=== PATIENT | female | born 1960 | race Caucasian/White ===

== ENCOUNTER 2018-11-08 16:55 | Inpatient (IN) | payer OTHER ==
[2018-11-08] MEDS ORDERED: NA CHLORIDE 0.9% 1,000 ML ONE (17:43)
[2018-11-08] MEDS ORDERED: THIAMINE 200 MG/2 ML INJ ONE (17:43)
--- NOTE | 2018-11-08 17:44 | RAD REPORT ---
EXAM DESCRIPTION: CT - Head Brain Wo Cont - 11/08/2018 5:36 pm CLINICAL HISTORY: Dizziness;Seizure COMPARISON: HEAD BRAIN W O CONTRAST dated 08/04/2012; HEAD BRAIN W O CONTRAST dated 12/28/2009 TECHNIQUE: All CT scans are performed using dose optimization technique as appropriate and may inclu de automated exposure control or mA/KV adjustment according to patient size. FINDINGS: No intracranial hemorrhage, hydrocephalus or extra-axial fluid collection.No areas of brai n edema or evidence of midline shift. The paranasal sinuses and mastoids are clear. The calvarium is intact. IMPRESSION: No acute intracranial abnormality.
--- NOTE | 2018-11-08 17:52 | RAD REPORT ---
EXAM DESCRIPTION: RAD - Chest Single View - 11/08/2018 5:43 pm CLINICAL HISTORY: COUGH Chest pain. COMPARISON: CHEST SINGLE VIEW dated 08/26/2012; CHEST SINGLE VIEW dated 12/28/2009; CHEST SINGLE VIEW dated 09/04/2009; CHEST SINGLE VIEW dated 06/07/2009 FINDINGS: Portable technique limits examination quality. The lungs are grossly clear. The heart is normal in size. No displaced fractures.Cervical hardware pl ate is noted. IMPRESSION: No acute intrathoracic process suspected.
[2018-11-08] MEDS ORDERED: FOLIC ACID 5 MG/ML VIAL ONE (18:14)
[2018-11-08] MEDS ORDERED: MULTIVITAMINS 10 ML VIAL (INJ) IV ONE (18:14)
[2018-11-08 18:23] LABS: Absolute Lymphocytes (CBC) 1.5 K/uL (0.7-4.9); Hematocrit 38.1 % (36.0-45.0); Lymphocytes % 21.3 % (15.3-44.8); MPV 7.4 fL (7.6-11.3)
[2018-11-08 18:26] LABS: Protime INR 0.9
[2018-11-08 18:34] LABS: Barbiturates NEGATIVE (NEGATIVE); Benzodiazepines NEGATIVE (NEGATIVE); Cocaine NEGATIVE (NEGATIVE); METHAMPHETAM NEGATIVE (NEGATIVE); Methadone NEGATIVE (NEGATIVE); Opiates NEGATIVE (NEGATIVE); Phencyclidine NEGATIVE (NEGATIVE); THC Cannibis NEGATIVE (NEGATIVE)
[2018-11-08 18:50] LABS: ALT/SGPT 29 U/L (12-78); AST/SGOT 32 U/L (15-37); Albumin 3.3 g/dL (3.4-5.0); Alkaline Phosphatase 129 U/L (45-117); BUN Blood Urea Nitrogen 12 mg/dL (7-18); Bicarbonate 20 mmol/L (21-32); Bilirubin Direct < 0.1 mg/dL (0-0.2); Bilirubin Total 0.2 mg/dL (0.2-1.0); Glucose Level 112 mg/dL (74-106); Magnesium 1.9 mg/dL (1.8-2.4); NT PRO-BNP 115 pg/mL (<125); Protein, Total 6.9 g/dL (6.4-8.2); Sodium Level 139 mmol/L (136-145)
[2018-11-08 18:56] LABS: Troponin (Emerg Dept Use Only) < 0.02 ng/mL (0.0-0.045)
--- NOTE | 2018-11-08 19:18 | ER ---
Nurse's Notes [facility] Name: Isabelle Lowery Age: 58 yrs Sex: Female : 1960 Arrival Date: 11/08/2018 Time: 16:59 Bed 13 Private MD: Diagnosis: Weakness;Ataxic gait;Bipolar disorder;Repeated falls;Alcohol abuse Presentation: 11/08 17:11 Presenting complaint: states: "she has been doing these jerky movements, almost sv like Parkinson's for about a week now. She told me on Wednesday that she took too much of her Seroquel and then I locked up all of her medications." Pt states that she took too much Seroquel Wednesday because "I wanted to ." Pt denies SI at this time. Pt reports having 3 shots of tequila today. Pt was found today laying in her driveway passed out. Transition of care: patient was not received from another setting of care. Onset of symptoms was November 08, 2018. Risk Assessment: Do you want to hurt yourself or someone else? Patient reports no desire to harm self or others. Initial Sepsis Screen: Does the patient meet any 2 criteria? Yes Does the patient have a suspected source of infection? No. Patient's initial sepsis screen is negative. Care prior to arrival: None. 17:11 Method Of Arrival: Ambulatory sv 17:11 Acuity: [place]UG[place] 3 sv Historical: - Allergies: 17:16 No Known Allergies; sv - Home Meds: 17:16 Seroquel 300 mg Oral tab [Active]; fluoxetine 20 mg Oral tab [Active]; lithium sv carbonate 300 mg Oral tab [Active]; levothyroxine 50 mcg tab [Active]; Prozac 20 mg Oral cap [Active]; Vistaril 25 mg Oral cap [Active]; Minipress 1 mg Oral cap [Active]; trazodone 100 mg Oral tab [Active]; Risperdal 1 mg Oral tab [Active]; bupropion HCl 150 mg Oral TbER [Active]; - PMHx: 17:16 Hypotension; Bipolar disorder; Schizophrenia; sv - PSHx: 17:16 Cholecystectomy; ; sv - Immunization history:: Adult Immunizations unknown. - Social history:: Smoking status: Patient uses tobacco products, smokes one pack cigarettes per day. - Ebola Screening: : No symptoms or risks identified at this time. Screenin:26 Abuse screen: Denies threats or abuse. Denies injuries from another. Nutritional rv screening: No deficits noted. Tuberculosis screening: No symptoms or risk factors identified. Fall Risk None identified. Assessment: 18:25 General: Appears in no apparent distress. comfortable, Behavior is calm, cooperative. rv Pain: Complains of pain in left foot. Neuro: Level of Consciousness is awake, alert, obeys commands, Oriented to person, place, time, situation. Cardiovascular: Patient's skin is warm and dry. Respiratory: Airway is patent. GI: No signs and/or symptoms were reported involving the gastrointestinal system. : No signs and/or symptoms were reported regarding the genitourinary system. EENT: No signs and/or symptoms were reported regarding the EENT system. Derm: Skin is intact. Musculoskeletal: No signs and/or symptoms reported regarding the musculoskeletal system. 18:32 Reassessment: called [facility], suggested blood works. most likely rv the Seroquel will not show effects by now because it has been a week ago. suggesting to check on other possible medicine overdose and check for [place] level. . 19:00 General: Appears in no apparent distress. comfortable, Behavior is calm, cooperative, rr5 appropriate for age, mild tremors noted.. 19:00 Pain: Denies pain. Neuro: Level of Consciousness is awake, alert, obeys commands, rr5 Oriented to person, place, time, situation, Appropriate for age. Cardiovascular: Capillary refill < 3 seconds Patient's skin is warm and dry. Respiratory: Airway is patent Respiratory effort is even, unlabored, Respiratory pattern is regular, symmetrical. GI: No signs and/or symptoms were reported involving the gastrointestinal system. : No signs and/or symptoms were reported regarding the genitourinary system. EENT: No signs and/or symptoms were reported regarding the EENT system. Derm: Skin is intact, Skin temperature is warm. Musculoskeletal: Circulation, motion, and sensation intact. Capillary refill < 3 seconds, tremors noted. 19:00 Reassessment: Patient appears in no apparent distress at this time. Patient and/or rr5 family updated on plan of care and expected duration. Pain level reassessed. Patient is alert, oriented x 3, equal unlabored respirations, skin warm/dry/pink. updated the patient for admission , she agreed for the plan of care. 19:10 Reassessment: lithium 2.3 laboratory staff IVO. ED provider informed. rr5 20:05 Reassessment: Patient appears in no apparent distress at this time. Patient is alert, rr5 oriented x 3, equal unlabored respirations, skin warm/dry/pink. awaiting for room assignment. no complaints made. Patient states symptoms have improved. 20:21 Reassessment: poison control staff saida called and get an update. case number [id number]. she said if the lithium level is still on the higher level please call them back to refer her to toxicology for consideration of dialysis. 21:30 Reassessment: Patient appears in no apparent distress at this time. Patient and/or rr5 family updated on plan of care and expected duration. Pain level reassessed. Patient is alert, oriented x 3, equal unlabored respirations, skin warm/dry/pink. resting eyes closed breathing spontaneously at room air. vitally stable. Vital Signs: 17:16 BP 115 / 88; Pulse 86; Resp 16; Temp 97.6; Pulse Ox 96% ; Weight 72.57 kg; Height 5 ft. sv 4 in. (162.56 cm); 17:30 BP 115 / 86; Pulse 84; Resp 14; Pulse Ox 94% on R/A; rv 18:04 BP 117 / 84; Pulse 78; Resp 15; Pulse Ox 95% on R/A; rv 18:15 BP 113 / 85; Pulse 78; Resp 16; Pulse Ox 95% on R/A; rv 18:31 BP 128 / 72; Pulse 78; Resp 17; Pulse Ox 95% on R/A; rv 19:15 BP 118 / 78; Pulse 74; Resp 19; Temp 99.5; Pulse Ox 99% ; rr5 21:31 BP 116 / 86; Pulse 80; Resp 17; Temp 99.2; Pulse Ox 96% ; rr5 17:16 Body Mass Index 27.46 (72.57 kg, 162.56 cm) sv [place] Coma Score: 18:26 Eye Response: spontaneous(4). Verbal Response: oriented(5). Motor Response: obeys rv commands(6). Total: 15. ED Course: 16:59 Patient arrived in ED. mr 17:14 Triage completed. sv 17:16 Ney Meier MD is Attending Physician. charu 17:17 Arm band placed on. sv 17:25 Arun Paredes, RN is Primary Nurse. rv 17:30 EKG done, by emergency room technician. reviewed by Ney Meier MD. sm3 17:41 CT Head Brain wo Cont In Process Unspecified. EDMS 17:46 XRAY Chest (1 view) In Process Unspecified. EDMS 18:05 Inserted saline lock: 20 gauge in left antecubital area, using aseptic technique. Blood rv collected. 18:26 Patient has correct armband on for positive identification. Placed in gown. Bed in low rv position. Call light in reach. Side rails up X2. Adult w/ patient. Fall risk band placed. Seizure precautions initiated. patient monitor on. Pulse ox on. NIBP on. 19:13 Janey Larios MD is Hospitalizing Provider. charu 21:31 No provider procedures requiring assistance completed. Patient admitted, IV remains in rr5 place. intact, No redness/swelling at site. Administered Medications: 18:14 Drug: Banana Bag - (NS 0.9% 1000 ml, foLIC Acid 1 mg, Thiamine 100 mg, Multivitamin 1 rv amp) Route: IV; Rate: 125 ml/hr; Site: left antecubital; 22:53 Follow up: IV Status: Completed infusion rv 19:34 Not Given (Duplicate Order): NS 0.9% 1000 ml IV at 1 bolus Per protocol; 1000 mL bolus rr5 19:34 Not Given (Duplicate Order): Thiamine 100 mg IV at bolus once rr5 Outcome: 19:16 Decision to Hospitalize by Provider. charu 21:31 Admitted to Tele accompanied by tech, via stretcher, room 402, with chart, Report rr5 called to sondra 21:31 Condition: stable 21:31 Instructed on the need for admit. rr5 22:06 Patient left the ED. rr5 Signatures: Dispatcher [employer] Sandra Talley, RN Ney Kulkarni MD MD cha Rivera, Colleen Bello, Dalila 3 Arun Paredes, RN RN rv Naren Kee, RN RN rr5
--- NOTE | 2018-11-08 19:19 | EDPHYS ---
Physician Documentation [facility] Name: Isabelle Lowery Age: 58 yrs Sex: Female : 1960 Arrival Date: 11/08/2018 Time: 16:59 Bed 13 Private MD: Ney Tam HPI: 11/08 18:00 This 58 yrs old Female presents to ER via Ambulatory with complaints of charu Probable Seizure. 18:00 The patient presents after having a possible seizure episode, no tonic-clonic activity charu was appreciated, no post-ictal period is described. Character of seizure(s): Loss of consciousness: the patient did not lose consciousness, Motor activity: the motor activity is unknown, Incontinence: none, Apnea: the patient did not experience apnea. Seizure onset: just prior to arrival, this morning, today. Context: occurred at home. Seizure Hx: the patient has no previous seizure history. Historical: - Allergies: 17:16 No Known Allergies; sv - Home Meds: 17:16 Seroquel 300 mg Oral tab [Active]; fluoxetine 20 mg Oral tab [Active]; lithium sv carbonate 300 mg Oral tab [Active]; levothyroxine 50 mcg tab [Active]; Prozac 20 mg Oral cap [Active]; Vistaril 25 mg Oral cap [Active]; Minipress 1 mg Oral cap [Active]; trazodone 100 mg Oral tab [Active]; Risperdal 1 mg Oral tab [Active]; bupropion HCl 150 mg Oral TbER [Active]; - PMHx: 17:16 Hypotension; Bipolar disorder; Schizophrenia; sv - PSHx: 17:16 Cholecystectomy; ; sv - Immunization history:: Adult Immunizations unknown. - Social history:: Smoking status: Patient uses tobacco products, smokes one pack cigarettes per day. - Ebola Screening: : No symptoms or risks identified at this time. ROS: 18:02 Constitutional: Negative for fever, chills, and weight loss, Eyes: Negative for injury, charu pain, redness, and discharge, ENT: Negative for injury, pain, and discharge, Neck: Negative for injury, pain, and swelling, Cardiovascular: Negative for chest pain, palpitations, and edema, Respiratory: Negative for shortness of breath, cough, wheezing, and pleuritic chest pain, Abdomen/GI: Negative for abdominal pain, nausea, vomiting, diarrhea, and constipation, Back: Negative for injury and pain, : Negative for injury, bleeding, discharge, and swelling, MS/Extremity: Negative for injury and deformity, Skin: Negative for injury, rash, and discoloration, Psych: Negative for depression, anxiety, suicide ideation, homicidal ideation, and hallucinations, Allergy/Immunology: Negative for hives, rash, and allergies, Endocrine: Negative for neck swelling, polydipsia, polyuria, polyphagia, and marked weight changes, Hematologic/Lymphatic: Negative for swollen nodes, abnormal bleeding, and unusual bruising. 18:02 Neuro: Positive for dizziness, gait disturbance, seizure activity, weakness. Exam: 18:02 Constitutional: This is a well developed, well nourished patient who is awake, alert, charu and in no acute distress. Head/Face: Normocephalic, atraumatic. Eyes: Pupils equal round and reactive to light, extra-ocular motions intact. Lids and lashes normal. Conjunctiva and sclera are non-icteric and not injected. Cornea within normal limits. Periorbital areas with no swelling, redness, or edema. ENT: Nares patent. No nasal discharge, no septal abnormalities noted. Tympanic membranes are normal and external auditory canals are clear. Oropharynx with no redness, swelling, or masses, exudates, or evidence of obstruction, uvula midline. Mucous membranes moist. Neck: Trachea midline, no thyromegaly or masses palpated, and no cervical lymphadenopathy. Supple, full range of motion without nuchal rigidity, or vertebral point tenderness. No Meningismus. Chest/axilla: Normal chest wall appearance and motion. Nontender with no deformity. No lesions are appreciated. Cardiovascular: Regular rate and rhythm with a normal S1 and S2. No gallops, murmurs, or rubs. Normal PMI, no JVD. No pulse deficits. Respiratory: Lungs have equal breath sounds bilaterally, clear to auscultation and percussion. No rales, rhonchi or wheezes noted. No increased work of breathing, no retractions or nasal flaring. Abdomen/GI: Soft, non-tender, with normal bowel sounds. No distension or tympany. No guarding or rebound. No evidence of tenderness throughout. Female : Normal external genitalia. Skin: Warm, dry with normal turgor. Normal color with no rashes, no lesions, and no evidence of cellulitis. Psych: Awake, alert, with orientation to person, place and time. Behavior, mood, and affect are within normal limits. 18:02 Back: Exam negative for Vital Signs: 17:16 BP 115 / 88; Pulse 86; Resp 16; Temp 97.6; Pulse Ox 96% ; Weight 72.57 kg; Height 5 ft. sv 4 in. (162.56 cm); 17:30 BP 115 / 86; Pulse 84; Resp 14; Pulse Ox 94% on R/A; rv 18:04 BP 117 / 84; Pulse 78; Resp 15; Pulse Ox 95% on R/A; rv 18:15 BP 113 / 85; Pulse 78; Resp 16; Pulse Ox 95% on R/A; rv 18:31 BP 128 / 72; Pulse 78; Resp 17; Pulse Ox 95% on R/A; rv 19:15 BP 118 / 78; Pulse 74; Resp 19; Temp 99.5; Pulse Ox 99% ; rr5 21:31 BP 116 / 86; Pulse 80; Resp 17; Temp 99.2; Pulse Ox 96% ; rr5 17:16 Body Mass Index 27.46 (72.57 kg, 162.56 cm) sv [place] Coma Score: 18:26 Eye Response: spontaneous(4). Verbal Response: oriented(5). Motor Response: obeys rv commands(6). Total: 15. MDM: 17:16 Patient medically screened. [facility] 18:04 Data reviewed: vital signs, nurses notes, lab test result(s), EKG, radiologic studies, [facility] CT scan, plain films. 11/08 17:18 Order name: Basic Metabolic Panel; Complete Time: 19:06 [facility] 11/08 17:18 Order name: CBC with Diff; Complete Time: : [facility] 11/08 17:18 Order name: LFT's; Complete Time: : [facility] 11/08 17:18 Order name: Magnesium; Complete Time: 19: [facility] 11/08 17:18 Order name: NT PRO-BNP; Complete Time: 19:06 [facility] 11/08 17:18 Order name: PT-INR; Complete Time: 19:06 [facility] 11/08 17:18 Order name: Troponin (emerg Dept Use Only); Complete Time: 19:42 [facility] 11/08 17:18 Order name: Acetaminophen; Complete Time: 19:42 [facility] 11/08 17:18 Order name: ETOH Level; Complete Time: 19:06 [facility] 11/08 17:18 Order name: Ptt, Activated; Complete Time: 19:06 [facility] 11/08 17:18 Order name: Salicylate; Complete Time: 19:06 [facility] 11/08 17:18 Order name: Urine Drug Screen; Complete Time: 19:06 [facility] 11/08 18:02 Order name: [place] [facility] 11/08 18:11 Order name: Urine Dipstick--Ancillary (enter results) 11/08 17:18 Order name: XRAY Chest (1 view); Complete Time: 18:00 [facility] 11/08 17:18 Order name: EKG; Complete Time: 17:20 [facility] 11/08 17:18 Order name: CT Head Brain wo Cont; Complete Time: 18:00 [facility] 11/08 19:11 Order name: [place]; Complete Time: 20:02 [facility] 11/08 20:16 Order name: CONS Pharmacy Consult [facility] 11/08 20:16 Order name: CONS Physician Consult [facility] 11/08 20:16 Order name: Comprehensive Metabolic Panel [facility] 11/08 20:16 Order name: Comprehensive Metabolic Panel [facility] 11/08 20:16 Order name: Protime (+INR) [facility] 11/08 20:16 Order name: Protime (+INR) [facility] 11/08 20:16 Order name: PTT, Activated Partial Thromb [facility] 11/08 20:16 Order name: PTT, Activated Partial Thromb [facility] 11/08 20:17 Order name: NPO [facility] 11/08 17:18 Order name: Cardiac monitoring; Complete Time: 19:03 [facility] 11/08 17:18 Order name: EKG - Nurse/Tech; Complete Time: 19:03 [facility] 11/08 17:18 Order name: IV Saline Lock; Complete Time: 19:03 [facility] 11/08 17:18 Order name: Labs collected and sent; Complete Time: 19:03 [facility] 11/08 17:18 Order name: O2 Per Protocol; Complete Time: 19:03 [facility] 11/08 17:18 Order name: O2 Sat Monitoring; Complete Time: 19:03 [facility] 11/08 17:18 Order name: Urine Dipstick-Ancillary (obtain specimen); Complete Time: 18:58 [facility] 11/08 17:18 Order name: Misc. Order: CALL Poison control; Complete Time: 18:17 charu 11/08 17:19 Order name: Seizure Precautions; Complete Time: 17:42 [facility] Administered Medications: 18:14 Drug: Banana Bag - (NS 0.9% 1000 ml, foLIC Acid 1 mg, Thiamine 100 mg, Multivitamin 1 rv amp) Route: IV; Rate: 125 ml/hr; Site: left antecubital; 22:53 Follow up: IV Status: Completed infusion rv 19:34 Not Given (Duplicate Order): NS 0.9% 1000 ml IV at 1 bolus Per protocol; 1000 mL bolus rr5 19:34 Not Given (Duplicate Order): Thiamine 100 mg IV at bolus once rr5 Disposition: 11/08/18 19:16 Hospitalization ordered by Janey Larios for Inpatient Admission. Preliminary diagnosis are Weakness, Ataxic gait, Bipolar disorder, Repeated falls, Alcohol abuse. - Bed requested for Telemetry/MedSurg (Inpatient). - Status is Inpatient Admission. rr5 - Condition is Fair. - Problem is new. - Symptoms have improved. UTI on Admission? No Signatures: Dispatcher [employer] EDMS Sandra Minor RN Ney Kulkarni MD MD cha Therrien, Shelly, INSURANCE RISK SURVEYOR-C INSURANCE RISK SURVEYOR-Csnw Jocelyn Fernando, KELTON RN Arun Paredes RN RN Naren Kee RN RN rr5 Corrections: (The following items were deleted from the chart) 20:38 19:16 Hospitalization Ordered by Janey Larios MD for Inpatient Admission. Preliminary cg diagnosis is Weakness; Ataxic gait; Bipolar disorder; Repeated falls; Alcohol abuse. Bed requested for Telemetry/MedSurg (Inpatient). Status is Inpatient Admission. Condition is Fair. Problem is new. Symptoms have improved. UTI on Admission? No. charu 20:42 20:38 11/08/2018 19:16 Hospitalization Ordered by Janey Larios MD for Inpatient cg Admission. Preliminary diagnosis is Weakness; Ataxic gait; Bipolar disorder; Repeated falls; Alcohol abuse. Bed requested for Telemetry/MedSurg (Inpatient). Status is Inpatient Admission. Condition is Fair. Problem is new. Symptoms have improved. UTI on Admission? No. cg 22:06 20:42 11/08/2018 19:16 Hospitalization Ordered by Janey Larios MD for Inpatient rr5 Admission. Preliminary diagnosis is Weakness; Ataxic gait; Bipolar disorder; Repeated falls; Alcohol abuse. Bed requested for Telemetry/MedSurg (Inpatient). Status is Inpatient Admission. Condition is Fair. Problem is new. Symptoms have improved. UTI on Admission? No. cg
[2018-11-08] MEDS ORDERED: MORPHINE 2 MG/ML SYR IV PRN (19:50)
[2018-11-08] MEDS ORDERED: ONDANSETRON 4 MG/2 ML VIAL IV PRN (19:50)
[2018-11-08] MEDS ORDERED: ACETAMINOPHEN 500 MG TAB PO PRN (19:50)
[2018-11-08 21:51] LABS: Urine Blood NEGATIVE (NEG); Urine Glucose NEGATIVE (NEG); Urine Protein NEGATIVE (NEG)
[2018-11-08 22:38] VITALS: BMI 26.2
[2018-11-08] MEDS: NA CHLORIDE 0.9% 1,000 ML IV SCH (22:57)
[2018-11-09 04:44] LABS: Absolute Lymphocytes (CBC) 2.4 K/uL (0.7-4.9); Basophils % 1.1 % (0-1.3); Hematocrit 35.6 % (36.0-45.0); MPV 7.3 fL (7.6-11.3); RBC Red Blood Cell Count 3.81 M/uL (3.86-4.86)
[2018-11-09 05:02] LABS: Albumin 2.8 g/dL (3.4-5.0); Bilirubin Total 0.4 mg/dL (0.2-1.0); Potassium 4.2 mmol/L (3.5-5.1); Protein, Total 5.7 g/dL (6.4-8.2)
[2018-11-09 05:08] LABS: Protime INR 0.95
[2018-11-09] MEDS ORDERED: PNEUMOCOCCAL VACCINE 0.5 ML IMVAC ONE (09:00)
[2018-11-09] MEDS: NA CHLORIDE 0.9% 1,000 ML IV SCH (09:20)
--- NOTE | 2018-11-09 09:24 | EKG ---
Test Date: 2018-11-08 Test Time: 17:28:29 Retouching Operator: ZEE MEASUREMENT RESULTS: Intervals: Rate: 80 DC: 134 QRSD: 86 QT: 390 QTc: 449 [place]: P: 8 DC: 134 QRS: 20 T: 29 INTERPRETIVE STATEMENTS: Normal sinus rhythm Nonspecific T wave abnormality Abnormal ECG Compared to ECG 08/26/2012 19:45:26 T-wave abnormality now present Sinus bradycardia no longer present Electronically Signed On 11-09-18 09:23:13 CDT by Saúl Logan
--- NOTE | 2018-11-09 10:00 | RAD REPORT ---
EXAM DESCRIPTION: MRI - Brain Wo Cont - 11/09/2018 8:50 am CLINICAL HISTORY: weakness/ataxia/AMS COMPARISON: Head Brain Wo Cont dated 11/08/2018 TECHNIQUE: Multi-sequence, multiplanar MR imaging of the brain was performed without contrast. FINDINGS: No intracranial hemorrhage, hydrocephalus or extra-axial fluid collections. No edema or sh ift of midline structures. No findings to suspect brain mass. DWI is negative for acute CVA. Midline structures are normally formed. Mastoid air cells and paranasal sinuses are clear. IMPRESSION: No acute or concerning intracranial abnormalities.
[2018-11-09] MEDS: ASPIRIN EC 81 MG TAB PO SCH (10:30)
[2018-11-09] MEDS ORDERED: FOLIC ACID 1 MG, MULTIVITAMINS INJ 10 ML, THIAMINE HCL 100 MG in NA CHLORIDE 0.9% 1,000 ML IV ONE (12:00)
--- NOTE | 2018-11-09 12:25 | P.PN ---
Subjective Date of Service: 11/09/18 Subjective: No C/O voiced, Ambulating, Improving, Working w/ PT, Doing well Review of Systems 10-point ROS is otherwise unremarkable Physical Examination - Vital Signs Temperature: 97.9 F Blood Pressure: 133/85 Pulse: 72 Respirations: 17 Pulse Ox (%): 97 - Physical Exam General: Alert, In no apparent distress, Oriented x2 HEENT: Atraumatic, PERRLA, EOMI Neck: Supple, JVD not distended Respiratory: Clear to auscultation bilaterally, Normal air movement Cardiovascular: Regular rate/rhythm, Normal S1 S2 Gastrointestinal: Normal bowel sounds, No tenderness Musculoskeletal: No tenderness Integumentary: No rashes Neurological: Normal speech, Normal tone, Normal affect Lymphatics: No axilla or inguinal lymphadenopathy - Studies Laboratory Data (last 24 hrs) 11/08/18 17:50: PT 10.7, INR 0.90, APTT 30.0 11/08/18 17:50: WBC 7.0, Hgb 13.4, Hct 38.1, Plt Count 415 H 11/08/18 17:50: Sodium 139, Potassium 4.0, BUN 12, Creatinine 0.84, Glucose 112 H, Magnesium 1.9, Total Bilirubin 0.2, AST 32, ALT 29, Alkaline Phosphatase 129 H Medications List Reviewed: Yes Assessment And Plan - Current Problems (Diagnosis) (1) Altered mental status Current Visit: Yes Status: Acute Plan: Altered mental status most likely secondary to alcohol intoxication -alert and oriented x2 -head CTs negative and brain MRI is negative for any acute abnormality -continue with IV fluids here in the hospital and re-examine about next 24 hr -PTOT consulted as well -neurology is consulted as well -pending ESR, rpr, EEG at this time Qualifiers: Altered mental status type: disorientation Qualified Code(s): R41.0 - Disorientation, unspecified (2) Alcohol intoxication Current Visit: Yes Status: Acute Qualifiers: Complication of substance-induced condition: uncomplicated Qualified Code(s ): F10.920 - Alcohol use, unspecified with intoxication, uncomplicated - Plan Pending clinical improvement at this time Discharge Plan: Home Plan to discharge in: 48 Hours - Code Status/Comfort Care Code Status Assessed: Yes Critical Care: No
--- NOTE | 2018-11-09 13:09 | P.HP ---
Certification for Inpatient Patient admitted to: Inpatient With expected LOS: >2 Midnights Patient will require the following post-hospital care: None Practitioner: I am a practitioner with admitting privileges, knowledge of patient current condition, hospital course, and medical plan of care. Services: Services provided to patient in accordance with Admission requirements found in Title 42 Section 412.3 of the Code of Federal Regulations Patient History Date of Service: 11/08/18 Reason for admission: AMS/possible seizure/ataxia/tremors History of Present Illness: Patient is a 58-year-old female who presents to the hospital with altered mentation. According to her, she has been not feeling like herself. She has had weakness, as well as ataxia. She has also had tremors. She has been feeling depressed, and she took a few extra doses of her seroquel. Her took them away from her because she had been feeling suicidal. This resolved, but her tremors and her weakness have not. She also has an ataxic gait as well. Decision was made to admit the patient to the hospital for further evaluation. She had a CT of the head which is negative; electrolytes were negative as well. Allergies No Known Allergies Allergy (Verified 11/09/18 01:26) Home Medications: Bupropion HCl [Bupropion HCl Sr] 1 tab PO DAILY 11/09/18 Fluoxetine HCl [Prozac*] 4 tab PO DAILY 11/09/18 Levothyroxine [Synthroid*] 1 tab PO DAILY 11/09/18 [place] Carbonate [Lithotabs *] 4 tab PO DAILY 11/09/18 Prazosin HCl 1 tab PO DAILY 11/09/18 Quetiapine Fumarate [Seroquel] 4 tab PO DAILY 11/09/18 Trazodone [Desyrel*] 200 mg PO BEDTIME 11/09/18 risperiDONE [Risperidone] 1 tab PO SEECOM 11/09/18 traMADol HCL [Ultram*] 1 tab PO Q6H PRN 11/09/18 - Past Medical/Surgical History Has patient received pneumonia vaccine in the past: No Diabetic: Yes -: Bipolar -: anemia -: Schizoprenia -: hypotension -: cholecystectomy -: -: breast enlargements - Family History Mother Medical History: Cancer Notes: throat Father Notes: alcoholic - Social History Smoking Status: Current every day smoker Alcohol use: Yes CD- Drugs: No Caffeine use: Yes Place of Residence: Home Review of Systems 10-point ROS is otherwise unremarkable Physical Examination - Vital Signs Temperature: 97.9 F Blood Pressure: 133/85 Pulse: 72 Respirations: 17 Pulse Ox (%): 97 - Physical Exam General: Alert, In no apparent distress, Oriented x2 HEENT: Atraumatic, PERRLA, Mucous membr. moist/pink, EOMI, Sclerae nonicteric Neck: Supple, 2+ carotid pulse no bruit, No LAD, Without JVD or thyroid abnormality Respiratory: Clear to auscultation bilaterally, Normal air movement Cardiovascular: Regular rate/rhythm, Normal S1 S2, No murmurs Gastrointestinal: Normal bowel sounds, Soft and benign, Non-distended, No tenderness Musculoskeletal: No clubbing, No swelling, No tenderness Integumentary: No rashes Neurological: Normal speech, Normal tone, Sensation intact, Cranial nerves 3-12 intact, Normal affect, Abnormal gait, Abnormal strength Lymphatics: No axilla or inguinal lymphadenopathy - Studies Laboratory Data (last 24 hrs) 11/08/18 17:50: PT 10.7, INR 0.90, APTT 30.0 11/08/18 17:50: WBC 7.0, Hgb 13.4, Hct 38.1, Plt Count 415 H 11/08/18 17:50: Sodium 139, Potassium 4.0, BUN 12, Creatinine 0.84, Glucose 112 H, Magnesium 1.9, Total Bilirubin 0.2, AST 32, ALT 29, Alkaline Phosphatase 129 H Assessment & Plan - Problems (Diagnosis) (1) Altered mental status Current Visit: Yes Status: Acute Qualifiers: Altered mental status type: disorientation Qualified Code(s): R41.0 - Disorientation, unspecified - Plan -IV hydration -check renal function and electrolytes -MRI of the brain -check thyroid studies and cortisol studies -bed check in place -physical therapy evaluation once mentation is improved -may need [facility] eval -b12, folate -thiamine - Advance Directives Does patient have a Living Will: No Does patient have a Durable POA for Healthcare: No
[2018-11-09 13:19] VITALS: O2SAT 94
[2018-11-09 15:49] LABS: Barbiturates NEGATIVE (NEGATIVE); Benzodiazepines NEGATIVE (NEGATIVE); Cocaine NEGATIVE (NEGATIVE); METHAMPHETAM NEGATIVE (NEGATIVE); Methadone NEGATIVE (NEGATIVE); Opiates NEGATIVE (NEGATIVE); Phencyclidine NEGATIVE (NEGATIVE); THC Cannibis NEGATIVE (NEGATIVE)
[2018-11-09] MEDS ORDERED: ENOXAPARIN 40 MG/0.4 ML SQ SCH (17:00)
[2018-11-09] MEDS ORDERED: ATORVASTATIN 20 MG TAB PO SCH (21:00)
[2018-11-10 01:17] LABS: RPR (Rapid Plasma Reagin) NON-REACT (NON-REACT)
[2018-11-10] MEDS ORDERED: LEVOTHYROXINE SOD 0.05 MG TABLET PO SCH (06:30)
[2018-11-10] MEDS ORDERED: FOLIC ACID 1 MG, MULTIVITAMINS INJ 10 ML, THIAMINE HCL 100 MG in NA CHLORIDE 0.9% 1,000 ML IV SCH ×2 (09:00→11:30)
[2018-11-10] MEDS ORDERED: QUETIAPINE FUMARATE PO SCH (09:00)
[2018-11-10] MEDS: ASPIRIN EC 81 MG TAB PO SCH (09:21)
[2018-11-10 12:27] VITALS: BP 128/90; TEMP 97.4
--- NOTE | 2018-11-10 14:20 | P.SSS ---
Patient History Date of Service: 11/10/18 Reason for admission: AMS/possible seizure/ataxia/tremors History of Present Illness: Patient is a 58-year-old female who presents to the hospital with altered mentation. According to her, she has been not feeling like herself. She has had weakness, as well as ataxia. She has also had tremors. She has been feeling depressed, and she took a few extra doses of her seroquel. Her took them away from her because she had been feeling suicidal. This resolved, but her tremors and her weakness have not. She also has an ataxic gait as well. Decision was made to admit the patient to the hospital for further evaluation. She had a CT of the head which is negative; electrolytes were negative as well. Allergies No Known Allergies Allergy (Verified 11/09/18 01:26) Home Medications: Bupropion HCl [Bupropion HCl Sr] 1 tab PO DAILY 11/09/18 Fluoxetine HCl [Prozac*] 4 tab PO DAILY 11/09/18 Levothyroxine [Synthroid*] 1 tab PO DAILY 11/09/18 [place] Carbonate [Lithotabs *] 4 tab PO DAILY 11/09/18 Prazosin HCl 1 tab PO DAILY 11/09/18 Quetiapine Fumarate [Seroquel] 4 tab PO DAILY 11/09/18 Trazodone [Desyrel*] 200 mg PO BEDTIME 11/09/18 risperiDONE [Risperidone] 1 tab PO SEECOM 11/09/18 traMADol HCL [Ultram*] 1 tab PO Q6H PRN 11/09/18 - Past Medical/Surgical History Has patient received pneumonia vaccine in the past: No Diabetic: Yes -: Bipolar -: anemia -: Schizoprenia -: hypotension -: cholecystectomy -: -: breast enlargements - Family History Mother -: Cancer Notes: throat Father Notes: alcoholic - Social History Smoking Status: Current every day smoker Alcohol use: Yes CD- Drugs: No Caffeine use: Yes Place of Residence: Home Review of Systems 10-point ROS is otherwise unremarkable Physical Examination - Vital Signs Temperature: 97.4 F Blood Pressure: 128/90 Pulse: 5 Respirations: 18 Pulse Ox (%): 96 - Physical Exam General: Alert, In no apparent distress HEENT: Atraumatic, PERRLA, Mucous membr. moist/pink, EOMI, Sclerae nonicteric Neck: Supple, 2+ carotid pulse no bruit, No LAD, Without JVD or thyroid abnormality Respiratory: Clear to auscultation bilaterally, Normal air movement Cardiovascular: Regular rate/rhythm, Normal S1 S2 Gastrointestinal: Normal bowel sounds, No tenderness Musculoskeletal: No tenderness Integumentary: No rashes Neurological: Normal gait, Normal speech, Normal strength at 5/5 x4 extr, Normal tone, Normal affect Lymphatics: No axilla or inguinal lymphadenopathy - Diagnosis (Problem(s)) (1) Altered mental status Current Visit: Yes Status: Acute Plan: Altered mental status most likely secondary to alcohol intoxication. Resolved -alert and oriented x3 -head CTs negative and brain MRI is negative for any acute abnormality -neurology is consulted. [facility] home -EEG and lab work WNL Qualifiers: Altered mental status type: disorientation Qualified Code(s): R41.0 - Disorientation, unspecified (2) Alcohol intoxication Current Visit: Yes Status: Acute Qualifiers: Complication of substance-induced condition: uncomplicated Qualified Code(s ): F10.920 - Alcohol use, unspecified with intoxication, uncomplicated - Disposition Disposition: ROUTINE DISCHARGE Condition: GOOD Diet: Regular Activity: Ad madyson
--- NOTE | 2018-11-16 14:07 | EEG ---
CHART: [id number] TEST ID#: [id number] DATE OF STUDY: 11/09/2018 THE EEG WAS RECORDED PORTABLE IN THE PATIENTS ROOM ON A 17 CHANNEL MACHINE. ELECTRODES WERE APPLIED IN THE USUAL MANNER USING THE INTERNATIONAL 10-20 SYSTEM. THE WAKING BACKGROUND RHYTHM IN THIS RECORD CONSISTS OF FAIRLY WELL DEVELOPED AND FAIRLY WELL ORGANIZED WAVES OF 8.5 HZ., MAXIMAL IN THE POSTERIOR HEAD REGIONS WHICH ATTENUATE NORMALLY WITH EYE OPENING. MODERATE VOLTAGE 1.5-3 HZ ACTIVITY IS EXPRESSED IN THE FRONTAL AND CENTRAL REGIONS. LOW-VOLTAGE 15-18 HZ ACTIVITY IS DIFFUSELY EXPRESSED. THERE ARE NO FOCAL OR LATERALIZING FEATURES. NO EPILEPTIFORM ACTIVITY APPEARS. SLEEP DID NOT OCCUR. HYPERVENTILATION WAS NOT PERFORMED. PHOTIC STIMULATION PRODUCED NO DRIVING BILATERALLY. IMPRESSION: THIS IS A MILDLY ABNORMAL ROUTINE EEG DUE TO A MILDLY SLOW BACKGROUND. THIS IS A NON-SPECIFIC FINDING INDICATING THE PRESENCE OF A MILD DIFFUSE DITURBANCE IN CEREBRAL ACTIVITY.
== END 2018-11-10 13:15 | disposition home or self-care (01) | DRG 897 ==
LOC: ER 16:55 → ERHOLD 20:18 → 4TH 21:43
PROVIDERS: ADMIT Family Medicine; ATTEND Hospitalist
DX: F10.129 Alcohol abuse with intoxication, unspecified (principal); F31.9 Bipolar disorder, unspecified; F17.210 Nicotine dependence, cigarettes, uncomplicated; Z23 Encounter for immunization
CPT/HCPCS: 36415; 70450; 70551; 71045; 80048; 80053; 80076; 80178; 80307; 80320; 80329; 81003; 82607; 82962; 83735; 83880; 84484; 85025; 85610; 85652; 85730; 86592; 90471; 90670; 93005; 95819; 96365; 96366; 97116; 97161; 97530; 99285; J1650; J3411; J7030

== ENCOUNTER 2019-12-24 08:43 | Inpatient (IN) | payer OTHER ==
--- OUTSIDE RECORDS SUMMARY | 2019-12-24 08:45 | XMS REPORT | Continuity of Care Document ---
:1960 Author Organization [facility] t Address [address] [place] [address] Care Team Providers Name Role Phone Sha Brennan DPM Attending Clinician Doctor Unassigned, Name Attending Clinician Unavailable Problems This patient has no known problems. Allergies, Adverse Reactions, Alerts This patient has no known allergies or adverse reactions. Medications This patient has no known medications. Procedures This patient has no known procedures. Encounters Start End Encounter Admission Attending Care Care Encounter Source Date/Time Date/Time Type Type Clinicians Facility Department ID 2018-10-13 2018-10-13 [facility] [id number] 11:00:00 23:59:00 Encounter José Luis Galan [id number] [place] [id number] [place] [id number] 2018-10-13 2018-10-13 Orders Doctor MICHAEL [id number] 00:00:00 00:00:00 Only UnassignedSOCO [id number] [place] [facility] [id number] Results This patient has no known results.
[2019-12-24] MEDS ORDERED: THIAMINE 200 MG/2 ML INJ ONE (09:16)
[2019-12-24] MEDS ORDERED: FENTANYL CITR 100 MCG/2 ML ONE ×2 (09:17→14:03)
[2019-12-24] MEDS ORDERED: FAMOTIDINE 20 MG/2 ML VIAL IV ONE (09:17)
[2019-12-24] MEDS ORDERED: ONDANSETRON 4 MG/2 ML VIAL ONE (09:17)
[2019-12-24] MEDS ORDERED: NA CHLORIDE 0.9% 1,000 ML ONE (09:17)
--- NOTE | 2019-12-24 09:23 | EDPHYS ---
Physician Documentation [facility] Name: Isabelle Lowery Age: 59 yrs Sex: Female : 1960 Arrival Date: 12/24/2019 Time: 08:49 Bed 7 Private MD: ED Physician Ney Meier HPI: 12/23 08:57 This 59 yrs old Female presents to ER via EMS with complaints of Hip Injury. charu 08:57 The patient or guardian reports decreased range of motion, deformity, an injury, pain. charu that occurred at home, sustained from a fall, the right lower extremity is shortened, right leg is externally rotated. The complaints affect the right femoral area and right hip. Onset: The symptoms/episode began/occurred just prior to arrival, this morning. Modifying factors: The symptoms are alleviated by remaining still, the symptoms are aggravated by any movement. Associated signs and symptoms: Loss of consciousness: the patient experienced no loss of consciousness. Severity of symptoms: At their worst the symptoms were moderate, in the emergency department the symptoms are unchanged. The patient has not experienced similar symptoms in the past. 09:01 heavy etoh, possible liver and Pancrease issues. charu Historical: - Allergies: 08:51 No Known Allergies; em - Home Meds: 08:51 Seroquel 300 mg Oral tab [Active]; lithium carbonate 300 mg Oral tab [Active]; Prozac em 20 mg Oral cap [Active]; - PMHx: 08:51 Bipolar disorder; hypotension; Schizophrenia; Depression; em - PSHx: 08:51 Cholecystectomy; ; em - Immunization history: Last tetanus immunization: - up to date. - Social history:: Smoking status: Patient reports the use of cigarette tobacco products, smokes one pack cigarettes per day. - Family history:: not pertinent. ROS: 08:57 Constitutional: Negative for fever, chills, and weight loss. charu 09:00 Eyes: Negative for injury, pain, redness, and discharge, ENT: Negative for injury, charu pain, and discharge, Neck: Negative for injury, pain, and swelling, Cardiovascular: Negative for chest pain, palpitations, and edema, Respiratory: Negative for shortness of breath, cough, wheezing, and pleuritic chest pain, Abdomen/GI: Negative for abdominal pain, nausea, vomiting, diarrhea, and constipation, Back: Negative for injury and pain, : Negative for injury, bleeding, discharge, and swelling, Skin: Negative for injury, rash, and discoloration, Neuro: Negative for headache, weakness, numbness, tingling, and seizure, Psych: Negative for depression, anxiety, suicide ideation, homicidal ideation, and hallucinations, Allergy/Immunology: Negative for hives, rash, and allergies, Endocrine: Negative for neck swelling, polydipsia, polyuria, polyphagia, and marked weight changes, Hematologic/Lymphatic: Negative for swollen nodes, abnormal bleeding, and unusual bruising. 09:00 MS/extremity: Positive for decreased range of motion, pain, swelling, tenderness, of the right hip, right gluteal fold, right inner thigh and right upper thigh. Exam: 08:57 Constitutional: This is a well developed, well nourished patient who is awake, alert, charu and in no acute distress. Eyes: Pupils equal round and reactive to light, extra-ocular motions intact. Lids and lashes normal. Conjunctiva and sclera are non-icteric and not injected. Cornea within normal limits. Periorbital areas with no swelling, redness, or edema. ENT: Nares patent. No nasal discharge, no septal abnormalities noted. Tympanic membranes are normal and external auditory canals are clear. Oropharynx with no redness, swelling, or masses, exudates, or evidence of obstruction, uvula midline. Mucous membranes moist. Neck: Trachea midline, no thyromegaly or masses palpated, and no cervical lymphadenopathy. Supple, full range of motion without nuchal rigidity, or vertebral point tenderness. No Meningismus. Chest/axilla: Normal chest wall appearance and motion. Nontender with no deformity. No lesions are appreciated. Cardiovascular: Regular rate and rhythm with a normal S1 and S2. No gallops, murmurs, or rubs. Normal PMI, no JVD. No pulse deficits. Respiratory: Lungs have equal breath sounds bilaterally, clear to auscultation and percussion. No rales, rhonchi or wheezes noted. No increased work of breathing, no retractions or nasal flaring. Abdomen/GI: Soft, non-tender, with normal bowel sounds. No distension or tympany. No guarding or rebound. No evidence of tenderness throughout. Back: No spinal tenderness. No costovertebral tenderness. Full range of motion. Female : Normal external genitalia. Skin: Warm, dry with normal turgor. Normal color with no rashes, no lesions, and no evidence of cellulitis. Neuro: Awake and alert, GCS 15, oriented to person, place, time, and situation. Cranial nerves II-XII grossly intact. Motor strength 5/5 in all extremities. Sensory grossly intact. Cerebellar exam normal. Normal gait. Psych: Awake, alert, with orientation to person, place and time. Behavior, mood, and affect are within normal limits. 08:57 Head/face: Noted is contusion, that is superficial, of the top of head and right cheek. 08:57 Musculoskeletal/extremity: ROM: limited active range of motion due to pain, limited passive range of motion due to pain, in the right hip, right gluteal fold, right inner thigh and right upper thigh. 09:18 ECG was reviewed by the Attending Physician. charu Vital Signs: 08:51 BP 133 / 80; Pulse 68; Resp 18; Temp 97.8; Pulse Ox 98% on R/A; Weight 54.43 kg; Height em 5 ft. 4 in. (162.56 cm); Pain 10/10; 11:00 BP 128 / 78; Pulse 76; Resp 18; Temp 98.2; Pulse Ox 97% on R/A; em 12:00 BP 126 / 79; Pulse 77; Resp 18; Pulse Ox 97% on R/A; Pain 10/10; em 08:51 Body Mass Index 20.60 (54.43 kg, 162.56 cm) em Anne-Marie Coma Score: 08:51 Eye Response: spontaneous(4). Verbal Response: oriented(5). Motor Response: obeys em commands(6). Total: 15. 11:00 Eye Response: spontaneous(4). Verbal Response: oriented(5). Motor Response: obeys em commands(6). Total: 15. 12:00 Eye Response: spontaneous(4). Verbal Response: oriented(5). Motor Response: obeys em commands(6). Total: 15. Trauma Score (Adult): 08:51 Eye Response: spontaneous(1); Verbal Response: oriented(1); Motor Response: obeys em commands(2); Systolic BP: > 89 mm Hg(4); Respiratory Rate: 10 to 29 per min(4); [place] Score: 15; Trauma Score: 12 11:00 Eye Response: spontaneous(1); Verbal Response: oriented(1); Motor Response: obeys em commands(2); Systolic BP: > 89 mm Hg(4); Respiratory Rate: 10 to 29 per min(4); [place] Score: 15; Trauma Score: 12 12:00 Eye Response: spontaneous(1); Verbal Response: oriented(1); Motor Response: obeys em commands(2); Systolic BP: > 89 mm Hg(4); Respiratory Rate: 10 to 29 per min(4); [place] Score: 15; Trauma Score: 12 MDM: 08:51 Patient medically screened. [facility] 08:57 Differential diagnosis: hip fracture, intertrochanteric fracture, femoral neck charu fracture, femoral shaft fracture. Data reviewed: vital signs, nurses notes, lab test result(s), EKG, radiologic studies, CT scan, plain films. Data interpreted: hand laster: rate is 68 beats/min, rhythm is regular, Pulse oximetry: on room air is 98 %. Test interpretation: by ED physician or midlevel provider: ECG, plain radiologic studies. Counseling: I had a detailed discussion with the patient and/or guardian regarding: the historical points, exam findings, and any diagnostic results supporting the discharge/admit diagnosis, the presence of at least one elevated blood pressure reading (>120/80) during this emergency department visit, lab results, radiology results, the need for further work-up and treatment in the hospital. 12/23 08:56 Order name: Basic Metabolic Panel; Complete Time: 10:09 [facility] 12/23 08:56 Order name: CBC with Diff; Complete Time: 10:37 [facility] 12/23 08:56 Order name: LFT's; Complete Time: 10: charu 12/23 08:56 Order name: Magnesium; Complete Time: 10: charu 12/23 08:56 Order name: NT PRO-BNP; Complete Time: 10: [facility] 12/23 08:56 Order name: PT-INR; Complete Time: 09:57 charu 12/23 08:56 Order name: Troponin (emerg Dept Use Only); Complete Time: 10:09 [facility] 12/23 08:57 Order name: Lipase; Complete Time: 10:09 12/23 09:09 Order name: T\T\S; Complete Time: 10:37 eb 12/23 09:09 Order name: COVID-19 eb 12/23 09:26 Order name: [place] [facility] 12/23 10:11 Order name: CBC with Automated Diff EDMS 12/23 10:11 Order name: CBC with Automated Diff EDMS 12/23 10:11 Order name: Comprehensive Metabolic Panel EDMS 12/23 08:56 Order name: XRAY Chest (1 view) charu 12/23 08:56 Order name: Pelvis XRAY charu 12/23 08:56 Order name: Hip Right 2 View XRAY charu 12/23 08:56 Order name: Femur Right XRAY [facility] 12/23 09:57 Order name: CT Traumagram (Head C Spine CAP W Con) [facility] 12/23 10:11 Order name: Comprehensive Metabolic Panel EDMS 12/23 10:11 Order name: Magnesium EDMS 12/23 10:11 Order name: Magnesium EDMS 12/23 10:11 Order name: Phosphorus EDMS 12/23 10:11 Order name: Phosphorus EDMS 12/23 10:11 Order name: Protime (+INR) EDMS 12/23 10:11 Order name: Protime (+INR) EDMS 12/23 10:11 Order name: PTT, Activated Partial Thromb EDMS 12/23 10:11 Order name: PTT, Activated Partial Thromb EDMS 12/23 10:25 Order name: Manual Differential; Complete Time: 10:37 EDMS 12/23 12:25 Order name: SARS-COV-2 RT PCR EDMS 12/23 08:56 Order name: EKG; Complete Time: 08:57 [facility] 12/23 08:56 Order name: Cardiac monitoring; Complete Time: 09:37 [facility] 12/23 08:56 Order name: EKG - Nurse/Tech; Complete Time: 09:05 [facility] 12/23 08:56 Order name: IV Saline Lock; Complete Time: 09:37 [facility] 12/23 08:56 Order name: Labs collected and sent; Complete Time: 09:37 [facility] 12/23 08:56 Order name: O2 Per Protocol; Complete Time: 09:37 [facility] 12/23 08:56 Order name: O2 Sat Monitoring; Complete Time: 08:58 [facility] 12/23 08:57 Order name: Lujan; Complete Time: 09:37 [facility] 12/23 10:11 Order name: CONS Physician Consult EDMS 12/23 10:11 Order name: NPO EDMS 12/23 10:36 Order name: NPO; Complete Time: 10:47 charu 12/23 10:52 Order name: CT EDMS 12/23 12:11 Order name: RAD EDMS 12/23 12:19 Order name: RAD EDMS EC:18 Rate is 81 beats/min. Rhythm is regular. QRS [place] is Normal. OR interval is normal. QRS charu interval is normal. QT interval is normal. No Q waves. T waves are Normal. No ST changes noted. Clinical impression: NSR w/ Non-specific ST/T Changes and No evidence of ischemia. Interpreted by me. Reviewed by me. Administered Medications: 09:15 Drug: NS 0.9% 500 ml Route: IV; Rate: bolus; Site: right antecubital; em 11:00 Follow up: IV Status: Completed infusion; IV Intake: 500ml em 09:17 Drug: Zofran (Ondansetron) 4 mg Route: IVP; Site: right antecubital; em 09:45 Follow up: Response: No adverse reaction em 09:19 Drug: Pepcid 20 mg Route: IVP; Site: right antecubital; em 09:45 Follow up: Response: No adverse reaction em 09:21 Drug: Thiamine 100 mg Route: IV; Rate: bolus; Site: right antecubital; em 09:45 Follow up: Response: No adverse reaction; IV Status: Completed infusion em 09:23 Drug: fentaNYL (PF) 50 mcg Route: IVP; Site: right antecubital; em 09:45 Follow up: Response: No adverse reaction; Marked relief of symptoms; Pain is decreased; em RASS: Drowsy (-1) 10:09 Not Given (Duplicate Order): NS 0.9% 1000 ml IV at 125 ml/hr continuous charu 10:59 Drug: NS 0.9% with KCl 20 mEq/L 1000 ml Route: IV; Rate: 125 ml/hr; Site: right em antecubital; 12:15 Follow up: IV Status: Infusion continued upon admission em Disposition: 12/24/19 09:22 Hospitalization ordered by Janey Larios for Inpatient Admission. Preliminary diagnosis are Fall due to bumping against object, Displaced fracture of base of neck of right femur, Hypokalemia. - Bed requested for Telemetry/MedSurg (Inpatient). - Status is Inpatient Admission. em - Condition is Fair. - Problem is new. - Symptoms have improved. Signatures: Dispatcher [employer] Ney Vega MD MD cha Munoz, Edgar, RN RN Jena Faye Corrections: (The following items were deleted from the chart) 10:07 09:22 Hospitalization Ordered by Janey Larios MD for Inpatient Admission. Preliminary charu diagnosis is Intertrochanteric fracture of femur - right; Fall due to bumping against object. Bed requested for Telemetry/MedSurg (Inpatient). Status is Inpatient Admission. Condition is Fair. Problem is new. Symptoms have improved. charu 10:10 10:07 12/24/2019 09:22 Hospitalization Ordered by Janey Larios MD for Inpatient charu Admission. Preliminary diagnosis is Fall due to bumping against object; Displaced fracture of base of neck of right femur. Bed requested for Telemetry/MedSurg (Inpatient). Status is Inpatient Admission. Condition is Fair. Problem is new. Symptoms have improved. [facility] 11:38 10:10 12/24/2019 09:22 Hospitalization Ordered by Janey Larios MD for Inpatient eb Admission. Preliminary diagnosis is Fall due to bumping against object; Displaced fracture of base of neck of right femur; Hypokalemia. Bed requested for Telemetry/MedSurg (Inpatient). Status is Inpatient Admission. Condition is Fair. Problem is new. Symptoms have improved. [facility] 12:45 11:38 12/24/2019 09:22 Hospitalization Ordered by Janey Larios MD for Inpatient em Admission. Preliminary diagnosis is Fall due to bumping against object; Displaced fracture of base of neck of right femur; Hypokalemia. Bed requested for Telemetry/MedSurg (Inpatient). Status is Inpatient Admission. Condition is Fair. Problem is new. Symptoms have improved. eb
--- NOTE | 2019-12-24 09:23 | ER ---
Nurse's Notes [facility] Name: Isabelle Lowery Age: 59 yrs Sex: Female : 1960 Arrival Date: 12/24/2019 Time: 08:49 Bed 7 Private MD: Diagnosis: Fall due to bumping against object;Displaced fracture of base of neck of right femur;Hypokalemia Presentation: 12/23 08:51 Chief complaint: EMS states: called out for a fall last night around 7 after bumping on em bar counter while being intoxicated, pt reports hitting head on right side, also reports right sided hip pain 10/10, obvious shortening on right leg noted, pt still appears intoxicated. Care prior to arrival: Cervical collar in place. Placed on backboard. Mechanism of Injury: Fall from standing position. Trauma event details: Injury occurred in the [facility], Injury occurred: at home. Injury occurred: December 23, 2019 Injury occurred at: 19:00. 08:51 Acuity: AUGUSTIN 3 em 08:51 Method Of Arrival: EMS: [facility] em 08:51 Coronavirus screen: Client denies travel out of the [place] in the last 14 days. Ebola em Screen: Patient negative for fever greater than or equal to 101.5 degrees Fahrenheit, and additional compatible Ebola Virus Disease symptoms Patient denies exposure to infectious person. Patient denies travel to an Ebola-affected area in the 21 days before illness onset. No symptoms or risks identified at this time. Initial Sepsis Screen: Does the patient meet any 2 criteria? No. Patient's initial sepsis screen is negative. Does the patient have a suspected source of infection? No. Patient's initial sepsis screen is negative. Risk Assessment: Do you want to hurt yourself or someone else? Patient reports no desire to harm self or others. Onset of symptoms was December 23, 2019. Trauma Activation: Alert Physician: ED Physician; Name: Hardeep; Notified At: 08:51; Arrived At: Physician: General Surgeon; Name: ; Notified At: 08:51; Arrived At: Physician: Radiology; Name: ; Notified At: 08:51; Arrived At: Physician: Respiratory; Name: ; Notified At: 08:51; Arrived At: Physician: Lab; Name: ; Notified At: 08:51; Arrived At: Historical: - Allergies: 08:51 No Known Allergies; em - Home Meds: 08:51 Seroquel 300 mg Oral tab [Active]; lithium carbonate 300 mg Oral tab [Active]; Prozac em 20 mg Oral cap [Active]; - PMHx: 08:51 Bipolar disorder; hypotension; Schizophrenia; Depression; em - PSHx: 08:51 Cholecystectomy; ; em - Immunization history: Last tetanus immunization: - up to date. - Social history:: Smoking status: Patient reports the use of cigarette tobacco products, smokes one pack cigarettes per day. - Family history:: not pertinent. Screenin:51 Abuse screen: Denies threats or abuse. Nutritional screening: No deficits noted. em Tuberculosis screening: No symptoms or risk factors identified. 08:51 Fall Risk Fall in past 12 months (25 points). Mental Status- Overestimates/Forgets em Limitations (15 pts.). Total Delgado Fall Scale indicates Low Risk Score (25-44 pts). Side Rails Up X 2 Placed close to Nursing Station Frequent Obs/Assesments occuring. Primary Survey: 08:51 NO uncontrolled hemorrhage observed. A: The patient is alert. Airway: patent, Oral em cavity: clear, Trachea midline. Breathing/Chest: Respiratory pattern: regular, Respiratory effort: spontaneous, Chest inspection: symmetrical rise and fall of the chest. Circulation: Pulses: palpable right dorsalis pedis artery and left dorsalis pedis artery. Disability Alert. Exposure/Environment: All clothing and personal items were removed. Forensic evidence collection is not deemed to be indicated at this time. Items placed in patient belonging bag. 09:35 Reassessment Airway Airway Patent Breathing/Chest Respiratory pattern Regular em Respiratory effort Spontaneous Circulation Heart tones Present Disability Alert. 10:30 Reassessment Airway Airway Patent Breathing/Chest Respiratory pattern Regular em Respiratory effort Spontaneous Circulation Heart tones Present Disability Alert. 11:30 Reassessment Airway Airway Patent Breathing/Chest Respiratory pattern Regular em Respiratory effort Spontaneous Circulation Heart tones Present Disability Alert. 12:30 Reassessment Airway Airway Patent Breathing/Chest Respiratory pattern Regular em Respiratory effort Spontaneous Circulation Heart tones Present Disability Alert. Assessment: 08:51 General: Appears in no apparent distress. uncomfortable, Behavior is calm, cooperative. em Pain: Complains of pain in top of head and right hip Pain currently is 10 out of 10 on a pain scale. Pain began 1 day ago. Neuro: Level of Consciousness is awake, alert, obeys commands, Oriented to person, place, time, situation, Appropriate for age. Cardiovascular: Capillary refill < 3 seconds Patient's skin is warm and dry. Pulses are absent in right dorsalis pedis artery and left dorsalis pedis artery. Respiratory: Airway is patent Respiratory effort is even, unlabored, Respiratory pattern is regular, symmetrical. Derm: Skin is intact, is fragile, is thin, Skin is pink, warm \T\ dry. Musculoskeletal: Circulation, motion, and sensation intact. Range of motion: limited in right hip. 09:45 Reassessment: wheeled to radiology dept. via stretcher at this time. em 10:39 Reassessment: returned from radiology, pt will be having surgery today, pt is currently em NPO. 10:45 Reassessment: Patient appears in no apparent distress at this time. Patient and/or em family updated on plan of care and expected duration. Pain level reassessed. Patient is alert, oriented x 3, equal unlabored respirations, skin warm/dry/pink. 10:50 Reassessment: called Clayton () to give update on his , left message on phone. em 11:20 Reassessment: Dr. Leal at bedside. em 11:31 Reassessment: called Clayton () and left voicemail that Dr. Leal would like em to get verbal consent over the phone due to pt not remembering what happened last night, pt was reoriented and informed that she broke her right hip. 11:36 Reassessment: Dr. Leal spoke Clayton () at 1136 and gave verbal consent over em the phone. 11:50 Reassessment: unable to get a hold of Clayton () to get verbal consent for the use em of blood products consent to photographs, left voicemail to return my phone call. 12:32 Reassessment: pt alert, oriented to person, location and situation, recalls that she is em having surgery or right hip. Vital Signs: 08:51 BP 133 / 80; Pulse 68; Resp 18; Temp 97.8; Pulse Ox 98% on R/A; Weight 54.43 kg; Height em 5 ft. 4 in. (162.56 cm); Pain 10/10; 11:00 BP 128 / 78; Pulse 76; Resp 18; Temp 98.2; Pulse Ox 97% on R/A; em 12:00 BP 126 / 79; Pulse 77; Resp 18; Pulse Ox 97% on R/A; Pain 10/10; em 08:51 Body Mass Index 20.60 (54.43 kg, 162.56 cm) em [place] Coma Score: 08:51 Eye Response: spontaneous(4). Verbal Response: oriented(5). Motor Response: obeys em commands(6). Total: 15. 11:00 Eye Response: spontaneous(4). Verbal Response: oriented(5). Motor Response: obeys em commands(6). Total: 15. 12:00 Eye Response: spontaneous(4). Verbal Response: oriented(5). Motor Response: obeys em commands(6). Total: 15. Trauma Score (Adult): 08:51 Eye Response: spontaneous(1); Verbal Response: oriented(1); Motor Response: obeys em commands(2); Systolic BP: > 89 mm Hg(4); Respiratory Rate: 10 to 29 per min(4); [place] Score: 15; Trauma Score: 12 11:00 Eye Response: spontaneous(1); Verbal Response: oriented(1); Motor Response: obeys em commands(2); Systolic BP: > 89 mm Hg(4); Respiratory Rate: 10 to 29 per min(4); [place] Score: 15; Trauma Score: 12 12:00 Eye Response: spontaneous(1); Verbal Response: oriented(1); Motor Response: obeys em commands(2); Systolic BP: > 89 mm Hg(4); Respiratory Rate: 10 to 29 per min(4); [place] Score: 15; Trauma Score: 12 ED Course: 08:49 Patient arrived in ED. iw 08:50 Ney Meier MD is Attending Physician. charu 08:51 Sarkis Colon, KELTON is Primary Nurse. em 08:51 Patient has correct armband on for positive identification. Bed in low position. Call em light in reach. Side rails up X2. 08:51 Arm band placed on. em 08:51 Patient maintains SpO2 saturation greater than 95% on room air. em 08:54 Triage completed. em 09:00 Thermoregulation: warm blanket given to patient. em 09:01 EKG done, by ED staff, reviewed by Ney Meier MD. 3 09:15 No provider procedures requiring assistance completed. Initial lab(s) drawn, by me, em sent to lab. T\T\S collected, blood band applied to patient. Inserted saline lock: 22 gauge in right antecubital area, using aseptic technique. Blood collected. 09:19 Janey Larios MD is Hospitalizing Provider. charu 09:34 Lujan cath inserted, using sterile technique, 16 Fr., by vt, balloon inflated, to 3 gravity drainage, returned clear yellow urine. Patient tolerated well. 11:09 Inserted saline lock: 22 gauge in right forearm, using aseptic technique. 3 12:42 Patient admitted, IV remains in place. em Administered Medications: 09:15 Drug: NS 0.9% 500 ml Route: IV; Rate: bolus; Site: right antecubital; em 11:00 Follow up: IV Status: Completed infusion; IV Intake: 500ml em 09:17 Drug: Zofran (Ondansetron) 4 mg Route: IVP; Site: right antecubital; em 09:45 Follow up: Response: No adverse reaction em 09:19 Drug: Pepcid 20 mg Route: IVP; Site: right antecubital; em 09:45 Follow up: Response: No adverse reaction em 09:21 Drug: Thiamine 100 mg Route: IV; Rate: bolus; Site: right antecubital; em 09:45 Follow up: Response: No adverse reaction; IV Status: Completed infusion em 09:23 Drug: fentaNYL (PF) 50 mcg Route: IVP; Site: right antecubital; em 09:45 Follow up: Response: No adverse reaction; Marked relief of symptoms; Pain is decreased; em RASS: Drowsy (-1) 10:09 Not Given (Duplicate Order): NS 0.9% 1000 ml IV at 125 ml/hr continuous charu 10:59 Drug: NS 0.9% with KCl 20 mEq/L 1000 ml Route: IV; Rate: 125 ml/hr; Site: right em antecubital; 12:15 Follow up: IV Status: Infusion continued upon admission em Intake: 11:00 IV: 500ml; Total: 500ml. em Output: 12:40 Urine: 800ml (Lujan); Total: 800ml. em Outcome: :22 Decision to Hospitalize by Provider. [facility] 12:39 Admitted to OR accompanied by tech, via stretcher, Report called to KELTON Pollard em 12:39 Condition: stable 12:39 Patient's length of stay in the Emergency Department was greater than [address] current surgery taking place Patient's length of stay extended due to 12:45 Patient left the ED. em Signatures: Ney Meier MD MD cha Munoz, Edgar, RN RN Fabiola Gorman, KELTON MELARA [facility]
[2019-12-24 09:33] LABS: Absolute Lymphocytes (CBC) 0.8 K/uL (0.7-4.9); Basophils % 0.2 % (0-1.3); Hematocrit 37.9 % (36.0-45.0); MPV 7.5 fL (7.6-11.3); RBC Red Blood Cell Count 3.99 M/uL (3.86-4.86)
[2019-12-24 10:03] LABS: ALT/SGPT 46 U/L (12-78); AST/SGOT 70 U/L (15-37); Albumin 2.1 g/dL (3.4-5.0); Alkaline Phosphatase 206 U/L (45-117); BUN Blood Urea Nitrogen 4 mg/dL (7-18); Bicarbonate 23 mmol/L (21-32); Bilirubin Direct 0.6 mg/dL (0-0.2); Bilirubin Total 1.1 mg/dL (0.2-1.0); Glucose Level 112 mg/dL (74-106); Lipase 21 U/L (73-393); Magnesium 1.9 mg/dL (1.8-2.4); NT PRO-BNP 237 pg/mL (<125); Potassium 3.4 mmol/L (3.5-5.1); Protein, Total 5.3 g/dL (6.4-8.2); Sodium Level 139 mmol/L (136-145); Troponin (Emerg Dept Use Only) < 0.02 ng/mL (0.0-0.045)
[2019-12-24] MEDS ORDERED: ONDANSETRON 4 MG/2 ML VIAL IV PRN (10:06)
[2019-12-24] MEDS ORDERED: HYDROMORPHONE HCL 0.5 MG/0.5 ML INJ IV PRN (10:06)
[2019-12-24 10:25] LABS: Blood Morphology Comment NOT SEEN (NOT SEEN); Platelet Estimate ADEQ
[2019-12-24] MEDS ORDERED: NS KCL 20MEQ 1,000 ML IV ONE (10:44)
--- NOTE | 2019-12-24 10:52 | RAD REPORT ---
EXAM DESCRIPTION: CT - Head C Spine Cap Chris Con - 12/24/2019 10:30 am CLINICAL HISTORY: Trauma, head and neck injury. Chest, abdomen and pelvis pain. PAIN COMPARISON: No comparisons TECHNIQUE: CT head without contrast. CT cervical spine without contrast with coronal and sagittal reformatted images. CT chest, abdomen and pelvis with IV contrast (approximately 100 mL nonionic IV contrast) with escalera l and sagittal reformatted images of the spine. All CT scans are performed using dose optimization technique as appropriate and may include automated exposure control or mA/KV adjustment according to patient size. FINDINGS: CT HEAD WITHOUT CONTRAST: No intracranial hemorrhage, hydrocephalus or extra-axial fluid collection. No areas of brain edema o r midline shift. The paranasal sinuses and mastoids are clear. The calvarium is intact. CT CERVICAL SPINE WITHOUT CONTRAST: No fracture or subluxation. ACDF spans C5-6. The prevertebral soft tissues are normal in thickness. CT CHEST, ABDOMEN, PELVIS WITH CONTRAST: Opacities are present in both lung bases likely representing atelectasis. Mild COPD is present.No pne umothorax or pericardial/pleural fluid. No evidence of intra-abdominal visceral injury, free fluid or free air. Fatty liver. No concerning pelvic findings. Subcapital fracture of the proximal right femur is seen with varus angulation. IMPRESSION: Subcapital fracture proximal right femur with varus angulation. Atelectasis in both posterior lung bases.
--- NOTE | 2019-12-24 12:11 | CON ---
Date of Consultation: 12/24/2019 History Of Present Illness: This is my first time seeing this patient to my knowledge. She is a 59- year-old female, who according to her history hit a cabinet last night and does not really remember a nything else other than she is unable to ambulate this morning. She says that she has pain in her hi p and this makes it impossible for her a while. Physical Examination: All of her long bones and joints are palpated without pain or crepitation with the exception of her r ight hip, which is painful in movement or manipulation. Laboratory Data: X-rays were reviewed, which revealed a displaced right femoral neck fracture in a y oung person without significant underlying arthritic changes. Assessment: The patient is a 59-year-old female with a displaced right femoral neck fracture. We wi ll move forward as quickly as possible for closed reduction and pin fixation, although open reduction will probably be needed. This has been explained to the patient; however, we will attempt to speak with her family as well and this is a very serious problem and could lead to reoperation, nonunion, m alunion, avascular necrosis, or continued and persistent problem with the hip. /PRISCILA Voice ID: [id number] Report ID: [id number]
--- NOTE | 2019-12-24 12:11 | RAD REPORT ---
EXAM DESCRIPTION: RAD - Chest Single View - 12/24/2019 10:37 am CLINICAL HISTORY: COUGH Chest pain. COMPARISON: Chest Single View dated 11/08/2018; CHEST SINGLE VIEW dated 08/26/2012; CHEST SINGLE VIEW dated 12/28/2009; CHEST SINGLE VIEW dated 09/04/2009; Head C Spine Cap W Con dated 12/24/2019 FINDINGS: Portable technique limits examination quality. The lungs are grossly clear. The heart is normal in size. No displaced fractures.Hardware is present cervical spine. IMPRESSION: No acute intrathoracic process suspected.
--- NOTE | 2019-12-24 12:18 | RAD REPORT ---
EXAM DESCRIPTION: RAD - Pelvis - 12/24/2019 10:37 am CLINICAL HISTORY: BLUNT TRAUMA Fall, pain COMPARISON: Hip Right 2 View dated 12/24/2019; Femur Right dated 12/24/2019 FINDINGS: AP pelvis, right hip and right femur- multiple projections are submitted Subcapital fracture the proximal right femur is seen with varus angulation. No additional fracture or dislocation seen
[2019-12-24] MEDS ORDERED: Ringers Lactate 1,000 ML IV ONE (13:00)
[2019-12-24] MEDS ORDERED: CEFAZOLIN/SWI 1gm 1 GM/10 ML SYR ONE ×2 (13:38→22:17)
[2019-12-24] MEDS ORDERED: TRANEXAMIC ACID 1,000 MG in NA CHLORIDE 0.9% 50 ML IV ONE (14:00)
[2019-12-24] MEDS ORDERED: propofoL 200 MG/20 ML VIAL IV ONE (14:03)
[2019-12-24] MEDS ORDERED: ROCURONIUM 50 MG/5 ML VIAL IV ONE (14:03)
[2019-12-24] MEDS ORDERED: LIDOCAINE 2% MPF 5 ML VIAL ONE (14:03)
[2019-12-24] MEDS ORDERED: KETAMINE HCL 500 MG/5 ML VIAL ONE (14:04)
[2019-12-24] MEDS ORDERED: KETOROLAC 30 MG/ML INJ ONE (15:12)
[2019-12-24] MEDS ORDERED: NEOSTIGMINE 1 MG/ML -5 ML ONE (15:22)
[2019-12-24] MEDS ORDERED: GLYCOPYRROLATE 0.2 MG/ML SYR ONE (15:22)
--- NOTE | 2019-12-24 15:33 | P.BOP ---
Preoperative diagnosis: right fdemoral neck fracture Postoperative diagnosis: same Primary procedure: right hip CR screw fixation Estimated blood loss: 10 ccs Anesthesia: General Transferred to: Recovery Room Condition: Good
--- NOTE | 2019-12-24 16:13 | RAD REPORT ---
EXAM DESCRIPTION: RAD - Hip In Or - 12/24/2019 3:48 pm CLINICAL HISTORY: RT HIP WITH SCREW FIXATION COMPARISON: Pelvis dated 12/24/2019 FINDINGS: Fluoroscopy time 2 minutes.
[2019-12-24 16:40] VITALS: BMI 20.5
[2019-12-24] MEDS ORDERED: WATER FOR INJ,STERILE 10 ML IV ONE (17:00)
[2019-12-24] MEDS ORDERED: CEFAZOLIN/SWI 1gm 1 GM/10 ML SYR IVP SCH (17:00)
[2019-12-24] MEDS: ENOXAPARIN 40 MG/0.4 ML SQ SCH (17:00)
[2019-12-24] MEDS ORDERED: CEFAZOLIN SODIUM 1 GM/VIAL IVP ONE (17:00)
[2019-12-24] MEDS: NA CHLORIDE 0.9% 1,000 ML IV SCH (17:12)
--- NOTE | 2019-12-24 18:12 | OP ---
Date of Procedure: 12/24/2019 Surgeon: Antony Leal MD Preoperative Diagnosis: Right hip femoral neck fracture. Postoperative Diagnosis: Right hip femoral neck fracture. Procedure: Right hip closed reduction with percutaneous screw fixation. Estimated Blood Loss: Less than 10 cc. Complications: There were no complications. Specimens: No pathology specimen sent. Indication For Operation: Ms. Lowery is a 59-year-old female, who unfortunately fell by her history yesterday. She knows that she was not able to walk after awakening. Most likely, this was a syncop al episode, however, this is unclear. The patient does have a history of some mental difficulties an d her history is not actually that good. She is able to understand her situation with a broken hip, but when I asked again while she was in the hospital, she really cannot give an answer, but when redi rected, she voices that she understands things as previously presented. Because of this, her was brought into the conversation and I had a long conversation with him regarding risks, benefits, and alternatives as well as operative plan. Also discussed that femoral neck fractures treated with reduction and pinning in the young age group, however, these are fairly apt to have further difficult ies in some cases up to in the region of 40%. Also, she has had a femoral neck fracture perhaps for 12 hours or so and although the new study show that the chance for avascular necrosis is not necessar antonio associated with timing, this is a concern as well. He says he understands everything as presente d and agrees to proceed. Description Of Procedure: The patient was taken to the operating room and placed in the supine posit ion. General anesthesia was obtained by staff. Following this, she was then placed on the fracture table. All bony prominences being checked. C-arm was brought in and it appears once some slight int ernal rotation was applied, that appears to reduce quite well. Now that we can see better views, mor e of a valgus impacted type fracture, decision was made to not go forward with a formal open reductio n as did not have much posterior translation and felt that further traumatizing the blood supply coul d be difficult and do not really know if we could achieve a better reduction than what we have based on the fact that it is impacted the way that it is. Therefore, decision was made to proceed with per cutaneous screw fixation. This was accomplished using C-arm using standard technique, being careful to stay above the lesser trochanter with 1 inferior screw placed in the center and 2 superior screws now placed in to establish the inverted triangle. These were placed to appropriate depth and measure d. Care was taken not to leave these 2 too short. Also care was taken to not allow the guide pins t o pass out of the femoral head into the joint. These appeared to have good bony purchase and biplana r C-arm radiography reveals that the screws appear to be as well placed as possible. The skin was th en closed using naveen. The patient was then awakened and taken to recovery room in good condition. No complications. /PRISCILA Voice ID: [id number] Report ID: [id number]
[2019-12-24] MEDS ORDERED: POTASSIUM CL SA 10 MEQ TAB PO ONE (20:00)
[2019-12-24] MEDS: TRAZODONE 50 MG TABLET PO SCH (21:00)
[2019-12-24] MEDS ORDERED: CEFAZOLIN/NS 1gm 1 GM/50 ML BAG IVPB SCH (22:00)
[2019-12-24] MEDS: QUETIAPINE 100MG TAB PO SCH (22:10)
[2019-12-24] MEDS: LITHIUM CARBONATE 300 MG TAB PO SCH (22:10)
[2019-12-24] MEDS: CEFAZOLIN/SWI 1gm 1 GM/10 ML SYR IVP SCH (22:11)
[2019-12-24] MEDS ORDERED: LITHIUM CARBONATE 300 MG TAB ONE (22:16)
[2019-12-24] MEDS ORDERED: CEFAZOLIN SODIUM 1 GM/VIAL ONE (22:17)
[2019-12-25] MEDS ORDERED: CEFOXITIN/SWI 1gm 1 GM/10 ML SYR IVP SCH
[2019-12-25] MEDS ORDERED: CEFOXITIN SODIUM 1 GM/VIAL IVPB SCH
[2019-12-25] MEDS: NA CHLORIDE 0.9% 1,000 ML IV SCH ×2 (00:20→06:54)
[2019-12-25] MEDS ORDERED: CEFAZOLIN/SWI 1gm 1 GM/10 ML SYR IVP SCH (01:00)
[2019-12-25] MEDS ORDERED: WATER FOR INJ,STERILE 10 ML IV ONE (01:00)
[2019-12-25] MEDS ORDERED: CEFAZOLIN SODIUM 1 GM/VIAL IVP ONE (01:00)
[2019-12-25] MEDS: CEFAZOLIN/SWI 1gm 1 GM/10 ML SYR IVP SCH (05:02)
[2019-12-25] MEDS: LEVOTHYROXINE SOD 0.075 MG TAB PO SCH (05:03)
[2019-12-25 05:51] LABS: Absolute Lymphocytes (CBC) 1.6 K/uL (0.7-4.9); Basophils % 0.7 % (0-1.3); Hematocrit 31.7 % (36.0-45.0); MPV 8.1 fL (7.6-11.3); RBC Red Blood Cell Count 3.28 M/uL (3.86-4.86)
[2019-12-25 06:07] LABS: Protime INR 1.02
[2019-12-25 06:11] LABS: ALT/SGPT 37 U/L (12-78); AST/SGOT 56 U/L (15-37); Albumin 1.7 g/dL (3.4-5.0); Alkaline Phosphatase 182 U/L (45-117); BUN Blood Urea Nitrogen 7 mg/dL (7-18); Bicarbonate 25 mmol/L (21-32); Bilirubin Total 0.7 mg/dL (0.2-1.0); Glucose Level 85 mg/dL (74-106); Magnesium 2.1 mg/dL (1.8-2.4); Phosphorus 2.7 mg/dL (2.5-4.9); Potassium 4.9 mmol/L (3.5-5.1); Protein, Total 4.7 g/dL (6.4-8.2); Sodium Level 142 mmol/L (136-145)
--- NOTE | 2019-12-25 07:25 | EKG ---
Test Date: 2019-12-24 Test Time: 09:01:35 [employer] Administrator Developer: YESI MEASUREMENT RESULTS: Intervals: Rate: 81 OK: 108 QRSD: 84 QT: 394 QTc: 457 [place]: P: -4 OK: 108 QRS: 62 T: 2 INTERPRETIVE STATEMENTS: Sinus rhythm with short OK Nonspecific T wave abnormality Abnormal ECG Compared to ECG 11/08/2018 17:28:29 Short OK interval now present T-wave abnormality still present Electronically Signed On 12-25-19 07:23:32 [employer] by Gómez Cid
--- NOTE | 2019-12-25 07:44 | P.HP ---
Certification for Inpatient Patient admitted to: Inpatient With expected LOS: >2 Midnights Patient will require the following post-hospital care: Rehabilitation Practitioner: I am a practitioner with admitting privileges, knowledge of patient current condition, hospital course, and medical plan of care. Services: Services provided to patient in accordance with Admission requirements found in Title 42 Section 412.3 of the Code of Federal Regulations Patient History Date of Service: 12/24/19 Reason for admission: right intertrochanteric femur fracture History of Present Illness: Patient is a 59-year-old female who presented to the emergency room after falling. She drinks alcohol regularly. She was ataxic and fell after drinking last night. She apparently had bumped the wall and fell. She came into the emergency room this morning in her right leg was externally rotated. Orthopedics was called and they schedule patient to go to the operating room today. Patient otherwise with no significant cardiac issues. She does have GI issues related to her alcohol abuse. She will be admitted to the hospital and we will evaluate her medically. She is scheduled to go to the operating room later today. She also has a history of psychiatric issues. She has schizophrenia and bipolar disorder. Will continue her on her current medications. Allergies No Known Allergies Allergy (Verified 11/09/18 01:26) Home Medications: Fluoxetine HCl [Prozac*] 20 mg PO QID 11/09/18 Levothyroxine [Synthroid*] 0.075 mg PO DAILY 11/09/18 [place] Carbonate [Lithotabs *] 600 mg PO BID 11/09/18 Prazosin HCl 1 mg PO DAILY 11/09/18 Quetiapine Fumarate [Seroquel] 300 mg PO QID 11/09/18 Trazodone [Desyrel*] 200 mg PO BEDTIME 11/09/18 buPROPion HCL [Bupropion HCl Sr] 150 mg PO DAILY 11/09/18 - Past Medical/Surgical History Has patient received pneumonia vaccine in the past: No Diabetic: Yes -: Bipolar -: anemia -: Schizoprenia -: hypotension -: DM -: cholecystectomy -: -: breast enlargements - Family History Mother Medical History: Cancer Notes: throat Father Notes: alcoholic - Social History Smoking Status: Current every day smoker Alcohol use: Yes CD- Drugs: No Caffeine use: Yes Place of Residence: Home Review of Systems 10-point ROS is otherwise unremarkable Physical Examination - Vital Signs Temperature: 97.6 F Blood Pressure: 93/56 Pulse: 73 Respirations: 16 Pulse Ox (%): 94 - Physical Exam General: Alert, In no apparent distress, Confused HEENT: Atraumatic, PERRLA, Mucous membr. moist/pink, EOMI, Sclerae nonicteric Neck: Supple, 2+ carotid pulse no bruit, No LAD, Without JVD or thyroid abnormality Respiratory: Clear to auscultation bilaterally, Normal air movement Cardiovascular: Regular rate/rhythm, Normal S1 S2, No murmurs Gastrointestinal: Normal bowel sounds, Soft and benign, Non-distended, No tenderness Musculoskeletal: No clubbing, No swelling, No tenderness Integumentary: No rashes Neurological: Normal speech, Normal tone, Sensation intact, Cranial nerves 3-12 intact, Normal affect, Abnormal gait, Abnormal strength Lymphatics: No axilla or inguinal lymphadenopathy - Studies Laboratory Data (last 24 hrs) 12/24/19 09:15: PT 11.8, INR 1.00 12/24/19 09:15: WBC 12.9 H, Hgb 13.0, Hct 37.9, Plt Count 560 H 12/24/19 09:15: Sodium 139, Potassium 3.4 L, BUN 4 L, Creatinine 0.60, Glucose 112 H, Magnesium 1.9, Total Bilirubin 1.1 H, AST 70 H, ALT 46, Alkaline Phosphatase 206 H, Lipase 21 L Assessment & Plan - Problems (Diagnosis) (1) Fracture, intertrochanteric, right femur Current Visit: Yes Status: Acute (2) Schizo-affective psychosis Current Visit: Yes Status: Acute (3) Bipolar 1 disorder Current Visit: Yes Status: Acute (4) Alcohol abuse Current Visit: Yes Status: Acute - Plan -management per ortho -PT evaluation -DVT prophylaxis -IV hydration and IV antibiotics -advanced diet as tolerated -strict blood pressure and blood sugar control -monitor electrolytes and blood count closely -Rehab eval -pain control and DT prevention -resume psych meds - Advance Directives Does patient have a Living Will: Yes Does patient have a Durable POA for Healthcare: Yes - Code Status/Comfort Care Code Status Assessed: Yes Code Status: Full Code Critical Care: No Time Spent Managing PTS Care (In Minutes): 50
[2019-12-25] MEDS ORDERED: ENOXAPARIN 40 MG/0.4 ML SQ SCH (09:00)
[2019-12-25] MEDS: BUPROPRION HCL S.R. 150MG TAB PO SCH (09:00)
[2019-12-25] MEDS: FLUOXETINE 20 MG CAP PO SCH ×4 (09:00→20:14)
[2019-12-25] MEDS: QUETIAPINE 100MG TAB PO SCH ×4 (10:39→20:13)
[2019-12-25] MEDS: PRAZOSIN HCL 1 MG CAP PO SCH (10:39)
[2019-12-25] MEDS: LITHIUM CARBONATE 300 MG TAB PO SCH ×2 (10:40→20:13)
[2019-12-25] MEDS: chlordiazePOXIDE HCl 5 MG CAP PO SCH ×3 (10:43→20:13)
--- NOTE | 2019-12-25 11:16 | RAD REPORT ---
EXAM DESCRIPTION: RAD - Hip Right 2 View - 12/24/2019 10:37 am CLINICAL HISTORY: BLUNT TRAUMA Fall, pain COMPARISON: Hip Right 2 View dated 12/24/2019; Femur Right dated 12/24/2019 FINDINGS: AP pelvis, right hip and right femur- multiple projections are submitted Subcapital fracture the proximal right femur is seen with varus angulation. No additional fracture or dislocation seen
--- NOTE | 2019-12-25 11:16 | RAD REPORT ---
EXAM DESCRIPTION: RAD - Femur Right - 12/24/2019 10:37 am CLINICAL HISTORY: BLUNT TRAUMA Fall, pain COMPARISON: Hip Right 2 View dated 12/24/2019; Femur Right dated 12/24/2019 FINDINGS: AP pelvis, right hip and right femur- multiple projections are submitted Subcapital fracture the proximal right femur is seen with varus angulation. No additional fracture or dislocation seen
[2019-12-25] MEDS ORDERED: HYDROCODONE/APAP 7.5/325 MG TAB PO PRN (13:40)
[2019-12-25] MEDS ORDERED: TRAMADOL HCL 50 MG TAB PO PRN (13:40)
--- NOTE | 2019-12-25 13:40 | P.PN ---
Subjective Date of Service: 12/25/19 Primary Care Provider: unknown Chief Complaint: right intertrochanteric femur fracture Subjective: Improving, Doing well Physical Examination - Vital Signs Temperature: 98 F Blood Pressure: 113/78 Pulse: 73 Respirations: 20 Pulse Ox (%): 94 - Physical Exam General: Alert HEENT: Atraumatic Neck: Supple Respiratory: Clear to auscultation bilaterally, Normal air movement Cardiovascular: Normal pulses, Regular rate/rhythm Gastrointestinal: Normal bowel sounds, No tenderness, No masses, No rebound, No guarding Integumentary: No erythema, No warmth, No cyanosis Neurological: Normal speech, Normal strength at 5/5 x4 extr, Normal tone, Normal affect - Studies Medications List Reviewed: Yes Assessment & Plan Discharge Plan: Home Plan to discharge in: 48 Hours Physician Review Additional Text: Impression: Fall now with right hip femoral neck fracture status post right hip close reduction with percutaneous screw fixation Bipolar disorder with schizophrenia Hypothyroidism Alcohol abuse Plan: Fall now with right hip femoral neck fracture status post right hip close reduction with percutaneous screw fixation: Physical therapy to assess ambulation. Patient desires to go home at discharge. Will discuss with about plan of care. Patient will require DVT prophylaxis. Continue at this time. Will discuss with social worker assistant. Anticipate improvement over the next several days with possible discharge home Bipolar disorder with schizophrenia: Continue home medication Hypothyroidism: Continue medication Alcohol abuse: Will provide thiamine and folic acid. Encourage cessation education. Time Spent Managing Pts Care (In Minutes): 55
[2019-12-25] MEDS: ENOXAPARIN 40 MG/0.4 ML SQ SCH (17:15)
[2019-12-25] MEDS: TRAZODONE 50 MG TABLET PO SCH (20:14)
[2019-12-26 05:42] LABS: Absolute Lymphocytes (CBC) 1.4 K/uL (0.7-4.9); Basophils % 0.6 % (0-1.3); Hematocrit 30.8 % (36.0-45.0); Lymphocytes % 12.5 % (15.3-44.8); MPV 7.8 fL (7.6-11.3); RBC Red Blood Cell Count 3.22 M/uL (3.86-4.86)
[2019-12-26 05:48] LABS: BUN Blood Urea Nitrogen 7 mg/dL (7-18); Bicarbonate 25 mmol/L (21-32); Glucose Level 87 mg/dL (74-106); Magnesium 2.1 mg/dL (1.8-2.4); Potassium 4.2 mmol/L (3.5-5.1); Sodium Level 142 mmol/L (136-145)
[2019-12-26] MEDS: LEVOTHYROXINE SOD 0.075 MG TAB PO SCH (05:57)
[2019-12-26] MEDS: QUETIAPINE 100MG TAB PO SCH ×4 (08:44→20:07)
[2019-12-26] MEDS: FLUOXETINE 20 MG CAP PO SCH (08:45)
[2019-12-26] MEDS: BUPROPRION HCL S.R. 150MG TAB PO SCH (08:46)
[2019-12-26] MEDS: chlordiazePOXIDE HCl 5 MG CAP PO SCH ×2 (08:46→13:37)
[2019-12-26] MEDS: FOLIC ACID 1 MG TABLET PO SCH (08:46)
[2019-12-26] MEDS: LITHIUM CARBONATE 300 MG TAB PO SCH ×2 (08:46→20:07)
[2019-12-26] MEDS: THIAMINE HCL 100 MG TABLET PO SCH (08:46)
[2019-12-26] MEDS: PRAZOSIN HCL 1 MG CAP PO SCH (10:22)
--- NOTE | 2019-12-26 14:23 | P.PN ---
Subjective Date of Service: 12/26/19 Primary Care Provider: unknown Chief Complaint: right intertrochanteric femur fracture Subjective: Other (Patient doing well this time. No complaints noted. Pain seems to be well controlled.) Physical Examination - Vital Signs Temperature: 97.9 F Blood Pressure: 99/66 Pulse: 96 Respirations: 16 Pulse Ox (%): 97 - Physical Exam General: Alert, In no apparent distress, Cooperative HEENT: Atraumatic Neck: Supple Respiratory: Clear to auscultation bilaterally, Normal air movement Cardiovascular: Normal pulses, Regular rate/rhythm Gastrointestinal: Normal bowel sounds, Soft and benign, Non-distended Neurological: Normal speech, Normal strength at 5/5 x4 extr, Normal tone, Normal affect - Studies Medications List Reviewed: Yes Assessment & Plan Discharge Plan: Home (With home health and physical therapy) Plan to discharge in: 48 Hours Physician Review Additional Text: Impression: Fall now with right hip femoral neck fracture status post right hip close reduction with percutaneous screw fixation Bipolar disorder with schizophrenia Hypothyroidism Alcohol abuse Plan: Fall now with right hip femoral neck fracture status post right hip close reduction with percutaneous screw fixation: Continue physical therapy. Case discussed with physical therapy today. Patient desires to go home at discharge. Patient will require home health and physical therapy. Case discussed with who agrees with plan of care. Medications will be adjusted accordingly. Patient will need DVT prophylaxis. Continue at this time. Will discuss with orthopedics. Anticipate home likely in the next 48 hr. Bipolar disorder with schizophrenia: Medications reviewed. This was discuss with . [place] level slightly elevated. Will decrease lithium at this time. Recheck lithium within the next couple of days. Will try to get a record from her psychiatrist to verify home medications and dosages. Hypothyroidism: Continue medication Alcohol abuse: Will provide thiamine and folic acid. Encourage cessation education. Will change Librium to as needed. Time Spent Managing Pts Care (In Minutes): 55
[2019-12-26] MEDS ORDERED: chlordiazePOXIDE HCl 5 MG CAP PO PRN (14:24)
[2019-12-26] MEDS: ENOXAPARIN 40 MG/0.4 ML SQ SCH (16:50)
[2019-12-26] MEDS: TRAZODONE 50 MG TABLET PO SCH (20:07)
[2019-12-27 04:12] LABS: Absolute Lymphocytes (CBC) 1.2 K/uL (0.7-4.9); Basophils % 0.7 % (0-1.3); Hematocrit 32.1 % (36.0-45.0); Lymphocytes % 12.9 % (15.3-44.8); RBC Red Blood Cell Count 3.31 M/uL (3.86-4.86)
[2019-12-27 04:24] LABS: BUN Blood Urea Nitrogen 9 mg/dL (7-18); Bicarbonate 26 mmol/L (21-32); Glucose Level 91 mg/dL (74-106); Potassium 3.8 mmol/L (3.5-5.1); Sodium Level 142 mmol/L (136-145)
[2019-12-27] MEDS: LEVOTHYROXINE SOD 0.075 MG TAB PO SCH (06:09)
[2019-12-27] MEDS ORDERED: POTASSIUM CL SA 10 MEQ TAB PO ONE (08:00)
[2019-12-27 08:20] VITALS: O2SAT 94
[2019-12-27] MEDS: LITHIUM CARBONATE 300 MG TAB PO SCH ×2 (08:29→20:28)
[2019-12-27] MEDS: PRAZOSIN HCL 1 MG CAP PO SCH (08:30)
[2019-12-27] MEDS: QUETIAPINE 100MG TAB PO SCH ×5 (08:31→20:33)
[2019-12-27] MEDS: BUPROPRION HCL S.R. 150MG TAB PO SCH (08:31)
[2019-12-27] MEDS: FOLIC ACID 1 MG TABLET PO SCH (08:32)
[2019-12-27] MEDS: FLUOXETINE 20 MG CAP PO SCH (08:32)
[2019-12-27] MEDS: THIAMINE HCL 100 MG TABLET PO SCH (08:32)
--- NOTE | 2019-12-27 09:04 | P.PN ---
Subjective Date of Service: 12/27/19 Primary Care Provider: unknown Chief Complaint: right intertrochanteric femur fracture Subjective: Other (Patient stable this time. Patient did not work well with therapy yesterday. Likely related to her anxiety) Physical Examination - Vital Signs Temperature: 97.0 F Blood Pressure: 113/64 Pulse: 83 Respirations: 18 Pulse Ox (%): 96 - Physical Exam General: Alert, In no apparent distress, Cooperative HEENT: Atraumatic Neck: Supple Respiratory: Clear to auscultation bilaterally, Normal air movement Cardiovascular: Normal pulses, Regular rate/rhythm Gastrointestinal: Normal bowel sounds, No tenderness, No masses, No rebound, No guarding Integumentary: No erythema, No warmth, No cyanosis Neurological: Normal speech, Normal strength at 5/5 x4 extr, Normal tone, Normal affect - Studies Medications List Reviewed: Yes Assessment & Plan Discharge Plan: Other (HH/PT vs SNF) Plan to discharge in: 48 Hours Physician Review Additional Text: Impression: Fall now with right hip femoral neck fracture status post right hip close reduction with percutaneous screw fixation Bipolar disorder with schizophrenia Hypothyroidism Alcohol abuse Plan: Fall now with right hip femoral neck fracture status post right hip close reduction with percutaneous screw fixation: Continue physical therapy. It appears patient did not cooperate with physical therapy yesterday likely due to her anxiety. Encourage patient to work with physical therapy. Patient still desires to go home with home health and physical therapy. Will need to consider skilled placement if her progress is poor. Will discuss with physical therapy today. Will also discuss with . Continue DVT prophylaxis. Anticipate improvement over the next 48 hr. Bipolar disorder with schizophrenia: Medications reviewed. [place] was decreased due to elevated level. Will recheck lithium tomorrow. Need to verify medications with her psychiatrist. Hypothyroidism: Continue medication Alcohol abuse: Will provide thiamine and folic acid. Encourage cessation education. Discontinue Librium Time Spent Managing Pts Care (In Minutes): 55
[2019-12-27] MEDS: ENOXAPARIN 40 MG/0.4 ML SQ SCH (16:07)
[2019-12-27] MEDS: TRAZODONE 50 MG TABLET PO SCH (20:26)
[2019-12-28] MEDS: LEVOTHYROXINE SOD 0.075 MG TAB PO SCH (05:32)
[2019-12-28 05:50] LABS: BUN Blood Urea Nitrogen 6 mg/dL (7-18); Bicarbonate 25 mmol/L (21-32); Glucose Level 84 mg/dL (74-106); Magnesium 2.1 mg/dL (1.8-2.4); Potassium 4.3 mmol/L (3.5-5.1); Sodium Level 142 mmol/L (136-145)
[2019-12-28 05:52] LABS: Absolute Lymphocytes (CBC) 1.5 K/uL (0.7-4.9); Basophils % 1.2 % (0-1.3); Hematocrit 33.3 % (36.0-45.0); Lymphocytes % 18.2 % (15.3-44.8); MPV 8.1 fL (7.6-11.3); RBC Red Blood Cell Count 3.45 M/uL (3.86-4.86)
[2019-12-28] MEDS: BUPROPRION HCL S.R. 150MG TAB PO SCH (08:44)
[2019-12-28] MEDS: PRAZOSIN HCL 1 MG CAP PO SCH (08:44)
[2019-12-28] MEDS: LITHIUM CARBONATE 300 MG TAB PO SCH (08:44)
[2019-12-28] MEDS: FLUOXETINE 20 MG CAP PO SCH (08:45)
[2019-12-28] MEDS: FOLIC ACID 1 MG TABLET PO SCH (08:46)
[2019-12-28] MEDS: QUETIAPINE 100MG TAB PO SCH ×3 (08:46→17:09)
[2019-12-28] MEDS: THIAMINE HCL 100 MG TABLET PO SCH (08:46)
--- NOTE | 2019-12-28 09:52 | P.PN ---
Subjective Date of Service: 12/28/19 Primary Care Provider: unknown Chief Complaint: right intertrochanteric femur fracture Subjective: Improving, Doing well Physical Examination - Vital Signs Temperature: 97.6 F Blood Pressure: 149/81 Pulse: 69 Respirations: 18 Pulse Ox (%): 94 - Physical Exam General: Alert, Cooperative HEENT: Atraumatic Neck: Supple Respiratory: Clear to auscultation bilaterally, Normal air movement Cardiovascular: Normal pulses, Regular rate/rhythm Gastrointestinal: Normal bowel sounds, No tenderness, No masses, No rebound, No guarding Musculoskeletal: No erythema, No tenderness, No warmth Integumentary: No erythema, No warmth, No cyanosis Neurological: Normal speech, Normal strength at 5/5 x4 extr, Normal tone, Normal affect - Studies Medications List Reviewed: Yes Assessment & Plan Discharge Plan: Other (SNF) Plan to discharge in: 48 Hours Physician Review Additional Text: Impression: Fall now with right hip femoral neck fracture status post right hip close reduction with percutaneous screw fixation Bipolar disorder with schizophrenia Hypothyroidism Alcohol abuse Plan: Fall now with right hip femoral neck fracture status post right hip close reduction with percutaneous screw fixation: Continue physical therapy. Encouraged SNF. Patient is in agreement. Will also discuss with who will likely agree. Encourage patient to work with physical therapy. Continue DVT prophylaxis. Anticipate improvement over the next 48 hr. Bipolar disorder with schizophrenia: Medications reviewed. [place] was decreased due to elevated level. Will recheck lithium today. Need to verify medications with her psychiatrist. Hypothyroidism: Continue medication Alcohol abuse: Will provide thiamine and folic acid. Encourage cessation education. Discontinue Librium Time Spent Managing Pts Care (In Minutes): 55
--- NOTE | 2019-12-28 15:45 | P.DS ---
Admission Date: 12/24/19 Discharge Date: 12/28/19 Primary Care Provider: unknown Disposition: TRANSFER TO SNF - MEDICAL Discharge Condition: GOOD Reason for Admission: right intertrochanteric femur fracture Consultations: Orthopedics-Dr. Leal Procedures: Surgery: Date of Procedure: 12/24/2019 Surgeon: Antony Leal MD Preoperative Diagnosis: Right hip femoral neck fracture. Postoperative Diagnosis: Right hip femoral neck fracture. Procedure: Right hip closed reduction with percutaneous screw fixation. Estimated Blood Loss: Less than 10 cc. Complications: There were no complications. Specimens: No pathology specimen sent. Medical Problem List: Fall now with right hip femoral neck fracture status post right hip close reduction with percutaneous screw fixation Bipolar disorder with schizophrenia Hypothyroidism Alcohol abuse Brief History of Present Illness: 59-year-old female with bipolar disorder, schizophrenia. Patient suffered a fall. She was evaluated in the emergency room and found to have a right femur fracture. The patient was admitted for further evaluation. Hospital Course: Patient presented to the emergency room after a fall. She was found to have the right femoral neck fracture. Patient was evaluated by orthopedics. Orthopedic intervention was required. Right hip close reduction with percutaneous screw fixation was done. Patient tolerated procedure well. Patient has continued physical therapy. Patient has agreed to go to a skilled facility to continue her care. Patient has been accepted. Patient medically stable for discharge to the skilled facility. At discharge she will continue with Lovenox 40 mg subcu daily for the next 10 days. Patient will continue with current physical therapy as recommended by orthopedics. Recommend follow up with orthopedics as directed. A limited supply of tramadol 50 mg 1 pill 3 times a day as needed for pain will be provided. Patient with bipolar disorder with schizophrenia. This appears stable at this time. Medications were adjusted with the help of her . At discharge she will continue with Wellbutrin SR 150 mg daily, Prozac 80 mg daily, Seroquel 300 mg at bedtime, trazodone 200 mg at bedtime, Prazosin 1 mg daily and lithium 300 mg twice daily. Please note lithium was decreased due to slightly elevated lithium level. Seroquel was also decreased. Recommend follow up with psychiatry to further monitor and address. Patient with hypothyroidism. At discharge she will continue with her medication levothyroxine 75 mcg daily. Patient with history of alcohol abuse. Patient will continue with thiamine 100 mg daily. Alcohol cessation education will need to be continued. Vital Signs/Physical Exam: Temp Pulse Resp BP Pulse Ox 97.7 F 84 16 112/76 92 12/28/19 12:00 12/28/19 12:00 12/28/19 12:00 12/28/19 12:00 12/28/19 12:00 General: Alert, In no apparent distress, Oriented x3, Cooperative HEENT: Atraumatic Neck: Supple Respiratory: Clear to auscultation bilaterally, Normal air movement Cardiovascular: Normal pulses, Regular rate/rhythm Gastrointestinal: Normal bowel sounds, Soft and benign, Non-distended, No tenderness, No masses, No rebound, No guarding Musculoskeletal: No erythema, No tenderness, No warmth Integumentary: No tenderness/swelling, No erythema, No warmth, No cyanosis Neurological: Normal speech, Normal strength at 5/5 x4 extr, Normal tone Laboratory Data at Discharge: WBC 8.0 K/uL (4.3-10.9) D 12/28/19 05:04 Hgb 11.2 g/dL (12.0-15.0) L 12/28/19 05:04 Hct 33.3 % (36.0-45.0) L 12/28/19 05:04 Plt Count 386 K/uL (152-406) 12/28/19 05:04 PT 12.0 SECONDS (9.5-12.5) 12/25/19 05:10 INR 1.02 12/25/19 05:10 APTT 24.9 SECONDS (24.3-36.9) 12/25/19 05:10 Sodium 142 mmol/L (136-145) 12/28/19 05:04 Potassium 4.3 mmol/L (3.5-5.1) 12/28/19 05:04 BUN 6 mg/dL (7-18) L 12/28/19 05:04 Creatinine 0.37 mg/dL (0.55-1.3) L 12/28/19 05:04 Glucose 84 mg/dL (74-106) 12/28/19 05:04 Phosphorus 2.7 mg/dL (2.5-4.9) 12/25/19 05:10 Magnesium 2.1 mg/dL (1.8-2.4) 12/28/19 05:04 Total Bilirubin 0.7 mg/dL (0.2-1.0) 12/25/19 05:10 AST 56 U/L (15-37) H 12/25/19 05:10 ALT 37 U/L (12-78) 12/25/19 05:10 Alkaline Phosphatase 182 U/L (45-117) H 12/25/19 05:10 Lipase 21 U/L (73-393) L 12/24/19 09:15 Home Medications: Fluoxetine HCl [Prozac*] 80 mg PO DAILY 11/09/18 Levothyroxine [Synthroid*] 0.075 mg PO DAILY 11/09/18 Prazosin HCl 1 mg PO DAILY 11/09/18 Trazodone [Desyrel*] 200 mg PO BEDTIME 11/09/18 buPROPion HCL [Bupropion HCl Sr] 150 mg PO DAILY 11/09/18 Enoxaparin Sodium [Lovenox 40 MG INJ*] 40 mg SQ DAILY 5 PM #10 syr 12/28/19 [place] Carbonate [Lithotabs *] 300 mg PO BID #60 tab 12/28/19 Quetiapine Fumarate [Seroquel] 300 mg PO BEDTIME #30 12/28/19 Thiamine HCl [Vitamin B-1*] 100 mg PO DAILY #30 tablet 12/28/19 traMADol HCL [Ultram*] 50 mg PO TID PRN #10 tab 12/28/19 New Medications: [place] Carbonate [Lithotabs *] 300 mg PO BID #60 tab Enoxaparin Sodium [Lovenox 40 MG INJ*] 40 mg SQ DAILY 5 PM #10 syr Quetiapine Fumarate [Seroquel] 300 mg PO BEDTIME #30 traMADol HCL [Ultram*] 50 mg PO TID PRN #10 tab PRN Reason: Pain Thiamine HCl [Vitamin B-1*] 100 mg PO DAILY #30 tablet Patient Discharge Instructions: 1. Patient be transferred to skilled facility to continue therapy. 2. Patient presented to the emergency room after a fall. She was found to have the right femoral neck fracture. Patient was evaluated by orthopedics. Orthopedic intervention was required. Right hip close reduction with percutaneous screw fixation was done. Patient tolerated procedure well. Patient has continued physical therapy. Patient has agreed to go to a skilled facility to continue her care. Patient has been accepted. Patient medically stable for discharge to the skilled facility. At discharge she will continue with Lovenox 40 mg subcu daily for the next 10 days. Patient will continue with current physical therapy as recommended by orthopedics. Recommend follow up with orthopedics as directed. A limited supply of tramadol 50 mg 1 pill 3 times a day as needed for pain will be provided. 3. Patient with bipolar disorder with schizophrenia. This appears stable at this time. Medications were adjusted with the help of her . At discharge she will continue with Wellbutrin SR 150 mg daily, Prozac 80 mg daily, Seroquel 300 mg at bedtime, trazodone 200 mg at bedtime, Prazosin 1 mg daily and lithium 300 mg twice daily. Please note lithium was decreased due to slightly elevated lithium level. [place] was also decreased. Recommend follow up with psychiatry to further monitor and address. 4. Patient with hypothyroidism. At discharge she will continue with her medication levothyroxine 75 mcg daily. 5. Patient with history of alcohol abuse. Patient will continue with thiamine 100 mg daily. Alcohol cessation education will need to be continued. Diet: AHA Activity: as per Orthopedics Followup: ABIMAEL VARGHESE [Primary Care Provider] - Time spent managing pt's care (in minutes): 55
[2019-12-28 16:16] VITALS: BP 104/71; TEMP 97
[2019-12-28] MEDS: ENOXAPARIN 40 MG/0.4 ML SQ SCH (17:10)
== END 2019-12-28 20:27 | DRG 482 ==
LOC: ER 08:43 → ERHOLD 10:14 → 2ND 16:34
PROVIDERS: ADMIT Hospitalist; ATTEND Family Medicine
PROC: 0QS634Z Reposition Right Upper Femur with Internal Fixation Device, Percutaneous Approach (ICD-10-PCS; principal; 2019-12-24 13:00)
DX: S72.041A Displaced fracture of base of neck of right femur, initial encounter for closed fracture (principal); I10 Essential (primary) hypertension; E03.9 Hypothyroidism, unspecified; F17.210 Nicotine dependence, cigarettes, uncomplicated; F10.10 Alcohol abuse, uncomplicated; F41.9 Anxiety disorder, unspecified; F25.9 Schizoaffective disorder, unspecified; F31.9 Bipolar disorder, unspecified; W18.30XA Fall on same level, unspecified, initial encounter; Z90.49 Acquired absence of other specified parts of digestive tract; Z79.899 Other long term (current) drug therapy; Z79.890 Hormone replacement therapy; Z20.828 Contact with and (suspected) exposure to other viral communicable diseases
CPT/HCPCS: 36415; 51702; 70450; 71045; 71260; 72125; 72170; 73530; 74177; 80048; 80053; 80076; 80178; 83690; 83735; 83880; 84100; 84484; 85025; 85610; 85730; 86850; 86900; 86901; 93005; 94010; 96361; 96365; 96375; 97110; 97161; 97530; 99285; G0390; J0690; J1650; J2405; J2704; J2710; J3010; J3411; J3480; J7030; J7120; Q9967; U0003

== ENCOUNTER 2020-01-12 11:08 | Emergency (ER) | payer OTHER ==
--- OUTSIDE RECORDS SUMMARY | 2020-01-12 11:09 | XMS REPORT | Continuity of Care Document ---
:1960 Author Organization [facility] t Address [address] [place] [address] Dr. Iglesias. [address] [place] [address] Care Team Providers Name Role Phone Sha [...] Type Clinicians Facility Department ID 2018-10-13 2018-10-13 [facility] [id number] 11:00:00 23:59:00 Encounter José Luis Galan [id number] [place] [id number] [place] [id number] 2018-10-13 2018-10-13 Orders Doctor MICHAEL [id number] 00:00:00 00:00:00 Only UnassignedSOCO [id number] [place] [facility] [id number] [id number] Results This patient has no known results.
--- OUTSIDE RECORDS SUMMARY | 2020-01-12 11:26 | XMS REPORT | Continuity of Care Document ---
:1960 Author Organization [facility] t Address [address] [place] [address] Dr. Iglesias. [address] [place] [address] Care Team Providers Name Role Phone Sha [...] Type Clinicians Facility Department ID 2018-10-13 2018-10-13 [facility] [id number] 11:00:00 23:59:00 Encounter José Luis Galan [id number] [place] [id number] [place] [id number] [id number] 2018-10-13 2018-10-13 Orders Doctor MICHAEL [id number] 00:00:00 00:00:00 Only UnassignedSOCO [id number] [place] [facility] [id number] [id number] Results This patient has no known results.
--- OUTSIDE RECORDS SUMMARY | 2020-01-12 11:26 | XMS REPORT | Continuity of Care Document ---
:1960 Author Organization [facility] t Address [address] [place] [address] Dr. Iglesias. [address] [place] [address] Care Team Providers Name Role Phone Sha [...] Type Clinicians Facility Department ID 2018-10-13 2018-10-13 [facility] [id number] 11:00:00 23:59:00 Encounter José Luis Galan [id number] [place] [id number] [place] [id number] 2018-10-13 2018-10-13 Orders Doctor MICHAEL [id number] 00:00:00 00:00:00 Only UnassignedSOCO [id number] [place] [facility] [id number] [id number] Results This patient has no known results.
[2020-01-12] MEDS ORDERED: THIAMINE 200 MG/2 ML INJ ONE (12:29)
[2020-01-12] MEDS ORDERED: NA CHLORIDE 0.9% 1,000 ML ONE (12:30)
[2020-01-12] MEDS ORDERED: FOLIC ACID 5 MG/ML VIAL ONE (12:30)
[2020-01-12] MEDS ORDERED: MULTIVITAMINS 10 ML VIAL (INJ) IV ONE (12:30)
[2020-01-12 12:47] LABS: Absolute Lymphocytes (CBC) 1.3 K/uL (0.7-4.9); Basophils % 0.5 % (0-1.3); Hematocrit 38.7 % (36.0-45.0); Lymphocytes % 9.5 % (15.3-44.8); MPV 7.8 fL (7.6-11.3); RBC Red Blood Cell Count 4.03 M/uL (3.86-4.86)
[2020-01-12 12:51] LABS: Protime INR 1.04
--- NOTE | 2020-01-12 12:52 | RAD REPORT ---
EXAM DESCRIPTION: CT - Head Brain Wo Cont - 01/12/2020 12:33 pm CLINICAL HISTORY: Alteration of awareness/confusion COMPARISON: December 24, 2019 TECHNIQUE: Computed axial tomography of the head was obtained. IV contrast was not requested. All CT scans are performed using dose optimization technique as appropriate and may include automated exposure control or mA/KV adjustment according to patient size. FINDINGS: An intracranial bleed is not seen . The ventricles are normal in caliber. No extra-axial fluid collection is noted. Fluid within the sinuses/ mastoids is not seen. IMPRESSION: No acute intracranial abnormality is seen. If patient's symptoms persist MRI of the bra in would be recommended.
[2020-01-12 13:05] LABS: ALT/SGPT 35 U/L (12-78); Albumin 2.2 g/dL (3.4-5.0); Alkaline Phosphatase 226 U/L (45-117); BUN Blood Urea Nitrogen 12 mg/dL (7-18); Bicarbonate 23 mmol/L (21-32); Bilirubin Direct 0.3 mg/dL (0-0.2); Bilirubin Total 0.7 mg/dL (0.2-1.0); Glucose Level 94 mg/dL (74-106); Sodium Level 138 mmol/L (136-145)
[2020-01-12 13:06] LABS: AST/SGOT 70 U/L (15-37); Potassium 3.2 mmol/L (3.5-5.1)
[2020-01-12 13:10] LABS: Salicylates Level < 1.7 mg/dL (2.8-20)
--- NOTE | 2020-01-12 13:13 | RAD REPORT ---
EXAM DESCRIPTION: CT - Abdomen Pelvis W Contrast - 01/12/2020 12:33 pm CLINICAL HISTORY: Abdominal pain COMPARISON: December 2019 TECHNIQUE: Computed axial tomography of the abdomen pelvis was obtained. 100 cc Isovue-300 was admin istered intravenously. Oral contrast was not requested which limits evaluation of bowel. All CT scans are performed using dose optimization technique as appropriate and may include automated exposure control or mA/KV adjustment according to patient size. FINDINGS: Fatty liver Spleen, pancreas and adrenals unremarkable. Small renal cysts Cholecystectomy Post surgical changes involve the stomach 2 centimeter right ovarian cyst without significant free fluid. No evidence diverticulitis. Air is present within the bladder. Screws affix a subacute right femoral fracture. Mild to moderate compression fracture T11 vertebral body. Moderate compression fracture T12 vertebral body. Both are unchanged from prior exam IMPRESSION: 2 centimeter right ovarian cyst without significant free fluid Air in the bladder probably related to prior instrumentation. Infection can also result this appearan ce
[2020-01-12 13:48] LABS: Barbiturates NEGATIVE (NEGATIVE); Benzodiazepines POSITIVE (NEGATIVE); Cocaine NEGATIVE (NEGATIVE); METHAMPHETAM NEGATIVE (NEGATIVE); Methadone NEGATIVE (NEGATIVE); Opiates NEGATIVE (NEGATIVE); Phencyclidine NEGATIVE (NEGATIVE); THC Cannibis NEGATIVE (NEGATIVE)
[2020-01-12 14:09] LABS: Urine Blood NEGATIVE (NEG); Urine Glucose NEGATIVE (NEG); Urine Protein TRACE (NEG); Urine Specific Gravity 1.015 (1.005-1.030)
--- NOTE | 2020-01-12 14:22 | EDPHYS ---
Physician Documentation [facility] Name: Isabelle Lowery Age: 59 yrs Sex: Female : 1960 Arrival Date: 01/12/2020 Time: 11:08 Bed 6 Private MD: ED Physician Janey Steele HPI: 01/11 14:16 This 59 yrs old Female presents to ER via Wheelchair with complaints of ma2 Decreased Appetite, General Weakness. 14:16 This 59 yrs old Female presents to ER via Wheelchair with complaints of ma2 Decreased Appetite, General Weakness. 14:16 Onset: The symptoms/episode began/occurred gradually, 1 day(s) ago. Onset: The ma2 symptoms/episode began/occurred gradually, 3 week(s) ago. Onset: The symptoms/episode began/occurred gradually, 6 month(s) ago. Associated signs and symptoms: Pertinent negatives: dizziness, nausea, paresthesias, syncope, loss of vision, weakness. Associated signs and symptoms: Pertinent negatives:. Severity of symptoms: At their worst the symptoms were moderate in the emergency department the symptoms are unchanged. The patient has not experienced similar symptoms in the past. has chronic memory issues for months, and being worked up for diarrhea and weight loss, they just established care with a new pcp, dr. laurent, he advised them to visit the ed to rule out emergency cause of confusion and diarrhea, she has been confused with memory issues for more than a year . patient has no symptoms at this time she is alert and oriented x 3 . Historical: - Allergies: 11:35 No Known Allergies; iw - Home Meds: 11:35 Risperdal 1 mg Oral tab nightly [Active]; trazodone 100 mg Oral tab 2 tabs nightly iw [Active]; - PMHx: 11:35 Bipolar disorder; Depression; hypotension; Schizophrenia; iw - PSHx: 11:35 Cholecystectomy; ; iw - Immunization history:: Adult Immunizations unknown, Last tetanus immunization: unknown. - Social history:: Patient/guardian denies using alcohol, street drugs, The patient lives with family, Smoking status: Patient reports the use of cigarette tobacco products, smokes a few ciggarets a day . - Family history:: not pertinent. ROS: 14:16 Constitutional: Negative for fever, chills, and weight loss. ma2 14:16 All other systems are negative. Exam: 14:16 Constitutional: This is a well developed, well nourished patient who is awake, alert, ma2 and in no acute distress. Head/Face: Normocephalic, atraumatic. Eyes: Pupils equal round and reactive to light, extra-ocular motions intact. Lids and lashes normal. Conjunctiva and sclera are non-icteric and not injected. Cornea within normal limits. Periorbital areas with no swelling, redness, or edema. ENT: Nares patent. No nasal discharge, no septal abnormalities noted. Tympanic membranes are normal and external auditory canals are clear. Oropharynx with no redness, swelling, or masses, exudates, or evidence of obstruction, uvula midline. Mucous membranes moist. Neck: Trachea midline, no thyromegaly or masses palpated, and no cervical lymphadenopathy. Supple, full range of motion without nuchal rigidity, or vertebral point tenderness. No Meningismus. Chest/axilla: Normal chest wall appearance and motion. Nontender with no deformity. No lesions are appreciated. Cardiovascular: Regular rate and rhythm with a normal S1 and S2. No gallops, murmurs, or rubs. Normal PMI, no JVD. No pulse deficits. Respiratory: Lungs have equal breath sounds bilaterally, clear to auscultation and percussion. No rales, rhonchi or wheezes noted. No increased work of breathing, no retractions or nasal flaring. Abdomen/GI: Soft, non-tender, with normal bowel sounds. No distension or tympany. No guarding or rebound. No evidence of tenderness throughout. Skin: Warm, dry with normal turgor. Normal color with no rashes, no lesions, and no evidence of cellulitis. MS/ Extremity: Pulses equal, no cyanosis. Neurovascular intact. Full, normal range of motion. Neuro: Awake and alert, GCS 15, oriented to person, place, time, and situation. Cranial nerves II-XII grossly intact. Motor strength 5/5 in all extremities. Sensory grossly intact. Cerebellar exam normal. Normal gait. Psych: Awake, alert, with orientation to person, place and time. Behavior, mood, and affect are within normal limits. Vital Signs: 11:25 BP 105 / 81; Pulse 90; Resp 16; Temp 98.2; Pulse Ox 100% on R/A; Weight 52.16 kg; iw 13:16 BP 118 / 106; Pulse 77; Resp 16 S; Pulse Ox 99% on R/A; ec1 14:23 BP 120 / 73 LA; Pulse 71; Resp 16; Pulse Ox 100% on R/A; ec1 15:15 BP 128 / 86; Pulse 79; Resp 16 S; Pulse Ox 99% on R/A; ec1 MDM: 11:40 Patient medically screened. [facility] 14:16 Data reviewed: vital signs, nurses notes. Counseling: I had a detailed discussion with ma2 the patient and/or guardian regarding: the historical points, exam findings, and any diagnostic results supporting the discharge/admit diagnosis, the presence of at least one elevated blood pressure reading (>120/80) during this emergency department visit, the need for outpatient follow up. Response to treatment: There is no appreciated change of the patient's symptoms at this time. ED course: they will see pcp and gi doctors for further evaluation, no workup in er did not reveal any emergency condition . 01/11 12:03 Order name: Urine Drug Screen [facility] 01/11 12:03 Order name: Acetaminophen; Complete Time: 13:41 [facility] 01/11 12:03 Order name: Basic Metabolic Panel; Complete Time: 13:41 [facility] 01/11 12:03 Order name: CBC with Diff; Complete Time: 13:41 [facility] 01/11 12:03 Order name: ETOH Level; Complete Time: 13:41 [facility] 01/11 12:03 Order name: Hepatic Function; Complete Time: 13:41 [facility] 01/11 12:03 Order name: CT Head Brain wo Cont; Complete Time: 13:41 [facility] 01/11 12:03 Order name: CT Abd/Pelvis - IV Contrast Only; Complete Time: 13:41 [facility] 01/11 12:03 Order name: PT-INR; Complete Time: 13:41 [facility] 01/11 12:03 Order name: Ptt, Activated; Complete Time: 13:41 [facility] 01/11 12:03 Order name: Salicylate; Complete Time: 13:41 [facility] 01/11 12:03 Order name: AMMONIA; Complete Time: 13:41 [facility] 01/11 12:03 Order name: Chalco; Complete Time: 13:41 [facility] 01/11 13:58 Order name: Urine Dipstick--Ancillary (enter results) eb 01/11 12:03 Order name: EKG; Complete Time: 12:03 [facility] 01/11 12:03 Order name: EKG - Nurse/Tech; Complete Time: 12:49 [facility] 01/11 12:03 Order name: IV Saline Lock; Complete Time: 12:27 wi2 01/11 12:03 Order name: Labs collected and sent; Complete Time: 12:27 wi2 01/11 12:03 Order name: Urine Dipstick-Ancillary (obtain specimen); Complete Time: 13:35 [facility] Administered Medications: 12:45 Drug: Banana Bag - (NS 0.9% 1000 ml, foLIC Acid 1 mg, Thiamine 100 mg, Multivitamin 1 ll1 amp) Route: IV; Rate: calculated rate; Site: left antecubital; 15:10 Follow up: IV Status: Completed infusion; IV Intake: 1000ml ec1 Disposition: 01/12/20 14:21 Discharged to Home. Impression: Diarrhea, unspecified, Abnormal weight loss. - Condition is Stable. - Discharge Instructions: Food Choices to Help Relieve Diarrhea, Adult, Diarrhea, Adult, Malnutrition. - Medication Reconciliation Form, Thank You Letter, Antibiotic Education, Prescription Opioid Use form. - Follow up: Private Physician; When: Tomorrow; Reason: Continuance of care. Signatures: Dispatcher [employer] Fabiola Alvarez RN Janey Meeks MD MD ma2 Asia Sharma RN RN ll1 Yoana Pack RN RN ec1 Corrections: (The following items were deleted from the chart) 14:21 01/12/2020 14:21 Discharged to Home. Impression: Diarrhea, unspecified; Abnormal ec1 weight loss. Condition is Stable. Forms are Medication Reconciliation Form, Thank You Letter, Antibiotic Education, Prescription Opioid Use. Follow up: Private Physician; When: Tomorrow; Reason: Continuance of care. ma2
--- NOTE | 2020-01-12 14:22 | ER ---
Nurse's Notes [facility] Name: Isabelle Lowery Age: 59 yrs Sex: Female : 1960 Arrival Date: 01/12/2020 Time: 11:08 Bed 6 Private MD: Diagnosis: Diarrhea, unspecified;Abnormal weight loss Presentation: 01/11 11:25 Chief complaint: Spouse and/or significant other states: broke her right hip recently iw and was sent to rehab and they took her out of it because she couldn't participate due to her confusion, weakness and she has no appetite and diarrhea, is due for US on Jan 22 of liver and pancreas , had stool sample collected Wednesday and is due for endoscope and coloscopy , has hx of ETOH use but stopped a month ago , has had recent weight loss over the past week. Coronavirus screen: diarrhea, Client presents with at least one sign or symptom that may indicate coronavirus-19. Ebola Screen: Patient negative for fever greater than or equal to 101.5 degrees Fahrenheit, and additional compatible Ebola Virus Disease symptoms Patient denies exposure to infectious person. Patient denies travel to an Ebola-affected area in the 21 days before illness onset. No symptoms or risks identified at this time. Initial Sepsis Screen: Does the patient meet any 2 criteria? No. Patient's initial sepsis screen is negative. Does the patient have a suspected source of infection? No. Patient's initial sepsis screen is negative. Risk Assessment: Do you want to hurt yourself or someone else? Patient reports no desire to harm self or others. Onset of symptoms. 11:25 Method Of Arrival: Wheelchair iw 11:25 Acuity: AUGUSTIN 3 iw Historical: - Allergies: 11:35 No Known Allergies; iw - Home Meds: 11:35 Risperdal 1 mg Oral tab nightly [Active]; trazodone 100 mg Oral tab 2 tabs nightly iw [Active]; - PMHx: 11:35 Bipolar disorder; Depression; hypotension; Schizophrenia; iw - PSHx: 11:35 Cholecystectomy; ; iw - Immunization history:: Adult Immunizations unknown, Last tetanus immunization: unknown. - Social history:: Patient/guardian denies using alcohol, street drugs, The patient lives with family, Smoking status: Patient reports the use of cigarette tobacco products, smokes a few ciggarets a day . - Family history:: not pertinent. Screenin:27 Abuse screen: Denies threats or abuse. Denies injuries from another. Nutritional hb screening: No deficits noted. Tuberculosis screening: No symptoms or risk factors identified. Fall Risk Total Delgaod Fall Scale indicates Low Risk Score (25-44 pts). Fall prevention measures have been instituted. Side Rails Up X 2 Frequent Obs/Assesments occuring Family Present and informed to notify staff if they need to leave bedside As available Patient and Family Educated on Fall Prevention Program and strategies. Assessment: 11:45 General: Appears in no apparent distress. comfortable, Behavior is cooperative, ec1 anxious. Pain: Denies pain. Neuro: Level of Consciousness is awake, obeys commands, Oriented to person, Gait is unsteady, Speech is normal, Pupils are PERRLA, Pupil Size: 3 mm bilateral. Cardiovascular: Patient's skin is warm and dry. Respiratory: Airway is patent Respiratory effort is even, unlabored. GI: Parent/caregiver reports the patient having diarrhea. : No deficits noted. EENT: No deficits noted. Derm: Skin is jaundiced. 13:29 Reassessment: Patient appears in no apparent distress at this time. Patient and/or ec1 family updated on plan of care and expected duration. Pain level reassessed. Pt is still confused, somewhat uncooperative. Pt agreed to straight cath for UA sample. at bedside attempting to calm patient and encourage her to be cooperative. 14:24 Reassessment: Patient appears in no apparent distress at this time. No changes from ec1 previously documented assessment. Patient and/or family updated on plan of care and expected duration. Pain level reassessed. 15:25 Reassessment: Patient appears in no apparent distress at this time. No changes from ec1 previously documented assessment. Patient and/or family updated on plan of care and expected duration. Pain level reassessed. Vital Signs: 11:25 BP 105 / 81; Pulse 90; Resp 16; Temp 98.2; Pulse Ox 100% on R/A; Weight 52.16 kg; iw 13:16 BP 118 / 106; Pulse 77; Resp 16 S; Pulse Ox 99% on R/A; ec1 14:23 BP 120 / 73 LA; Pulse 71; Resp 16; Pulse Ox 100% on R/A; ec1 15:15 BP 128 / 86; Pulse 79; Resp 16 S; Pulse Ox 99% on R/A; ec1 ED Course: 11:08 Patient arrived in ED. ds1 11:31 Triage completed. iw 11:40 Janey Steele MD is Attending Physician. ma2 11:44 Yoana Pack, RN is Primary Nurse. ec1 12:27 Arm band placed on. hb 12:33 CT Head Brain wo Cont In Process Unspecified. EDMS 12:33 CT Abd/Pelvis - IV Contrast Only In Process Unspecified. EDMS 12:45 EKG done, by ED staff, reviewed by Janey Steele MD. 3 13:10 Patient has correct armband on for positive identification. Bed in low position. Side ec1 rails up X2. Adult w/ patient. 13:27 Straight cath inserted, using sterile technique, 16 Fr. Returned robert urine. Patient ec1 tolerated well. 13:35 Urine Drug Screen Sent. 3 15:25 No provider procedures requiring assistance completed. IV discontinued, intact, ec1 bleeding controlled, Pressure dressing applied. Administered Medications: 12:45 Drug: Banana Bag - (NS 0.9% 1000 ml, foLIC Acid 1 mg, Thiamine 100 mg, Multivitamin 1 ll1 amp) Route: IV; Rate: calculated rate; Site: left antecubital; 15:10 Follow up: IV Status: Completed infusion; IV Intake: 1000ml ec1 Intake: 15:10 IV: 1000ml; Total: 1000ml. ec1 Outcome: 14:21 Discharge ordered by . wy2 15:25 Condition: stable ec1 15:25 Discharge instructions given to patient, family, Instructed on discharge instructions, follow up and referral plans. Demonstrated understanding of instructions, follow-up care. 15:26 Discharged to home via wheelchair, with family. ec1 15:27 Patient left the ED. ec1 Signatures: Dispatcher [employer] [facility] Nicholas Sofiya ds1 Fabiola Garza, Cris Ayoub RN, RN RN Diamante Crain 3 Janey Steele MD MD ma2 Asia Sharma RN RN 1 Yoana Pack RN RN ec1
[2020-01-12 15:45] VITALS: TEMP 98.2
[2020-01-12 16:02] VITALS: BP 128/86; O2SAT 99
== END 2020-01-12 15:27 | disposition home or self-care (01) ==
LOC: PICC 11:08 → ER 11:08 → EDSTATUS 11:20 → ER 15:27
DX: R19.7 Diarrhea, unspecified (principal); R63.4 Abnormal weight loss; F20.9 Schizophrenia, unspecified; F17.210 Nicotine dependence, cigarettes, uncomplicated
CPT/HCPCS: 96365; 93005; 85025; 80048; 36415; 80320; 82140; 80329 ×2; 85610; 80178; 80076; 80307 ×8; 85730; 81003; 70450; 74177; 51702; 99284; 96366; Q9967; J3411; J7030

== ENCOUNTER 2020-01-19 14:13 | Inpatient (IN) | payer OTHER ==
--- OUTSIDE RECORDS SUMMARY | 2020-01-19 14:15 | XMS REPORT | Continuity of Care Document ---
:1960 Author Organization [facility] t Address [address] [place] [address] Dr. Iglesias[address] [place] [address] Care Team Providers Name Role Phone Sha [...] Type Clinicians Facility Department ID 2018-10-13 2018-10-13 [facility] [id number] 11:00:00 23:59:00 Encounter José Luis Galan [id number] [place] [id number] [place] [phone] [id number] 2018-10-13 2018-10-13 Orders Doctor MICHAEL [id number] 00:00:00 00:00:00 Only UnassignedSOCO [id number] [place] [facility] [phone] [id number] Results This patient has no known results.
[2020-01-19] MEDS ORDERED: NA CHLORIDE 0.9% 500 ML ONE (15:30)
--- NOTE | 2020-01-19 15:33 | RAD REPORT ---
EXAM DESCRIPTION: RAD - Chest Single View - 01/19/2020 3:28 pm CLINICAL HISTORY: declining health Chest pain. COMPARISON: Chest Single View dated 12/24/2019; Chest Single View dated 11/08/2018; CHEST SINGLE VIEW dated 08/26/2012; CHEST SINGLE VIEW dated 12/28/2009 FINDINGS: Portable technique limits examination quality. The lungs are grossly clear. The heart is normal in size. No displaced fractures.Hardware plate in th e cervical spine noted. Cholecystectomy clips. IMPRESSION: No acute intrathoracic process suspected.
--- NOTE | 2020-01-19 15:34 | RAD REPORT ---
EXAM DESCRIPTION: RAD - Femur Right - 01/19/2020 3:28 pm CLINICAL HISTORY: SWELLING COMPARISON: Femur Right dated 12/24/2019 FINDINGS: No fracture, dislocation or aggressive marrow pattern. Hardware is present in the proximal right femur as well as the proximal tibia without evidence of complication.
--- NOTE | 2020-01-19 15:44 | RAD REPORT ---
EXAM DESCRIPTION: CT - Head Brain Wo Cont - 01/19/2020 3:34 pm CLINICAL HISTORY: DECLINING STATE Headache, drowsiness, altered awareness COMPARISON: Head Brain Wo Cont dated 01/12/2020; Head Brain Wo Cont dated 11/08/2018 TECHNIQUE: All CT scans are performed using dose optimization technique as appropriate and may inclu de automated exposure control or mA/KV adjustment according to patient size. FINDINGS: No intracranial hemorrhage, hydrocephalus or extra-axial fluid collection.Mild generalized brain atrophy.No areas of brain edema or evidence of midline shift. The paranasal sinuses and mastoids are clear. The calvarium is intact. IMPRESSION: No acute intracranial abnormality.
[2020-01-19 16:13] LABS: Absolute Lymphocytes (CBC) 0.9 K/uL (0.7-4.9); Basophils % 0.4 % (0-1.3); Hematocrit 41.8 % (36.0-45.0); Lymphocytes % 4.9 % (15.3-44.8); MPV 8.3 fL (7.6-11.3); RBC Red Blood Cell Count 4.36 M/uL (3.86-4.86)
[2020-01-19 16:35] LABS: ALT/SGPT 48 U/L (12-78); AST/SGOT 66 U/L (15-37); Albumin 2.1 g/dL (3.4-5.0); Alkaline Phosphatase 309 U/L (45-117); BUN Blood Urea Nitrogen 16 mg/dL (7-18); Bicarbonate 24 mmol/L (21-32); Bilirubin Direct 0.6 mg/dL (0-0.2); Glucose Level 132 mg/dL (74-106); Lipase 21 U/L (73-393); NT PRO-BNP 207 pg/mL (<125); Potassium 3.2 mmol/L (3.5-5.1); Protein, Total 6.1 g/dL (6.4-8.2); Sodium Level 141 mmol/L (136-145); Troponin (Emerg Dept Use Only) < 0.02 ng/mL (0.0-0.045)
[2020-01-19 16:50] LABS: Blood Morphology Comment NOT SEEN (NOT SEEN); Platelet Estimate INCR; White Blood Cell Scan OK (OK)
[2020-01-19 17:05] LABS: Urine Blood NEGATIVE (NEG); Urine Glucose NEGATIVE (NEG); Urine Protein 1+ (NEG)
--- NOTE | 2020-01-19 17:11 | ER ---
Nurse's Notes [facility] Name: Isabelle Lowery Age: 59 yrs Sex: Female : 1960 Arrival Date: 01/19/2020 Time: 14:15 Bed 16 Private MD: Diagnosis: Altered mental status, unspecified;Hypokalemia;Leukocytosis Presentation: 01/18 14:26 Chief complaint: Spouse and/or significant other states: Told to come to ER for ss evaluation of low potassium and abnormal WBC count after having labs obtained this morning. reports that patient seems to have been declining over the past 30 days. Coronavirus screen: Client denies travel out of the [place] in the last 14 days. Ebola Screen: Patient denies exposure to infectious person. Patient denies travel to an Ebola-affected area in the 21 days before illness onset. Initial Sepsis Screen: Does the patient meet any 2 criteria? No. Patient's initial sepsis screen is negative. Does the patient have a suspected source of infection? No. Patient's initial sepsis screen is negative. Risk Assessment: Do you want to hurt yourself or someone else? Patient reports no desire to harm self or others. Onset of symptoms is unknown. 14:26 Method Of Arrival: Wheelchair ss 14:26 Acuity: AUGUSTIN 2 ss Historical: - Allergies: 14:30 No Known Allergies; ss - PMHx: 14:30 Bipolar disorder; Depression; hypotension; Schizophrenia; ETOH absue; ss - PSHx: 14:30 Cholecystectomy; ; ss - Immunization history:: Adult Immunizations unknown. - Social history:: Smoking status: Patient reports the use of cigarette tobacco products, smokes one-half pack cigarettes per day. Screenin:08 Abuse screen: Denies threats or abuse. Nutritional screening: No deficits noted. ll1 Tuberculosis screening: No symptoms or risk factors identified. Fall Risk Fall in past 12 months (25 points). Secondary diagnosis (15 points) impaired mobility, IV access (20 points). Gait- Impaired (20 pts.). Mental Status- Overestimates/Forgets Limitations (15 pts.). Total Delgado Fall Scale indicates High Risk Score (45 or more points). Fall prevention measures have been instituted. Side Rails Up X 2 Placed Close to Nursing Station Frequent Obs/Assessments Occuring Family Present and informed to notify staff if the need to leave the bedside As available patient and family educated on Fall Prevention Program and Strategies. Assessment: 14:40 General: Appears slender, Behavior is cooperative, quiet, restless. Pain: Denies pain. ll1 Neuro: Level of Consciousness is awake, obeys commands, confused, Oriented to person, Backup Administrative Coordinator are weak bilaterally Moves all extremities. Full function Speech is normal, Facial symmetry appears normal, caregiver states she is on multiple psych meds, recent adjustment to medications due to her not eating well. Steady decline in neuro status over the past couple months. . Cardiovascular: No deficits noted. Denies chest pain. Respiratory: No deficits noted. GI: No deficits noted. : No deficits noted. Derm: Wound noted face/arms/chest Parent/caregiver reports the patient having small sores from picking at skin all over. Musculoskeletal: Circulation, motion, and sensation intact. Capillary refill < 3 seconds, Range of motion: intact in all extremities. 15:40 Reassessment: Patient and/or family updated on plan of care and expected duration. Pain ll1 level reassessed. 16:45 Reassessment: Patient and/or family updated on plan of care and expected duration. Pain ll1 level reassessed. 17:45 Reassessment: Patient and/or family updated on plan of care and expected duration. Pain ll1 level reassessed. Patient denies pain at this time. 18:45 Reassessment: Patient and/or family updated on plan of care and expected duration. Pain ll1 level reassessed. 19:45 Reassessment: Patient and/or family updated on plan of care and expected duration. Pain ll1 level reassessed. 20:45 Reassessment: Patient and/or family updated on plan of care and expected duration. Pain ll1 level reassessed. 21:41 Reassessment: Patient and/or family updated on plan of care and expected duration. Pain ll1 level reassessed. Patient is alert, oriented x 3, equal unlabored respirations, skin warm/dry/pink. Vital Signs: 14:26 Pulse 102; Resp 18; Temp 97.3; Pulse Ox 97% ; Weight 54.43 kg; ss 14:37 BP 112 / 88; ss 16:00 BP 117 / 93; Pulse 93; Resp 17; ll1 20:35 BP 120 / 87; Pulse 78; Resp 17; Temp 97.9; Pulse Ox 98% on R/A; Pain 0/10; ll1 21:07 BP 104 / 90; Pulse 79; Resp 17; Pulse Ox 98% on R/A; Pain 0/10; ll1 21:41 BP 125 / 91; Pulse 80; Resp 17; Pulse Ox 98% on R/A; ll1 14:26 after multple attempts, unable to obtain blood pressure during triage. ED Course: 14:15 Patient arrived in ED. as 14:28 Triage completed. ss 14:30 Arm band placed on right wrist. ss 14:30 Patient has correct armband on for positive identification. Bed in low position. Call ll1 light in reach. Side rails up X2. Pulse ox on. NIBP on. 14:40 Inserted saline lock: 22 gauge in left forearm, using aseptic technique. Blood ll1 collected. 14:41 Carlyn Franco FNP-C is PHCP. snw 14:41 Ney Meier MD is Attending Physician. snw 14:50 Asia Sharma, KELTON is Primary Nurse. ll1 15:28 XRAY Chest (1 view) In Process Unspecified. EDMS 15:28 Femur Right XRAY In Process Unspecified. EDMS 15:34 CT Head Brain wo Cont In Process Unspecified. EDMS 16:20 Lujan cath inserted, using sterile technique, [address] Fr[address], balloon inflated, to ll1 gravity drainage, urine specimen collected. 17:04 CT Abd/Pelvis - IV Contrast Only In Process Unspecified. EDMS 17:08 Janey Larios MD is Hospitalizing Provider. snw 19:30 Primary Nurse role handed off by Asia Sharma, KELTON mw2 20:17 Asia Sharma, KELTON is Primary Nurse. ll1 21:09 No provider procedures requiring assistance completed. ll1 21:19 Patient admitted, IV remains in place. ll1 Administered Medications: 15:40 Drug: NS 0.9% 1000 ml Route: IV; Rate: 75 ml/hr; Site: left forearm; ll1 21:20 Follow up: Response: No adverse reaction; RASS: Alert and Calm (0); IV Status: Infusion ll1 continued upon admission; IV Intake: 250ml Intake: 21:20 IV: 250ml; Total: 250ml. ll1 Outcome: 17:09 Decision to Hospitalize by Provider. snw 21:17 Admitted to Med/surg accompanied by tech, via stretcher, room 205, with chart, Report ll1 called to Mariano Zavaleta RN on 04 07:17 Condition: stable 21:18 Instructed on the need for admit. ll1 21:43 Patient left the ED. ll1 Signatures: Dispatcher [employer] EDMS Carlyn Franco, BORDERER-C BORDERER-CsnClaudia Rabago Shelby, KELTON RN Shawna Talley 2 Asia Sharma RN RN ll1 Corrections: (The following items were deleted from the chart) 21:42 20:35 BP 120 / 87; Pulse 78bpm; Resp 17bpm; Pulse Ox 98% RA; Pain 0/10; ll1 ll1 :42 21:41 Temp 97.9F; ll1 ll1
--- NOTE | 2020-01-19 17:11 | EDPHYS ---
Physician Documentation [facility] Name: Isabelle Lowery Age: 59 yrs Sex: Female : 1960 Arrival Date: 01/19/2020 Time: 14:15 Bed 16 Private MD: ED Physician Ney Meier HPI: 01/18 17:10 This 59 yrs old Female presents to ER via Wheelchair with complaints of snw Abnormal Lab Results. 17:10 Onset: The symptoms/episode began/occurred gradually. Associated signs and symptoms: snw Pertinent positives: diarrhea. It is unknown whether or not the patient has had similar symptoms in the past. The patient has been recently seen by a physician: Dr. Galaviz. labs done preop for colonoscopy showed hypokalemia, pt sent to ED for eval. Historical: - Allergies: 14:30 No Known Allergies; ss - PMHx: 14:30 Bipolar disorder; Depression; hypotension; Schizophrenia; ETOH absue; ss - PSHx: 14:30 Cholecystectomy; ; ss - Immunization history:: Adult Immunizations unknown. - Social history:: Smoking status: Patient reports the use of cigarette tobacco products, smokes one-half pack cigarettes per day. ROS: 15:12 Constitutional: Negative for fever, chills, and weight loss, decreased ability to care snw for herself, unable to get up, confused Eyes: Negative for injury, pain, redness, and discharge, ENT: Negative for injury, pain, and discharge, Neck: Negative for injury, pain, and swelling, Cardiovascular: Negative for chest pain, palpitations, and edema, Respiratory: Negative for shortness of breath, cough, wheezing, and pleuritic chest pain, Abdomen/GI: Negative for abdominal pain, nausea, vomiting, diarrhea, and constipation, Back: Negative for injury and pain, : Negative for injury, bleeding, discharge, and swelling, Skin: Negative for injury, rash, and discoloration. 15:12 MS/extremity: Positive for right leg fx s/p fall last month. 15:12 Neuro: Positive for altered mental status, weakness. Exam: 15:08 Head/Face: Normocephalic, atraumatic. Eyes: Pupils equal round and reactive to light, snw extra-ocular motions intact. Lids and lashes normal. Conjunctiva and sclera are non-icteric and not injected. Cornea within normal limits. Periorbital areas with no swelling, redness, or edema. ENT: Nares patent. No nasal discharge, no septal abnormalities noted. Tympanic membranes are normal and external auditory canals are clear. Oropharynx with no redness, swelling, or masses, exudates, or evidence of obstruction, uvula midline. Mucous membranes moist. Neck: Trachea midline, no thyromegaly or masses palpated, and no cervical lymphadenopathy. Supple, full range of motion without nuchal rigidity, or vertebral point tenderness. No Meningismus. Chest/axilla: Normal chest wall appearance and motion. Nontender with no deformity. No lesions are appreciated. 15:08 Respiratory: Lungs have equal breath sounds bilaterally, clear to auscultation and percussion. No rales, rhonchi or wheezes noted. No increased work of breathing, no retractions or nasal flaring. Abdomen/GI: Soft, non-tender, with normal bowel sounds. No distension or tympany. No guarding or rebound. No evidence of tenderness throughout. Back: No spinal tenderness. No costovertebral tenderness. Full range of motion. 15:08 Constitutional: The patient appears awake, frail, listless, bronze 15:08 Cardiovascular: Rate: tachycardic, Rhythm: regular, Heart sounds: normal. 15:08 Musculoskeletal/extremity: Extremities: grossly normal except: noted in the right leg: swelling, Circulation is intact in all extremities. 15:08 Skin: Appearance: Color: prince, dusky, Moisture: dry, petechiae. 15:08 Neuro: Orientation: to person, Mentation: confused, seizure activity, is not displayed by the patient. Vital Signs: 14:26 Pulse 102; Resp 18; Temp 97.3; Pulse Ox 97% ; Weight 54.43 kg; ss 14:37 BP 112 / 88; ss 16:00 BP 117 / 93; Pulse 93; Resp 17; ll1 20:35 BP 120 / 87; Pulse 78; Resp 17; Temp 97.9; Pulse Ox 98% on R/A; Pain 0/10; ll1 21:07 BP 104 / 90; Pulse 79; Resp 17; Pulse Ox 98% on R/A; Pain 0/10; ll1 21:41 BP 125 / 91; Pulse 80; Resp 17; Pulse Ox 98% on R/A; ll1 14:26 after multple attempts, unable to obtain blood pressure during triage. MDM: 14:42 Patient medically screened. [facility] 17:07 Data reviewed: vital signs, nurses notes. Data interpreted: Pulse oximetry: on room air snw is 97 %. Interpretation: normal. Counseling: I had a detailed discussion with the patient and/or guardian regarding: the historical points, exam findings, and any diagnostic results supporting the discharge/admit diagnosis, the presence of at least one elevated blood pressure reading (>120/80) during this emergency department visit, lab results, radiology results, the need for further work-up and treatment in the hospital. Physician consultation: Janey Larios MD was called at 17:08, was contacted at 17:08, regarding admission, to the telemetry unit. 01/18 14:43 Order name: Basic Metabolic Panel; Complete Time: 17:07 snw 01/18 14:43 Order name: CBC with Diff; Complete Time: 16:51 snw 01/18 14:43 Order name: LFT's; Complete Time: 17:07 snw 01/18 14:43 Order name: Magnesium; Complete Time: 17:07 snw 01/18 14:43 Order name: NT PRO-BNP; Complete Time: 17:07 snw 01/18 14:43 Order name: PT-INR; Complete Time: 16:32 snw 01/18 14:43 Order name: Troponin (emerg Dept Use Only); Complete Time: 17:07 snw 01/18 14:43 Order name: TS; Complete Time: 17:27 snw 01/18 14:43 Order name: TSH; Complete Time: 17:15 snw 01/18 14:43 Order name: Lipase; Complete Time: 17:07 snw 01/18 15:00 Order name: AMMONIA; Complete Time: 16:54 snw 01/18 15:00 Order name: Lactate; Complete Time: 16:54 snw 01/18 15:48 Order name: CDIFF snw 01/18 16:20 Order name: Blood Culture Adult (2) snw 01/18 14:43 Order name: XRAY Chest (1 view); Complete Time: 15:39 snw 01/18 14:43 Order name: EKG; Complete Time: 14:44 snw 01/18 15:00 Order name: Femur Right XRAY; Complete Time: 15:39 snw 01/18 15:16 Order name: CT Head Brain wo Cont; Complete Time: 15:46 snw 01/18 16:20 Order name: Urine Culture snw 01/18 16:20 Order name: Urine Microscopic Only; Complete Time: 17:27 snw 01/18 16:21 Order name: COVID-19 snw 01/18 16:34 Order name: CT Abd/Pelvis - IV Contrast Only; Complete Time: 17:16 snw 01/18 16:50 Order name: CBC Smear Scan; Complete Time: 16:51 EDMS 01/18 16:53 Order name: T4 Free; Complete Time: 17:07 EDMS 04 16:58 Order name: Urine Dipstick--Ancillary (enter results); Complete Time: 17:07 eb 01/18 17:17 Order name: Regular EDMS 01/18 17:17 Order name: Lactate EDAZ 01/18 19:36 Order name: Lactate 01/18 20:37 Order name: SARS-COV-2 RT PCR; Complete Time: 20:38 EDAZ 01/18 14:43 Order name: Cardiac monitoring; Complete Time: 15:13 snw 01/18 14:43 Order name: EKG - Nurse/Tech; Complete Time: 15:12 snw 01/18 14:43 Order name: IV Saline Lock; Complete Time: 15:12 snw 01/18 14:43 Order name: Labs collected and sent; Complete Time: 15:12 snw 01/18 14:43 Order name: O2 Per Protocol; Complete Time: 15:12 snw 01/18 14:43 Order name: O2 Sat Monitoring; Complete Time: 15:12 snw 01/18 15:38 Order name: Labs - recollect needed: recollect all blood; Complete Time: 16:53 eb 01/18 16:20 Order name: Lujan; Complete Time: 16:53 snw Administered Medications: 15:40 Drug: NS 0.9% 1000 ml Route: IV; Rate: 75 ml/hr; Site: left forearm; ll1 21:20 Follow up: Response: No adverse reaction; RASS: Alert and Calm (0); IV Status: Infusion ll1 continued upon admission; IV Intake: 250ml Disposition: 01/19 08:27 Co-signature as Attending Physician, Ney Meier MD I agree with the assessment and charu plan of care. Disposition: 01/19/20 17:09 Hospitalization ordered by Janey Larios for Inpatient Admission. Preliminary diagnosis are Altered mental status, unspecified, Hypokalemia, Leukocytosis. - Bed requested for Telemetry/MedSurg (Inpatient). - Status is Inpatient Admission. ll1 - Condition is Stable. - Problem is an ongoing problem. - Symptoms have worsened. Signatures: Dispatcher [employer] EDBertha Ontiveros, RN RN Ney Corral MD MD cha Waters, Shelly, BAKER PIE-C BAKER PIE-Csnw Lianne Robbins, KELTON RN Jena Ybarra Lynsay, RN RN ll1 Corrections: (The following items were deleted from the chart) 01/18 20:27 17:09 Hospitalization Ordered by Janey Larios MD for Inpatient Admission. Preliminary dw diagnosis is Altered mental status, unspecified; Hypokalemia; Leukocytosis. Bed requested for Telemetry/MedSurg (Inpatient). Status is Inpatient Admission. Condition is Stable. Problem is an ongoing problem. Symptoms have worsened. snw 21:43 20:27 01/19/2020 17:09 Hospitalization Ordered by Janey Larios MD for Inpatient ll1 Admission. Preliminary diagnosis is Altered mental status, unspecified; Hypokalemia; Leukocytosis. Bed requested for Telemetry/MedSurg (Inpatient). Status is Inpatient Admission. Condition is Stable. Problem is an ongoing problem. Symptoms have worsened. dw
[2020-01-19] MEDS ORDERED: ONDANSETRON 4 MG/2 ML VIAL IV PRN (17:12)
[2020-01-19] MEDS ORDERED: ACETAMINOPHEN 500 MG TAB PO PRN (17:12)
--- NOTE | 2020-01-19 17:14 | RAD REPORT ---
EXAM DESCRIPTION: CTAbdomen Pelvis W Contrast - 01/19/2020 5:04 pm CLINICAL HISTORY: Abdominal pain. persistent diarrhea COMPARISON: Abdomen Pelvis W Contrast dated 01/12/2020 TECHNIQUE: Biphasic CT imaging of the abdomen and pelvis was performed with 100 ml non-ionic IV cont rast. All CT scans are performed using dose optimization technique as appropriate and may include automated exposure control or mA/KV adjustment according to patient size. FINDINGS: The lung bases are clear. Advanced fatty liver infiltration pattern is seen. Cholecystectomy clips noted. Postsurgical changes are present about the stomach. The spleen, adrenal glands are normal. Bilateral benign renal cysts ar e seen without hydronephrosis. No bowel obstruction, free air, free fluid or abscess. Thickening of the colon wall was seen most com patible with a mild nonspecific colitis. The appendix is not identified as a discrete structure, prasad enrico, no secondary findings of appendicitis are identified. No evidence of significant lymphadenopat hy. No suspicious bony findings. Lujan catheter is present in the urinary bladder. IMPRESSION: Mild nonspecific colitis pattern is seen. Prominent fatty liver.
[2020-01-19 17:23] LABS: Urine Bacteria >50 /HPF (<20); Urine RBC <5 /HPF (NONE SEEN)
[2020-01-19 22:06] VITALS: BMI 19.3
[2020-01-19] MEDS: CEFTRIAXONE/SWI 1gm 1 GM/10 ML SYR IVP SCH (22:42)
[2020-01-19] MEDS: NA CHLORIDE 0.9% 1,000 ML IV SCH (22:42)
[2020-01-19] MEDS: ENOXAPARIN 40 MG/0.4 ML SQ SCH (22:42)
[2020-01-19] MEDS: KCL 20 MEQ/100 mL IVPB 20 MEQ/100 ML BAG IV SCH (23:06)
[2020-01-20] MEDS: KCL 20 MEQ/100 mL IVPB 20 MEQ/100 ML BAG IV SCH (01:43)
[2020-01-20 06:06] LABS: Absolute Lymphocytes (CBC) 1.7 K/uL (0.7-4.9); Basophils % 0.7 % (0-1.3); Hematocrit 35.7 % (36.0-45.0); Lymphocytes % 11.8 % (15.3-44.8); MPV 8.3 fL (7.6-11.3)
[2020-01-20 06:41] LABS: ALT/SGPT 40 U/L (12-78); Albumin 1.7 g/dL (3.4-5.0); Alkaline Phosphatase 248 U/L (45-117); BUN Blood Urea Nitrogen 14 mg/dL (7-18); Bicarbonate 21 mmol/L (21-32); Bilirubin Total 0.6 mg/dL (0.2-1.0); Glucose Level 82 mg/dL (74-106); NT PRO-BNP 177 pg/mL (<125); Phosphorus 2.7 mg/dL (2.5-4.9); Protein, Total 4.9 g/dL (6.4-8.2); Sodium Level 140 mmol/L (136-145)
[2020-01-20 06:42] LABS: AST/SGOT 61 U/L (15-37); Potassium 4.1 mmol/L (3.5-5.1)
[2020-01-20] MEDS: NA CHLORIDE 0.9% 1,000 ML IV SCH ×2 (07:20→12:06)
[2020-01-20] MEDS: ENOXAPARIN 40 MG/0.4 ML SQ SCH (08:15)
[2020-01-20] MEDS: CEFTRIAXONE/SWI 1gm 1 GM/10 ML SYR IVP SCH ×2 (08:15→20:22)
[2020-01-20] MEDS ORDERED: INFLUENZA VACCINE (for 3y+) 0.5 ML DOSE IMVAC ONE (14:00)
[2020-01-20] MEDS: VANCOMYCIN/NS 1 gm 1 GM/250 ML BAG IVPB SCH ×2 (15:30)
[2020-01-20] MEDS ORDERED: VANCOMYCIN/NS 1 gm 1 GM/250 ML BAG IV ONE (17:00)
--- NOTE | 2020-01-20 20:02 | EKG ---
Test Date: 2020-01-19 Test Time: 15:43:50 Personal Security Specialist: ROBERTO MEASUREMENT RESULTS: Intervals: Rate: 87 [place]: 106 QRSD: 86 QT: 444 QTc: 534 [place]: P: 52 [place]: 106 QRS: 79 T: 43 INTERPRETIVE STATEMENTS: Sinus rhythm with short [place] ST & T wave abnormality, consider inferior ischemia ST & T wave abnormality, consider anterolateral ischemia Prolonged QT Abnormal ECG Compared to ECG 01/12/2020 12:45:11 Short [place] interval now present ST (T wave) deviation now present T-wave abnormality no longer present Possible ischemia still present Electronically Signed On 01-20-20 20:01:18 COTTON CHOPPER by Gómez Cid
--- NOTE | 2020-01-20 21:02 | P.HP ---
Certification for Inpatient Patient admitted to: Inpatient With expected LOS: >2 Midnights Patient will require the following post-hospital care: None Practitioner: I am a practitioner with admitting privileges, knowledge of patient current condition, hospital course, and medical plan of care. Services: Services provided to patient in accordance with Admission requirements found in Title 42 Section 412.3 of the Code of Federal Regulations Patient History Date of Service: 01/19/20 Reason for admission: Abdominal pain; altered mental status; persistent diarrhea History of Present Illness: Patient is a 59-year-old female who came to the hospital with altered mental status. Patient has been having persistent diarrhea and has been very lethargic. Patient was scheduled to get a colonoscopy; however, patient was found to be hypokalemic with a potassium of 2.7. Patient has also been on multiple antipsychotics. Patient has been very confused and has been getting weak. When she is not on her antipsychotic she becomes very combative. I will reassess her antipsychotics and decide which 1 we need to restart. Patient was also found to have a urinary tract infection. Patient could also have toxic encephalopathy. Blood cultures are pending. Urine cultures are pending. Stool cultures are also going to be pending. The CT scan does reveal colitis. Will await to see how patient does with IV fluids and reassess over the next 24-48 hours. Patient will need inpatient hospitalization. Allergies No Known Allergies Allergy (Verified 11/09/18 01:26) Home Medications: Fluoxetine HCl [Prozac*] 80 mg PO DAILY 11/09/18 Levothyroxine [Synthroid*] 0.075 mg PO DAILY 11/09/18 Prazosin HCl 1 mg PO DAILY 11/09/18 Trazodone [Desyrel*] 200 mg PO BEDTIME 11/09/18 buPROPion HCL [Bupropion HCl Sr] 150 mg PO DAILY 11/09/18 [place] Carbonate [Lithotabs *] 300 mg PO BID #60 tab 12/28/19 Quetiapine Fumarate [Seroquel] 300 mg PO BEDTIME #30 12/28/19 Thiamine HCl [Vitamin B-1*] 100 mg PO DAILY #30 tablet 12/28/19 - Past Medical/Surgical History Has patient received pneumonia vaccine in the past: No Diabetic: Yes -: Bipolar -: anemia -: Schizoprenia -: hypotension -: DM -: cholecystectomy -: -: breast enlargements -: bariatic gastric bypass - Family History Mother Medical History: Lung disease, Cancer Notes: throat Father Medical History: Liver disease Notes: alcoholic - Social History Smoking Status: Current every day smoker Alcohol use: Yes CD- Drugs: No Caffeine use: Yes Place of Residence: Home Review of Systems 10-point ROS is otherwise unremarkable Physical Examination - Vital Signs Temperature: 98.1 F Blood Pressure: 122/78 Pulse: 88 Respirations: 16 Pulse Ox (%): 96 - Physical Exam General: Alert, In no apparent distress, Confused HEENT: Atraumatic, PERRLA, Mucous membr. moist/pink, EOMI, Sclerae nonicteric Neck: Supple, 2+ carotid pulse no bruit, No LAD, Without JVD or thyroid abnormality Respiratory: Clear to auscultation bilaterally, Normal air movement Cardiovascular: Regular rate/rhythm, Normal S1 S2, No murmurs Gastrointestinal: Normal bowel sounds, Soft and benign, Non-distended, Tenderness Musculoskeletal: No clubbing, No swelling, No tenderness Integumentary: No rashes Neurological: Sensation intact, Cranial nerves 3-12 intact, Abnormal gait, Abnormal speech, Abnormal strength, Abnormal affect Lymphatics: No axilla or inguinal lymphadenopathy - Studies Microbiology Data (last 24 hrs): 01/19/20 16:50 Blood - Blood Anaerobic Blood Culture - Final Assessment & Plan - Problems (Diagnosis) (1) Altered mental status Current Visit: Yes Status: Acute (2) Hypokalemia Current Visit: Yes Status: Acute (3) Acute UTI Current Visit: Yes Status: Acute (4) Toxic encephalopathy Current Visit: Yes Status: Acute (5) Acute colitis Current Visit: Yes Status: Acute (6) Bipolar 1 disorder Current Visit: No Status: Acute (7) Schizo-affective psychosis Current Visit: No Status: Acute - Plan Plan: 1. IV fluids and IV antibiotics; blood culture and urine culture pending 2. Stool studies 3. GI consultation with Dr. Vásquez if symptoms worsens 4. Pain control 5. Outpatient colonoscopy 6. Repeat abdominal film if pain worsens to rule out perforation 7. continue with antipsychotics 8. GI and DVT prophylaxis Discharge Plan: Home Plan to discharge in: Greater than 2 days - Advance Directives Does patient have a Living Will: No Does patient have a Durable POA for Healthcare: No - Code Status/Comfort Care Code Status Assessed: Yes Code Status: Full Code Critical Care: No Time Spent Managing PTS Care (In Minutes): 45
--- NOTE | 2020-01-20 21:04 | P.PN ---
Subjective Date of Service: 01/20/20 patient is much more awake and alert. Will go ahead and resume patient's antipsychotic this evening. Review of Systems 10-point ROS is otherwise unremarkable Physical Examination - Vital Signs Temperature: 98.1 F Blood Pressure: 122/78 Pulse: 88 Respirations: 16 Pulse Ox (%): 96 - Physical Exam General: Alert, In no apparent distress, Oriented x2 Respiratory: Clear to auscultation bilaterally, Normal air movement Cardiovascular: Regular rate/rhythm, Normal S1 S2 Gastrointestinal: Normal bowel sounds, Soft and benign, Non-distended Musculoskeletal: No clubbing, No swelling - Studies Microbiology Data (last 24 hrs): 01/19/20 16:50 Blood - Blood Anaerobic Blood Culture - Final Assessment & Plan - Problems (Diagnosis) (1) Altered mental status Current Visit: Yes Status: Acute (2) Hypokalemia Current Visit: Yes Status: Acute (3) Acute UTI Current Visit: Yes Status: Acute (4) Toxic encephalopathy Current Visit: Yes Status: Acute (5) Acute colitis Current Visit: Yes Status: Acute (6) Bipolar 1 disorder Current Visit: No Status: Acute (7) Schizo-affective psychosis Current Visit: No Status: Acute - Plan Plan: continue with plan of care as mentioned below 1. IV fluids and IV antibiotics; blood culture showing Gram-positive bacteremia and urine culture with Gram-negative rods 2. Stool studies along with C diff pending 3. GI consultation with Dr. Vásquez if symptoms worsens 4. Pain control 5. Outpatient colonoscopy 6. encouraged patient to get out of bed and ambulate 7. continue with antipsychotics; dosing adjusted 8. GI and DVT prophylaxis Discharge Plan: Home Plan to discharge in: 48 Hours - Advance Directives Does patient have a Living Will: No Does patient have a Durable POA for Healthcare: No - Code Status/Comfort Care Code Status: Full Code Critical Care: No Time Spent Managing PTS Care (In Minutes): 35
[2020-01-21] MEDS: NA CHLORIDE 0.9% 1,000 ML IV SCH ×3 (02:44→23:20)
[2020-01-21] MEDS: THIAMINE HCL 100 MG TABLET PO SCH (08:30)
[2020-01-21] MEDS: BUPROPION HCL XL 150 MG TAB PO SCH (08:31)
[2020-01-21] MEDS: LEVOTHYROXINE SOD 0.05 MG TABLET PO SCH (08:31)
[2020-01-21] MEDS: FLUOXETINE 20 MG CAP PO SCH (08:31)
[2020-01-21] MEDS: CEFTRIAXONE/SWI 1gm 1 GM/10 ML SYR IVP SCH ×2 (08:32→21:02)
[2020-01-21] MEDS: ENOXAPARIN 40 MG/0.4 ML SQ SCH (08:32)
[2020-01-21] MEDS ORDERED: BUPROPION HCL 150 MG PO SCH (09:00)
[2020-01-21] MEDS: LITHIUM CARBONATE 300 MG TAB PO SCH ×2 (09:04→21:02)
[2020-01-21] MEDS ORDERED: VANCOMYCIN/NS 1 gm 1 GM/250 ML BAG IVPB SCH ×3 (16:00→17:00)
[2020-01-21] MEDS ORDERED: QUETIAPINE FUMARATE 300 MG PO SCH (21:00)
[2020-01-21] MEDS: QUETIAPINE 100MG TAB PO SCH (21:02)
[2020-01-21] MEDS: TRAZODONE 50 MG TABLET PO SCH (21:02)
[2020-01-22 04:31] LABS: BUN Blood Urea Nitrogen 3 mg/dL (7-18); Bicarbonate 23 mmol/L (21-32); Glucose Level 61 mg/dL (74-106); Phosphorus 1.9 mg/dL (2.5-4.9); Potassium 3.2 mmol/L (3.5-5.1); Sodium Level 147 mmol/L (136-145)
[2020-01-22] MEDS ORDERED: POTASSIUM 25 MEQ EFFERV TAB PO ONE (05:00)
[2020-01-22] MEDS: POTASS/SODIUM PHOSPHATE 1 PKT POWD.PACK PO SCH ×3 (05:25→06:33)
[2020-01-22] MEDS: NA CHLORIDE 0.9% 1,000 ML IV SCH (05:28)
--- NOTE | 2020-01-22 06:48 | P.PN ---
Subjective Date of Service: 01/21/20 Patient clinically appears to be doing much better. She is more awake and alert and interacting at this time. She is still very weak and debilitated and has not really been able to get out of bed and ambulate. We will get physical therapy to work with the patient. Blood cultures came back Staph coag-negative. Urine culture with Citrobacter sensitive to Rocephin along with other multiple antibiotics. Hypokalemia seems to be resolved. Once patient's strength improves we should be able to discharge her home with oral antibiotics and outpatient follow-up with gastroenterology for colonoscopy. Patient does have colitis on exam. C diff was still pending. Inflammatory versus infectious which can be further evaluated as an outpatient. Patient was having a lot of diarrhea at home but this is also stabilized here in the hospital. Continue monitoring and will adjust psychiatric medications prior to discharge. Review of Systems 10-point ROS is otherwise unremarkable Physical Examination - Vital Signs Temperature: 98.0 F Blood Pressure: 121/74 Pulse: 77 Respirations: 18 Pulse Ox (%): 96 - Physical Exam General: Alert, In no apparent distress, Oriented x3, Cachectic Respiratory: Clear to auscultation bilaterally, Normal air movement Cardiovascular: Regular rate/rhythm, Normal S1 S2, No murmurs Gastrointestinal: Normal bowel sounds, Soft and benign, Non-distended, No tenderness Musculoskeletal: No clubbing, No swelling, No tenderness - Studies Microbiology Data (last 24 hrs): 01/19/20 16:50 Catheterized Urine Fate Count - Final >100,000 CFU/ML. 01/19/20 16:50 Catheterized Urine - Final Citrobacter Koseri 01/19/20 16:50 Blood - Blood Anaerobic Blood Culture - Final Medications List Reviewed: Yes Assessment & Plan - Problems (Diagnosis) (1) Altered mental status Current Visit: Yes Status: Acute (2) Hypokalemia Current Visit: Yes Status: Acute (3) Acute UTI Current Visit: Yes Status: Acute (4) Toxic encephalopathy Current Visit: Yes Status: Acute (5) Acute colitis Current Visit: Yes Status: Acute (6) Bipolar 1 disorder Current Visit: No Status: Acute (7) Schizo-affective psychosis Current Visit: No Status: Acute - Plan Plan: 1.Continue with IV fluids and IV antibiotics; blood culture grew out Staph coag-negative 02/18 bottles. Urine culture with Citrobacter. 2. Stool studies; C diff is still pending 3. outpatient GI follow up for colonoscopy as was scheduled prior to admission. Potassium is stable and colitis seen to be stable as well 4. Physical therapy evaluation 5. continue with antipsychotics; adjusted doses while in the hospital. Patient can DC the Risperdal. Decreased dosing of trazodone and Seroquel. Advise that he needs to give the doses that we have prescribed and not dispense the medication according to what he thinks she needs. 6. GI and DVT prophylaxis Discharge Plan: Home Plan to discharge in: 48 Hours - Advance Directives Does patient have a Living Will: No Does patient have a Durable POA for Healthcare: No - Code Status/Comfort Care Code Status: Full Code Critical Care: No Time Spent Managing PTS Care (In Minutes): 35
[2020-01-22] MEDS: D5W 1,000 ML IV SCH (06:50)
[2020-01-22] MEDS: CEFTRIAXONE/SWI 1gm 1 GM/10 ML SYR IVP SCH ×2 (08:45→20:01)
[2020-01-22] MEDS: LITHIUM CARBONATE 300 MG TAB PO SCH ×2 (08:45→20:02)
[2020-01-22] MEDS: LEVOTHYROXINE SOD 0.05 MG TABLET PO SCH (08:45)
[2020-01-22] MEDS: THIAMINE HCL 100 MG TABLET PO SCH (08:45)
[2020-01-22] MEDS: ENOXAPARIN 40 MG/0.4 ML SQ SCH (08:45)
[2020-01-22] MEDS: FLUOXETINE 20 MG CAP PO SCH (08:45)
[2020-01-22] MEDS: BUPROPION HCL XL 150 MG TAB PO SCH (09:00)
[2020-01-22] MEDS ORDERED: POTASSIUM CL SA 10 MEQ TAB PO ONE ×2 (11:52→21:00)
--- NOTE | 2020-01-22 17:28 | P.PN ---
Subjective Date of Service: 01/22/20 Chief Complaint: Abdominal pain; altered mental status; persistent diarrhea Subjective: Other (Patient with bipolar disorder. Patient overall stable.) Physical Examination - Vital Signs Temperature: 97.6 F Blood Pressure: 158/79 Pulse: 82 Respirations: 18 Pulse Ox (%): 98 - Physical Exam General: Alert, Other (Not oriented to time place. Some anxiety noted) HEENT: Atraumatic Neck: Supple Respiratory: Clear to auscultation bilaterally, Normal air movement Cardiovascular: Normal pulses, Regular rate/rhythm Gastrointestinal: Normal bowel sounds, No masses, No rebound, No guarding Neurological: Normal speech, Normal strength at 5/5 x4 extr, Abnormal affect (Increase anxiety.) - Studies Microbiology Data (last 24 hrs): 01/19/20 16:50 Blood - Blood Aerobic Blood Culture - Final 01/19/20 16:50 Blood - Blood Blood Culture Gram Stain - Final 01/19/20 16:50 Blood - Blood Anaerobic Blood Culture - Final Medications List Reviewed: Yes Assessment & Plan Discharge Plan: Other (Skilled placement facility) Plan to discharge in: 48 Hours Physician Review Additional Text: Assessment & Plan - Problems (Diagnosis) (1) Altered mental status Current Visit: Yes Status: Acute (2) Hypokalemia Current Visit: Yes Status: Acute (3) Acute UTI Current Visit: Yes Status: Acute (4) Toxic encephalopathy Current Visit: Yes Status: Acute (5) Acute colitis Current Visit: Yes Status: Acute (6) Bipolar 1 disorder Current Visit: No Status: Acute (7) Schizo-affective psychosis Current Visit: No Status: Acute Additional diagnosis includes hypothyroidism, hypernatremia - Plan Plan: 1. Antibiotics adjusted. Discontinue vancomycin. Continue Rocephin. Urine culture positive for Citrobacter. 2. Stool studies; C diff is still pending 3. outpatient GI follow up for colonoscopy as was scheduled prior to admission. Potassium is stable and colitis seen to be stable as well 4. Physical therapy evaluation for possible skilled placement. Will need to discuss with . 5. continue with antipsychotics; adjusted doses while in the hospital. Patient can DC the Risperdal. Decreased dosing of trazodone and Seroquel. Advise that he needs to give the doses that we have prescribed and not dispense the medication according to what he thinks she needs. 6. GI and DVT prophylaxis 7. Patient more alert today. Discontinue Lujan catheter. Encourage ambulation. Will review home medication. Will discuss further with social security specialist about placement or home with home health tomorrow. 8. Patient on D5W. Recheck lab. 9. Continue thyroid medication. Time Spent Managing Pts Care (In Minutes): 55
[2020-01-22] MEDS: TRAZODONE 50 MG TABLET PO SCH (20:01)
[2020-01-22] MEDS: QUETIAPINE 100MG TAB PO SCH (20:01)
[2020-01-23] MEDS: D5W 1,000 ML IV SCH ×3 (01:45→23:23)
[2020-01-23 06:00] LABS: Absolute Lymphocytes (CBC) 1.5 K/uL (0.7-4.9); Basophils % 0.6 % (0-1.3); Hematocrit 36.7 % (36.0-45.0); MPV 8.2 fL (7.6-11.3)
[2020-01-23 06:09] LABS: BUN Blood Urea Nitrogen 1 mg/dL (7-18); Bicarbonate 23 mmol/L (21-32); Glucose Level 78 mg/dL (74-106); Magnesium 1.8 mg/dL (1.8-2.4); Phosphorus 1.9 mg/dL (2.5-4.9); Potassium 3.9 mmol/L (3.5-5.1); Sodium Level 141 mmol/L (136-145)
[2020-01-23] MEDS ORDERED: MAGNESIUM SULFATE 1 gm IVPB 1 GM/100 ML BAG IV ONE (08:00)
[2020-01-23] MEDS ORDERED: POTASSIUM CL SA 10 MEQ TAB PO ONE (08:00)
[2020-01-23] MEDS: POTASS/SODIUM PHOSPHATE 1 PKT POWD.PACK PO SCH ×3 (09:00→11:04)
[2020-01-23] MEDS: BUPROPION HCL XL 150 MG TAB PO SCH (09:03)
[2020-01-23] MEDS: THIAMINE HCL 100 MG TABLET PO SCH (09:04)
[2020-01-23] MEDS: LEVOTHYROXINE SOD 0.05 MG TABLET PO SCH (09:04)
[2020-01-23] MEDS: FLUOXETINE 20 MG CAP PO SCH (09:04)
[2020-01-23] MEDS: LITHIUM CARBONATE 300 MG TAB PO SCH ×2 (09:05→20:45)
[2020-01-23] MEDS: ENOXAPARIN 40 MG/0.4 ML SQ SCH (09:11)
[2020-01-23] MEDS: CEFTRIAXONE/SWI 1gm 1 GM/10 ML SYR IVP SCH (10:21)
--- NOTE | 2020-01-23 12:10 | P.PN ---
Subjective Date of Service: 01/23/20 Chief Complaint: Abdominal pain; altered mental status; persistent diarrhea Subjective: Improving, Doing well Physical Examination - Vital Signs Temperature: 99.4 F Blood Pressure: 123/90 Pulse: 86 Respirations: 16 Pulse Ox (%): 96 - Physical Exam General: Alert, Cooperative HEENT: Atraumatic Neck: Supple Respiratory: Clear to auscultation bilaterally, Normal air movement Cardiovascular: Normal pulses, Regular rate/rhythm Gastrointestinal: Normal bowel sounds, No tenderness, No masses, No rebound, No guarding Neurological: Normal speech, Normal strength at 5/5 x4 extr, Normal tone, Abnormal affect (Less anxiety noted today.) - Studies Microbiology Data (last 24 hrs): 01/19/20 16:50 Blood - Blood Aerobic Blood Culture - Final 01/19/20 16:50 Blood - Blood Blood Culture Gram Stain - Final 01/19/20 16:50 Blood - Blood Anaerobic Blood Culture - Final Medications List Reviewed: Yes Assessment & Plan Discharge Plan: Home Plan to discharge in: 24 Hours Physician Review Additional Text: Impression: Diarrhea related to nonspecific colitis with noted hypokalemia Toxic encephalopathy related to UTI, urine culture positive for Citrobacter Bipolar disorder with schizoaffective disorder Hypothyroidism Plan: Diarrhea related to nonspecific colitis with noted hypokalemia: Diarrhea appears improved. C diff culture still pending. Will provide probiotic. Encourage ambulation. Potassium now within normal range. Discontinue IV fluids if taking good oral intake. Will monitor intake over the next 24 hr. Plan of care discussed with . Will have physical therapy assess ambulation. Anticipate improvement over the next 24 hr with possible discharge. Toxic encephalopathy related to UTI, urine culture positive for Citrobacter: Will change IV antibiotic therapy to oral. Bipolar disorder with schizoaffective disorder: Discussed in detail with about her current medications. Will check lithium level. Will discontinue Wellbutrin as the patient had not been using this at home. Increase Prozac to her normal dose. Pupukea has been decreased. Continue other medications. Will verify all medications. Hypothyroidism: Continue medication Time Spent Managing Pts Care (In Minutes): 55
[2020-01-23] MEDS: LACTOBACILLUS/ACIDOPHILUS TAB PO SCH ×2 (13:23→20:45)
[2020-01-23] MEDS ORDERED: LORazepam 2 MG/ML VIAL IV SCH (17:00)
[2020-01-23] MEDS ORDERED: LORazepam 2 MG/ML VIAL IV PRN (19:00)
[2020-01-23] MEDS: AMOX/K CLAV 500 MG TAB PO SCH (20:45)
[2020-01-23] MEDS: QUETIAPINE 100MG TAB PO SCH (20:45)
[2020-01-23] MEDS: ENSURE HIGH PROTEIN 237 ML CAN PO SCH (20:46)
[2020-01-23] MEDS: TRAZODONE 50 MG TABLET PO SCH (21:00)
[2020-01-24 05:46] LABS: Absolute Lymphocytes (CBC) 1.5 K/uL (0.7-4.9); Basophils % 0.7 % (0-1.3); Hematocrit 33.8 % (36.0-45.0); Lymphocytes % 18.5 % (15.3-44.8); MPV 8.2 fL (7.6-11.3)
[2020-01-24 05:51] LABS: BUN Blood Urea Nitrogen 2 mg/dL (7-18); Bicarbonate 26 mmol/L (21-32); Glucose Level 91 mg/dL (74-106); Magnesium 2.2 mg/dL (1.8-2.4); Phosphorus 2.9 mg/dL (2.5-4.9); Sodium Level 140 mmol/L (136-145)
[2020-01-24] MEDS ORDERED: FLUOXETINE 20 MG CAP PO SCH (09:00)
[2020-01-24] MEDS: AMOX/K CLAV 500 MG TAB PO SCH (09:02)
[2020-01-24] MEDS: LACTOBACILLUS/ACIDOPHILUS TAB PO SCH ×2 (09:02→13:34)
[2020-01-24] MEDS: THIAMINE HCL 100 MG TABLET PO SCH (09:02)
[2020-01-24] MEDS: LEVOTHYROXINE SOD 0.05 MG TABLET PO SCH (09:02)
[2020-01-24] MEDS: ENOXAPARIN 40 MG/0.4 ML SQ SCH (09:02)
[2020-01-24] MEDS: LITHIUM CARBONATE 300 MG TAB PO SCH (09:03)
[2020-01-24] MEDS: ENSURE HIGH PROTEIN 237 ML CAN PO SCH (09:03)
[2020-01-24 10:43] VITALS: O2SAT 94
--- NOTE | 2020-01-24 11:43 | P.DS ---
Admission Date: 01/19/20 Discharge Date: 01/24/20 Primary Care Provider: Dr. Galaviz Disposition: ROUTINE DISCHARGE Discharge Condition: GOOD Reason for Admission: Abdominal pain; altered mental status; persistent diarrhea Consultations: none Procedures: CT Head: FINDINGS: No intracranial hemorrhage, hydrocephalus or extra-axial fluid collection.Mild generalized brain atrophy.No areas of brain edema or evidence of midline shift. The paranasal sinuses and mastoids are clear. The calvarium is intact. IMPRESSION: No acute intracranial abnormality CT Scan: FINDINGS: The lung bases are clear. Advanced fatty liver infiltration pattern is seen. Cholecystectomy clips noted. Postsurgical changes are present about the stomach. The spleen, adrenal glands are normal. Bilateral benign renal cysts are seen without hydronephrosis. No bowel obstruction, free air, free fluid or abscess. Thickening of the colon wall was seen most compatible with a mild nonspecific colitis. The appendix is not identified as a discrete structure, however, no secondary findings of appendicitis are identified. No evidence of significant lymphadenopathy. No suspicious bony findings. Lujan catheter is present in the urinary bladder. IMPRESSION: Mild nonspecific colitis pattern is seen. Prominent fatty liver. The paranasal sinuses and mastoids are clear. The calvarium is intact. Medical problem List: Diarrhea related to nonspecific colitis with noted hypokalemia Toxic encephalopathy related to UTI, urine culture positive for Citrobacter Bipolar disorder with schizoaffective disorder Hypothyroidism Fatty liver Brief History of Present Illness: 59-year-old female presented with altered mental status. Patient had been having persistent diarrhea with increased fatigue. Patient had been scheduled for colonoscopy. In the ER she was found to have hypokalemia. Patient on multiple antipsychotics for her mental illness. Patient appeared to have a UTI. Patient admitted for further evaluation and treatment. Hospital Course: Patient presented with confusion. This was related to toxic encephalopathy-UTI. Patient was admitted for treatment. Patient also found to have diarrhea with hypokalemia. Nonspecific colitis noted. During the course of her stay her condition improved. Patient without diarrhea at this time. Urine culture was positive for Citrobacter. No abdominal pain, nausea vomiting noted. At [facility] patient will continue with Augmentin 500 mg 1 pill twice daily for 3 more days. Patient will also continue with a probiotic twice daily during this time. Education on UTI and colitis will be provided. Patient can follow up with GI as an outpatient for outpatient colonoscopy. This had been scheduled. This will likely occur in the next 4-6 weeks. Patient with bipolar disorder and schizoaffective disorder. This has remained stable. At discharge patient will continue with her current medications of lithium 300 mg 3 pills at bedtime, Seroquel 300 mg 3 pills at bedtime, trazodone 100 mg 2 pills at bedtime and Prozac 80 mg daily. Vital Signs/Physical Exam: Temp Pulse Resp BP Pulse Ox 97.6 F 74 17 108/64 94 01/24/20 08:00 01/24/20 08:00 01/24/20 08:00 01/24/20 08:00 01/24/20 08:00 General: Alert, In no apparent distress, Oriented x3, Cooperative HEENT: Atraumatic Neck: Supple Respiratory: Clear to auscultation bilaterally Cardiovascular: Normal pulses, Regular rate/rhythm Gastrointestinal: Normal bowel sounds, Soft and benign, Non-distended, No masses, No rebound, No guarding Musculoskeletal: No erythema, No tenderness, No warmth Integumentary: No erythema, No warmth, No cyanosis Neurological: Normal speech, Normal strength at 5/5 x4 extr, Normal tone, Normal affect Laboratory Data at Discharge: WBC 8.2 K/uL (4.3-10.9) D 01/24/20 05:02 Hgb 11.4 g/dL (12.0-15.0) L 01/24/20 05:02 Hct 33.8 % (36.0-45.0) L 01/24/20 05:02 Plt Count 439 K/uL (152-406) H 01/24/20 05:02 PT 11.8 SECONDS (9.5-12.5) 01/19/20 16:09 INR 1.00 01/19/20 16:09 Sodium 140 mmol/L (136-145) 01/24/20 05:02 Potassium 4.0 mmol/L (3.5-5.1) 01/24/20 05:02 BUN 2 mg/dL (7-18) L 01/24/20 05:02 Creatinine 0.38 mg/dL (0.55-1.3) L 01/24/20 05:02 Glucose 91 mg/dL (74-106) 01/24/20 05:02 Phosphorus 2.9 mg/dL (2.5-4.9) D 01/24/20 05:02 Magnesium 2.2 mg/dL (1.8-2.4) 01/24/20 05:02 Total Bilirubin 0.6 mg/dL (0.2-1.0) 01/20/20 05:29 AST 61 U/L (15-37) H 01/20/20 05:29 ALT 40 U/L (12-78) 01/20/20 05:29 Alkaline Phosphatase 248 U/L (45-117) H 01/20/20 05:29 Lipase 21 U/L (73-393) L 01/19/20 15:58 Home Medications: Fluoxetine HCl [Prozac*] 80 mg PO DAILY 11/09/18 Marvin Carbonate [Lithotabs *] 3 tab PO BEDTIME 01/23/20 Quetiapine Fumarate [Seroquel] 3 tab PO BEDTIME 01/23/20 Trazodone HCl 2 tab PO BEDTIME 01/23/20 Amox/Clavulanate [Augmentin 500-125 mg Tab*] 500 mg PO BID #6 tab 01/24/20 Lactobacillus Acidophilus [Acidophilus Lactobacilli] 1 each PO BID #14 capsule 01/24/20 New Medications: Lactobacillus Acidophilus [Acidophilus Lactobacilli] 1 each PO BID #14 capsule Amox/Clavulanate [Augmentin 500-125 mg Tab*] 500 mg PO BID #6 tab Patient Discharge Instructions: 1. Recommend follow up with PCP in 1 week to follow up this hospitalization. 2. Patient presented with confusion. This was related to toxic encephalopathy-UTI. Patient was admitted for treatment. Patient also found to have diarrhea with hypokalemia. Nonspecific colitis noted. During the course of her stay her condition improved. Patient without diarrhea at this time. Urine culture was positive for Citrobacter. No abdominal pain, nausea vomiting noted. At discharge patient will continue with Augmentin 500 mg 1 pill twice daily for 3 more days. Patient will also continue with a probiotic twice daily during this time. Education on UTI and colitis will be provided. Patient can follow up with GI as an outpatient for outpatient colonoscopy. This had been scheduled. This will likely occur in the next 4-6 weeks. 3. Patient with bipolar disorder and schizoaffective disorder. This has remained stable. At discharge patient will continue with her current medications of lithium 300 mg 3 pills at bedtime, Seroquel 300 mg 3 pills at bedtime, trazodone 100 mg 2 pills at bedtime and Prozac 80 mg daily. Diet: Regular Activity: Ad madyson Followup: Edwin Galaviz DO [Primary Care Provider] - Time spent managing pt's care (in minutes): 55
[2020-01-24 14:52] VITALS: BP 98/60; TEMP 97.1
[2020-01-24] MEDS ORDERED: LITHIUM CARBONATE 300 MG TAB PO SCH (21:00)
[2020-01-24] MEDS ORDERED: TRAZODONE 50 MG TABLET PO SCH (21:00)
[2020-01-24] MEDS ORDERED: ENSURE ENLIVE 237 ML CAN PO SCH (21:00)
[2020-01-24] MEDS ORDERED: QUETIAPINE FUMARATE 300 MG PO SCH (21:00)
== END 2020-01-24 14:35 | disposition home or self-care (01) | DRG 689 ==
LOC: ER 14:13 → ERHOLD 17:28 → 2ND 21:18
PROVIDERS: ADMIT Hospitalist; ATTEND Family Medicine
DX: N39.0 Urinary tract infection, site not specified (principal); G92 Toxic encephalopathy; R64 Cachexia; Z68.1 Body mass index [BMI] 19.9 or less, adult; E87.0 Hyperosmolality and hypernatremia; K52.9 Noninfective gastroenteritis and colitis, unspecified; E87.6 Hypokalemia; E11.9 Type 2 diabetes mellitus without complications; E03.9 Hypothyroidism, unspecified; F41.9 Anxiety disorder, unspecified; F25.0 Schizoaffective disorder, bipolar type; F17.210 Nicotine dependence, cigarettes, uncomplicated; B96.89 Other specified bacterial agents as the cause of diseases classified elsewhere; Z90.49 Acquired absence of other specified parts of digestive tract; Z79.890 Hormone replacement therapy; Z79.899 Other long term (current) drug therapy; Z98.84 Bariatric surgery status; Z20.828 Contact with and (suspected) exposure to other viral communicable diseases
CPT/HCPCS: 36415; 51702; 70450; 71045; 74177; 80048; 80053; 80074; 80076; 80178; 80202; 81003; 81015; 82105; 82140; 83605; 83690; 83735; 83880; 84100; 84132; 84439; 84443; 84484; 85025; 85610; 85730; 86850; 86900; 86901; 87040; 87077; 87086; 87088; 87186; 87205; 93005; 96360; 96361; 97161; 97530; 99285; J0696; J1650; J3370; J3475; J3480; J7030; J7040; Q9967; U0003

== ENCOUNTER 2020-02-09 15:10 | Inpatient (IN) | payer OTHER ==
--- OUTSIDE RECORDS SUMMARY | 2020-02-09 15:13 | XMS REPORT | Continuity of Care Document ---
:1960 [address] Organization [facility] [place], [place] t Address [address] [place] [address] Dr. Iglesias. [address] [place] [address] Care Team Providers Name Role Phone Sha [...] Type Clinicians Facility Department ID 2018-10-13 2018-10-13 [facility] [id number] 11:00:00 23:59:00 Encounter José Luis Galan [id number] [place] [id number] [place] [id number] 2018-10-13 2018-10-13 Orders Doctor MICHAEL [id number] 00:00:00 00:00:00 Only UnassSOCO curtis [id number] [place] [facility] [id number] Results This patient has no known results.
[2020-02-09] MEDS ORDERED: FOLIC ACID 1 MG, MULTIVITAMINS INJ 10 ML, THIAMINE HCL 100 MG in NA CHLORIDE 0.9% 1,000 ML IV ONE (16:00)
[2020-02-09 16:15] LABS: Absolute Lymphocytes (CBC) 0.7 K/uL (0.7-4.9); Basophils % 0.6 % (0-1.3); Hematocrit 43.8 % (36.0-45.0); Lymphocytes % 3.7 % (15.3-44.8); MPV 8.7 fL (7.6-11.3); RBC Red Blood Cell Count 4.64 M/uL (3.86-4.86)
[2020-02-09 16:21] LABS: Protime INR 1.03
--- NOTE | 2020-02-09 16:27 | RAD REPORT ---
EXAM DESCRIPTION: CT - Head Brain Wo Cont - 02/09/2020 4:13 pm CLINICAL HISTORY: DECLINING STATE Headache, drowsiness, confusion COMPARISON: Head Brain Wo Cont dated 01/19/2020; Head Brain Wo Cont dated 01/12/2020 TECHNIQUE: All CT scans are performed using dose optimization technique as appropriate and may inclu de automated exposure control or mA/KV adjustment according to patient size. FINDINGS: No intracranial hemorrhage, hydrocephalus or extra-axial fluid collection.No areas of brai n edema or evidence of midline shift. The paranasal sinuses and mastoids are clear. The calvarium is intact. IMPRESSION: No acute intracranial abnormality.
[2020-02-09 16:34] LABS: Albumin 2.4 g/dL (3.4-5.0); Bilirubin Direct 0.5 mg/dL (0-0.2); Bilirubin Total 0.8 mg/dL (0.2-1.0); Potassium 3.3 mmol/L (3.5-5.1); Protein, Total 6.4 g/dL (6.4-8.2)
--- NOTE | 2020-02-09 17:32 | RAD REPORT ---
EXAM DESCRIPTION: RAD - Chest Single View - 02/09/2020 5:08 pm CLINICAL HISTORY: AMS Chest pain. COMPARISON: Chest Single View dated 01/19/2020; Chest Single View dated 12/24/2019; Chest Single View dated 11/08/2018; CHEST SINGLE VIEW dated 08/26/2012 FINDINGS: Portable technique limits examination quality. The lungs are grossly clear. The heart is normal in size. Cholecystectomy clips.Rounded lesion in the upper abdomen to the right of midline could be an ingested foreign body or external to the patient.
[2020-02-09 17:45] LABS: Barbiturates NEGATIVE (NEGATIVE); Benzodiazepines POSITIVE (NEGATIVE); Cocaine NEGATIVE (NEGATIVE); METHAMPHETAM NEGATIVE (NEGATIVE); Methadone NEGATIVE (NEGATIVE); Opiates NEGATIVE (NEGATIVE); Phencyclidine NEGATIVE (NEGATIVE); THC Cannibis NEGATIVE (NEGATIVE)
--- NOTE | 2020-02-09 18:59 | EDPHYS ---
Physician Documentation [facility] Name: Isabelle Lowery Age: 59 yrs Sex: Female : 1960 Arrival Date: 02/09/2020 Time: 15:11 Bed 23 Private MD: Guillaume [facility] ED Physician Levar Gonzalez HPI: 02/08 17:15 This 59 yrs old Female presents to ER via Wheelchair with complaints of snw Diarrhea, Weakness. 17:15 The patient presents to the emergency department with diarrhea, x weeks, Admitted snw earlier this month with hypokalemia. Post tx, diarrhea subsided but has recurred.. Possible causes: ETOH abuse. The symptoms are aggravated by nothing. Associated signs and symptoms: Pertinent positives: diarrhea, listlessness. Severity of symptoms: At their worst the symptoms were severe incapacitating in the emergency department the symptoms are unchanged. The patient has experienced a previous episode. early in January. Historical: - Allergies: 15:35 No Known Allergies; aa5 - PMHx: 15:35 Bipolar disorder; Depression; ETOH absue; hypotension; Schizophrenia; aa5 - PSHx: 15:35 Cholecystectomy; ; aa5 - Immunization history:: Adult Immunizations unknown. - Social history:: Smoking status: unknown. ROS: 17:13 Eyes: Negative for injury, pain, redness, and discharge, ENT: Negative for injury, snw pain, and discharge, Neck: Negative for injury, pain, and swelling, Cardiovascular: Negative for chest pain, palpitations, and edema, Respiratory: Negative for shortness of breath, cough, wheezing, and pleuritic chest pain, Abdomen/GI: Negative for abdominal pain, nausea, vomiting, and constipation, + diarrhea Back: Negative for injury and pain, : Negative for injury, bleeding, discharge, and swelling, MS/Extremity: Negative for injury and deformity, Skin: Negative for injury, rash, and discoloration, Psych: Negative for depression, anxiety, suicide ideation, homicidal ideation, and hallucinations. 17:13 Constitutional: Positive for body aches, malaise, poor PO intake. 17:13 Neuro: Positive for decreased responsiveness. Exam: 17:12 Head/Face: Normocephalic, atraumatic. Eyes: Pupils equal round and reactive to light, snw extra-ocular motions intact. Lids and lashes normal. Conjunctiva and sclera are non-icteric and not injected. Cornea within normal limits. Periorbital areas with no swelling, redness, or edema. ENT: Nares patent. No nasal discharge, no septal abnormalities noted. Tympanic membranes are normal and external auditory canals are clear. Oropharynx with no redness, swelling, or masses, exudates, or evidence of obstruction, uvula midline. Mucous membranes moist. Neck: Trachea midline, no thyromegaly or masses palpated, and no cervical lymphadenopathy. Supple, full range of motion without nuchal rigidity, or vertebral point tenderness. No Meningismus. Chest/axilla: Normal chest wall appearance and motion. Nontender with no deformity. No lesions are appreciated. Cardiovascular: Regular rate and rhythm with a normal S1 and S2. No gallops, murmurs, or rubs. Normal PMI, no JVD. No pulse deficits. Respiratory: Lungs have equal breath sounds bilaterally, clear to auscultation and percussion. No rales, rhonchi or wheezes noted. No increased work of breathing, no retractions or nasal flaring. Abdomen/GI: Soft, non-tender, with normal bowel sounds. No distension or tympany. No guarding or rebound. No evidence of tenderness throughout. Back: No spinal tenderness. No costovertebral tenderness. Full range of motion. MS/ Extremity: Pulses equal, no cyanosis. Neurovascular intact. Full, normal range of motion. Neuro: Awake and alert, GCS 15, oriented to person, place, time, and situation. Cranial nerves II-XII grossly intact. Motor strength 5/5 in all extremities. Sensory grossly intact. Cerebellar exam normal. Normal gait. Psych: Awake, alert, with orientation to person, place and time. Behavior, mood, and affect are within normal limits. 17:12 Constitutional: The patient appears awake, listless, dry and frail appearing 17:12 Skin: Appearance: Color: prince, Temperature: warm, Moisture: dry, petechiae, not noted, ecchymosis, not noted, swelling, is not appreciated. 18:40 ECG was reviewed by the Attending Physician. snw Vital Signs: 15:32 BP 103 / 50; Pulse 120; Resp 18 S; Temp 98.0(TE); Pulse Ox 100% on R/A; aa5 16:31 BP 103 / 87; Pulse 99; Resp 20; Pulse Ox 96% on R/A; em 17:46 BP 105 / 88; Pulse 98; Resp 16; Pulse Ox 96% on R/A; em 18:40 BP 107 / 89; Pulse 102; Resp 18; Pulse Ox 98% on R/A; em 20:49 BP 111 / 60; Pulse 88; Resp 18; Pulse Ox 98% on R/A; ea 21:52 BP 112 / 82; Pulse 84; Resp 16; Pulse Ox 97% on R/A; lp1 MDM: 15:43 Patient medically screened. snw 17:41 Data reviewed: vital signs, nurses notes. Data interpreted: Pulse oximetry: on room air snw is 96 %. Interpretation: acceptable. Test interpretation: by ED physician or midlevel provider: plain radiologic studies, x-ray suggests fb or external object in film ... No f/b to pt's torso in front, examination of stretcher at pt's back with dime recovered.. Counseling: I had a detailed discussion with the patient and/or guardian regarding: the historical points, exam findings, and any diagnostic results supporting the discharge/admit diagnosis, lab results, radiology results, the need for further work-up and treatment in the hospital. 19:02 Physician consultation: Sandoval HARVEY was called at 19:02, was contacted at 19:02, snw regarding admission, to the telemetry unit. 02/08 15:41 Order name: Basic Metabolic Panel; Complete Time: 16:38 snw 02/08 15:41 Order name: CBC with Diff; Complete Time: 20:11 snw 02/08 15:41 Order name: Hepatic Function; Complete Time: 16:38 snw 02/08 15:41 Order name: Lipase; Complete Time: 16:38 snw 02/08 15:41 Order name: AMMONIA; Complete Time: 16:48 snw 02/08 15:41 Order name: PT-INR; Complete Time: 16:26 snw 02/08 16:27 Order name: Bilirubin, Direct; Complete Time: 19:10 snw 02/08 16:27 Order name: Sed Rate; Complete Time: 18:17 snw 02/08 16:27 Order name: Amylase, Serum; Complete Time: 19:10 snw 02/08 16:27 Order name: Blood Culture Adult (2) sn 02/08 16:27 Order name: Ckmb; Complete Time: 19:10 snw 02/08 16:27 Order name: CPK; Complete Time: 19:10 snw 02/08 16:27 Order name: Lactate; Complete Time: 17:26 snw 02/08 16:27 Order name: Procalcitonin; Complete Time: 18:59 snw 02/08 15:47 Order name: CT Head Brain wo Cont; Complete Time: 16:32 snw 02/08 16:27 Order name: Ptt, Activated; Complete Time: 17:43 snw 02/08 16:27 Order name: Troponin (emerg Dept Use Only); Complete Time: 19:10 snw 02/08 16:27 Order name: Urine Microscopic Only [facility] 02/08 16:27 Order name: Chest Single View XRAY; Complete Time: 17:34 snw 02/08 16:27 Order name: UDS; Complete Time: 17:48 snw 02/08 16:43 Order name: Glucose, Ancillary Testing; Complete Time: 16:48 [facility] 02/08 17:32 Order name: Urine Dipstick--Ancillary (enter results); Complete Time: 20:11 bd 02/08 19:59 Order name: CBC Smear Scan; Complete Time: 20:11 EDMD 02/08 20:20 Order name: COVID-19 [facility] 02/08 20:22 Order name: CT Abd/Pelvis - IV Contrast Only [facility] 02/08 20:40 Order name: CORONAVIRUS [facility] 02/08 20:53 Order name: Folic Acid, (Folate) [facility] 02/08 20:53 Order name: Vitamin B12 Level [facility] 02/08 20:57 Order name: CT [facility] 02/08 21:44 Order name: SARS-COV-2 RT PCR [facility] 02/08 15:41 Order name: IV Saline Lock; Complete Time: 16:10 snw 02/08 15:41 Order name: Labs collected and sent; Complete Time: 16:10 snw 02/08 15:41 Order name: FSBS; Complete Time: 16:31 snw 02/08 16:27 Order name: Cardiac monitoring; Complete Time: 17:21 snw 02/08 16:27 Order name: EKG - Nurse/Tech; Complete Time: 20:26 snw 02/08 16:27 Order name: IV Saline Lock - Large Bore; Complete Time: 17:22 snw 02/08 16:27 Order name: O2 Per Protocol; Complete Time: 17:21 snw 02/08 16:27 Order name: O2 Sat Monitoring; Complete Time: 17:21 snw 02/08 16:27 Order name: Urine Dipstick-Ancillary (obtain specimen); Complete Time: 17:21 snw 02/08 16:28 Order name: Lujan; Complete Time: 17:21 snw EC:40 Rate is 105 beats/min. Rhythm is regular. QRS Star is Normal. ME interval is normal. snw QRS interval is normal. T waves are Inverted. Clinical impression: Abnormal EKG without significant change. Administered Medications: 16:26 Drug: Banana Bag - (NS 0.9% 1000 ml, foLIC Acid 1 mg, Thiamine 100 mg, Multivitamin 1 em amp) Route: IV; Rate: 200 ml/hr; Site: right antecubital; 21:56 Follow up: IV Status: Infusion continued upon admission lp1 19:24 Drug: NS 0.9% 1000 ml Route: IV; Rate: 1 bolus; Site: left forearm; ea 19:24 Drug: Cipro 400 mg Volume: 200 ml; Route: IVPB; Infused Over: 60 mins; Site: left ea forearm; 20:25 Follow up: Response: No adverse reaction; IV Status: Completed infusion; IV Intake: mg2 200ml Disposition: 02/09 11:32 Co-signature as Attending Physician, Levar Gonzalez MD I agree with the assessment and kdr plan of care. Disposition: 02/09/20 18:58 Hospitalization ordered by Rene Pena for Inpatient Admission. Preliminary diagnosis are Dehydration, Altered mental status, unspecified, Leukocytosis. - Bed requested for Telemetry/MedSurg (Inpatient). - Status is Inpatient Admission. mg2 - Condition is Stable. - Problem is an acute exacerbation. - Symptoms have worsened. Signatures: Dispatcher [employer] EDLevar Zuluaga MD MD kdr Waters, Shelly, TEXTILE STYLIST-C TEXTILE STYLIST-Csnw Sarkis Colon RN RN em Neeta Jane RN RN aa5 Shelia Luevano RN RN tl1 Tereza Raya RN RN Kareem Maxwell, KELTON RN mg2 Vivian Matthews RN lp1 Corrections: (The following items were deleted from the chart) 02/08 20: 18:58 Hospitalization Ordered by Rene Pena MD for Inpatient Admission. tl1 Preliminary diagnosis is Dehydration; Altered mental status, unspecified; Leukocytosis. Bed requested for Telemetry/MedSurg (Inpatient). Status is Inpatient Admission. Condition is Stable. Problem is an acute exacerbation. Symptoms have worsened. snw 22:40 20:02/09/2020 18:58 Hospitalization Ordered by Rene Pena MD for Inpatient mg2 Admission. Preliminary diagnosis is Dehydration; Altered mental status, unspecified; Leukocytosis. Bed requested for Telemetry/MedSurg (Inpatient). Status is Inpatient Admission. Condition is Stable. Problem is an acute exacerbation. Symptoms have worsened. tl1
--- NOTE | 2020-02-09 18:59 | ER ---
Nurse's Notes [facility] Name: Isabelle Lowery Age: 59 yrs Sex: Female : 1960 Arrival Date: 02/09/2020 Time: 15:11 Bed 23 Private MD: Edwin Galaviz Diagnosis: Dehydration;Altered mental status, unspecified;Leukocytosis Presentation: 02/08 15:30 Chief complaint: Pt's "she was here with a low potassium of 2.5 and diarrhea aa5 and they did get the diarrhea under control but now she's back with diarrhea and she has lost like 10lbs over the last week, she's been weak and confused for about 4 days". 15:30 Coronavirus screen: The client reports previous COVID testing was negative. Ebola aa5 Screen: Patient negative for fever greater than or equal to 101.5 degrees Fahrenheit, and additional compatible Ebola Virus Disease symptoms. Initial Sepsis Screen: Does the patient meet any 2 criteria? Altered Mental Status. HR > 90 bpm. Does the patient have a suspected source of infection? No. Patient's initial sepsis screen is negative. Risk Assessment: Do you want to hurt yourself or someone else? Unable to obtain. Onset of symptoms was January 2020. 15:30 Acuity: AUGUSTIN 2 aa5 15:30 Method Of Arrival: Wheelchair aa5 Historical: - Allergies: 15:35 No Known Allergies; aa5 - PMHx: 15:35 Bipolar disorder; Depression; ETOH absue; hypotension; Schizophrenia; aa5 - PSHx: 15:35 Cholecystectomy; ; aa5 - Immunization history:: Adult Immunizations unknown. - Social history:: Smoking status: unknown. Screenin:00 Abuse screen: Denies threats or abuse. Nutritional screening: No deficits noted. em Tuberculosis screening: No symptoms or risk factors identified. Fall Risk None identified. Assessment: 16:30 General: Appears ill, slender, Behavior is unresponsive. reports she has been em unresponsive to him since yesterday, reports severe diarrhea for several weeks, hx of being a chronic drinker. Pain: Unable to use pain scale. Does not appear to understand pain scale. Neuro: Level of Consciousness is lethargic, Oriented to none. Cardiovascular: Capillary refill < 3 seconds Patient's skin is warm and dry. Respiratory: Airway is patent Respiratory effort is even, unlabored, Respiratory pattern is regular, symmetrical. GI: Abdomen is flat. Derm: Skin is intact, is healthy with good turgor, Skin is pink, warm \\T\\ dry. Musculoskeletal: Capillary refill < 3 seconds, Range of motion: intact in all extremities. 17:46 Reassessment: No changes from previously documented assessment. resting comfortably em with eyes closed, respirations even and unlabored, skin pink warm and dry. 18:40 Reassessment: Patient appears in no apparent distress at this time. No changes from em previously documented assessment. resting comfortably with eyes closed, respirations even and unlabored, skin pink warm and dry. 19:24 General: Appears in no apparent distress. Behavior is responds to painful stimuli. ea Pain: Unable to use pain scale. FLACC scale score is 0 out of 10. Neuro: Level of Consciousness is responds to verbal stimulus. Oriented to none. Respiratory: Airway is patent Respiratory effort is even, unlabored, Respiratory pattern is regular, symmetrical. : Lujan in place to gravity drainage. Derm: Skin is pink, warm \\T\\ dry. Vital Signs: 15:32 BP 103 / 50; Pulse 120; Resp 18 S; Temp 98.0(TE); Pulse Ox 100% on R/A; aa5 16:31 BP 103 / 87; Pulse 99; Resp 20; Pulse Ox 96% on R/A; em 17:46 BP 105 / 88; Pulse 98; Resp 16; Pulse Ox 96% on R/A; em 18:40 BP 107 / 89; Pulse 102; Resp 18; Pulse Ox 98% on R/A; em 20:49 BP 111 / 60; Pulse 88; Resp 18; Pulse Ox 98% on R/A; ea 21:52 BP 112 / 82; Pulse 84; Resp 16; Pulse Ox 97% on R/A; lp1 ED Course: 15:11 Patient arrived in ED. ag5 15:12 Edwin Galaviz DO is Private Physician. ag5 15:33 Arm band placed on Patient placed in an exam room, on a stretcher. aa5 15:35 Triage completed. aa5 15:39 [facility]C [facility] snw 15:39 Levar Gonzalez MD is Attending Physician. snw 15:52 Colon, Sarkis, RN is Primary Nurse. em 16:10 Initial lab(s) drawn, by me, sent to lab. Inserted saline lock: 20 gauge in right em antecubital area, using aseptic technique. Blood collected. 16:14 CT Head Brain wo Cont In Process Unspecified. EDMS 16:50 Inserted saline lock: 22 gauge in left forearm, using aseptic technique. Blood em collected. 17:00 Lujan cath inserted, using sterile technique, 16 Fr., by me, balloon inflated, urine em specimen collected. 17:08 Chest Single View XRAY In Process Unspecified. EDMS 18:57 Rene Pena MD is Hospitalizing Provider. snw 20:49 Patient has correct armband on for positive identification. Bed in low position. Call ea light in reach. Side rails up X2. 20:49 No provider procedures requiring assistance completed. Patient admitted, IV remains in ea place. Administered Medications: 16:26 Drug: Banana Bag - (NS 0.9% 1000 ml, foLIC Acid 1 mg, Thiamine 100 mg, Multivitamin 1 em amp) Route: IV; Rate: 200 ml/hr; Site: right antecubital; 21:56 Follow up: IV Status: Infusion continued upon admission lp1 19:24 Drug: NS 0.9% 1000 ml Route: IV; Rate: 1 bolus; Site: left forearm; ea 19:24 Drug: Cipro 400 mg Volume: 200 ml; Route: IVPB; Infused Over: 60 mins; Site: left ea forearm; 20:25 Follow up: Response: No adverse reaction; IV Status: Completed infusion; IV Intake: mg2 200ml Intake: 20:25 IV: 200ml; Total: 200ml. mg2 Outcome: 18:58 Decision to Hospitalize by Provider. snw 20:49 Instructed on the need for admit. ea 21:52 Condition: stable lp1 21:55 Admitted to Med/surg accompanied by tech, via stretcher, room 211, with chart, Report lp1 called to KELTON Saleem 22:40 Patient left the ED. mg2 Signatures: Dispatcher [employer] EDFL Carlyn Franco, RETAIL SALES REPRESENTATIVE-C RETAIL SALES REPRESENTATIVE-Csnw Sarkis Colon, RN KELTON em Neeta Jane RN RN aa5 Vivian Matthews RN RN lp1 Raya, Tereza, RN Kareem Chacko ea, RN RN mg2 Gaskin, Ajare ag5 Corrections: (The following items were deleted from the chart) 02/09 08:35 02/08 16:30 Neuro: Level of Consciousness is awake, alert, obeys commands, Oriented to em person, place, time, situation, Appropriate for age em
[2020-02-09 19:06] LABS: Amylase 4 U/L (25-115); Bilirubin Direct 0.4 mg/dL (0-0.2); CKMB Creatine Kinase MB 2.9 ng/mL (0.3-3.6); Creatine Phosphokinase 61 U/L (26-192); Troponin (Emerg Dept Use Only) < 0.02 ng/mL (0.0-0.045)
[2020-02-09] MEDS ORDERED: CIPROFLOXACIN 400mg IV 400 MG/200 ML BAG IV ONE (19:31)
[2020-02-09] MEDS ORDERED: NA CHLORIDE 0.9% 1,000 ML ONE (19:31)
[2020-02-09 19:39] LABS: Urine Blood NEGATIVE (NEG); Urine Glucose NEGATIVE (NEG); Urine Protein 2+ (NEG); Urine Specific Gravity 1.025 (1.005-1.030); Urine pH 6.5 (5.0-7.0)
--- NOTE | 2020-02-09 19:45 | P.HP ---
Certification for Inpatient Patient admitted to: Inpatient With expected LOS: >2 Midnights Patient will require the following post-hospital care: None Practitioner: I am a practitioner with admitting privileges, knowledge of patient current condition, hospital course, and medical plan of care. Services: Services provided to patient in accordance with Admission requirements found in Title 42 Section 412.3 of the Code of Federal Regulations Patient History Date of Service: 02/09/20 Primary Care Provider: none Reason for admission: AMS History of Present Illness: 59-year-old female with history of bipolar, depression, schizophrenia presents to the emergency department for diarrhea, weakness. Significant other at bedside reports that she has had diarrhea for approximately 3 months now, reports recent hospitalization about 2 months ago for femur fracture. Patient has been scheduled for multiple colonoscopies/endoscopies but each time she gets close to her scheduled appointment something seems to the wrong. Patient baseline alert, oriented x4. Over the course of the last few days patient has grown more and more confused, lethargic. Patient currently extremely lethargic, responds to verbal stimulus but does not follow simple commands, only oriented x1. Significant other reports patient has lost about 40 lb over the course of the last couple months and lost 10 lb over the course of the last 1 week. Patient used to be heavy drinker but has not had a drink in a few months for significant other. Patient also used to smoke heavily but is no longer smoking. Patient appears extremely dehydrated, urine looks like tea. Drug screen positive for benzodiazepine the patient is prescribed p.r.n. benzos. Patient with recent hospitalization for hypokalemia. Significant other states patient not eating well, also spitting food out. Workup in the emergency department significant for elevated white blood cell count with left shift 19.3 mild elevation pro calcitonin 0.36, urine negative, CT head negative. Allergies No Known Allergies Allergy (Verified 11/09/18 01:26) Home Medications: Fluoxetine HCl [Prozac*] 80 mg PO DAILY 11/09/18 [place] Carbonate [Lithotabs *] 3 tab PO BEDTIME 01/23/20 Quetiapine Fumarate [Seroquel] 3 tab PO BEDTIME 01/23/20 Trazodone HCl 2 tab PO BEDTIME 01/23/20 Amox/Clavulanate [Augmentin 500-125 mg Tab*] 500 mg PO BID #6 tab 01/24/20 Lactobacillus Acidophilus [Acidophilus Lactobacilli] 1 each PO BID #14 capsule 01/24/20 - Past Medical/Surgical History Diabetic: Yes -: Bipolar -: anemia -: Schizoprenia -: hypotension -: DM -: cholecystectomy -: -: breast enlargements -: bariatic gastric bypass Psychosocial/ Personal History: Lives at home with significant other, has seasonal retail job - Family History Mother -: Lung disease, Cancer Notes: throat Father -: Liver disease Notes: alcoholic - Social History Smoking Status: Former smoker Alcohol use: No CD- Drugs: No Caffeine use: Yes Place of Residence: Home Review of Systems is unable to be obtained Physical Examination - Physical Exam General: Oriented x1, Cooperative, Other (Lethargic) HEENT: Atraumatic, Other (Mucous membranes extremely dry) Respiratory: Clear to auscultation bilaterally, Normal air movement Cardiovascular: Normal S1 S2 Capillary refill: <2 Seconds Gastrointestinal: Normal bowel sounds Musculoskeletal: No contractures, No erythema, No tenderness Integumentary: No significant lesion, No tenderness/swelling, No erythema Neurological: Other (Unable to complete full neurological exam as patient is only oriented x1 and not following simple commands at this time. Patient appears to be moving all extremities well. Knows her name.), Abnormal speech - Studies Laboratory Data (last 24 hrs) 02/09/20 16:50: APTT 27.3 02/09/20 16:27: Amylase 4 L 02/09/20 16:10: PT 12.1, INR 1.03 02/09/20 16:10: WBC 19.3 H, Hgb 14.6, Hct 43.8, Plt Count 515 H 02/09/20 16:10: Sodium 135 L, Potassium 3.3 L, BUN 24 H, Creatinine 0.98, Glucose 149 H, Total Bilirubin 0.8, AST 58 H, ALT 41, Alkaline Phosphatase 313 H, Lipase 32 L Assessment and Plan - Plan Assessment Acute metabolic encephalopathy suspect thiamine deficiency or Wernicke encephalopathy Diarrhea Malnutrition Dehydration Bipolar/depression/schizophrenia Plan Acute metabolic encephalopathy suspect thiamine deficiency or Wernicke encephalopathy: Obtain folate level, b 1 level B12 level. MRI ordered for tomorrow. Continue with fluids overnight including banana bag. Speech therapy, dietitian consults, physical therapy consult ordered. DVT prophylaxis heparin 5000 units twice daily. Diarrhea: Obtain stool culture, C. diff, ova and parasite specimens. Continue with pro biotic. Malnutrition: Continue with dietitian consult, full liquid diet at this time. Speech consult ordered as well. Dehydration: Continue with fluids overnight. Re-evaluate fluid status in the morning. Bipolar/depression/schizophrenia: Obtain home medications, review for possible side effects. Continue as appropriate. Discharge Plan: Home Plan to discharge in: 72 Hours - Advance Directives Does patient have a Living Will: No Does patient have a Durable POA for Healthcare: No - Code Status/Comfort Care Code Status Assessed: Yes (Full code) Critical Care: No Time Spent Managing Pts Care (In Minutes): 55
[2020-02-09 19:58] LABS: Platelet Estimate INCR; White Blood Cell Scan OK (OK)
[2020-02-09 19:59] LABS: Blood Morphology Comment NOT SEEN (NOT SEEN)
--- NOTE | 2020-02-09 20:55 | RAD REPORT ---
EXAM DESCRIPTION: CTAbdomen Pelvis W Contrast - 02/09/2020 8:45 pm CLINICAL HISTORY: Abdominal pain. diarrhea, ellie. WBC COMPARISON: No comparisonsNo comparisonsAbdomen Pelvis W Contrast dated 01/19/2020; Abdomen Pelvi s W Contrast dated 01/12/2020 TECHNIQUE: Biphasic CT imaging of the abdomen and pelvis was performed with 100 ml non-ionic IV cont rast. All CT scans are performed using dose optimization technique as appropriate and may include automated exposure control or mA/KV adjustment according to patient size. FINDINGS: Linear opacities are present in both posterior lung bases. Postsurgical changes are presen t about the stomach. Mild fatty liver is present. No focal liver lesion or biliary dilatation. Cholecystectomy clips are s een. The spleen, pancreas, adrenal glands kidneys are within normal limits. 19 mm cyst superior right kidney is noted benign in appearance. No bowel obstruction, free air, free fluid or abscess. The appendix is not identified as a discrete structure, however, no secondary findings of appendicitis are identified. No evidence of significan t lymphadenopathy. Several screws are present in proximal right femur. No fracture seen. IMPRESSION: No acute intra-abdominal or pelvic finding. Advanced fatty liver.
[2020-02-09] MEDS ORDERED: ONDANSETRON 4 MG/2 ML VIAL IV PRN (22:23)
[2020-02-09] MEDS ORDERED: ACETAMINOPHEN 500 MG TAB PO PRN (22:23)
[2020-02-10] MEDS: HEPARIN 5000 UNIT/ML 1 ML VIAL SQ SCH ×3 (01:13→21:43)
[2020-02-10] MEDS ORDERED: CEFTRIAXONE 1 GM/NS 50 ML 1 GM/50 ML BAG IV SCH (01:58)
[2020-02-10] MEDS: NA CHLORIDE 0.9% 1,000 ML IV SCH ×4 (02:30→22:00)
[2020-02-10 02:32] LABS: Urine Appearance CLEAR; Urine Blood NEGATIVE (NEG); Urine Color DK YELLOW; Urine Glucose NEGATIVE (NEG); Urine Protein TRACE (NEG); Urine Specific Gravity >=1.030 (1.005-1.030); Urine pH 6.5 (5.0-7.0)
[2020-02-10 02:49] LABS: Urine Bilirubin NEGATIVE (NEG)
[2020-02-10] MEDS: CEFTRIAXONE/SWI 1gm 1 GM/10 ML SYR IV SCH ×2 (03:17→08:38)
[2020-02-10] MEDS: METRONIDAZOLE 500mg IVPB 500 MG/100 ML BAG IV SCH ×3 (03:17→16:01)
[2020-02-10 03:23] LABS: Urine Bacteria <20 /HPF (<20); Urine RBC NONE SEEN /HPF (NONE SEEN); Urine Urothelial Cells <5 /HPF (NONE SEEN)
[2020-02-10] MEDS: LEVOTHYROXINE SODIUM 100 MCG VIAL IV SCH (06:00)
[2020-02-10 07:24] LABS: Absolute Lymphocytes (CBC) 1.8 K/uL (0.7-4.9); Basophils % 0.5 % (0-1.3); Hematocrit 36.4 % (36.0-45.0); Lymphocytes % 13.3 % (15.3-44.8); MPV 9.6 fL (7.6-11.3); RBC Red Blood Cell Count 3.82 M/uL (3.86-4.86)
[2020-02-10 07:45] LABS: Albumin 1.9 g/dL (3.4-5.0); Bilirubin Total 0.5 mg/dL (0.2-1.0); Magnesium 1.8 mg/dL (1.8-2.4); Potassium 3.2 mmol/L (3.5-5.1); Protein, Total 5.1 g/dL (6.4-8.2)
[2020-02-10 07:49] LABS: Thyroid Stimulating Hormone 15.7 uIU/mL (0.360-3.740)
[2020-02-10] MEDS: FOLIC ACID 1 MG, MULTIVITAMINS INJ 10 ML, THIAMINE HCL 100 MG in NA CHLORIDE 0.9% 1,000 ML IV SCH (08:41)
[2020-02-10] MEDS ORDERED: THIAMINE HCL 100 MG TABLET PO SCH (09:00)
[2020-02-10] MEDS ORDERED: FOLIC ACID 1 MG TABLET PO SCH (09:00)
--- NOTE | 2020-02-10 11:12 | P.PN ---
Subjective Date of Service: 02/10/20 Primary Care Provider: none Chief Complaint: AMS Subjective: No new changes (Patient admitted with altered mental status diarrhea no change she is very confused) Review of Systems is unable to be obtained Physical Examination - Vital Signs Temperature: 97.9 F Blood Pressure: 102/71 Pulse: 86 Respirations: 20 Pulse Ox (%): 98 - Physical Exam General: Alert, Delirious Respiratory: Clear to auscultation bilaterally Cardiovascular: No edema, Regular rate/rhythm - Studies Laboratory Data (last 24 hrs) 02/09/20 16:50: APTT 27.3 02/09/20 16:27: Amylase 4 L 02/09/20 16:10: PT 12.1, INR 1.03 02/09/20 16:10: WBC 19.3 H, Hgb 14.6, Hct 43.8, Plt Count 515 H 02/09/20 16:10: Sodium 135 L, Potassium 3.3 L, BUN 24 H, Creatinine 0.98, Glucose 149 H, Total Bilirubin 0.8, AST 58 H, ALT 41, Alkaline Phosphatase 313 H, Lipase 32 L Assessment & Plan - Problems (Diagnosis) (1) Altered mental status Current Visit: No Status: Acute Plan: Patient is 59 years of age history of chronic diarrhea admitted with altered mental status is very confused disoriented labs reviewed white count is mildly elevated tsh is also elevated normal liver function tests an ammonia level/history of bipolar schizophrenia and diarrhea for 3 months unable to have any endoscopies done at baseline she is very oriented former alcoholic and heavy smoker also has hypokalemia. Continue with ceftriaxone and Flagyl Vital signs stable patient is not eating or drinking C difficile has been ordered patient is hypothyroid start on IV Synthroid Qualifiers: Altered mental status type: disorientation Qualified Code(s): R41.0 - Disorientation, unspecified
[2020-02-10] MEDS: LITHIUM CARBONATE 300 MG TAB PO SCH (21:00)
[2020-02-10] MEDS: QUETIAPINE 100MG TAB PO SCH (21:00)
[2020-02-10] MEDS ORDERED: HOME MED 1 EA UNK (Trazodone Hcl [Desyrel] 100 MG Tablet) PO SCH (21:00)
[2020-02-10] MEDS: TRAZODONE 50 MG TABLET PO SCH (21:00)
[2020-02-10 23:16] VITALS: BMI 17.5
[2020-02-11] MEDS: NA CHLORIDE 0.9% 1,000 ML IV SCH ×3 (00:03→06:50)
[2020-02-11] MEDS: METRONIDAZOLE 500mg IVPB 500 MG/100 ML BAG IV SCH ×2 (00:24→10:00)
[2020-02-11 04:41] LABS: Absolute Lymphocytes (CBC) 1.2 K/uL (0.7-4.9); Basophils % 0.7 % (0-1.3); Hematocrit 32.3 % (36.0-45.0); Lymphocytes % 12.6 % (15.3-44.8); MPV 8.4 fL (7.6-11.3); RBC Red Blood Cell Count 3.37 M/uL (3.86-4.86)
[2020-02-11 05:03] LABS: ALT/SGPT 26 U/L (12-78); AST/SGOT 35 U/L (15-37); Albumin 1.5 g/dL (3.4-5.0); Alkaline Phosphatase 214 U/L (45-117); BUN Blood Urea Nitrogen 16 mg/dL (7-18); Bicarbonate 19 mmol/L (21-32); Bilirubin Total 0.4 mg/dL (0.2-1.0); Glucose Level 73 mg/dL (74-106); Magnesium 1.9 mg/dL (1.8-2.4); Sodium Level 147 mmol/L (136-145)
[2020-02-11] MEDS: LEVOTHYROXINE SODIUM 100 MCG VIAL IV SCH (05:39)
[2020-02-11] MEDS: KCL 20 MEQ/100 mL IVPB 20 MEQ/100 ML BAG IV SCH ×2 (06:28→10:00)
[2020-02-11] MEDS ORDERED: FLUOXETINE 20 MG CAP PO SCH (08:00)
[2020-02-11] MEDS: LITHIUM CARBONATE 300 MG TAB PO SCH ×2 (09:00→21:00)
[2020-02-11] MEDS: HEPARIN 5000 UNIT/ML 1 ML VIAL SQ SCH ×2 (10:00→22:15)
[2020-02-11] MEDS: CEFTRIAXONE/SWI 1gm 1 GM/10 ML SYR IV SCH (10:00)
[2020-02-11] MEDS: FOLIC ACID 1 MG, MULTIVITAMINS INJ 10 ML, THIAMINE HCL 100 MG in NA CHLORIDE 0.9% 1,000 ML IV SCH (10:00)
--- NOTE | 2020-02-11 11:01 | P.PN ---
Subjective Date of Service: 02/11/20 Primary Care Provider: none Chief Complaint: AMS No change patient is still very altered as not make any sense Review of Systems is unable to be obtained Physical Examination - Vital Signs Temperature: 97.8 F Blood Pressure: 111/71 Pulse: 93 Respirations: 18 Pulse Ox (%): 96 - Physical Exam General: Unresponsive Respiratory: Clear to auscultation bilaterally Cardiovascular: No edema, Normal S1 S2 Assessment & Plan - Problems (Diagnosis) (1) Altered mental status Current Visit: No Status: Acute Plan: Patient admitted with altered mental status he be induced by drugs urinalysis is positive for benzodiazepine bordered a lithium level patient does take a large dose of Seroquel and trazodone at home hypernatremia started him on D5 water with potassium far there has been no diarrhea started patient on IV Synthroid tsh was mildly elevated Qualifiers: Altered mental status type: disorientation Qualified Code(s): R41.0 - Disorientation, unspecified
[2020-02-11] MEDS: D5 0.2 NS 1,000 ML with POTASSIUM CL 40 MEQ IV SCH ×2 (12:20)
[2020-02-11] MEDS: QUETIAPINE 100MG TAB PO SCH (21:00)
[2020-02-11] MEDS: TRAZODONE 50 MG TABLET PO SCH (21:00)
[2020-02-11] MEDS: ENSURE HIGH PROTEIN 237 ML CAN PO SCH (21:00)
[2020-02-12] MEDS: D5 0.2 NS 1,000 ML with POTASSIUM CL 40 MEQ IV SCH ×4 (00:36→03:25)
[2020-02-12] MEDS: LEVOTHYROXINE SODIUM 100 MCG VIAL IV SCH (05:23)
[2020-02-12 06:26] LABS: BUN Blood Urea Nitrogen 7 mg/dL (7-18); Bicarbonate 19 mmol/L (21-32); Glucose Level 125 mg/dL (74-106); Potassium 3.7 mmol/L (3.5-5.1); Sodium Level 144 mmol/L (136-145)
[2020-02-12] MEDS ORDERED: KCL 20 MEQ/100 mL IVPB 20 MEQ/100 ML BAG IV SCH (07:00)
[2020-02-12] MEDS: LITHIUM CARBONATE 300 MG TAB PO SCH ×2 (07:38→21:00)
[2020-02-12] MEDS: ENSURE HIGH PROTEIN 237 ML CAN PO SCH ×2 (07:38→17:00)
[2020-02-12] MEDS: HEPARIN 5000 UNIT/ML 1 ML VIAL SQ SCH ×2 (08:33→22:20)
[2020-02-12] MEDS: FOLIC ACID 1 MG, MULTIVITAMINS INJ 10 ML, THIAMINE HCL 100 MG in NA CHLORIDE 0.9% 1,000 ML IV SCH (08:35)
[2020-02-12] MEDS ORDERED: HYDROCORTISONE SUC 100 MG INJ IV ONE (12:11)
[2020-02-12] MEDS: D5 NS IV SCH ×4 (14:04→22:20)
[2020-02-12] MEDS: POTASSIUM CL IV SCH ×4 (14:04→22:20)
[2020-02-12] MEDS: QUETIAPINE 100MG TAB PO SCH (21:00)
[2020-02-12] MEDS: TRAZODONE 50 MG TABLET PO SCH (21:00)
[2020-02-12] MEDS: JUVEN PACKET PO SCH (21:00)
[2020-02-13] MEDS: ENSURE HIGH PROTEIN 237 ML CAN PO SCH ×2 (01:00→09:00)
[2020-02-13] MEDS: D5 NS IV SCH ×4 (04:48→11:55)
[2020-02-13] MEDS: POTASSIUM CL IV SCH ×4 (04:48→11:55)
[2020-02-13] MEDS: LEVOTHYROXINE SODIUM 100 MCG VIAL IV SCH (05:46)
[2020-02-13 06:10] LABS: Absolute Lymphocytes (CBC) 1.6 K/uL (0.7-4.9); Basophils % 0.7 % (0-1.3); Hematocrit 39.3 % (36.0-45.0); Lymphocytes % 16.8 % (15.3-44.8); MPV 8.5 fL (7.6-11.3); RBC Red Blood Cell Count 4.11 M/uL (3.86-4.86)
[2020-02-13 07:51] LABS: ALT/SGPT 30 U/L (12-78); AST/SGOT 33 U/L (15-37); Albumin 1.9 g/dL (3.4-5.0); Alkaline Phosphatase 239 U/L (45-117); BUN Blood Urea Nitrogen 4 mg/dL (7-18); Bicarbonate 22 mmol/L (21-32); Bilirubin Total 0.4 mg/dL (0.2-1.0); Folic Acid, (Folate) 9.4 ng/mL (3.1-17.5); Glucose Level 118 mg/dL (74-106); Magnesium 1.8 mg/dL (1.8-2.4); NT PRO-BNP 1021 pg/mL (<125); Phosphorus 1.5 mg/dL (2.5-4.9); Potassium 4.3 mmol/L (3.5-5.1); Sodium Level 143 mmol/L (136-145)
[2020-02-13] MEDS: LITHIUM CARBONATE 300 MG TAB PO SCH (09:00)
[2020-02-13] MEDS: JUVEN PACKET PO SCH (09:00)
[2020-02-13] MEDS: FOLIC ACID 1 MG, MULTIVITAMINS INJ 10 ML, THIAMINE HCL 100 MG in NA CHLORIDE 0.9% 1,000 ML IV SCH (09:46)
[2020-02-13] MEDS: HEPARIN 5000 UNIT/ML 1 ML VIAL SQ SCH (09:47)
[2020-02-13 12:11] VITALS: O2SAT 94
[2020-02-13 12:58] VITALS: BP 118/81; TEMP 97.4
--- NOTE | 2020-02-20 00:47 | P.PN ---
Subjective Date of Service: 02/12/20 Subjective: No new changes, Improving Patient is clinically doing better with no new complaints. Review of Systems 10-point ROS is otherwise unremarkable Physical Examination - Vital Signs Temperature: 97.4 F Blood Pressure: 118/81 Pulse: 89 Respirations: 20 Pulse Ox (%): 95 - Physical Exam General: Alert, In no apparent distress, Oriented x3 Respiratory: Clear to auscultation bilaterally, Normal air movement Cardiovascular: Regular rate/rhythm, Normal S1 S2, No murmurs Gastrointestinal: Normal bowel sounds, Soft and benign, Non-distended, No tenderness Musculoskeletal: No clubbing, No swelling, No tenderness Neurological: Normal strength at 5/5 x4 extr, Sensation intact, Cranial nerves 3-12 intact - Studies Medications List Reviewed: Yes Assessment & Plan - Problems (Diagnosis) (1) Substance abuse Status: Acute (2) Altered mental status Status: Acute Qualifiers: Altered mental status type: disorientation Qualified Code(s): R41.0 - Disorientation, unspecified - Plan Plan: 1. Continue with IV fluids 2. IV antibiotic therapy 3. Out of bed & ambulate 4. Anticipate discharge in the morning if clinically is doing well Discharge Plan: Home Plan to discharge in: 24 Hours - Advance Directives Does patient have a Living Will: No Does patient have a Durable POA for Healthcare: No - Code Status/Comfort Care Code Status Assessed: Yes Code Status: Full Code Critical Care: No Time Spent Managing PTS Care (In Minutes): 35
--- NOTE | 2020-02-20 00:49 | P.DS ---
Discharge Date: 02/13/20 Primary Care Provider: none Disposition: ROUTINE DISCHARGE Discharge Condition: GOOD Reason for Admission: AMS - Problems (1) Substance abuse Status: Acute (2) Altered mental status Status: Acute Qualifiers: Altered mental status type: disorientation Qualified Code(s): R41.0 - Disorientation, unspecified Brief History of Present Illness: Patient is a 59-year-old female with history of bipolar, depression, schizophrenia presents to the emergency department for diarrhea, weakness. Significant other at bedside reports that she has had diarrhea for approximately 3 months now, reports recent hospitalization about 2 months ago for femur fra cture. Patient has been scheduled for multiple colonoscopies/endoscopies but each time she gets close to her scheduled appointment something seems to the wrong. Patient baseline alert, oriented x4. Over the course of the last few days patient has grown more and more confused, lethargic. Patient currently extremely lethargic, responds to verbal stimulus but does not follow simple commands, only oriented x1. Significant other reports patient has lost about 40 lb over the course of the last couple months and lost 10 lb over the course of the last 1 week. Patient used to be heavy drinker but has not had a drink in a few months for significant other. Patient also used to smoke heavily but is no longer smoking. Patient appears extremely dehydrated, urine looks like tea. Drug screen positive for benzodiazepine the patient is prescribed p.r.n. benzos. Patient with recent hospitalization for hypokalemia. Significant other states patient not eating well, also spitting food out. Workup in the emergency department significant for elevated white blood cell count with left shift 19.3 mild elevation pro calcitonin 0.36, urine negative, CT head negative. Hospital Course: Patient's workup was unremarkable. Patient was clinically doing better. Patient likely altered mentations secondary to substance abuse. At this time, patient is stable for discharge home. Vital Signs/Physical Exam: Temp Pulse Resp BP Pulse Ox 97.4 F 89 20 118/81 95 02/20/20 00:47 02/20/20 00:47 02/20/20 00:47 02/20/20 00:47 02/20/20 00:47 General: Alert, In no apparent distress, Oriented x3 Laboratory Data at Discharge: WBC 9.5 K/uL (4.3-10.9) 02/13/20 05:49 Hgb 12.9 g/dL (12.0-15.0) 02/13/20 05:49 Hct 39.3 % (36.0-45.0) D 02/13/20 05:49 Plt Count 359 K/uL (152-406) 02/13/20 05:49 PT 12.1 SECONDS (9.5-12.5) 02/09/20 16:10 INR 1.03 02/09/20 16:10 APTT 27.3 SECONDS (24.3-36.9) 02/09/20 16:50 Sodium Cancelled 02/13/20 06:00 Potassium Cancelled 02/13/20 06:00 BUN Cancelled 02/13/20 06:00 Creatinine Cancelled 02/13/20 06:00 Glucose Cancelled 02/13/20 06:00 Phosphorus 1.5 mg/dL (2.5-4.9) L 02/13/20 05:49 Magnesium 1.8 mg/dL (1.8-2.4) 02/13/20 05:49 Total Bilirubin 0.4 mg/dL (0.2-1.0) 02/13/20 05:49 AST 33 U/L (15-37) 02/13/20 05:49 ALT 30 U/L (12-78) 02/13/20 05:49 Alkaline Phosphatase 239 U/L (45-117) H 02/13/20 05:49 Amylase 4 U/L (25-115) L 02/09/20 16:27 Lipase 32 U/L (73-393) L 02/09/20 16:10 Home Medications: Fluoxetine HCl [Prozac] 2 cap PO SEECOM 02/10/20 [place] Carbonate [Lithotabs *] 2 tab PO BID 02/10/20 Quetiapine Fumarate [Seroquel] 3 tab PO BEDTIME 02/10/20 Trazodone HCl [Desyrel] 2 tab PO BEDTIME 02/10/20 Clint [Clint*] 1 pkt PO BID #60 powd.pack 02/13/20 Levothyroxine [Synthroid] 125 mcg PO [id number] #30 tab 02/13/20 New Medications: Clint [Clint*] 1 pkt PO BID #60 powd.pack Levothyroxine [Synthroid] 125 mcg PO [id number] #30 tab Patient Discharge Instructions: OK TO DC IV AND DC HOME. FOLLOW-UP WITH PCP IN 1-2 WEEKS. CALL ME AT [phone] IF QUESTIONS REGARDING HOSPITAL STAY. RETURN TO THE ER IF SYMPTOMS WORSENS Diet: ADA Activity: Fall precautions Followup: Edwin Galaviz DO [Primary Care Provider] - Time spent managing pt's care (in minutes): 35
== END 2020-02-13 13:47 | disposition home or self-care (01) | DRG 917 ==
LOC: ER 15:10 → ERHOLD 19:25 → 2ND 21:56
PROVIDERS: ADMIT Internal Medicine Sleep Medicine; ATTEND Hospitalist
DX: T43.591A Poisoning by other antipsychotics and neuroleptics, accidental (unintentional), initial encounter (principal); G93.41 Metabolic encephalopathy; E46 Unspecified protein-calorie malnutrition; Z68.1 Body mass index [BMI] 19.9 or less, adult; E87.0 Hyperosmolality and hypernatremia; E87.6 Hypokalemia; E86.0 Dehydration; E03.9 Hypothyroidism, unspecified; E11.9 Type 2 diabetes mellitus without complications; F19.10 Other psychoactive substance abuse, uncomplicated; F20.9 Schizophrenia, unspecified; F31.9 Bipolar disorder, unspecified; T43.211A Poisoning by selective serotonin and norepinephrine reuptake inhibitors, accidental (unintentional), initial encounter; Z90.49 Acquired absence of other specified parts of digestive tract; Z98.84 Bariatric surgery status; Z79.890 Hormone replacement therapy; Z87.891 Personal history of nicotine dependence; Z79.899 Other long term (current) drug therapy; Z20.828 Contact with and (suspected) exposure to other viral communicable diseases
CPT/HCPCS: 36415; 51702; 70450; 71045; 74177; 80048; 80053; 80076; 80178; 80307; 81001; 81003; 82140; 82150; 82248; 82533; 82550; 82553; 82607; 82746; 82947; 83540; 83605; 83690; 83735; 83880; 84100; 84132; 84145; 84425; 84439; 84443; 84484; 85025; 85610; 85652; 85730; 87040; 92610; 93005; 97112; 97161; 97530; 99285; J0696; J0744; J1644; J1720; J3411; J3480; J7030; J7799; Q9967; U0003

== ENCOUNTER 2020-03-12 22:11 | Inpatient (IN) | payer OTHER ==
--- OUTSIDE RECORDS SUMMARY | 2020-03-12 22:14 | XMS REPORT | Continuity of Care Document ---
:1960 Author Organization [facility] t Address [address] [place] [address] Dr. Igles[address] [place] [address] Care Team Providers Name Role Phone Sha [...] Type Clinicians Facility Department ID 2018-10-13 2018-10-13 [facility] [id number] 11:00:00 23:59:00 Encounter José Luis Galan [id number] [place] [id number] [place] [id number] 2018-10-13 2018-10-13 Orders Doctor MICHAEL [id number] 00:00:00 00:00:00 Only UnassignedSOCO [id number] [place] [facility] [id number] Results This patient has no known results.
[2020-03-12] MEDS ORDERED: NA CHLORIDE 0.9% 1,000 ML ONE (23:09)
[2020-03-12 23:19] LABS: Absolute Lymphocytes (CBC) 2.5 K/uL (0.7-4.9); Basophils % 0.8 % (0-1.3); Hematocrit 36.5 % (36.0-45.0); Lymphocytes % 15.5 % (15.3-44.8); MPV 9.4 fL (7.6-11.3); RBC Red Blood Cell Count 3.86 M/uL (3.86-4.86)
[2020-03-12 23:33] LABS: ALT/SGPT 46 U/L (12-78); AST/SGOT 78 U/L (15-37); Albumin 1.8 g/dL (3.4-5.0); Alkaline Phosphatase 382 U/L (45-117); BUN Blood Urea Nitrogen 9 mg/dL (7-18); Bicarbonate 23 mmol/L (21-32); Bilirubin Direct 1.6 mg/dL (0-0.2); Bilirubin Total 2.3 mg/dL (0.2-1.0); Glucose Level 108 mg/dL (74-106); Magnesium 1.8 mg/dL (1.8-2.4); NT PRO-BNP 471 pg/mL (<125); Potassium 3.6 mmol/L (3.5-5.1); Protein, Total 5.3 g/dL (6.4-8.2); Sodium Level 138 mmol/L (136-145); Troponin (Emerg Dept Use Only) < 0.02 ng/mL (0.0-0.045)
[2020-03-13 00:15] LABS: Blood Morphology Comment NOT SEEN (NOT SEEN); Platelet Estimate ADEQ
[2020-03-13 01:02] LABS: Urine Bacteria <20 /HPF (<20); Urine RBC NONE SEEN /HPF (NONE SEEN); Urine Yeast PRESENT (NONE SEEN)
[2020-03-13 01:04] LABS: Urine Blood TRACE (NEG); Urine Glucose NEGATIVE (NEG); Urine Protein 2+ (NEG)
--- NOTE | 2020-03-13 01:24 | ER ---
Nurse's Notes [facility] Name: Isabelle Fernandez Age: 59 yrs Sex: Female : 1960 Arrival Date: 03/12/2020 Time: 22:14 Bed 2 Private MD: Diagnosis: Altered mental status, unspecified;Other cirrhosis of liver Presentation: 03/12 22:19 Chief complaint: EMS states: decreased appetite and was supposed to have colonoscopy em but tested pos. for covid. Coronavirus screen: Client presents with at least one sign or symptom that may indicate coronavirus-19. Standard/surgical mask placed on the client. Provider contacted for isolation considerations. Client reports previous positive COVID test result. Ebola Screen: Patient negative for fever greater than or equal to 101.5 degrees Fahrenheit, and additional compatible Ebola Virus Disease symptoms Patient denies exposure to infectious person. Patient denies travel to an Ebola-affected area in the 21 days before illness onset. No symptoms or risks identified at this time. Initial Sepsis Screen: Does the patient meet any 2 criteria? No. Patient's initial sepsis screen is negative. Does the patient have a suspected source of infection? No. Patient's initial sepsis screen is negative. Risk Assessment: Do you want to hurt yourself or someone else? Patient reports no desire to harm self or others. Onset of symptoms was March 12, 2020. 22:19 Method Of Arrival: EMS: [facility] em 22:19 Acuity: AUGUSTIN 3 em Historical: - Allergies: 22:20 No Known Allergies; em - PMHx: 22:20 Bipolar disorder; Depression; ETOH absue; hypotension; Schizophrenia; em - PSHx: 22:20 Cholecystectomy; ; em - Immunization history:: Adult Immunizations unknown. - Social history:: Smoking status: unknown. Screenin:29 Abuse screen: Denies threats or abuse. Nutritional screening: No deficits noted. ea Tuberculosis screening: No symptoms or risk factors identified. Fall Risk None identified. Assessment: 22:25 General: Appears uncomfortable, Behavior is cooperative. Pain: Denies pain. Neuro: ea Level of Consciousness is confused, Oriented to person. Cardiovascular: Patient's skin is warm and dry. Derm: Skin is fragile, is thin, Skin is dry, Skin is normal, Skin temperature is warm. 03/13 00:39 Reassessment: Patient and/or family updated on plan of care and expected duration. Pain ea level reassessed. Pt resting with eyes closed, respirations even and unlabored, chest expansions even and symmetrical. No s/s of pain or discomfort noted at this time. 04:00 Reassessment: Patient appears in no apparent distress at this time. Patient and/or wh family updated on plan of care and expected duration. Pain level reassessed. 07:54 Reassessment: ROBERTO FERNANDEZ: [phone]. bp 19:47 Reassessment: Patient and/or family updated on plan of care and expected duration. Pain ea level reassessed. Pt alert and oriented to self, respirations even and unlabored. Pt admitted to fourth floor, report given to receiving nurse. Pt left ED via hospital bed per public health sanitarian technician. Pt tolerating well. Vital Signs: 03/12 22:30 BP 129 / 97; Pulse 100; Resp 22; Pulse Ox 98% ; ea 22:51 Temp 98.7; ea 03/13 00:40 BP 115 / 60; Pulse 78; Resp 18; Pulse Ox 96% on R/A; ea 04:00 BP 107 / 77; Pulse 88; Resp 18; Pulse Ox 97% ; wh 19:45 BP 130 / 78; Pulse 76; Resp 18; Pulse Ox 95% ; ea ED Course: 03/12 22:14 Patient arrived in ED. am2 22:20 Triage completed. em 22:20 Arm band placed on. em 22:29 Tereza Raya, RN is Primary Nurse. ea 22:30 Inserted saline lock: 22 gauge in right wrist, using aseptic technique. Blood collected.ea 22:31 Patient has correct armband on for positive identification. Bed in low position. Call ea light in reach. Side rails up X2. 22:34 Matthew Juarez MD is Attending Physician. tw4 22:53 XRAY Chest (1 view) In Process Unspecified. EDMS 23:37 CT Head Brain wo Cont In Process Unspecified. EDMS 03/13 00:00 Straight cath inserted, using sterile technique, 18 Fr. Specimen obtained. ea 00:34 CT Abd/Pelvis - IV Contrast Only In Process Unspecified. EDMS 01:24 Sanchez Bailey MD is Hospitalizing Provider. tw4 01:43 No provider procedures requiring assistance completed. Patient admitted, IV remains in ea place. 08:16 Primary Nurse role handed off by Tereza Raya RN bd 08:21 Rakan Hackett, RN is Primary Nurse. bp Administered Medications: 03/12 23:03 Drug: NS 0.9% 1000 ml Route: IV; Rate: 1 bolus; Site: right wrist; ea 03/13 01:43 Follow up: Response: No adverse reaction; IV Status: Completed infusion; IV Intake: ea 1000ml 02:57 Drug: Rocephin - (cefTRIAXone) 1 grams Route: IVPB; Infused Over: 30 mins; Site: right ea hand; 04:10 Follow up: Response: No adverse reaction; IV Status: Completed infusion wh Intake: 01:43 IV: 1000ml; Total: 1000ml. ea Outcome: 01:24 Decision to Hospitalize by Provider. tw4 01:43 Admitted to ER Hold. Please see [facility] for further documentation. ea 01:43 Condition: stable 01:43 Instructed on the need for admit. 19:49 Patient left the ED. ea Signatures: Dispatcher [employer] Priscilla Lagos Edgar, RN RN Susanna Lou am2 Tereza Raya, RN RN Lexi Rubin RN RN wh Peltier, Brian, Matthew Vines RN, MD MD tw4
--- NOTE | 2020-03-13 01:24 | EDPHYS ---
Physician Documentation [facility] Name: Isabelle Lowery Age: 59 yrs Sex: Female : 1960 Arrival Date: 03/12/2020 Time: 22:14 Bed 2 Private MD: ED Physician Matthew Juarez HPI: 03/13 02:44 This 59 yrs old Female presents to ER via EMS with complaints of Decreased tw4 Appetite, covid+. 02:44 The patient presents with decreased responsiveness. Onset: The symptoms/episode tw4 began/occurred at an unknown time. Possible causes: alcohol, has a history of chronic alcohol abuse. Associated signs and symptoms: The patient has no apparent associated signs or symptoms. The patient has not experienced similar symptoms in the past. Historical: - Allergies: 03/12 22:20 No Known Allergies; em - PMHx: 22:20 Bipolar disorder; Depression; ETOH absue; hypotension; Schizophrenia; em - PSHx: 22:20 Cholecystectomy; ; em - Immunization history:: Adult Immunizations unknown. - Social history:: Smoking status: unknown. ROS: 03/13 02:44 Unable to obtain ROS due to altered mental status. tw4 Exam: 02:44 Constitutional: This is a well developed, well nourished patient who is awake, alert, tw4 and in no acute distress. Head/Face: Normocephalic, atraumatic. Chest/axilla: Normal chest wall appearance and motion. Nontender with no deformity. No lesions are appreciated. Cardiovascular: Regular rate and rhythm with a normal S1 and S2. No gallops, murmurs, or rubs. Normal PMI, no JVD. No pulse deficits. Respiratory: Lungs have equal breath sounds bilaterally, clear to auscultation and percussion. No rales, rhonchi or wheezes noted. No increased work of breathing, no retractions or nasal flaring. Abdomen/GI: Soft, non-tender, with normal bowel sounds. No distension or tympany. No guarding or rebound. No evidence of tenderness throughout. MS/ Extremity: Pulses equal, no cyanosis. Neurovascular intact. Full, normal range of motion. 02:44 Neuro: Orientation: to person, Not oriented to place, time, Mentation: confused. Vital Signs: 03/12 22:30 BP 129 / 97; Pulse 100; Resp 22; Pulse Ox 98% ; ea 22:51 Temp 98.7; ea 03/13 00:40 BP 115 / 60; Pulse 78; Resp 18; Pulse Ox 96% on R/A; ea 04:00 BP 107 / 77; Pulse 88; Resp 18; Pulse Ox 97% ; wh 19:45 BP 130 / 78; Pulse 76; Resp 18; Pulse Ox 95% ; ea MDM: 01:24 Patient medically screened. tw4 02:44 Differential Diagnosis: hypoglycemia, pneumonia, seizure, volume depletion. Data tw4 reviewed: vital signs, nurses notes. Data reviewed: lab test result(s), CBC, electrolytes, hepatic panel, urinalysis, radiologic studies, CT scan, plain films. Data interpreted: Pulse oximetry: Interpretation: normal. Test interpretation: by ED physician or midlevel provider: plain radiologic studies. Counseling: I had a detailed discussion with the patient and/or guardian regarding: the historical points, exam findings, and any diagnostic results supporting the discharge/admit diagnosis, lab results. Physician consultation: Sanchez Bailey MD was called at 02:30, regarding admission, to the medical/surgical unit. patient's condition, and will see patient in ED. 03/12 22:35 Order name: Basic Metabolic Panel tw4 03/12 22:35 Order name: CBC with Diff; Complete Time: 01:21 tw4 03/12 23:52 Interpretation: Normal except: WBC 16.40; HGB 11.8; PLT 506; RDW 15.8; NEUT A 12.8; tw4 RYLIE% 77.9. 03/12 22:35 Order name: LFT's; Complete Time: 23:48 tw4 03/12 23:51 Interpretation: Normal except: AST 78; BILIT 2.3; ALK 382; BILID 1.6; TP 5.3; ALB 1.8; tw4 A/G 0.5. 03/12 22:35 Order name: Magnesium; Complete Time: 23:48 tw4 03/12 23:52 Interpretation: Within normal limits: MG 1.8. tw4 03/12 22:35 Order name: NT PRO-BNP; Complete Time: 23:48 tw4 03/12 23:51 Interpretation: Abnormal: NT PRO-BNP 471. tw03/12 22:35 Order name: PT-INR [facility] 03/12 22:35 Order name: Troponin (emerg Dept Use Only); Complete Time: 23:48 [facility] 03/12 23:52 Interpretation: Within normal limits: TROPED < 0.02. 03/12 22:35 Order name: Urine Microscopic Only; Complete Time: 01:21 03/12 22:35 Order name: Basic Metabolic Panel; Complete Time: 23:48 [facility] 03/12 23:52 Interpretation: Normal except: CL 108; GLUC 108; GFR 86. [facility] 03/12 23:20 Order name: Manual Differential; Complete Time: 01:21 [facility] 03/13 00:07 Order name: Urine Dipstick--Ancillary (enter results); Complete Time: 01:21 [facility] 03/13 00:13 Order name: Urine Culture 03/13 01:20 Order name: AMMONIA [facility] 03/13 01:21 Order name: Alcohol Level [facility] 03/12 22:35 Order name: XRAY Chest (1 view) [facility] 03/12 22:35 Order name: EKG; Complete Time: 22:36 [facility] 03/12 23:08 Order name: CT Head Brain wo Cont [facility] 03/12 23:56 Order name: CT Abd/Pelvis - IV Contrast Only [facility] 03/13 02:54 Order name: CORONAVIRUS [facility] 03/13 03:28 Order name: CONS Pharmacy Consult [facility] 03/13 03:28 Order name: Regular [facility] 03/13 03:28 Order name: Liver (Hepatic) Function [facility] 03/13 03:28 Order name: CBC with Automated Diff [facility] 03/13 03:28 Order name: CBC with Automated Diff [facility] 03/13 03:28 Order name: Comprehensive Metabolic Panel [facility] 03/13 03:28 Order name: Comprehensive Metabolic Panel [facility] 03/13 03:34 Order name: SARS-COV-2 RT PCR [facility] 03/12 22:35 Order name: Cardiac monitoring; Complete Time: 22:56 [facility] 03/12 22:35 Order name: EKG - Nurse/Tech; Complete Time: 22:55 [facility] 03/12 22:35 Order name: IV Saline Lock; Complete Time: 22:51 [facility] 03/12 22:35 Order name: Labs collected and sent; Complete Time: 00:38 [facility] 03/12 22:35 Order name: O2 Per Protocol; Complete Time: 22:51 [facility] 03/12 22:35 Order name: O2 Sat Monitoring; Complete Time: 22:51 03/12 22:35 Order name: Urine Dipstick-Ancillary (obtain specimen); Complete Time: 00:44 03/12 23:59 Order name: Straight Cath - Urine; Complete Time: 23:59 EC: Rate is 101 beats/min. Rhythm is regular. QRS [place] is Normal. [place] interval is normal. tw4 QRS interval is normal. QT interval is normal. No Q waves. T waves are Inverted in leads I, II, V2, V3, V4, V5. No ST changes noted. Clinical impression: NSR w/ Non-specific ST/T Changes and Sinus tachycardia. Interpreted by me. Reviewed by me. Administered Medications: 03/12 23:03 Drug: NS 0.9% 1000 ml Route: IV; Rate: 1 bolus; Site: right wrist; 03/13 01:43 Follow up: Response: No adverse reaction; IV Status: Completed infusion; IV Intake: ea 1000ml 02:57 Drug: Rocephin - (cefTRIAXone) 1 grams Route: IVPB; Infused Over: 30 mins; Site: right ea hand; 04:10 Follow up: Response: No adverse reaction; IV Status: Completed infusion Disposition: 03/13/20 01:24 Hospitalization ordered by Sanchez Bailey for Inpatient Admission. Preliminary diagnosis are Altered mental status, unspecified, Other cirrhosis of liver. - Bed requested for Telemetry/MedSurg (Inpatient). - Status is Inpatient Admission. ea - Condition is Fair. - Problem is an ongoing problem. - Symptoms have worsened. Signatures: Dispatcher [employer] EDMS Sarkis Colon RN KELTON Shelia Luevano RN RN tl1 Jocelyn Fernando RN RN Tereza Raya RN RN ea Wadley, Terrence, MD MD tw4 Lexi Montiel RN Corrections: (The following items were deleted from the chart) 03/12 23:59 23:59 Lujan ordered. [facility] 03/13 03:38 01:24 Hospitalization Ordered by Sanchez Bailey MD for Inpatient Admission. Preliminary diagnosis is Altered mental status, unspecified; Other cirrhosis of liver. Bed requested for Telemetry/MedSurg (Inpatient). Status is Inpatient Admission. Condition is Fair. Problem is an ongoing problem. Symptoms have worsened. tw4 18:54 03:38 03/13/2020 01:24 Hospitalization Ordered by Sanchez Bailey MD for Inpatient tl1 Admission. Preliminary diagnosis is Altered mental status, unspecified; Other cirrhosis of liver. Bed requested for [facility] ER HOLD. Status is Inpatient Admission. Condition is Fair. Problem is an ongoing problem. Symptoms have worsened. cg 18:55 18:54 03/13/2020 01:24 Hospitalization Ordered by Sanchez Bailey MD for Inpatient tl1 Admission. Preliminary diagnosis is Altered mental status, unspecified; Other cirrhosis of liver. Bed requested for Telemetry/MedSurg (Inpatient). Status is Inpatient Admission. Condition is Fair. Problem is an ongoing problem. Symptoms have worsened. tl1 19:49 18:55 03/13/2020 01:24 Hospitalization Ordered by Sanchez Bailey MD for Inpatient ea Admission. Preliminary diagnosis is Altered mental status, unspecified; Other cirrhosis of liver. Bed requested for Telemetry/MedSurg (Inpatient). Status is Inpatient Admission. Condition is Fair. Problem is an ongoing problem. Symptoms have worsened. tl1
[2020-03-13] MEDS ORDERED: CEFTRIAXONE/SWI 1gm 1 GM/10 ML SYR ONE ×2 (02:56→09:51)
--- NOTE | 2020-03-13 03:10 | P.HP ---
Certification for Inpatient With expected LOS: >2 Midnights Patient will require the following post-hospital care: None Practitioner: I am a practitioner with admitting privileges, knowledge of patient current condition, hospital course, and medical plan of care. Services: Services provided to patient in accordance with Admission requirements found in Title 42 Section 412.3 of the Code of Federal Regulations Patient History Date of Service: 03/13/20 Reason for admission: Altered mental status History of Present Illness: 59-year-old female with past medical history of bipolar disorder, schizophrenia, previous chronic alcoholism, now recently quit, history of liver cirrhosis, recurrent admission for altered mental status in setting of diarrhea/hypokalemia on last admission. Admitted now because of increasing confusion. Patient will was brought by EMS on request of the spouse. Patient is a poor historian. She repeatedly says ' I don't knowwhy l am here ". She is unsure why she is here. She denies any nausea vomiting. She denies any abdominal pain. She denies any shortness of breath. She was recently reported to have been positive for covid infection. She denies any cough or shortness of breath. She is saturating well on room air. Lab work shows a left shift with bandemia as well as evidence of UTI. She has been admitted for metabolic encephalopathy of infectious origin and UTI. Allergies No Known Allergies Allergy (Verified 02/09/20 23:05) Home Medications: Fluoxetine HCl [Prozac] 2 cap PO SEECOM 02/10/20 [place] Carbonate [Lithotabs *] 2 tab PO BID 02/10/20 Quetiapine Fumarate [Seroquel] 3 tab PO BEDTIME 02/10/20 Trazodone HCl [Desyrel] 2 tab PO BEDTIME 02/10/20 Clint [Clint*] 1 pkt PO BID #60 powd.pack 02/13/20 Levothyroxine [Synthroid] 125 mcg PO [id number] #30 tab 02/13/20 - Past Medical/Surgical History Diabetic: Yes -: Bipolar -: anemia -: Schizoprenia -: hypotension -: DM -: cholecystectomy -: -: breast enlargements -: bariatic gastric bypass Psychosocial/ Personal History: Lives at home with significant other, has seasonal retail job - Family History Mother -: Lung disease, Cancer Notes: throat Father -: Liver disease Notes: alcoholic - Social History Alcohol use: No CD- Drugs: No Caffeine use: Yes Review of Systems is unable to be obtained Physical Examination - Physical Exam General: Alert, Oriented x2, Cachectic, Disheveled HEENT: Atraumatic, Normocephalic, PERRLA, Other (dry oral mucosa) Neck: Supple, 2+ carotid pulse no bruit, JVD not distended, No Thyromegaly Respiratory: Clear to auscultation bilaterally, Normal air movement Cardiovascular: No edema, Normal pulses, Regular rate/rhythm, Normal S1 S2 Capillary refill: <2 Seconds Gastrointestinal: Normal bowel sounds, Soft and benign, Non-distended, No ascites, No tenderness Musculoskeletal: No clubbing, No swelling Integumentary: No rashes, No breakdown Neurological: Normal speech, Normal tone - Studies Laboratory Data (last 24 hrs) 03/12/20 23:03: WBC 16.40 H, Hgb 11.8 L, Hct 36.5, Plt Count 506 H 03/12/20 23:03: Sodium 138, Potassium 3.6, BUN 9, Creatinine 0.70, Glucose 108 H, Magnesium 1.8, Total Bilirubin 2.3 H, AST 78 H, ALT 46, Alkaline Phosphatase 382 H Assessment and Plan - Problems (Diagnosis) (1) Acute UTI Current Visit: No Status: Acute (2) Altered mental status Current Visit: No Status: Acute Qualifiers: Altered mental status type: disorientation Qualified Code(s): R41.0 - Disorientation, unspecified (3) Bipolar 1 disorder Current Visit: No Status: Acute (4) Schizo-affective psychosis Current Visit: No Status: Acute (5) Substance abuse Current Visit: No Status: Acute - Advance Directives Does patient have a Living Will: No Does patient have a Durable POA for Healthcare: No - Code Status/Comfort Care Code Status: Full Code Physician Review: Patient Assessed, Agree with Above Assessment and Plan Physician Review Additional Text: Recurrent Acute Encephalopathy Acute UTI Bipolar disorder and Liver cirrhosis Protein calorie malnutrition-moderate Leukocytosis with left shift Covid 19 infection Plan UTI/encephalopathy/bipolar disorder/leukocytosis- will start gentle IV fluid Will start empirical treatment for UTI Will obtained urine culture Do IM Geodon p.r.n. agitation Encourage p.o. intake. Given report of previous spitting of food and recurrent agitation during prior hospitalization, patient may be having presenile dementia Obtain urine tox screen to rule out illicit drug use Given moderate stool but daytime without obstruction, with to lactulose b.i.d. DVT prophylaxis-subcutaneous heparin Q 12 Protein calorie malnutrition-consult dietitian, might benefit from assisted feeding Asymptomatic Covid infection-will monitor for now start zinc daily Disposition-possible hospital stay for 24-48 hr Time Spent Managing Pts Care (In Minutes): 65
[2020-03-13] MEDS ORDERED: ACETAMINOPHEN 500 MG TAB PO PRN (03:23)
[2020-03-13] MEDS ORDERED: ONDANSETRON 4 MG/2 ML VIAL IV PRN (03:23)
[2020-03-13] MEDS ORDERED: MORPHINE 2 MG/ML SYR IV PRN (03:23)
[2020-03-13] MEDS ORDERED: ALBUTEROL 2.5 MG/3 ML NEB SOL NEB PRN (03:23)
[2020-03-13] MEDS ORDERED: HYDRALAZINE HCL 20 MG/ML VIAL IV PRN (03:26)
[2020-03-13] MEDS: D5 0.9 NS 1,000 ML IV SCH (04:00)
[2020-03-13 04:24] LABS: Albumin 1.6 g/dL (3.4-5.0); Bilirubin Direct 1.5 mg/dL (0-0.2); Bilirubin Total 2.1 mg/dL (0.2-1.0); Protein, Total 4.6 g/dL (6.4-8.2)
[2020-03-13] MEDS: LEVOTHYROXINE SOD 0.125 MG TAB PO SCH (05:38)
[2020-03-13] MEDS ORDERED: D5W 1,000 ML IV ONE (05:56)
[2020-03-13 06:15] LABS: Protime INR 1.2
--- NOTE | 2020-03-13 06:27 | EKG ---
Test Date: 2020-03-12 Test Time: 22:47:13 Campaign Coordinator: GONZALES MEASUREMENT RESULTS: Intervals: Rate: 101 WV: 112 QRSD: 84 QT: 422 QTc: 547 [place]: P: -17 WV: 112 QRS: 75 T: -71 INTERPRETIVE STATEMENTS: Sinus tachycardia T wave abnormality, consider inferior ischemia T wave abnormality, consider anterolateral ischemia Prolonged QT Abnormal ECG Compared to ECG 02/09/2020 18:36:04 T-wave abnormality now present Prolonged QT interval now present ST (T wave) deviation no longer present Possible ischemia still present Electronically Signed On 03-13-20 06:26:59 [employer] by Gómez Cid
--- NOTE | 2020-03-13 06:50 | RAD REPORT ---
EXAM DESCRIPTION: RAD - Chest Single View - 03/12/2020 10:56 pm CLINICAL HISTORY: MALAISE, decreased appetite, positive COVID test COMPARISON: Portable February 09, 2020 TECHNIQUE: AP portable chest image was obtained 03/12/2020 10:56 pm . FINDINGS: No focal lung parenchymal process is identifiable. There is an overall increase in density over the lung sosa secondary to large breast implants. Heart and vasculature are normal. No measur able pleural effusion and no pneumothorax. No acute bony abnormality seen. No acute aortic findings s uspected. IMPRESSION: No acute cardiopulmonary process. No significant change from comparison study.
[2020-03-13] MEDS: FLUOXETINE 20 MG CAP PO SCH ×2 (08:00→12:00)
[2020-03-13] MEDS: ZINC SULFATE 220 MG CAP PO SCH (09:00)
[2020-03-13] MEDS: HEPARIN 5000 UNIT/ML 1 ML VIAL SQ SCH ×2 (09:00→22:23)
[2020-03-13] MEDS: JUVEN PACKET PO SCH ×2 (09:00→22:24)
[2020-03-13] MEDS: LITHIUM CARBONATE 300 MG TAB PO SCH ×2 (09:00→22:22)
[2020-03-13] MEDS: CEFTRIAXONE/SWI 1gm 1 GM/10 ML SYR IV SCH (09:00)
[2020-03-13] MEDS ORDERED: CEFTRIAXONE 1 GM/NS 50 ML 1 GM/50 ML BAG IV SCH (09:00)
[2020-03-13] MEDS ORDERED: LITHIUM CARBONATE 300 MG TAB ONE ×2 (09:50→22:34)
[2020-03-13] MEDS ORDERED: ZINC SULFATE 220 MG CAP ONE (09:50)
[2020-03-13] MEDS ORDERED: HEPARIN 5000 UNIT/ML 1 ML VIAL ONE (09:50)
[2020-03-13] MEDS ORDERED: NA CHLORIDE 0.9% 100 ML ONE (09:50)
--- NOTE | 2020-03-13 11:08 | RAD REPORT ---
EXAM DESCRIPTION: CT - Head Brain Wo Cont - 03/13/2020 6:25 am CLINICAL HISTORY: DECLINING STATE TECHNIQUE: Contiguous axial CT images obtained through the brain without IV contrast. Coronal and sa gittal reformatted images were provided. This exam was performed according to our departmental dose-optimization program, which includes autom ated exposure control, adjustment of the mA and/or kV according to patient size and/or use of iterati ve reconstruction technique. COMPARISON: 02/09/2020 FINDINGS: Brain: Mild cerebral atrophy and minimal bilateral periventricular white matter low-attenu ation which is nonspecific and can be seen in the setting of chronic microvascular angiopathy without significant interval change. No focal mass effect. Otto-white matter differentiation is within heriberto l limits. No hemorrhage. Ventricles: No ventriculomegaly or midline shift. Extra-axial spaces: No extra-axial collection or hemorrhage. Paranasal sinuses and mastoid air cells: Left greater than right sphenoid sinus and bilateral ethmoid sinus mucosal thickening and air-fluid levels. Vessels: Unremarkable Bones: Unremarkable Soft tissues: Unremarkable IMPRESSION: 1. No acute hemorrhage, focal mass or large territory infarction. 2. Other findings as above. Electronically signed by: Samara Mendoza MD 03/12/2020 11:46 PM CERTIFIED PHLEBOTOMIST Due to temporary technical issues with the PACS/Fluency reporting system, reports are being signed by the in house radiologists without review as a courtesy to insure prompt reporting. The interpreting radiologist is fully responsible for the content of the report.
--- NOTE | 2020-03-13 11:15 | RAD REPORT ---
EXAM DESCRIPTION: CT - Abdomen Pelvis W Contrast - 03/13/2020 6:25 am CLINICAL HISTORY: The patient is 59 years old and is Female; ABD PAIN TECHNIQUE: Axial computed tomography images of the abdomen and pelvis with intravenous contrast. S agittal and coronal reformatted images were created and reviewed. This CT exam was performed using one or more of the following dose reduction techniques: automated exposure control, adjustment of t he mA and/or kV according to patient size, and/or use of iterative reconstruction technique. COMPARISON: CT of the abdomen and pelvis February 09, 2020. FINDINGS: LUNG BASES: Minimal dependent atelectasis in the lung bases are present. PLEURAL SPACE: Trace bilateral pleural effusions are noted. ABDOMEN: LIVER: The liver is enlarged and diffusely fatty. GALLBLADDER AND BILE DUCTS: The gallbladder is surgically absent. PANCREAS: The pancreas is atrophic. SPLEEN: Unremarkable. ADRENALS: Unremarkable. No mass. KIDNEYS AND URETERS: Bilateral renal cysts are noted, the largest on the right measures 2.4 cm. T he kidneys enhance symmetrically. No hydronephrosis or hydroureter of either kidney is seen. STOMACH AND BOWEL: Postsurgical change consistent with a gastric bypass is noted. The small bowel is decompressed. A moderate amount stool is present throughout colon. There is no bowel obstruction. PELVIS: APPENDIX: The appendix is normal in caliber without surrounding inflammation. BLADDER: The bladder is nearly empty. REPRODUCTIVE: A 1.6 cm right ovarian cyst is present. No follow-up imaging is recommended. The ut erus and left ovary are unremarkable. ABDOMEN and PELVIS: INTRAPERITONEAL SPACE: Free fluid is present within the pelvis. A small amount of ascites is no johanna throughout the abdomen and pelvis. No free air. BONES/JOINTS: Postsurgical change of the proximal right femur is present. There are degenerativ e changes of the spine. SOFT TISSUES: Bilateral breast implants are partially visualized. VASCULATURE: Unremarkable. No abdominal aortic aneurysm. LYMPH NODES: Unremarkable. No enlarged lymph nodes. IMPRESSION: 1. Trace bilateral pleural effusions with bibasilar atelectasis. 2. Small amount of ascites throughout the abdomen and pelvis. 3. Hepatomegaly and hepatic steatosis. 4. Moderate stool burden without obstruction. Electronically signed by: Adriane Ash MD 03/13/2020 12:45 AM RAT EXTERMINATOR Due to temporary technical issues with the PACS/Fluency reporting system, reports are being signed by the in house radiologists without review as a courtesy to insure prompt reporting. The interpreting radiologist is fully responsible for the content of the report.
[2020-03-13] MEDS: HYDROCORTISONE SUC 100 MG INJ IV SCH (17:00)
[2020-03-13] MEDS ORDERED: WATER FOR INJ,STERILE 10 ML ONE (18:34)
[2020-03-13] MEDS ORDERED: HYDROCORTISONE SUC 100 MG INJ ONE (18:34)
[2020-03-13] MEDS ORDERED: TRAZODONE 50 MG TABLET PO SCH (21:00)
[2020-03-13] MEDS ORDERED: QUETIAPINE 100MG TAB PO SCH (21:00)
[2020-03-13] MEDS: GLUCERNA SHAKE 237 ML CAN PO SCH (21:00)
[2020-03-14] MEDS: D5 0.9 NS 1,000 ML IV SCH ×2 (00:25→18:30)
[2020-03-14] MEDS: HYDROCORTISONE SUC 100 MG INJ IV SCH ×3 (00:25→16:50)
[2020-03-14] MEDS: LEVOTHYROXINE SOD 0.125 MG TAB PO SCH (05:35)
[2020-03-14 06:14] LABS: Absolute Lymphocytes (CBC) 2.8 K/uL (0.7-4.9); Basophils % 0.5 % (0-1.3); Lymphocytes % 31.9 % (15.3-44.8); MPV 9.6 fL (7.6-11.3); RBC Red Blood Cell Count 3.24 M/uL (3.86-4.86)
[2020-03-14 06:45] LABS: ALT/SGPT 46 U/L (12-78); AST/SGOT 60 U/L (15-37); Albumin 1.7 g/dL (3.4-5.0); Alkaline Phosphatase 359 U/L (45-117); BUN Blood Urea Nitrogen 12 mg/dL (7-18); Bicarbonate 25 mmol/L (21-32); Bilirubin Total 1.4 mg/dL (0.2-1.0); Glucose Level 153 mg/dL (74-106); Sodium Level 138 mmol/L (136-145)
[2020-03-14 07:13] LABS: C-Reactive Protein 29.9 mg/L (<3.00); Folic Acid, (Folate) 4.6 ng/mL (3.1-17.5); Magnesium 1.9 mg/dL (1.8-2.4); Phosphorus 2.9 mg/dL (2.5-4.9)
[2020-03-14] MEDS: CEFTRIAXONE/SWI 1gm 1 GM/10 ML SYR IV SCH (08:55)
[2020-03-14] MEDS: FLUOXETINE 20 MG CAP PO SCH ×2 (08:55→12:24)
[2020-03-14] MEDS: ZINC SULFATE 220 MG CAP PO SCH (08:55)
[2020-03-14] MEDS: HEPARIN 5000 UNIT/ML 1 ML VIAL SQ SCH ×2 (08:55→23:02)
[2020-03-14] MEDS: GLUCERNA SHAKE 237 ML CAN PO SCH ×2 (08:56→21:00)
[2020-03-14] MEDS: JUVEN PACKET PO SCH ×2 (08:56→21:00)
[2020-03-14] MEDS ORDERED: WATER FOR INJ,STERILE 0 ML ONE (17:04)
[2020-03-15] MEDS: HYDROCORTISONE SUC 100 MG INJ IV SCH ×3 (00:44→17:29)
[2020-03-15 03:47] LABS: BUN Blood Urea Nitrogen 16 mg/dL (7-18); Bicarbonate 24 mmol/L (21-32); Ferritin 457.7 ng/mL (8-388); Glucose Level 105 mg/dL (74-106); Magnesium 1.8 mg/dL (1.8-2.4); NT PRO-BNP 1062 pg/mL (<125); Phosphorus 2.7 mg/dL (2.5-4.9); Potassium 3.4 mmol/L (3.5-5.1); Sodium Level 141 mmol/L (136-145)
[2020-03-15 04:02] LABS: Absolute Lymphocytes (CBC) 2.1 K/uL (0.7-4.9); Basophils % 0.3 % (0-1.3); Hematocrit 33.5 % (36.0-45.0); Lymphocytes % 18.2 % (15.3-44.8); MPV 10.2 fL (7.6-11.3); RBC Red Blood Cell Count 3.58 M/uL (3.86-4.86)
[2020-03-15] MEDS: LEVOTHYROXINE SOD 0.125 MG TAB PO SCH (05:34)
--- NOTE | 2020-03-15 07:18 | P.PN ---
Subjective Date of Service: 03/14/20 Patient lithium level was elevated. Patient also received trazodone and Seroquel last night. Seroquel was 900 mg x 1and trazodone was 200 mg x 1. She has these listed as home medications. If her mentation is not improving after 12-24 hr. Will reassess with imaging. Will keep her on aspiration precautions. Spoke with regarding her current clinical status. Review of Systems is unable to be obtained Physical Examination - Vital Signs Temperature: 97.0 F Blood Pressure: 117/66 Pulse: 74 Respirations: 16 Pulse Ox (%): 93 - Physical Exam General: In no apparent distress, Confused, Other (Patient is very lethargic) Respiratory: Diminished, Crackles/rales Cardiovascular: Regular rate/rhythm, Normal S1 S2, No murmurs Gastrointestinal: Normal bowel sounds, Soft and benign, Non-distended, No tenderness Musculoskeletal: No clubbing, No swelling, No tenderness Neurological: Other (Patient is lethargic. She wakes up & follows some comman ds.) - Studies Laboratory Data (last 24 hrs) 03/14/20 05:58: Phosphorus 2.9, Magnesium 1.9 Microbiology Data (last 24 hrs): 03/13/20 00:01 Catheterized Urine Rosine Count - Final >100,000 CFU/ML. 03/13/20 00:01 Catheterized Urine - Final MIXED EDGAR. Medications List Reviewed: Yes Assessment & Plan - Problems (Diagnosis) (1) [place] toxicity Current Visit: Yes Status: Acute (2) Altered mental status Current Visit: No Status: Acute (3) Bipolar 1 disorder Current Visit: No Status: Acute (4) Schizo-affective psychosis Current Visit: No Status: Acute (5) Substance abuse Current Visit: No Status: Acute - Plan Plan: 1. Continue with IV hydration 2. If blood pressure is stable or elevated will give IV diuretics 3. Monitor renal function 4. CT imaging of the brain if symptoms not improved 5. GI and DVT prophylaxis Discharge Plan: Home Plan to discharge in: Greater than 2 days - Advance Directives Does patient have a Living Will: No Does patient have a Durable POA for Healthcare: No - Code Status/Comfort Care Code Status: Full Code Physician Review: Patient Assessed, Agree with Above Assessment and Plan Critical Care: No Time Spent Managing PTS Care (In Minutes): 35
[2020-03-15] MEDS: FLUOXETINE 20 MG CAP PO SCH (08:00)
--- NOTE | 2020-03-15 08:07 | RAD REPORT ---
EXAM DESCRIPTION: CT - Head Brain Wo Cont - 03/15/2020 7:50 am CLINICAL HISTORY: Lethargy/confusion COMPARISON: March 12, 2020 TECHNIQUE: Computed axial tomography of the head was obtained. IV contrast was not requested. All CT scans are performed using dose optimization technique as appropriate and may include automated exposure control or mA/KV adjustment according to patient size. FINDINGS: An intracranial bleed is not seen . The ventricles are normal in caliber. No extra-axial fluid collection is noted. Fluid within the sinuses/ mastoids is not seen. Chronic sinusitis IMPRESSION: No acute intracranial abnormality is seen. If patient's symptoms persist MRI of the bra in would be recommended.
[2020-03-15] MEDS: ZINC SULFATE 220 MG CAP PO SCH (09:00)
[2020-03-15] MEDS: GLUCERNA SHAKE 237 ML CAN PO SCH ×2 (09:00→20:35)
[2020-03-15] MEDS: CEFTRIAXONE/SWI 1gm 1 GM/10 ML SYR IV SCH (09:00)
[2020-03-15] MEDS: JUVEN PACKET PO SCH ×2 (09:00→20:37)
[2020-03-15] MEDS: D5W 1,000 ML with NA BICARB 8.4% 50 MEQ IV SCH ×4 (09:54→23:57)
[2020-03-15] MEDS: HEPARIN 5000 UNIT/ML 1 ML VIAL SQ SCH ×2 (10:03→20:36)
[2020-03-15 11:42] LABS: Absolute Lymphocytes (CBC) 1.5 K/uL (0.7-4.9); Basophils % 0.2 % (0-1.3); Hematocrit 33.2 % (36.0-45.0); Lymphocytes % 12.1 % (15.3-44.8); MPV 9.4 fL (7.6-11.3); RBC Red Blood Cell Count 3.54 M/uL (3.86-4.86)
[2020-03-15 12:15] LABS: Blood Morphology Comment NOT SEEN (NOT SEEN); Platelet Estimate ADEQ; White Blood Cell Scan OK (OK)
[2020-03-16] MEDS: HYDROCORTISONE SUC 100 MG INJ IV SCH ×3 (01:09→16:18)
[2020-03-16] MEDS ORDERED: WATER FOR INJ,STERILE 10 ML ONE (01:24)
[2020-03-16] MEDS: LEVOTHYROXINE SOD 0.125 MG TAB PO SCH (04:48)
[2020-03-16 06:34] LABS: Absolute Lymphocytes (CBC) 0.7 K/uL (0.7-4.9); Basophils % 0.1 % (0-1.3); Hematocrit 30.1 % (36.0-45.0); Lymphocytes % 7.1 % (15.3-44.8); MPV 9.4 fL (7.6-11.3); RBC Red Blood Cell Count 3.23 M/uL (3.86-4.86)
[2020-03-16 06:53] LABS: Magnesium 1.7 mg/dL (1.8-2.4); Phosphorus 2.1 mg/dL (2.5-4.9)
[2020-03-16 06:54] LABS: Potassium 2.8 mmol/L (3.5-5.1)
[2020-03-16] MEDS ORDERED: Magnesium Sulfate 2gm IVPB 2 G/50 ML BAG IV ONE (08:00)
[2020-03-16] MEDS ORDERED: POTASSIUM PHOS 30 MM in NA CHLORIDE 0.9% 500 ML IV ONE (08:00)
[2020-03-16] MEDS: GLUCERNA SHAKE 237 ML CAN PO SCH ×2 (09:00→23:51)
[2020-03-16] MEDS: ZINC SULFATE 220 MG CAP PO SCH (09:00)
[2020-03-16] MEDS: JUVEN PACKET PO SCH ×2 (09:00→23:52)
[2020-03-16] MEDS: HEPARIN 5000 UNIT/ML 1 ML VIAL SQ SCH ×2 (09:00→23:52)
[2020-03-16] MEDS: CEFTRIAXONE/SWI 1gm 1 GM/10 ML SYR IV SCH (09:07)
[2020-03-16] MEDS: FLUOXETINE 20 MG CAP PO SCH (09:08)
[2020-03-16] MEDS ORDERED: POTASSIUM PHOS IN 0.9 % NACL 15 MMOL/250 ML BAG IV ONE (13:00)
[2020-03-16] MEDS: D5W 1,000 ML with NA BICARB 8.4% 50 MEQ IV SCH ×2 (13:03)
[2020-03-17 00:13] LABS: Albumin 1.8 g/dL (3.4-5.0); Bilirubin Total 1.4 mg/dL (0.2-1.0); Protein, Total 5.3 g/dL (6.4-8.2)
[2020-03-17] MEDS: HYDROCORTISONE SUC 100 MG INJ IV SCH ×3 (04:29→22:21)
[2020-03-17 07:07] LABS: Absolute Lymphocytes (CBC) 2.1 K/uL (0.7-4.9); Basophils % 0.3 % (0-1.3); Lymphocytes % 17.4 % (15.3-44.8); MPV 9.8 fL (7.6-11.3)
[2020-03-17 07:43] LABS: Albumin 1.8 g/dL (3.4-5.0); Bilirubin Total 1.3 mg/dL (0.2-1.0); Magnesium 2.3 mg/dL (1.8-2.4); Phosphorus 3.9 mg/dL (2.5-4.9); Potassium 3.1 mmol/L (3.5-5.1)
[2020-03-17] MEDS: D5W 1,000 ML with NA BICARB 8.4% 50 MEQ IV SCH ×6 (07:51→22:10)
[2020-03-17] MEDS: FLUOXETINE 20 MG CAP PO SCH (08:00)
[2020-03-17] MEDS: ZINC SULFATE 220 MG CAP PO SCH (09:00)
[2020-03-17] MEDS: GLUCERNA SHAKE 237 ML CAN PO SCH ×2 (09:00→22:17)
[2020-03-17] MEDS: JUVEN PACKET PO SCH ×2 (09:00→22:16)
[2020-03-17] MEDS: HEPARIN 5000 UNIT/ML 1 ML VIAL SQ SCH ×2 (09:00→22:17)
[2020-03-17] MEDS: LEVOTHYROXINE SOD 0.125 MG TAB PO SCH (09:21)
[2020-03-17] MEDS: CEFTRIAXONE/SWI 1gm 1 GM/10 ML SYR IV SCH (09:22)
[2020-03-17] MEDS: POTASSIUM CL 40 MEQ in NA CHLORIDE 0.9% 500 ML IV SCH ×2 (09:52→14:05)
--- NOTE | 2020-03-17 15:34 | P.PN ---
Date of Service: 03/15/20 Subjective Patient's lithium level remains elevated. Patient more awake and alert but still very lethargic. Slowly improving. Clinical condition continues to gradually improve. [place] level is improving. Renal function is stable. Review of Systems is unable to be obtained Physical Examination - Vital Signs Reviewed - Physical Exam General: In no apparent distress, Confused, Other (Patient is very lethargic) Respiratory: Basilar crackles Cardiovascular: Regular rate/rhythm, Normal S1 S2, No murmurs Gastrointestinal: Normal bowel sounds, Soft and benign, Non-distended, No tenderness Musculoskeletal: No clubbing, No swelling, No tenderness Neurological: Patient is lethargic. She wakes up & follows some commands. Assessment & Plan - Problems (Diagnosis) (1) [place] toxicity Current Visit: Yes Status: Acute (2) Altered mental status Current Visit: No Status: Acute (3) Bipolar 1 disorder Current Visit: No Status: Acute (4) Schizo-affective psychosis Current Visit: No Status: Acute (5) Substance abuse Current Visit: No Status: Acute - Plan Plan: Continue with plan of care as mentioned below. 1. Continue with IV hydration; continue with bicarbonate drip; monitor labs daily 2. Continue monitoring lithium level 3. Monitor renal function 4. CT imaging of the brain if symptoms not improved 5. GI and DVT prophylaxis
--- NOTE | 2020-03-17 15:35 | P.PN ---
Date of Service: 03/16/20 Subjective No significant changes. Continues to wake up to voice put is really not following commands; will open eyes and stare Review of Systems is unable to be obtained Physical Examination - Vital Signs Reviewed - Physical Exam General: In no apparent distress, Confused, Other (Patient is very lethargic) Respiratory: Basilar crackles Cardiovascular: Regular rate/rhythm, Normal S1 S2, No murmurs Gastrointestinal: Normal bowel sounds, Soft and benign, Non-distended, No tenderness Musculoskeletal: No clubbing, No swelling, No tenderness Neurological: Patient is lethargic. She wakes up & follows some commands. Assessment & Plan - Problems (Diagnosis) (1) [place] toxicity Current Visit: Yes Status: Acute (2) Altered mental status Current Visit: No Status: Acute (3) Bipolar 1 disorder Current Visit: No Status: Acute (4) Schizo-affective psychosis Current Visit: No Status: Acute (5) Substance abuse Current Visit: No Status: Acute - Plan Continue with plan of care as mentioned below. 1. Continue with bicarbonate drip; monitor labs daily 2. Continue monitoring lithium level; may need to add some diuretics and blood pressure is stable 3. Monitor renal function 4. CT imaging of the brain if symptoms not improved 5. Hold antipsychotics 6. GI and DVT prophylaxis
--- NOTE | 2020-03-17 15:36 | P.PN ---
Date of Service: 03/17/20 Subjective Patient is a 59-year-old female who came to the hospital. She has had numerous hospitalizations with altered mental status. Patient history of bipolar disorder and is on numerous medications including trazodone and lithium along with Seroquel in the past. A lot of these medications had been stopped. Her tends to dispense them for her. She was found to be lithium toxic. She is more awake and alert than she has been. She still is eating very little. She should turn around but because of her poor appetite her long-term prognosis is poor. Review of Systems is unable to be obtained Physical Examination - Vital Signs Reviewed - Physical Exam General: In no apparent distress, Confused, Other (Patient is very lethargic) Respiratory: Basilar crackles Cardiovascular: Regular rate/rhythm, Normal S1 S2, No murmurs Gastrointestinal: Normal bowel sounds, Soft and benign, Non-distended, No tenderness Musculoskeletal: No clubbing, No swelling, No tenderness Neurological: Patient is lethargic. She wakes up & follows some commands. Assessment & Plan - Problems (Diagnosis) (1) [place] toxicity Current Visit: Yes Status: Acute (2) Altered mental status Current Visit: No Status: Acute (3) Bipolar 1 disorder Current Visit: No Status: Acute (4) Schizo-affective psychosis Current Visit: No Status: Acute (5) Substance abuse Current Visit: No Status: Acute - Plan Continue with plan of care as mentioned below. 1. Slowly improving. Continue with bicarbonate drip; monitor labs daily. 2. Continue monitoring lithium level; Blood pressure stabilizes will add lasix to regimen 3. Monitor renal function 4. CT imaging of the brain if symptoms not improved 5. Hold all antipsychotics 6. GI and DVT prophylaxis
[2020-03-17] MEDS ORDERED: WATER FOR INJ,STERILE 10 ML IV SCH (16:00)
[2020-03-17] MEDS ORDERED: ALBUMIN HUMAN 25% 50 ML IV ONE (16:00)
[2020-03-17] MEDS: FOLIC ACID 1 MG TABLET PO SCH (22:11)
[2020-03-18] MEDS: LEVOTHYROXINE SOD 0.125 MG TAB PO SCH (05:15)
[2020-03-18] MEDS: FLUOXETINE 20 MG CAP PO SCH (08:00)
[2020-03-18] MEDS: ZINC SULFATE 220 MG CAP PO SCH (09:00)
[2020-03-18] MEDS: HYDROCORTISONE SUC 100 MG INJ IV SCH (09:00)
[2020-03-18] MEDS: JUVEN PACKET PO SCH ×2 (09:00→22:20)
[2020-03-18] MEDS: GLUCERNA SHAKE 237 ML CAN PO SCH ×2 (09:00→22:19)
[2020-03-18] MEDS: HEPARIN 5000 UNIT/ML 1 ML VIAL SQ SCH ×2 (09:01→22:20)
[2020-03-18] MEDS: CEFTRIAXONE/SWI 1gm 1 GM/10 ML SYR IV SCH (09:01)
[2020-03-18] MEDS: FOLIC ACID 1 MG TABLET PO SCH (09:04)
--- NOTE | 2020-03-18 14:29 | P.PN ---
Subjective Date of Service: 03/18/20 Chief Complaint: Altered mental status Subjective: Other (Still with confusion. On IV fluids.No fever. RA sats normal. No respiratory distress.) Physical Examination - Vital Signs Temperature: 98.4 F Blood Pressure: 121/78 Pulse: 75 Respirations: 18 Pulse Ox (%): 95 - Physical Exam General: Confused, Other (increased confusion. Responds to pain and voice but not purposeful. ) Neck: Supple Respiratory: Clear to auscultation bilaterally Cardiovascular: Normal pulses, Regular rate/rhythm Gastrointestinal: No masses, No rebound, No guarding Neurological: Other (Muscle throughout) - Studies Medications List Reviewed: Yes Assessment & Plan Discharge Plan: Home Plan to discharge in: Greater than 2 days Physician Review Additional Text: Impression: Encephalopathy likely toxic/metabolic related to lithium toxicity versus infectious UTI-culture positive for yeast Bipolar disorder with schizoaffective disorder Liver cirrhosis with history of alcohol abuse Moderate protein malnutrition COVID 19 positive asymptomatic Plan: Encephalopathy likely toxic/metabolic related to lithium toxicity versus infectious: Recheck lab-CBC, CMP, ammonia level, pro calcitonin. Urine culture was positive for yeast. Will discontinue Rocephin. Start Diflucan. CT scan unremarkable. [place] level slowly decreasing. Continue to hold lithium and other psychiatric medications including Seroquel and trazodone. Limit sedation medication. Will discuss with infectious disease to further evaluate. Will adjust IV fluids. Discontinue steroid medication. Continue to reassess and monitor. Will discuss with about plan of care. UTI-culture positive for yeast: Discontinue Rocephin. Recheck pro calcitonin, CBC. Start Diflucan. Bipolar disorder with schizoaffective disorder: Continue to hold all psychiatric medications including lithium. Continue to monitor lithium level. Liver cirrhosis with history of alcohol abuse: Will check ammonia level. Will check with on when she last took alcohol. Moderate protein malnutrition: Consult dietary. Will need to consider NG tube for feeding. COVID 19 positive asymptomatic: Patient asymptomatic. Time Spent Managing Pts Care (In Minutes): 55
[2020-03-18] MEDS: D5 0.45 NS 1,000 ML IV SCH (15:04)
--- NOTE | 2020-03-18 16:05 | P.CNS ---
Date of Consult: 03/18/20 Reason for Consult: UTI, metabolic encephalopathy with possible infectious origin Chief Complaint: Altered mental status History of Present Illness: The patient is a 59 year old female with a PMH significant of bipolar disorder, schizophrenia, hx of alcohol use disorder, DM, anemia, recent COVID-19 infection and liver cirrhosis who presented to the ED with AMS. The patient was found to have an elevated lithium level and was admitted. The patient is a poor historian-PMH obtained form chart review. Wound care and ID has been consulted as the patient was found to have a UTI on admission. ROS unable to obtain at this time due to patients level of lethargy and confusion. Heat CT was completed and found to be negative. Allergies No Known Allergies Allergy (Verified 03/13/20 04:02) Home Medications: Fluoxetine HCl [Prozac] 2 cap PO SEECOM 02/10/20 [place] Carbonate [Lithotabs *] 2 tab PO BID 02/10/20 Quetiapine Fumarate [Seroquel] 3 tab PO BEDTIME 02/10/20 Trazodone HCl [Desyrel] 2 tab PO BEDTIME 02/10/20 [place] [Clint*] 1 pkt PO BID #60 powd.pack 02/13/20 Levothyroxine [Synthroid] 125 mcg PO [id number] #30 tab 02/13/20 - Past Medical/Surgical History Diabetic: Yes -: Bipolar -: anemia -: Schizoprenia -: hypotension -: DM -: Etoh Abuse -: cholecystectomy -: -: breast enlargements -: bariatic gastric bypass Psychosocial/ Personal History: Lives at home with significant other, has seasonal retail job - Family History Mother Medical History: Lung disease, Cancer Notes: throat Father Medical History: Liver disease Notes: alcoholic - Social History Smoking Status: Unknown if ever smoked Alcohol use: No CD- Drugs: No Caffeine use: Yes Place of Residence: Home Review of Systems is unable to be obtained Physical Examination Temp Pulse Resp BP Pulse Ox 98.4 F 75 18 121/78 95 03/18/20 14:31 03/18/20 14:31 03/18/20 14:31 03/18/20 14:31 03/18/20 14:31 General: Confused, Unresponsive HEENT: Atraumatic, Normocephalic, PERRLA Neck: Supple, 2+ carotid pulse no bruit, No Thyromegaly Respiratory: Clear to auscultation bilaterally Cardiovascular: No edema, Regular rate/rhythm, Normal S1 S2 Capillary refill: <2 Seconds Gastrointestinal: Normal bowel sounds, Soft and benign Integumentary: Other (DTI on sacral coccyx area as well as thoracic spine region) Conclusions/Impression: Assessment: -UTI -sacral coccyx DTI -thoracic spine area DTI -anemia -DM type 2 -metabolic encephalopathy -lithium toxicity -leukocytosis Plan -UA showed no bacteria but did show budding yeast on 03/12. Repeat UA has been ordered. -metabolic encephlopathy likely due to lithium toxicity- will repeat UA to determine if infection is still present -medical management per primary team -continue to monitor CBC and BMP. -continue to monitor for signs of infection Plan of care discussed with Dr. Cohen. Thank you for consultation.
[2020-03-18 16:19] LABS: Albumin 1.8 g/dL (3.4-5.0); Bilirubin Total 1.2 mg/dL (0.2-1.0); Potassium 4.7 mmol/L (3.5-5.1); Protein, Total 4.7 g/dL (6.4-8.2)
[2020-03-18 16:35] LABS: Absolute Lymphocytes (CBC) 2.5 K/uL (0.7-4.9); Basophils % 0.6 % (0-1.3); Hematocrit 28.3 % (36.0-45.0); Lymphocytes % 24.8 % (15.3-44.8); MPV 9.9 fL (7.6-11.3); RBC Red Blood Cell Count 3.03 M/uL (3.86-4.86)
[2020-03-18] MEDS: FLUCONAZOLE 100mg IVPB 100 MG/50 ML BAG IV SCH (17:19)
[2020-03-18 18:07] LABS: Urine Appearance TURBID; Urine Bilirubin NEGATIVE (NEG); Urine Blood TRACE (NEG); Urine Color DK YELLOW; Urine Glucose NEGATIVE (NEG); Urine Protein NEGATIVE (NEG)
[2020-03-18 18:21] LABS: Urine Amorphous Sediment 2+ /HPF (NONE SEEN); Urine Bacteria >50 /HPF (<20); Urine RBC <5 /HPF (NONE SEEN)
[2020-03-19] MEDS: LEVOTHYROXINE SOD 0.125 MG TAB PO SCH (05:07)
[2020-03-19] MEDS: D5 0.45 NS 1,000 ML IV SCH ×2 (05:07→17:22)
[2020-03-19 05:56] LABS: Absolute Lymphocytes (CBC) 1.5 K/uL (0.7-4.9); Basophils % 0.3 % (0-1.3); Hematocrit 31.9 % (36.0-45.0); Lymphocytes % 9.6 % (15.3-44.8); MPV 10.5 fL (7.6-11.3); RBC Red Blood Cell Count 3.45 M/uL (3.86-4.86)
[2020-03-19 06:00] LABS: ALT/SGPT 44 U/L (12-78); Albumin 1.7 g/dL (3.4-5.0); Alkaline Phosphatase 407 U/L (45-117); BUN Blood Urea Nitrogen 9 mg/dL (7-18); Bicarbonate 22 mmol/L (21-32); Bilirubin Total 1.3 mg/dL (0.2-1.0); Glucose Level 124 mg/dL (74-106); Protein, Total 4.7 g/dL (6.4-8.2); Sodium Level 138 mmol/L (136-145)
[2020-03-19 06:01] LABS: AST/SGOT 72 U/L (15-37); Magnesium 2.2 mg/dL (1.8-2.4)
[2020-03-19 06:41] LABS: Blood Morphology Comment NOT SEEN (NOT SEEN); Platelet Estimate ADEQ
[2020-03-19] MEDS ORDERED: INFLUENZA VACCINE (for 3y+) 0.5 ML DOSE IMVAC ONE (08:00)
[2020-03-19] MEDS ORDERED: FOLIC ACID 5 MG/ML VIAL IVP SCH (09:00)
[2020-03-19] MEDS: GLUCERNA SHAKE 237 ML CAN PO SCH ×2 (09:47→20:18)
[2020-03-19] MEDS: HEPARIN 5000 UNIT/ML 1 ML VIAL SQ SCH ×2 (09:47→20:16)
[2020-03-19] MEDS: FLUOXETINE 20 MG CAP PO SCH (09:47)
[2020-03-19] MEDS: ZINC SULFATE 220 MG CAP PO SCH (09:47)
[2020-03-19] MEDS: JUVEN PACKET PO SCH ×2 (09:47→20:18)
[2020-03-19] MEDS: THIAMINE 200 MG/2 ML INJ IVP SCH (09:51)
[2020-03-19] MEDS: FOLIC ACID 1 MG in NA CHLORIDE 0.9% 50 ML IV SCH (09:52)
--- NOTE | 2020-03-19 12:48 | P.PN ---
Subjective Date of Service: 03/19/20 Chief Complaint: Altered mental status Subjective: Other (Patient was more alert this morning. Still not to baseline.) Physical Examination - Vital Signs Temperature: 97.4 F Blood Pressure: 108/70 Pulse: 75 Respirations: 18 Pulse Ox (%): 91 - Physical Exam General: Alert, Other (More alert today. Still confused but improved.) HEENT: Atraumatic Neck: Supple Respiratory: Clear to auscultation bilaterally, Normal air movement Cardiovascular: Normal pulses, Regular rate/rhythm Neurological: Other (Confusion noted) - Studies Medications List Reviewed: Yes Assessment & Plan Discharge Plan: Home Plan to discharge in: 72 Hours Physician Review Additional Text: Impression: Encephalopathy likely toxic/metabolic related to lithium toxicity versus infectious UTI-culture positive for yeast Bipolar disorder with schizoaffective disorder Liver cirrhosis with history of alcohol abuse Moderate protein malnutrition COVID 19 positive asymptomatic Plan: Encephalopathy likely toxic/metabolic related to lithium toxicity versus infectious: Ammonia level negative. [place] level improved today. Medications adjusted yesterday. Patient seems to be more alert. Encourage oral intake. Case discussed with yesterday. Encephalopathy likely related to lithium toxicity. IV fluids adjusted yesterday. Anticipate improvement. Continue with current treatment plan. Her psychiatric medications except for Prozac have been discontinued. Continue to monitor closely. Will discuss with .. UTI-culture positive for yeast: Discontinue Rocephin. Recheck pro calcitonin, CBC. Continue Diflucan. Bipolar disorder with schizoaffective disorder: Continue to hold all psychiatric medications including lithium. [place] level improved. Liver cirrhosis with history of alcohol abuse: Ammonia level normal. Moderate protein malnutrition: Consult dietary. Will need to consider NG tube for feeding. Hopefully as she is more awake today will take good oral intake. COVID 19 positive asymptomatic: Patient asymptomatic. Time Spent Managing Pts Care (In Minutes): 55
[2020-03-19] MEDS: FLUCONAZOLE 100mg IVPB 100 MG/50 ML BAG IV SCH (14:46)
--- NOTE | 2020-03-19 15:52 | P.PN ---
Subjective Date of Service: 03/19/20 Chief Complaint: Altered mental status Subjective: No new changes Patient is still very altered and unable to participate in patient interview. Remains afebrile with a Tmax of 97.4 Review of Systems 10-point ROS is otherwise unremarkable Physical Examination - Vital Signs Temperature: 97.4 F Blood Pressure: 108/70 Pulse: 75 Respirations: 18 Pulse Ox (%): 91 - Physical Exam General: Confused HEENT: Atraumatic, Normocephalic Neck: Supple, 2+ carotid pulse no bruit Respiratory: Clear to auscultation bilaterally Cardiovascular: No edema, Regular rate/rhythm, Normal S1 S2 Musculoskeletal: No clubbing, No swelling Integumentary: No rashes, No breakdown, No significant lesion - Studies Laboratory Last Values WBC 8.80 K/uL (4.3-10.9) D 03/14/20 05:58 RBC 3.24 M/uL (3.86-4.86) L 03/14/20 05:58 Hgb 9.8 g/dL (12.0-15.0) L 03/14/20 05:58 Hct 30.0 % (36.0-45.0) L D 03/14/20 05:58 MCV 92.7 fL (80-100) 03/14/20 05:58 MCH 30.3 pg (27.0-35.0) 03/14/20 05:58 MCHC 32.7 g/dL (32.0-36.0) 03/14/20 05:58 RDW 15.8 % (12.1-15.2) H 03/14/20 05:58 Plt Count 369 K/uL (152-406) D 03/14/20 05:58 MPV 9.6 fL (7.6-11.3) 03/14/20 05:58 Neutrophils % 64.8 % (41.7-73.7) 03/14/20 05:58 Lymphocytes % 31.9 % (15.3-44.8) 03/14/20 05:58 Monocytes % 2.7 % (3.3-12.3) L 03/14/20 05:58 Eosinophils % 0.1 % (0-4.4) 03/14/20 05:58 Basophils % 0.5 % (0-1.3) 03/14/20 05:58 Absolute Neutrophils 5.7 K/uL (1.8-8.0) 03/14/20 05:58 Segmented Neutrophils 93 % (40-80) H 03/12/20 23:03 Band Neutrophils 4 % (0-1) H 03/12/20 23:03 Absolute Lymphocytes 2.8 K/uL (0.7-4.9) 03/14/20 05:58 Lymphocytes 1 % (15-42) L 03/12/20 23:03 Monocytes 2 % (0-10) 03/12/20 23:03 Absolute Monocytes 0.2 K/uL (0.1-1.3) 03/14/20 05:58 Absolute Eosinophils 0.0 K/uL (0-0.5) 03/14/20 05:58 Absolute Basophils 0.0 K/uL (0-0.5) 03/14/20 05:58 Platelet Estimate Adeq 03/12/20 23:03 Morphology Comment Not seen (NOT SEEN) 03/12/20 23:03 ESR W[place] 6 mm/HR (0-30) 03/14/20 05:58 PT 14.1 SECONDS (9.5-12.5) H 03/13/20 05:21 INR 1.20 03/13/20 05:21 Sodium 138 mmol/L (136-145) 03/14/20 05:58 Potassium 3.0 mmol/L (3.5-5.1) L 03/14/20 05:58 Chloride 108 mmol/L (98-107) H 03/14/20 05:58 Carbon Dioxide 25 mmol/L (21-32) 03/14/20 05:58 BUN 12 mg/dL (7-18) 03/14/20 05:58 Creatinine 0.53 mg/dL (0.55-1.3) L 03/14/20 05:58 Estimated GFR > 90 mL/min (=/>90) 03/14/20 05:58 Glucose 153 mg/dL (74-106) H 03/14/20 05:58 Lactic Acid 0.9 mmol/L (0.4-2.0) 03/14/20 05:58 Calcium 8.7 mg/dL (8.5-10.1) 03/14/20 05:58 Phosphorus 2.9 mg/dL (2.5-4.9) 03/14/20 05:58 Magnesium 1.9 mg/dL (1.8-2.4) 03/14/20 05:58 Total Bilirubin 1.4 mg/dL (0.2-1.0) H 03/14/20 05:58 Direct Bilirubin 1.5 mg/dL (0-0.2) H 03/13/20 01:46 AST 60 U/L (15-37) H 03/14/20 05:58 ALT 46 U/L (12-78) 03/14/20 05:58 Alkaline Phosphatase 359 U/L (45-117) H 03/14/20 05:58 Ammonia 17 umol/L (19-54) L 03/14/20 05:58 Rapid Troponin I < 0.02 ng/mL (0.0-0.045) 03/12/20 23:03 C-Reactive Protein 29.90 mg/L (<3.00) H 03/14/20 05:58 NT-Pro-B Natriuret Pep 857 pg/mL (<125) H 03/14/20 05:58 Serum Total Protein 5.0 g/dL (6.4-8.2) L 03/14/20 05:58 Albumin 1.7 g/dL (3.4-5.0) L 03/14/20 05:58 Globulin 3.3 g/dL (2.3-3.5) 03/14/20 05:58 Albumin/Globulin Ratio 0.5 (1.1-1.8) L 03/14/20 05:58 Vitamin B12 1217 pg/mL (193-986) H 03/14/20 05:58 Serum Folate 4.6 ng/mL (3.1-17.5) 03/14/20 05:58 Procalcitonin 1.54 ng/mL (<0.050) H 03/14/20 05:58 TSH 1.210 uIU/mL (0.360-3.740) 03/14/20 05:58 Urine pH 7.0 (5.0-7.0) 03/13/20 00:07 Ur Specific [place] 1.020 (1.005-1.030) 03/13/20 00:07 Glucose (UA)(Auto) Negative (NEG) 03/13/20 00:07 Urine Ketones 1+ (NEG) H 03/13/20 00:07 Urine Blood Trace (NEG) H 03/13/20 00:07 Urine Nitrite Negative (NEG) 03/13/20 00:07 Ur Leukocyte Esterase 3+ (NEG) H 03/13/20 00:07 Urine RBC None seen /HPF (NONE SEEN) 03/12/20 23:59 Urine WBC 10-20 /HPF (<5) H 03/12/20 23:59 Ur Squamous Epith Cells 5-10 /HPF (NONE SEEN) H 03/12/20 23:59 Ur Urothelial Cells 5-10 /HPF (NONE SEEN) 03/12/20 23:59 Urine Bacteria <20 /HPF (<20) 03/12/20 23:59 Hyaline Casts >20 /LPF (NONE SEEN) 03/12/20 23:59 Urine Yeast Present (NONE SEEN) H 03/12/20 23:59 Urine Yeast (Budding) Present (NONE SEEN) H 03/12/20 23:59 Urine Culture Reflexed Reflexed 03/12/20 23:59 Urine Total Protein 2+ (NEG) H 03/13/20 00:07 [place] 2.9 mmol/L (0.6-1.2) H* 03/14/20 01:32 Plasma/Serum Alcohol < 10 mg/dL (<10) 03/13/20 01:46 SARS-CoV-2 RNA (RT-PCR) Positive (NEGATIVE) A 03/13/20 02:07 Medications List Reviewed: Yes Assessment And Plan - Plan Assessment: -UTI -sacral coccyx DTI -thoracic spine area DTI -anemia -DM type 2 -metabolic encephalopathy -litium toxicity -leukocytosis plan: -UA positive-awaiting reflux cultures. Patient has been started on Levaquin IV 500 mg q24hr, will reassess antibiotic after cultures come back - metabolic encephalopathy likely due to lithium toxicity -leukocytosis: likely due to UTI. -medical management per primary team -continue to monitor CBC and BMP -continue to monitor for signs of infection Plan of care discussed with Dr. Cohen. Physician Review: Patient Assessed, Agree with Above Assessment and Plan Physician Review Additional Text: Impression: Encephalopathy likely toxic/metabolic related to lithium toxicity versus infectious UTI-culture positive for yeast Bipolar disorder with schizoaffective disorder Liver cirrhosis with history of alcohol abuse Moderate protein malnutrition COVID 19 positive asymptomatic Plan: Encephalopathy likely toxic/metabolic related to lithium toxicity versus infec tious: Ammonia level negative. [place] level improved today. Medications adjusted yesterday. Patient seems to be more alert. Encourage oral intake. Case discussed with yesterday. Encephalopathy likely related to lithium toxicity. IV fluids adjusted yesterday. Anticipate improvement. Continue with current treatment plan. Her psychiatric medications except for Prozac have been discontinued. Continue to monitor closely. Will discuss with .. UTI-culture positive for yeast: Discontinue Rocephin. Recheck pro calcitonin, CBC. Continue Diflucan. Bipolar disorder with schizoaffective disorder: Continue to hold all psychiatric medications including lithium. [place] level improved. Liver cirrhosis with history of alcohol abuse: Ammonia level normal. Moderate protein malnutrition: Consult dietary. Will need to consider NG tube for feeding. Hopefully as she is more awake today will take good oral intake. COVID 19 positive asymptomatic: Patient asymptomatic.
[2020-03-19] MEDS: CEFEPIME/SWI 1gm 10 ML IV SCH (17:21)
[2020-03-19] MEDS ORDERED: CEFEPIME 1 GM/VIAL IV SCH (21:00)
[2020-03-20 04:45] LABS: Absolute Lymphocytes (CBC) 2.7 K/uL (0.7-4.9); Basophils % 0.3 % (0-1.3); Hematocrit 30.5 % (36.0-45.0); Lymphocytes % 26.1 % (15.3-44.8); MPV 9.3 fL (7.6-11.3); RBC Red Blood Cell Count 3.26 M/uL (3.86-4.86)
[2020-03-20 04:53] LABS: ALT/SGPT 57 U/L (12-78); AST/SGOT 91 U/L (15-37); Albumin 1.9 g/dL (3.4-5.0); Alkaline Phosphatase 445 U/L (45-117); BUN Blood Urea Nitrogen 6 mg/dL (7-18); Bicarbonate 23 mmol/L (21-32); Bilirubin Total 1.4 mg/dL (0.2-1.0); Glucose Level 104 mg/dL (74-106); Potassium 4.6 mmol/L (3.5-5.1); Protein, Total 5.2 g/dL (6.4-8.2); Sodium Level 141 mmol/L (136-145)
[2020-03-20] MEDS: GLUCERNA SHAKE 237 ML CAN PO SCH ×3 (09:00→19:39)
[2020-03-20] MEDS: JUVEN PACKET PO SCH ×2 (09:00→19:40)
[2020-03-20] MEDS: FLUOXETINE 20 MG CAP PO SCH (09:55)
[2020-03-20] MEDS: ZINC SULFATE 220 MG CAP PO SCH (09:55)
[2020-03-20] MEDS: D5 0.45 NS 1,000 ML IV SCH ×2 (09:55→19:43)
[2020-03-20] MEDS: CEFEPIME/SWI 1gm 10 ML IV SCH (09:55)
[2020-03-20] MEDS: THIAMINE 200 MG/2 ML INJ IVP SCH (09:56)
[2020-03-20] MEDS: HEPARIN 5000 UNIT/ML 1 ML VIAL SQ SCH ×2 (09:56→19:43)
[2020-03-20] MEDS: FOLIC ACID 1 MG in NA CHLORIDE 0.9% 50 ML IV SCH (10:02)
[2020-03-20] MEDS: LEVOTHYROXINE SOD 0.125 MG TAB PO SCH (10:02)
--- NOTE | 2020-03-20 11:53 | P.PN ---
Subjective Date of Service: 03/20/20 Chief Complaint: Altered mental status Patient seen examined and Harry. She remained stable at this time. Still very alter unable to participate in patient interview. Review of Systems 10-point ROS is otherwise unremarkable Physical Examination - Vital Signs Temperature: 97.5 F Blood Pressure: 115/78 Pulse: 80 Respirations: 18 Pulse Ox (%): 95 - Physical Exam Other Physical/Emotional Findings: General: Confused. HEENT: Atraumatic, Normocephalic. Neck: Supple, 2+ carotid pulse no bruit. Respiratory: Clear to auscultation bilaterally. Cardiovascular: No edema, Regular rate/rhythm, Normal S1 S2. Musculoskeletal: No clubbing, No swelling. Integumentary: No rashes, No breakdown. DTI on midback, DTI on sacral area, skin tear on right buttock - Studies Laboratory Last Values WBC 8.80 K/uL (4.3-10.9) D 03/14/20 05:58 RBC 3.24 M/uL (3.86-4.86) L 03/14/20 05:58 Hgb 9.8 g/dL (12.0-15.0) L 03/14/20 05:58 Hct 30.0 % (36.0-45.0) L D 03/14/20 05:58 MCV 92.7 fL (80-100) 03/14/20 05:58 MCH 30.3 pg (27.0-35.0) 03/14/20 05:58 MCHC 32.7 g/dL (32.0-36.0) 03/14/20 05:58 RDW 15.8 % (12.1-15.2) H 03/14/20 05:58 Plt Count 369 K/uL (152-406) D 03/14/20 05:58 MPV 9.6 fL (7.6-11.3) 03/14/20 05:58 Neutrophils % 64.8 % (41.7-73.7) 03/14/20 05:58 Lymphocytes % 31.9 % (15.3-44.8) 03/14/20 05:58 Monocytes % 2.7 % (3.3-12.3) L 03/14/20 05:58 Eosinophils % 0.1 % (0-4.4) 03/14/20 05:58 Basophils % 0.5 % (0-1.3) 03/14/20 05:58 Absolute Neutrophils 5.7 K/uL (1.8-8.0) 03/14/20 05:58 Segmented Neutrophils 93 % (40-80) H 03/12/20 23:03 Band Neutrophils 4 % (0-1) H 03/12/20 23:03 Absolute Lymphocytes 2.8 K/uL (0.7-4.9) 03/14/20 05:58 Lymphocytes 1 % (15-42) L 03/12/20 23:03 Monocytes 2 % (0-10) 03/12/20 23:03 Absolute Monocytes 0.2 K/uL (0.1-1.3) 03/14/20 05:58 Absolute Eosinophils 0.0 K/uL (0-0.5) 03/14/20 05:58 Absolute Basophils 0.0 K/uL (0-0.5) 03/14/20 05:58 Platelet Estimate Adeq 03/12/20 23:03 Morphology Comment Not seen (NOT SEEN) 03/12/20 23:03 ESR Westergren 6 mm/HR (0-30) 03/14/20 05:58 PT 14.1 SECONDS (9.5-12.5) H 03/13/20 05:21 INR 1.20 03/13/20 05:21 Sodium 138 mmol/L (136-145) 03/14/20 05:58 Potassium 3.0 mmol/L (3.5-5.1) L 03/14/20 05:58 Chloride 108 mmol/L (98-107) H 03/14/20 05:58 Carbon Dioxide 25 mmol/L (21-32) 03/14/20 05:58 BUN 12 mg/dL (7-18) 03/14/20 05:58 Creatinine 0.53 mg/dL (0.55-1.3) L 03/14/20 05:58 Estimated GFR > 90 mL/min (=/>90) 03/14/20 05:58 Glucose 153 mg/dL (74-106) H 03/14/20 05:58 Lactic Acid 0.9 mmol/L (0.4-2.0) 03/14/20 05:58 Calcium 8.7 mg/dL (8.5-10.1) 03/14/20 05:58 Phosphorus 2.9 mg/dL (2.5-4.9) 03/14/20 05:58 Magnesium 1.9 mg/dL (1.8-2.4) 03/14/20 05:58 Total Bilirubin 1.4 mg/dL (0.2-1.0) H 03/14/20 05:58 Direct Bilirubin 1.5 mg/dL (0-0.2) H 03/13/20 01:46 AST 60 U/L (15-37) H 03/14/20 05:58 ALT 46 U/L (12-78) 03/14/20 05:58 Alkaline Phosphatase 359 U/L (45-117) H 03/14/20 05:58 Ammonia 17 umol/L (19-54) L 03/14/20 05:58 Rapid Troponin I < 0.02 ng/mL (0.0-0.045) 03/12/20 23:03 C-Reactive Protein 29.90 mg/L (<3.00) H 03/14/20 05:58 NT-Pro-B Natriuret Pep 857 pg/mL (<125) H 03/14/20 05:58 Serum Total Protein 5.0 g/dL (6.4-8.2) L 03/14/20 05:58 Albumin 1.7 g/dL (3.4-5.0) L 03/14/20 05:58 Globulin 3.3 g/dL (2.3-3.5) 03/14/20 05:58 Albumin/Globulin Ratio 0.5 (1.1-1.8) L 03/14/20 05:58 Vitamin B12 1217 pg/mL (193-986) H 03/14/20 05:58 Serum Folate 4.6 ng/mL (3.1-17.5) 03/14/20 05:58 Procalcitonin 1.54 ng/mL (<0.050) H 03/14/20 05:58 TSH 1.210 uIU/mL (0.360-3.740) 03/14/20 05:58 Urine pH 7.0 (5.0-7.0) 03/13/20 00:07 Ur Specific [place] 1.020 (1.005-1.030) 03/13/20 00:07 Glucose (UA)(Auto) Negative (NEG) 03/13/20 00:07 Urine Ketones 1+ (NEG) H 03/13/20 00:07 Urine Blood Trace (NEG) H 03/13/20 00:07 Urine Nitrite Negative (NEG) 03/13/20 00:07 Ur Leukocyte Esterase 3+ (NEG) H 03/13/20 00:07 Urine RBC None seen /HPF (NONE SEEN) 03/12/20 23:59 Urine WBC 10-20 /HPF (<5) H 03/12/20 23:59 Ur Squamous Epith Cells 5-10 /HPF (NONE SEEN) H 03/12/20 23:59 Ur Urothelial Cells 5-10 /HPF (NONE SEEN) 03/12/20 23:59 Urine Bacteria <20 /HPF (<20) 03/12/20 23:59 Hyaline Casts >20 /LPF (NONE SEEN) 03/12/20 23:59 Urine Yeast Present (NONE SEEN) H 03/12/20 23:59 Urine Yeast (Budding) Present (NONE SEEN) H 03/12/20 23:59 Urine Culture Reflexed Reflexed 03/12/20 23:59 Urine Total Protein 2+ (NEG) H 03/13/20 00:07 [place] 2.9 mmol/L (0.6-1.2) H* 03/14/20 01:32 Plasma/Serum Alcohol < 10 mg/dL (<10) 03/13/20 01:46 SARS-CoV-2 RNA (RT-PCR) Positive (NEGATIVE) A 03/13/20 02:07 Medications List Reviewed: Yes Assessment And Plan - Plan Assessment: -UTI -sacral coccyx DTI -thoracic spine area DTI -anemia -DM type 2 -metabolic encephalopathy -litium toxicity -leukocytosis plan: -UA positive-reflux cultures showed growth of normal manuel. Will DC cefepime tomorrow. - metabolic encephalopathy likely due to lithium toxicity -leukocytosis: resolved -medical management per primary team -continue to monitor CBC and BMP -continue to monitor for signs of infection Plan of care discussed with Dr. Cohen. Physician Review: Patient Assessed, Agree with Above Assessment and Plan
--- NOTE | 2020-03-20 12:56 | P.PN ---
Subjective Date of Service: 03/20/20 Chief Complaint: Altered mental status Subjective: Other (Patient stable. Currently on room air. Patient more alert today.) Physical Examination - Vital Signs Temperature: 97.5 F Blood Pressure: 115/78 Pulse: 80 Respirations: 18 Pulse Ox (%): 95 - Physical Exam Other Physical/Emotional Findings: General: Confused. HEENT: Atraumatic, Normocephalic. Neck: Supple, 2+ carotid pulse no bruit. Respiratory: Clear to auscultation bilaterally. Cardiovascular: No edema, Regular rate/rhythm, Normal S1 S2. Musculoskeletal: No clubbing, No swelling. Integumentary: No rashes, No breakdown. DTI on midback, DTI on sacral area, skin tear on right buttock - Studies Medications List Reviewed: Yes Assessment & Plan Discharge Plan: Home Plan to discharge in: 72 Hours Physician Review Additional Text: Physical exam: Patient more alert than yesterday. Patient response to pain and stimuli. Heart: Regular rate Lungs: Clear GI: Abdomen soft. Nondistended Extremities: Patient able to move upper extremities without difficulty. Neuro: Patient more alert suspect underlying dementia. Impression: Encephalopathy likely toxic/metabolic related to lithium toxicity versus infectious UTI-culture positive for yeast Bipolar disorder with schizoaffective disorder Liver cirrhosis with history of alcohol abuse Moderate protein malnutrition COVID 19 positive asymptomatic Plan: Encephalopathy likely toxic/metabolic related to lithium toxicity versus infectious: [place] level now within normal range. Patient more alert. Suspect encephalopathy related to lithium toxicity. Encourage oral intake. Will have nurse monitor and make sure she gets adequate nutrition. Will consider supplementation. Will discuss with about long-term plan of care. Patient likely has underlying possible dementia as well. MRI cannot be done. Need to consider home with home health at discharge versus hospice. Will discuss with . UTI-culture positive for yeast: Rocephin has been discontinued. Repeat urine culture shows yeast. Continue Diflucan. Bipolar disorder with schizoaffective disorder: [place] level now within normal range. Continue to hold medication except Prozac Liver cirrhosis with history of alcohol abuse: Ammonia level normal. Moderate protein malnutrition: Dietary recommending possible feeding tube. Will need to consider NG tube for feeding. Will monitor oral intake. COVID 19 positive asymptomatic: Patient asymptomatic. Time Spent Managing Pts Care (In Minutes): 55
[2020-03-20] MEDS: FLUCONAZOLE 100mg IVPB 100 MG/50 ML BAG IV SCH (15:09)
[2020-03-21 04:06] LABS: ALT/SGPT 43 U/L (12-78); AST/SGOT 64 U/L (15-37); Albumin 1.6 g/dL (3.4-5.0); Alkaline Phosphatase 359 U/L (45-117); BUN Blood Urea Nitrogen 4 mg/dL (7-18); Bicarbonate 24 mmol/L (21-32); Glucose Level 121 mg/dL (74-106); Magnesium 1.9 mg/dL (1.8-2.4); Potassium 3.9 mmol/L (3.5-5.1); Protein, Total 4.4 g/dL (6.4-8.2); Sodium Level 142 mmol/L (136-145)
[2020-03-21 04:22] LABS: Absolute Lymphocytes (CBC) 0.8 K/uL (0.7-4.9); Basophils % 0.4 % (0-1.3); Lymphocytes % 9.8 % (15.3-44.8); MPV 9.1 fL (7.6-11.3); RBC Red Blood Cell Count 2.78 M/uL (3.86-4.86)
[2020-03-21] MEDS: LEVOTHYROXINE SOD 0.125 MG TAB PO SCH (06:01)
[2020-03-21] MEDS: THIAMINE 200 MG/2 ML INJ IVP SCH (09:00)
[2020-03-21] MEDS: FOLIC ACID 1 MG in NA CHLORIDE 0.9% 50 ML IV SCH (09:00)
[2020-03-21] MEDS: ZINC SULFATE 220 MG CAP PO SCH (09:00)
[2020-03-21] MEDS: FLUOXETINE 20 MG CAP PO SCH (09:00)
[2020-03-21] MEDS: GLUCERNA SHAKE 237 ML CAN PO SCH ×3 (09:01→21:00)
[2020-03-21] MEDS: HEPARIN 5000 UNIT/ML 1 ML VIAL SQ SCH ×2 (09:01→22:08)
[2020-03-21] MEDS: JUVEN PACKET PO SCH ×2 (09:01→21:00)
[2020-03-21] MEDS: D5 0.45 NS 1,000 ML IV SCH ×2 (09:01→23:00)
--- NOTE | 2020-03-21 10:49 | P.PN ---
Subjective Date of Service: 03/21/20 Chief Complaint: Altered mental status Patient seen and examined at bedside. She is less altered today and was able to tell me that she is not in any pain. Per nurse she has not been eating and has been spitting pills and food out. Review of Systems 10-point ROS is otherwise unremarkable Physical Examination - Vital Signs Temperature: 97.8 F Blood Pressure: 122/67 Pulse: 80 Respirations: 17 Pulse Ox (%): 91 - Physical Exam Other Physical/Emotional Findings: General: Confused. HEENT: Atraumatic, Normocephalic. Neck: Supple, 2+ carotid pulse no bruit. Respiratory: Clear to auscultation bilaterally. Cardiovascular: No edema, Regular rate/rhythm, Normal S1 S2. Musculoskeletal: No clubbing, No swelling. Integumentary: No rashes, No breakdown. DTI on midback, DTI on sacral area, skin tear on right buttock - Studies Laboratory Last Values WBC 8.80 K/uL (4.3-10.9) D 03/14/20 05:58 RBC 3.24 M/uL (3.86-4.86) L 03/14/20 05:58 Hgb 9.8 g/dL (12.0-15.0) L 03/14/20 05:58 Hct 30.0 % (36.0-45.0) L D 03/14/20 05:58 MCV 92.7 fL (80-100) 03/14/20 05:58 MCH 30.3 pg (27.0-35.0) 03/14/20 05:58 MCHC 32.7 g/dL (32.0-36.0) 03/14/20 05:58 RDW 15.8 % (12.1-15.2) H 03/14/20 05:58 Plt Count 369 K/uL (152-406) D 03/14/20 05:58 MPV 9.6 fL (7.6-11.3) 03/14/20 05:58 Neutrophils % 64.8 % (41.7-73.7) 03/14/20 05:58 Lymphocytes % 31.9 % (15.3-44.8) 03/14/20 05:58 Monocytes % 2.7 % (3.3-12.3) L 03/14/20 05:58 Eosinophils % 0.1 % (0-4.4) 03/14/20 05:58 Basophils % 0.5 % (0-1.3) 03/14/20 05:58 Absolute Neutrophils 5.7 K/uL (1.8-8.0) 03/14/20 05:58 Segmented Neutrophils 93 % (40-80) H 03/12/20 23:03 Band Neutrophils 4 % (0-1) H 03/12/20 23:03 Absolute Lymphocytes 2.8 K/uL (0.7-4.9) 03/14/20 05:58 Lymphocytes 1 % (15-42) L 03/12/20 23:03 Monocytes 2 % (0-10) 03/12/20 23:03 Absolute Monocytes 0.2 K/uL (0.1-1.3) 03/14/20 05:58 Absolute Eosinophils 0.0 K/uL (0-0.5) 03/14/20 05:58 Absolute Basophils 0.0 K/uL (0-0.5) 03/14/20 05:58 Platelet Estimate Adeq 03/12/20 23:03 Morphology Comment Not seen (NOT SEEN) 03/12/20 23:03 ESR Westergren 6 mm/HR (0-30) 03/14/20 05:58 PT 14.1 SECONDS (9.5-12.5) H 03/13/20 05:21 INR 1.20 03/13/20 05:21 Sodium 138 mmol/L (136-145) 03/14/20 05:58 Potassium 3.0 mmol/L (3.5-5.1) L 03/14/20 05:58 Chloride 108 mmol/L (98-107) H 03/14/20 05:58 Carbon Dioxide 25 mmol/L (21-32) 03/14/20 05:58 BUN 12 mg/dL (7-18) 03/14/20 05:58 Creatinine 0.53 mg/dL (0.55-1.3) L 03/14/20 05:58 Estimated GFR > 90 mL/min (=/>90) 03/14/20 05:58 Glucose 153 mg/dL (74-106) H 03/14/20 05:58 Lactic Acid 0.9 mmol/L (0.4-2.0) 03/14/20 05:58 Calcium 8.7 mg/dL (8.5-10.1) 03/14/20 05:58 Phosphorus 2.9 mg/dL (2.5-4.9) 03/14/20 05:58 Magnesium 1.9 mg/dL (1.8-2.4) 03/14/20 05:58 Total Bilirubin 1.4 mg/dL (0.2-1.0) H 03/14/20 05:58 Direct Bilirubin 1.5 mg/dL (0-0.2) H 03/13/20 01:46 AST 60 U/L (15-37) H 03/14/20 05:58 ALT 46 U/L (12-78) 03/14/20 05:58 Alkaline Phosphatase 359 U/L (45-117) H 03/14/20 05:58 Ammonia 17 umol/L (19-54) L 03/14/20 05:58 Rapid Troponin I < 0.02 ng/mL (0.0-0.045) 03/12/20 23:03 C-Reactive Protein 29.90 mg/L (<3.00) H 03/14/20 05:58 NT-Pro-B Natriuret Pep 857 pg/mL (<125) H 03/14/20 05:58 Serum Total Protein 5.0 g/dL (6.4-8.2) L 03/14/20 05:58 Albumin 1.7 g/dL (3.4-5.0) L 03/14/20 05:58 Globulin 3.3 g/dL (2.3-3.5) 03/14/20 05:58 Albumin/Globulin Ratio 0.5 (1.1-1.8) L 03/14/20 05:58 Vitamin B12 1217 pg/mL (193-986) H 03/14/20 05:58 Serum Folate 4.6 ng/mL (3.1-17.5) 03/14/20 05:58 Procalcitonin 1.54 ng/mL (<0.050) H 03/14/20 05:58 TSH 1.210 uIU/mL (0.360-3.740) 03/14/20 05:58 Urine pH 7.0 (5.0-7.0) 03/13/20 00:07 Ur Specific [place] 1.020 (1.005-1.030) 03/13/20 00:07 Glucose (UA)(Auto) Negative (NEG) 03/13/20 00:07 Urine Ketones 1+ (NEG) H 03/13/20 00:07 Urine Blood Trace (NEG) H 03/13/20 00:07 Urine Nitrite Negative (NEG) 03/13/20 00:07 Ur Leukocyte Esterase 3+ (NEG) H 03/13/20 00:07 Urine RBC None seen /HPF (NONE SEEN) 03/12/20 23:59 Urine WBC 10-20 /HPF (<5) H 03/12/20 23:59 Ur Squamous Epith Cells 5-10 /HPF (NONE SEEN) H 03/12/20 23:59 Ur Urothelial Cells 5-10 /HPF (NONE SEEN) 03/12/20 23:59 Urine Bacteria <20 /HPF (<20) 03/12/20 23:59 Hyaline Casts >20 /LPF (NONE SEEN) 03/12/20 23:59 Urine Yeast Present (NONE SEEN) H 03/12/20 23:59 Urine Yeast (Budding) Present (NONE SEEN) H 03/12/20 23:59 Urine Culture Reflexed Reflexed 03/12/20 23:59 Urine Total Protein 2+ (NEG) H 03/13/20 00:07 [place] 2.9 mmol/L (0.6-1.2) H* 03/14/20 01:32 Plasma/Serum Alcohol < 10 mg/dL (<10) 03/13/20 01:46 SARS-CoV-2 RNA (RT-PCR) Positive (NEGATIVE) A 03/13/20 02:07 Medications List Reviewed: Yes Assessment And Plan - Plan Assessment: -UTI -sacral coccyx DTI -thoracic spine area DTI -anemia -DM type 2 -metabolic encephalopathy -litium toxicity -leukocytosis plan: --UA still showing yeast-continue fluconazole. - metabolic encephalopathy likely due to lithium toxicity -leukocytosis: resolved -medical management per primary team -continue to monitor CBC and BMP -continue to monitor for signs of infection Plan of care discussed with Dr. Cohen. Physician Review: Patient Assessed, Agree with Above Assessment and Plan
[2020-03-21] MEDS: FLUCONAZOLE 100mg IVPB 100 MG/50 ML BAG IV SCH (14:14)
--- NOTE | 2020-03-21 17:18 | P.PN ---
Subjective Date of Service: 03/21/20 Chief Complaint: Altered mental status Subjective: Other (Patient more alert. Somewhat interactive.) Physical Examination - Vital Signs Temperature: 98.2 F Blood Pressure: 133/80 Pulse: 93 Respirations: 19 Pulse Ox (%): 90 - Physical Exam Other Physical/Emotional Findings: General: Confused. HEENT: Atraumatic, Normocephalic. Neck: Supple, 2+ carotid pulse no bruit. Respiratory: Clear to auscultation bilaterally. Cardiovascular: No edema, Regular rate/rhythm, Normal S1 S2. Musculoskeletal: No clubbing, No swelling. Integumentary: No rashes, No breakdown. DTI on midback, DTI on sacral area, skin tear on right buttock - Studies Medications List Reviewed: Yes Assessment & Plan Discharge Plan: Home Plan to discharge in: 48 Hours Physician Review Additional Text: Physical exam: Patient more alert than yesterday. Somewhat more interactive today. Heart: Regular rate Lungs: Clear GI: Abdomen soft. Nondistended Extremities: Patient able to move upper extremities without difficulty. Neuro: Patient more alert suspect underlying dementia. Impression: Encephalopathy likely toxic/metabolic related to lithium toxicity versus infectious UTI-culture positive for yeast Bipolar disorder with schizoaffective disorder Liver cirrhosis with history of alcohol abuse Moderate protein malnutrition COVID 19 positive asymptomatic Plan: Encephalopathy likely toxic/metabolic related to lithium toxicity versus infectious: [place] level remains in the normal range. Patient more alert and somewhat interactive. Suspect encephalopathy related to lithium toxicity. Continue to encourage oral intake. Will have nurse try to help facilitate this. Spoke with dietary to help with this is well. Consider alternative means of supplementation. Will physical therapy assess ambulation. Will order MRI to further evaluate the possibility of underlying dementia related to alcohol versus other. Will also order EEG. Spoke with Neurology today. Need to assess for chronic dementia. Await findings. Will discuss with later. Anticipate continued improvement. Likely home in the next 72 hr. UTI-culture positive for yeast: Rocephin has been discontinued. Repeat urine culture shows yeast. Continue Diflucan. Bipolar disorder with schizoaffective disorder: [place] level now within normal range. Continue to hold medication except Prozac Liver cirrhosis with history of alcohol abuse: Ammonia level normal. Moderate protein malnutrition: Dietary recommending possible feeding tube. Will need to consider NG tube for feeding. Will monitor oral intake. COVID 19 positive asymptomatic: Patient asymptomatic. Time Spent Managing Pts Care (In Minutes): 55
[2020-03-22] MEDS: LEVOTHYROXINE SOD 0.125 MG TAB PO SCH (06:18)
[2020-03-22] MEDS: ZINC SULFATE 220 MG CAP PO SCH (08:24)
[2020-03-22] MEDS: HEPARIN 5000 UNIT/ML 1 ML VIAL SQ SCH ×2 (08:25→21:03)
[2020-03-22] MEDS: FLUOXETINE 20 MG CAP PO SCH (08:25)
[2020-03-22] MEDS: THIAMINE 200 MG/2 ML INJ IVP SCH (08:25)
[2020-03-22] MEDS: GLUCERNA SHAKE 237 ML CAN PO SCH ×3 (08:25→21:04)
[2020-03-22] MEDS: JUVEN PACKET PO SCH ×2 (08:26→21:05)
[2020-03-22] MEDS: FOLIC ACID 1 MG in NA CHLORIDE 0.9% 50 ML IV SCH (10:06)
[2020-03-22] MEDS: D5 0.45 NS 1,000 ML IV SCH ×2 (12:20→22:05)
--- NOTE | 2020-03-22 13:45 | P.DS ---
Admission Date: 03/14/20 Discharge Date: 03/22/20 Primary Care Provider: Dr. Galaviz Disposition: ROUTINE DISCHARGE Discharge Condition: GOOD Reason for Admission: Altered mental status Consultations: Infectious Disease-Dr. Cohen Neurology-Dr. Thibodeaux Procedures: CT Head: COMPARISON: March 12, 2020 TECHNIQUE: Computed axial tomography of the head was obtained. IV contrast was not requested. All CT scans are performed using dose optimization technique as appropriate and may include automated exposure control or mA/KV adjustment according to patient size. FINDINGS: An intracranial bleed is not seen . The ventricles are normal in caliber. No extra-axial fluid collection is noted. Fluid within the sinuses/ mastoids is not seen. Chronic sinusitis IMPRESSION: No acute intracranial abnormality is seen CT scan: FINDINGS: LUNG BASES: Minimal dependent atelectasis in the lung bases are pr esent. PLEURAL SPACE: Trace bilateral pleural effusions are noted. ABDOMEN: LIVER: The liver is enlarged and diffusely fatty. GALLBLADDER AND BILE DUCTS: The gallbladder is surgically absent. PANCREAS: The pancreas is atrophic. SPLEEN: Unremarkable. ADRENALS: Unremarkable. No mass. KIDNEYS AND URETERS: Bilateral renal cysts are noted, the largest on the right measures 2.4 cm. The kidneys enhance symmetrically. No hydronephrosis or hydroureter of either kidney is seen. STOMACH AND BOWEL: Postsurgical change consistent with a gastric bypass is noted. The small bowel is decompressed. A moderate amount stool is present throughout colon. There is no bowel obstruction. PELVIS: APPENDIX: The appendix is normal in caliber without surrounding inflammation. BLADDER: The bladder is nearly empty. REPRODUCTIVE: A 1.6 cm right ovarian cyst is present. No follow-up imaging is recommended. The uterus and left ovary are unremarkable. ABDOMEN and PELVIS: INTRAPERITONEAL SPACE: Free fluid is present within the pelvis. A small amount of ascites is noted throughout the abdomen and pelvis. No free air. BONES/JOINTS: Postsurgical change of the proximal right femur is present. There are degenerative changes of the spine. SOFT TISSUES: Bilateral breast implants are partially visualized. VASCULATURE: Unremarkable. No abdominal aortic aneurysm. LYMPH NODES: Unremarkable. No enlarged lymph nodes. IMPRESSION: 1. Trace bilateral pleural effusions with bibasilar atelectasis. 2. Small amount of ascites throughout the abdomen and pelvis. 3. Hepatomegaly and hepatic steatosis. 4. Moderate stool burden without obstruction. Medical Problem List: Encephalopathy likely toxic/metabolic related to lithium toxicity with suspected underlying Wernicke encephalopathy UTI-culture positive for yeast Bipolar disorder with schizoaffective disorder Liver dysfunction with fatty liver with history of alcohol abuse Moderate protein malnutrition COVID 19 positive asymptomatic Brief History of Present Illness: 59-year-old female presented to the emergency room with altered mental status. Patient found to have elevated lithium level. Possible UTI was identified. Patient admitted for further evaluation and treatment. Hospital Course: Patient presented with encephalopathy. This was likely related to multifactorial reasons. Toxic/metabolic encephalopathy related to lithium toxicity and suspected Wernicke encephalopathy was evaluated. [place] level was elevated. [place], Seroquel, trazodone was discontinued. She had been taking this medication for bipolar disorder along with her schizoaffective disorder. Once the lithium level went into the normal range that is when she appeared to be at her baseline mentation. Patient was evaluated by Neurology at that time. EEG shows chronic changes of possible Wernicke and psychosis related to her bipolar/schizoaffective disorder. These are likely chronic changes. These are likely to continue. This was addressed in detail with the . At discharge patient will continue only with Prozac 40 mg daily. [place], Seroquel and trazodone have been discontinued. Patient will continue with folic acid 1 mg daily and thiamine 100 mg daily. Patient will continue with a pureed diet as recommended by speech. Aspiration precaution in place. Physical therapy will evaluate patient prior to discharge for recommendations for the . Recommend to follow up with neurology as an outpatient in 2-4 weeks to monitor her progress. If her symptoms persist in the future for chronically get worse, consider hospice verses psychiatric evaluation/treatment. Patient had a UTI. This was treated with antibiotic therapy. Urine culture was positive for yeast. Antibiotic discontinued. At discharge she no longer leads Diflucan. UTI prevention will be provided. Patient with moderate protein malnutrition. Patient now improving with her oral intake. At discharge she may continue with Glucerna 1 can 3 times a day for supplementation. Continue pureed diet as recommended by speech. Encourage to monitor this closely. Patient was positive for COVID 19. She is asymptomatic. Room-air saturations normal. Patient will continue with CDC guidelines. Vital Signs/Physical Exam: Temp Pulse Resp BP Pulse Ox 97 F 66 17 135/86 98 03/22/20 12:00 03/22/20 12:00 03/22/20 12:00 03/22/20 12:00 03/22/20 12:00 General: Alert, Other (Patient more alert.) HEENT: Atraumatic Neck: Supple Respiratory: Clear to auscultation bilaterally, Normal air movement Cardiovascular: Normal pulses, Regular rate/rhythm Gastrointestinal: No tenderness, No masses, No rebound, No guarding Neurological: Dementia (Suspect underlying dementia. Less confused today. Patient appears to be at her baseline level) Laboratory Data at Discharge: WBC 8.50 K/uL (4.3-10.9) D 03/21/20 03:08 Hgb 8.9 g/dL (12.0-15.0) L 03/21/20 03:08 Hct 26.0 % (36.0-45.0) L 03/21/20 03:08 Plt Count 241 K/uL (152-406) 03/21/20 03:08 PT 14.1 SECONDS (9.5-12.5) H 03/13/20 05:21 INR 1.20 03/13/20 05:21 Sodium 142 mmol/L (136-145) 03/21/20 03:08 Potassium 3.9 mmol/L (3.5-5.1) 03/21/20 03:08 BUN 4 mg/dL (7-18) L 03/21/20 03:08 Creatinine 0.44 mg/dL (0.55-1.3) L 03/21/20 03:08 Glucose 121 mg/dL (74-106) H 03/21/20 03:08 Phosphorus 3.9 mg/dL (2.5-4.9) D 03/17/20 06:35 Magnesium 1.9 mg/dL (1.8-2.4) 03/21/20 03:08 Total Bilirubin 1.0 mg/dL (0.2-1.0) 03/21/20 03:08 AST 64 U/L (15-37) H 03/21/20 03:08 ALT 43 U/L (12-78) 03/21/20 03:08 Alkaline Phosphatase 359 U/L (45-117) H 03/21/20 03:08 Home Medications: Clint [Clint*] 1 pkt PO BID #60 powd.pack 02/13/20 Levothyroxine [Synthroid*] 125 mcg PO [id number] #30 tab 02/13/20 Fluoxetine HCl [Prozac] 2 cap PO DAILY #60 03/22/20 Folic Acid 1 mg PO DAILY #90 tablet 03/22/20 Glucerna Shake [Glucerna*] 237 ml PO TID #90 can 03/22/20 Thiamine HCl 100 mg PO DAILY #90 tablet 03/22/20 New Medications: Folic Acid 1 mg PO DAILY #90 tablet Glucerna Shake [Glucerna*] 237 ml PO TID #90 can Fluoxetine HCl [Prozac] 2 cap PO DAILY #60 Thiamine HCl 100 mg PO DAILY #90 tablet Physician Discharge Instructions: Follow up with PCP in 1 week to follow up this hospitalization Patient presented with encephalopathy. This was likely related to multifactorial reasons. Toxic/metabolic encephalopathy related to lithium toxicity and suspected Wernicke encephalopathy was evaluated. [place] level was elevated. [place], Seroquel, trazodone was discontinued. She had been taking this medication for bipolar disorder along with her schizoaffective disorder. Once the lithium level went into the normal range that is when she appeared to be at her baseline mentation. Patient was evaluated by Neurology at that time. EEG shows chronic changes of possible Wernicke and psychosis related to her bipolar/schizoaffective disorder. These are likely chronic changes. These are likely to continue. This was addressed in detail with the . If this worsens consider hospice or neuropsychiatric evaluation and treatment. At discharge patient will continue only with Prozac 40 mg daily. [place], Seroquel and trazodone have been discontinued. Patient will continue with folic acid 1 mg daily and thiamine 100 mg daily. Patient will continue with a pureed diet as recommended by speech. Aspiration precaution in place. Physical therapy will evaluate patient prior to discharge for recommendations for the . Recommend to follow up with neurology as an outpatient in 2-4 weeks to monitor her progress. Patient had a UTI. This was treated with antibiotic therapy. Urine culture was positive for yeast. Antibiotic discontinued. At discharge she no longer leads Diflucan. UTI prevention will be provided. Patient with moderate protein malnutrition. Patient now improving with her oral intake. At discharge she may continue with Glucerna 1 can 3 times a day for supplementation. Continue pureed diet as recommended by speech. Encourage to monitor this closely. Patient was positive for COVID 19. She is asymptomatic. Room-air saturations normal. Patient will continue with CDC guidelines. Diet: Pureed Activity: Fall precautions Followup: NONE,NONE [Primary Care Provider] - Time spent managing pt's care (in minutes): 55
[2020-03-22] MEDS: FLUCONAZOLE 100mg IVPB 100 MG/50 ML BAG IV SCH (15:47)
--- NOTE | 2020-03-22 19:19 | CON ---
Consultation called because of altered mental status. History Of Present Illness: Ms. Lowery is a 59-year-old right-handed patient with an exte nsive psychiatric history including bipolar disorder, schizophrenia, long-standing alcoholism, liver cirrhosis, and intermittent confusion, who was admitted on March 12, 2020 with diarrhea, hyperkalem ia and worsening cognitive functioning. The patient's brought her to the hospital. The marci ent reportedly told staff I do not know why I am here. She did have problems following simple comman ds and appear to have hallucinations and paranoid thinking with delusions. She had a head CT scan wh ich showed no acute ischemic or hemorrhagic changes. The study was remarkable for mild cerebral atro phy with bilateral periventricular white matter low attenuation, likely from chronic small-vessel isc hemic disease. A repeat CT scan done 3 days after admission was unchanged. Laboratory Studies: Did show on admission the possibility of an infection with white blood cell coun t elevated to 12.5 and 81% neutrophils. Urinalysis on admission did show 10-20 white blood cell coun t. Subsequently, greater than 50 bacteria were identified with 3+ esterase, but nitrites were negati ve. She had 2+ protein, trace blood. She was treated for a urinary tract infection with Rocephin. Also on admission, she was found to be lithium toxic with lithium level of 0.6-1.2, normal range. Li thium was held over her admission and yesterday lithium level returned to normal on the third at 1.1 yesterday, which is the fourth is 0.8. Regarding the cognitive functioning, she is showing some more improvement in her alertness or interaction, spontaneous speech movement of arms and legs, which hav e been symmetric through the hospitalization. Past Medical History: As indicated including hypertension, diabetes mellitus. Past Surgical History: Cholecystectomy, , breast enlargement, bariatric bypass surgery. 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 Family History: Positive for lung cancer and throat cancer in mother and father with liver cancer an d alcoholism. Review of Systems: The patient does not give a reliable review of systems. From reviewing the chart, speaking with Dr. Goldsmith, no recent fevers or chills. There was some reported nausea, vomiting, and diarrhea, but not since admission and the psychiatric history is as noted. Physical Examination: Vital Sign: Blood pressure 135/86, pulse 66, respiratory rate 16, temperature 97.5, oxygen saturatio n 98%-100% on room air. Weight 100 pounds, height 5 feet 3 inches. BMI is low at 17. General: Ms. Lowery is resting in bed. She appears much older than stated age with absent upper an d lower dentures, so teeth are missing. Neck: Supple. Chest: Clear. Heart: Regular. Extremities show: No cyanosis or edema. She has some bruises in the upper and lower extremities. H ealing sores. Neurological: She is alert and oriented to person, not quite to situation and place. She follows si mple commands with repeated instructions. Has difficulty following complex commands and actually two -step commands such as crossing the midline commands. Her cranial nerves show no focal deficits. Sh e smiles with symmetric gums bilaterally. Facial sensation is intact bilaterally. Tongue and palate are midline. Motor, no focal weakness detected in the upper and lower extremities. She moves both sides equally well to touch and spontaneously. Unable to fully assess sensation and coordination, bu t her movements appear smooth and reflexes are symmetric and normal. Unable to assess her gait. She did have a speech evaluation with bedside swallow. The recommendation was for pureed thin liquids 90 degrees small bites. She did tolerate sips of wate r without overt aspiration, but the patient refused trials of putting pako crackers. Assessment: Ms. Lowery is a 59-year-old patient with likely multifactorial reasons for her encephal opathy. She most likely has a Wernicke's encephalopathy with Herbie call psychosis as she has report edly had hallucinations delusions and paranoid thinking and also some difficulty following simple com mands with encephalopathy present. She does not have focal deficits. She has an extensive history o f psychiatric diagnoses including schizophrenia and bipolar disorder. Plan: At this point, she will require 24 hours supervision and care which her is apparently willing to do. She should continue with psychiatric medications. Continue with thiamine 100 mg, fol ate 1 mg and a multivitamin daily. She may have antipsychotic medications as appropriate. She did h ave an EEG done, which showed a pattern consistent with encephalopathy, but it is nonspecific. She d id not have any epileptiform discharges. She does not require antiepileptic medications at this poin t. Next, she and the patient's actually should consider her code status at this stage and kasey cota advance it to level of care is appropriate. She may have a difficult time recovering to a normal l evel of functioning. She may follow up with psychiatry and primary care after discharge and with Emelina rology as needed. AMRITA/PRISCILA Voice ID: [id number] Report ID: [id number]
[2020-03-23] MEDS: D5 0.45 NS 1,000 ML IV SCH ×3 (01:40→15:00)
[2020-03-23] MEDS: LEVOTHYROXINE SOD 0.125 MG TAB PO SCH (05:46)
[2020-03-23] MEDS: GLUCERNA SHAKE 237 ML CAN PO SCH ×2 (09:00→14:00)
[2020-03-23] MEDS: JUVEN PACKET PO SCH (09:00)
[2020-03-23] MEDS: FLUOXETINE 20 MG CAP PO SCH (09:20)
[2020-03-23] MEDS: ZINC SULFATE 220 MG CAP PO SCH (09:20)
[2020-03-23] MEDS: HEPARIN 5000 UNIT/ML 1 ML VIAL SQ SCH (09:21)
[2020-03-23] MEDS: THIAMINE 200 MG/2 ML INJ IVP SCH (09:21)
[2020-03-23] MEDS: FOLIC ACID 1 MG in NA CHLORIDE 0.9% 50 ML IV SCH (09:24)
[2020-03-23] MEDS: FLUCONAZOLE 100mg IVPB 100 MG/50 ML BAG IV SCH (14:38)
--- NOTE | 2020-03-23 16:08 | P.PN ---
Subjective Date of Service: 03/23/20 Primary Care Provider: Dr. Galaviz Chief Complaint: Altered mental status Subjective: Other (Patient more alert today) Physical Examination - Vital Signs Temperature: 97.9 F Blood Pressure: 129/85 Pulse: 95 Respirations: 18 Pulse Ox (%): 92 - Physical Exam Other Physical/Emotional Findings: General: Confused. HEENT: Atraumatic, Normocephalic. Neck: Supple, 2+ carotid pulse no bruit. Respiratory: Clear to auscultation bilaterally. Cardiovascular: No edema, Regular rate/rhythm, Normal S1 S2. Musculoskeletal: No clubbing, No swelling. Integumentary: No rashes, No breakdown. DTI on midback, DTI on sacral area, skin tear on right buttock - Studies Medications List Reviewed: Yes Assessment & Plan Discharge Plan: Home Plan to discharge in: 24 Hours Physician Review Additional Text: Physical exam: Patient more alert than yesterday. More interactive and talkative Heart: Regular rate Lungs: Clear GI: Abdomen soft. Nondistended Extremities: Patient able to move upper extremities without difficulty. Neuro: Patient more alert suspect underlying dementia. Impression: Encephalopathy likely toxic/metabolic related to lithium toxicity versus infectious UTI-culture positive for yeast Bipolar disorder with schizoaffective disorder Liver cirrhosis with history of alcohol abuse Moderate protein malnutrition COVID 19 positive asymptomatic Plan: Encephalopathy likely toxic/metabolic related to lithium toxicity versus infectious: Patient was to have been discharged yesterday but due to physical therapy recommending skilled placement was unsure whether he would be able to take care of the patient at home. Discuss with case management about the possibility of the patient going home maybe tomorrow. He get away see how she does at home. If it gets too difficult for him to take care of her then recommendation would be to send her to inpatient rehab facility like [facility] for physical therapy. Because she would be 10 days without symptoms the process of doing this would be somewhat reasonable from an outpatient setting. Continue have physical therapy reassess patient. UTI-culture positive for yeast: Rocephin has been discontinued. Repeat urine culture shows yeast. Continue Diflucan. Bipolar disorder with schizoaffective disorder: [place] level now within normal range. Continue to hold medication except Prozac Liver cirrhosis with history of alcohol abuse: Ammonia level normal. Moderate protein malnutrition: Encourage oral intake. Nursing to continue to work with feeding. COVID 19 positive asymptomatic: Patient asymptomatic. Time Spent Managing Pts Care (In Minutes): 55
[2020-03-24] MEDS: D5 0.45 NS 1,000 ML IV SCH ×2 (04:20→17:13)
[2020-03-24] MEDS: LEVOTHYROXINE SOD 0.125 MG TAB PO SCH (06:00)
[2020-03-24] MEDS: FLUOXETINE 20 MG CAP PO SCH (08:00)
[2020-03-24] MEDS: GLUCERNA SHAKE 237 ML CAN PO SCH ×2 (09:00→14:00)
[2020-03-24] MEDS: ZINC SULFATE 220 MG CAP PO SCH (09:00)
[2020-03-24] MEDS: JUVEN PACKET PO SCH (09:00)
[2020-03-24] MEDS: FOLIC ACID 1 MG in NA CHLORIDE 0.9% 50 ML IV SCH (10:32)
[2020-03-24] MEDS: THIAMINE 200 MG/2 ML INJ IVP SCH (10:36)
--- NOTE | 2020-03-24 13:02 | P.PN ---
Subjective Date of Service: 03/24/20 Primary Care Provider: Dr. Galaviz Chief Complaint: Altered mental status Subjective: Other (Patient is more alert and interactive.) Physical Examination - Vital Signs Temperature: 97.4 F Blood Pressure: 101/66 Pulse: 90 Respirations: 16 Pulse Ox (%): 94 - Physical Exam Other Physical/Emotional Findings: General: Confused. HEENT: Atraumatic, Normocephalic. Neck: Supple, 2+ carotid pulse no bruit. Respiratory: Clear to auscultation bilaterally. Cardiovascular: No edema, Regular rate/rhythm, Normal S1 S2. Musculoskeletal: No clubbing, No swelling. Integumentary: No rashes, No breakdown. DTI on midback, DTI on sacral area, skin tear on right buttock - Studies Medications List Reviewed: Yes Assessment & Plan Discharge Plan: Other (inpatient rehab) Plan to discharge in: 24 Hours Physician Review Additional Text: Initial Chief Complaint: Altered mental status Physical exam: Patient more alert than yesterday. More interactive and talkative. Heart: Regular rate Lungs: Clear GI: Abdomen soft. Nondistended Extremities: Patient able to move upper extremities without difficulty. Neuro: Patient more alert suspect underlying dementia. Impression: Encephalopathy likely toxic/metabolic related to lithium toxicity versus infectious UTI-culture positive for yeast Bipolar disorder with schizoaffective disorder Liver cirrhosis with history of alcohol abuse Moderate protein malnutrition COVID 19 positive asymptomatic Plan: Encephalopathy likely toxic/metabolic related to lithium toxicity versus infectious: Patient clinically improving. Will need to have physical therapy assess and work with patient to approve inpatient rehab. Spoke to yesterday and he agrees with inpatient rehab as he thinks it may be difficult to take care of her with her present physical needs. Spoke to case hardener to help in transfer to [facility]. Anticipate possible discharge in the next 24-48 hr. I will turn the service over to the hospital team tomorrow. I will go plan of care with him. UTI-culture positive for yeast: Rocephin and diflucan discontinued. Bipolar disorder with schizoaffective disorder: Patient no longer on lithium, trazodone, Seroquel. Patient remains on Prozac Liver cirrhosis with history of alcohol abuse: Ammonia level normal. Moderate protein malnutrition: Encourage oral intake. Nursing to continue to work with feeding. DC IV fluids if taking oral intake. Monitor intake closely. Change meds to oral. COVID 19 positive asymptomatic: Patient asymptomatic. Time Spent Managing Pts Care (In Minutes): 55
[2020-03-24] MEDS: THIAMINE HCL 100 MG TABLET PO SCH (21:19)
[2020-03-25 03:52] VITALS: BMI 19.9
[2020-03-25] MEDS: GLUCERNA SHAKE 237 ML CAN PO SCH ×3 (03:57→13:30)
[2020-03-25] MEDS: JUVEN PACKET PO SCH ×2 (03:58→07:35)
[2020-03-25] MEDS: LEVOTHYROXINE SOD 0.125 MG TAB PO SCH (06:12)
[2020-03-25] MEDS: ZINC SULFATE 220 MG CAP PO SCH (07:34)
[2020-03-25] MEDS: THIAMINE HCL 100 MG TABLET PO SCH (07:35)
[2020-03-25] MEDS: FLUOXETINE 20 MG CAP PO SCH (07:35)
[2020-03-25 07:42] VITALS: O2SAT 94
[2020-03-25 08:16] LABS: Magnesium 1.6 mg/dL (1.8-2.4); Potassium 3.7 mmol/L (3.5-5.1)
[2020-03-25] MEDS ORDERED: MAGNESIUM SULFATE 1 gm IVPB 1 GM/100 ML BAG IV ONE (08:32)
[2020-03-25] MEDS: D5 0.45 NS 1,000 ML IV SCH (08:57)
[2020-03-25] MEDS ORDERED: FOLIC ACID 1 MG TABLET PO SCH (09:00)
--- NOTE | 2020-03-25 12:27 | EEG ---
CHART: [id number] TEST ID#: [id number] DATE OF STUDY: 03/22/2020 THE EEG WAS RECORDED PORTABLE IN THE PATIENT'S ROOM ON A 17 CHANNEL MACHINE. ELECTRODES WERE APPLIED IN THE USUAL MANNER USING THE INTERNATIONAL 10-20 SYSTEM. THE WAKING BACKGROUND RHYTHM IN THIS RECORD CONSISTS OF FAIRLY WELL DEVELOPED AND FAIRLY WELL ORGANIZED WAVES OF 8.5 HZ., MAXIMAL IN THE POSTERIOR HEAD REGIONS WHICH ATTENUATE NORMALLY WITH EYE OPENING. MODERATE VOLTAGE 1.5-3 HZ ACTIVITY IS EXPRESSED INTERMITTENTLY IN THE FRONTAL AND CENTRAL REGIONS. LOW-VOLTAGE 18-22 HZ ACTVITY IS EXPRESSED IN THE FRONTAL REGIONS. THERE ARE NO FOCAL OR LATERALIZING FEATURES. NO EPILEPTIFORM ACTIVITY APPEARS. SLEEP OCCURRED NATURALLY. IN ADDITION NORMAL SLEEP PATTERNS ARE PRESENT. HYPERVENTILATION WAS NOT PERFORMED. PHOTIC STIMULATION PRODUCED POOR DRIVING BILATERALLY. IMPRESSION: THIS IS A MILDLY ABNORMAL EEG DUE TO A MILDLY ABNORMAL BACKGROUND. THIS IS A NON-SPECIFIC FINDING INDICATING THE PRESENCE OF A MILD DIFFUSE DISTURBANCE IN CEREBRAL FUNCTION.
--- NOTE | 2020-03-25 17:48 | PN ---
Subjective: The patient is still aggressive today and does not want to be bothered. Objective: Vital Signs: Temperature 98.4, pulse 99, respirations 18, blood pressure 122/89. Laboratory Data: Shows WBC 8.5, hemoglobin 8.9, platelets are 241. Chemistry shows sodium 142, pota ssium 3.9, chloride 111, bicarb 24, BUN 4, creatinine 0.4, glucose is 129. Alkaline phosphatase is 3 59, coming down. Assessment And Plan: The patient with COVID-19 pneumonia, doing well; urinary tract infection second chuy to yeast. The patient with encephalopathy secondary to toxic versus metabolic secondary to lithi um toxicity. Continue supportive care and monitor for signs of infection. The patient is currently off antibiotic. NF/MODL Voice ID: [id number] Report ID: [id number]
[2020-03-25 21:32] VITALS: BP 140/81; TEMP 98.2
--- NOTE | 2020-04-15 03:59 | P.DS ---
Discharge Date: 03/25/20 Primary Care Provider: Dr. Galaviz Disposition: TRANSFER TO INPATIENT REHAB Discharge Condition: GOOD Reason for Admission: Altered mental status - Problems (1) Colome toxicity Status: Acute (2) Altered mental status Status: Acute (3) Bipolar 1 disorder Status: Acute (4) Schizo-affective psychosis Status: Acute (5) Substance abuse Status: Acute Brief History of Present Illness: 59-year-old female with past medical history of bipolar disorder, schizophrenia, previous chronic alcoholism, now recently quit, history of liver cirrhosis, recurrent admission for altered mental status in setting of diarrhea/hypokalemia on last admission. Admitted now because of increasing confusion. Patient will was brought by EMS on request of the spouse. Patient is a poor historian. She repeatedly says ' I don't knowwhy l am here ". She is unsure why she is here. She denies any nausea vomiting. She denies any abdominal pain. She denies any shortness of breath. She was recently reported to have been positive for covid infection. She denies any cough or shortness of breath. She is saturating well on room air. Lab work shows a left shift with bandemia as well as evidence of UTI. She has been admitted for metabolic encephalopathy of infectious origin and UTI. Hospital Course: Patient's lithium level improved. Patient's mentation also improved. Patient is clinically doing much better. Patient is set to go to rehab as an outpatient. At this time, will discharge patient with further outpatient workup. Patient will need inpatient rehab for the next few weeks to regain strength. Vital Signs/Physical Exam: Temp Pulse Resp BP Pulse Ox 98.2 F 83 16 140/81 94 03/25/20 20:00 03/25/20 20:00 03/25/20 20:00 03/25/20 20:00 03/25/20 20:00 General: Alert, In no apparent distress, Oriented x3 Other Physical/Emotional Findings: General: Confused. HEENT: Atraumatic, Normocephalic. Neck: Supple, 2+ carotid pulse no bruit. Respiratory: Clear to auscultation bilaterally. Cardiovascular: No edema, Regular rate/rhythm, Normal S1 S2. Musculoskeletal: No clubbing, No swelling. Integumentary: No rashes, No breakdown. DTI on midback, DTI on sacral area, skin tear on right buttock Laboratory Data at Discharge: WBC 8.50 K/uL (4.3-10.9) D 03/21/20 03:08 Hgb 8.9 g/dL (12.0-15.0) L 03/21/20 03:08 Hct 26.0 % (36.0-45.0) L 03/21/20 03:08 Plt Count 241 K/uL (152-406) 03/21/20 03:08 PT 14.1 SECONDS (9.5-12.5) H 03/13/20 05:21 INR 1.20 03/13/20 05:21 Sodium 142 mmol/L (136-145) 03/21/20 03:08 Potassium 3.7 mmol/L (3.5-5.1) 03/25/20 07:23 BUN 4 mg/dL (7-18) L 03/21/20 03:08 Creatinine 0.44 mg/dL (0.55-1.3) L 03/21/20 03:08 Glucose 121 mg/dL (74-106) H 03/21/20 03:08 Phosphorus 3.9 mg/dL (2.5-4.9) D 03/17/20 06:35 Magnesium 1.6 mg/dL (1.8-2.4) L 03/25/20 07:23 Total Bilirubin 1.0 mg/dL (0.2-1.0) 03/21/20 03:08 AST 64 U/L (15-37) H 03/21/20 03:08 ALT 43 U/L (12-78) 03/21/20 03:08 Alkaline Phosphatase 359 U/L (45-117) H 03/21/20 03:08 Home Medications: Clint [Clint*] 1 pkt PO BID #60 powd.pack 02/13/20 Levothyroxine [Synthroid*] 125 mcg PO [id number] #30 tab 02/13/20 Fluoxetine HCl [Prozac] 2 cap PO DAILY #60 03/22/20 Folic Acid 1 mg PO DAILY #90 tablet 03/22/20 Glucerna Shake [Glucerna*] 237 ml PO TID #90 can 03/22/20 Thiamine HCl 100 mg PO DAILY #90 tablet 03/22/20 New Medications: Folic Acid 1 mg PO DAILY #90 tablet Glucerna Shake [Glucerna*] 237 ml PO TID #90 can Fluoxetine HCl [Prozac] 2 cap PO DAILY #60 Thiamine HCl 100 mg PO DAILY #90 tablet Physician Discharge Instructions: PROBLEM: Encephalopathy GOAL: Clear understanding of disease process INSTRUCTIONS: Follow up with PCP in 1 week to follow up this hospitalization Patient presented with encephalopathy. This was likely related to multifactorial reasons. Toxic/metabolic encephalopathy related to lithium toxicity and suspected Wernicke encephalopathy was evaluated. Colome level was elevated. Colome, Seroquel, trazodone was discontinued. She had been taking this medication for bipolar disorder along with her schizoaffective disorder. Once the lithium level went into the normal range that is when she appeared to be at her baseline mentation. Patient was evaluated by Neurology at that time. EEG shows chronic changes of possible Wernicke and psychosis related to her bipolar/schizoaffective disorder. These are likely chronic changes. These are likely to continue. This was addressed in detail with the . If this worsens consider hospice or neuropsychiatric evaluation and treatment. At discharge patient will continue only with Prozac 40 mg daily. Colome, Seroquel and trazodone have been discontinued. Patient will continue with folic acid 1 mg daily and thiamine 100 mg daily. Patient will continue with a pureed diet as recommended by speech. Aspiration precaution in place. Physical therapy will evaluate patient prior to discharge for recommendations for the . Recommend to follow up with neurology as an outpatient in 2-4 weeks to monitor her progress. Patient had a UTI. This was treated with antibiotic therapy. Urine culture was positive for yeast. Antibiotic discontinued. At discharge she no longer leads Diflucan. UTI prevention will be provided. Patient with moderate protein malnutrition. Patient now improving with her oral intake. At discharge she may continue with Glucerna 1 can 3 times a day for supplementation. Continue pureed diet as recommended by speech. Encourage to monitor this closely. Patient was positive for COVID 19. She is asymptomatic. Room-air saturations normal. Patient will continue with CDC guidelines. Diet: Pureed Activity: Fall precautions [facility] Services Needed: [facility] Name of Company: [employer] Date or Referral: Dr. Morton gave approval Admin Lorenzo Tang Call report to [phone], Address [address] [place] [address]. Any questions call Gillian [phone] IMMUNIZATION Influenza Vaccine Indicated: Yes Influenza Vaccine Given: Date Given: Pneumonia Vaccine Indicated: No Pneumonia Vaccine Given: Date Given: Diet: Pureed Activity: Fall precautions Followup: NONE,NONE [Primary Care Provider] - Time spent managing pt's care (in minutes): 35
== END 2020-03-25 20:20 | DRG 917 ==
LOC: ER 22:11 → ERHOLD 03-13 03:32 → 4TH 03-13 19:18 → OBSVTOIN 03-14 10:46
PROVIDERS: ADMIT Internal Medicine; ATTEND Hospitalist
DX: T43.591A Poisoning by other antipsychotics and neuroleptics, accidental (unintentional), initial encounter (principal); U07.1 COVID-19; G92 Toxic encephalopathy; J12.82 Pneumonia due to coronavirus disease 2019; N39.0 Urinary tract infection, site not specified; Z68.1 Body mass index [BMI] 19.9 or less, adult; E44.0 Moderate protein-calorie malnutrition; E51.2 Wernicke's encephalopathy; F03.90 Unspecified dementia, unspecified severity, without behavioral disturbance, psychotic disturbance, mood disturbance, and anxiety; K74.60 Unspecified cirrhosis of liver; F19.10 Other psychoactive substance abuse, uncomplicated; D72.829 Elevated white blood cell count, unspecified; D64.9 Anemia, unspecified; F25.0 Schizoaffective disorder, bipolar type; E11.9 Type 2 diabetes mellitus without complications; B37.9 Candidiasis, unspecified; S24.109A Unspecified injury at unspecified level of thoracic spinal cord, initial encounter; S30.0XXA Contusion of lower back and pelvis, initial encounter; Z90.49 Acquired absence of other specified parts of digestive tract; Z79.890 Hormone replacement therapy; Z79.899 Other long term (current) drug therapy; Z98.84 Bariatric surgery status
CPT/HCPCS: 36415; 51702; 70450; 71045; 74177; 80048; 80053; 80076; 80178; 80320; 81001; 81003; 81015; 82140; 82607; 82728; 82746; 83605; 83615; 83735; 83880; 84100; 84132; 84145; 84443; 84484; 85025; 85379; 85610; 85652; 86140; 87040; 87086; 87088; 92610; 93005; 95819; 96361; 96365; 97161; 97164; 99285; G0378; J0692; J0696; J1450; J1644; J1720; J3411; J3475; J3480; J7030; J7040; J7042; J7799; P9047; Q9967; U0003

== ENCOUNTER 2020-04-09 13:20 | Emergency (ER) | payer OTHER ==
--- OUTSIDE RECORDS SUMMARY | 2020-04-09 13:37 | XMS REPORT | Continuity of Care Document ---
:[address] [facility] t Address [address] [place] [address] Dr. Iglesias. [address] [place] [address] Care Team Providers Name Role Phone Sha [...] Type Clinicians Facility Department ID 2018-10-13 2018-10-13 [facility] [id number] 11:00:00 23:59:00 Encounter José Luis Galan [id number] [place] [id number] [place] [id number] [id number] 2018-10-13 2018-10-13 Orders Doctor MICHAEL [id number] 00:00:00 00:00:00 Only UnassignedSOCO [id number] [place] [facility] [id number] Results This patient has no known results.
--- NOTE | 2020-04-09 15:43 | RAD REPORT ---
EXAM DESCRIPTION: US - Extrem Venous W Compress Erik - 04/09/2020 3:34 pm CLINICAL HISTORY: Pain;Swelling COMPARISON: None. TECHNIQUE: Real-time sonographic evaluation of the bilateral lower extremity common femoral, superfi cial femoral, popliteal and posterior tibial veins was performed. FINDINGS: Normal compressibility, flow augmentation, phasic flow and spontaneous flow are identified in the left and right lower extremity common femoral and superficial femoral veins. Echogenic materi al is present filling the right popliteal vein extending to the posterior tibial vein. Little or no b lood flow was identifiable. The degree of echogenicity would support this to be chronic DVT though th e patient does not give a history of prior blood clot. No definitive acute component seen. No suspici ous mass or abnormal fluid collection in the soft tissues. IMPRESSION: Right popliteal and posterior tibial vein deep venous thrombosis is present. The right leg DVT findings appear to be chronic.
--- NOTE | 2020-04-09 15:54 | RAD REPORT ---
EXAM DESCRIPTION: RAD - Chest Single View - 04/09/2020 3:33 pm CLINICAL HISTORY: SWELLING, shortness of breath COMPARISON: March 12 TECHNIQUE: AP portable chest image was obtained 04/09/2020 3:33 pm . FINDINGS: Lower left lung field is very limited. The overlying breast soft tissue and breast implant substantially limit assessment. The left hemidiaphragm, left costophrenic angle and left heart borde r are fully obscured. Infiltrate and pleural effusion cannot be excluded. Upper left lung field is cl ear. Right hemithorax also clear of acute finding. Heart and vasculature are normal. No measurable pl eural effusion and no pneumothorax. No acute bony abnormality seen. No acute aortic findings suspecte d. IMPRESSION: Left base is significantly limited due to overlying implant and breast soft tissue densi ty. Left base infiltrate and pleural effusion cannot be excluded.
[2020-04-09 15:59] LABS: Absolute Lymphocytes (CBC) 1.3 K/uL (0.7-4.9); Basophils % 0.7 % (0-1.3); Hematocrit 34.8 % (36.0-45.0); Lymphocytes % 12.5 % (15.3-44.8); MPV 7.5 fL (7.6-11.3); RBC Red Blood Cell Count 3.56 M/uL (3.86-4.86)
[2020-04-09 16:03] LABS: Protime INR 1.17
[2020-04-09 16:19] LABS: ALT/SGPT 52 U/L (12-78); AST/SGOT 146 U/L (15-37); Albumin 1.5 g/dL (3.4-5.0); Alkaline Phosphatase 385 U/L (45-117); BUN Blood Urea Nitrogen 9 mg/dL (7-18); Bicarbonate 21 mmol/L (21-32); Bilirubin Direct 0.8 mg/dL (0-0.2); Bilirubin Total 1.2 mg/dL (0.2-1.0); Glucose Level 83 mg/dL (74-106); NT PRO-BNP 1296 pg/mL (<125); Potassium 4.1 mmol/L (3.5-5.1); Protein, Total 5.1 g/dL (6.4-8.2); Sodium Level 142 mmol/L (136-145); Troponin (Emerg Dept Use Only) < 0.02 ng/mL (0.0-0.045)
[2020-04-09 17:03] LABS: Blood Morphology Comment NOT SEEN (NOT SEEN); Platelet Estimate ADEQ; White Blood Cell Scan OK (OK)
--- NOTE | 2020-04-09 17:13 | ER ---
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 Was in the hospital 2 ll1 weeks ago, and in rehab last week. Sent in by Dr. Galaviz for eval of leg swelling and possible DVT. Coronavirus screen: Client denies travel out of the [place] in the last 14 days. At this time, the client does not indicate any symptoms associated with coronavirus-19. Ebola Screen: Patient denies travel to an Ebola-affected area in the 21 days before illness onset. Initial Sepsis Screen: Does the patient meet any 2 criteria? HR > 90 bpm. No. Patient's initial sepsis screen is negative. Does the patient have a suspected source of infection? Yes: Other: leg swelling. Risk Assessment: Do you want to hurt yourself or someone else? Patient reports no desire to harm self or others. Onset of symptoms was April 01, 2020. 13:28 Method Of Arrival: Wheelchair ll1 13:28 Acuity: AUGUSTIN 3 ll1 Triage Assessment: 18:13 General: Behavior is calm, cooperative, appropriate for age. dm14 Historical: - Allergies: 13:32 No Known Allergies; ll1 - PMHx: 13:32 Depression; hypotension; ETOH absue; Bipolar disorder; Schizophrenia; ll1 - PSHx: 13:32 Cholecystectomy; ; upper femur repair; ll1 - Immunization history:: Flu vaccine is up to date. - Social history:: Smoking status: Patient/guardian denies using tobacco, Stopped _ months ago 4. Screenin:00 Abuse screen: Denies threats or abuse. Denies injuries from another. Nutritional dm14 screening: Had unintentional weight loss of 10 pounds or more. Tuberculosis screening: No symptoms or risk factors identified. Fall Risk None identified. Assessment: 13:51 General: Appears in no apparent distress. emaciated. Pain:. dm14 Vital Signs: 13:28 BP 111 / 88; Pulse 117; Resp 18; Temp 98.8; Pulse Ox 94% on R/A; Weight 54.43 kg; Pain ll1 10/10; 14:00 BP 121 / 93; Pulse 101; Resp 16; Pulse Ox 98% ; dm14 17:33 BP 135 / 94; Pulse 106; Resp 14; Pulse Ox 99% ; dm14 ED Course: 13:23 Patient arrived in ED. ds1 13:31 Triage completed. ll1 13:31 Arm band placed on Patient placed in an exam room, on a stretcher. ll1 13:45 Kaylynn Austin FNP-C is PHCP. kb 13:45 Ney Meier MD is Attending Physician. kb 13:51 Cathy Centeno, KELTON is Primary Nurse. dm14 14:00 Patient has correct armband on for positive identification. Bed in low position. Call dm14 light in reach. Side rails up X2. Adult w/ patient. 14:00 No provider procedures requiring assistance completed. IV discontinued, intact, dm14 bleeding controlled, No redness/swelling at site. Pressure dressing applied. 14:27 Missed attempt(s): 20 gauge in right antecubital area. Bleeding controlled, band aid dh3 applied, catheter tip intact. 14:37 Missed attempt(s): 20 gauge in right forearm. Bleeding controlled, band aid applied, dh3 catheter tip intact. 15:33 XRAY Chest (1 view) In Process Unspecified. EDMS 15:34 US Extremity Venous W Compression Erik In Process Unspecified. EDMS 16:00 EKG done, by ED staff, reviewed by Ney Meier MD. dh3 Administered Medications: No medications were administered Outcome: 14:00 Discharged to home via wheelchair, with family. dm14 14:00 Condition: stable 14:00 Discharge instructions given to family, Instructed on discharge instructions, follow up and referral plans. Demonstrated understanding of instructions, follow-up care. 17:12 Discharge ordered by MD. kb 18:13 Patient left the ED. dm14 Signatures: Dispatcher [employer] EDMS Kaylynn Austin FNP-C FNP-Edy Peterson oSfiya ds1 Diamante Villeda 3 Asia Sharma RN RN ll1 Cathy Centeno, RN RN dm14 Corrections: (The following items were deleted from the chart) 18:11 17:49 BP 121 / 93; Pulse 101bpm; Resp 16bpm; Pulse Ox 98%; dm14 dm14
--- NOTE | 2020-04-09 17:13 | EDPHYS ---
Physician Documentation [facility] Name: Isabelle Lowery Age: 59 yrs Sex: Female : 1960 Arrival Date: 04/09/2020 Time: : Bed 16 Private MD: ED Physician Ney Meier HPI: 04/09 19:13 This 59 yrs old Female presents to ER via Wheelchair with complaints of Leg kb Swelling. 19:13 The patient presents with pain, swelling. The complaints affect the right leg and left kb leg. Context: The problem was sustained in the hospital, resulted from an unknown cause, the patient is not able to bear weight. Onset: The symptoms/episode began/occurred 1.5 week(s) ago. Modifying factors: The symptoms are alleviated by nothing. the symptoms are aggravated by nothing. Associated signs and symptoms: The patient has no apparent associated signs or symptoms. Treatment prior to arrival includes: no previous treatment. Severity of symptoms: At their worst the symptoms were moderate, in the emergency department the symptoms are unchanged. The patient has not experienced similar symptoms in the past. The patient has been recently seen by a physician:. Family reports pt has had pain and swelling in both legs for a week and a half. States they went to Dr Galaviz today for this and wanted a diuretic, but he wanted her to come here for an US to rule out DVT. Family states pt has been laying in bed for a long time so that is why she has so much swelling all over, states she was just discharged from a rehab on Wednesday. Historical: - Allergies: 13:32 No Known Allergies; ll1 - PMHx: 13:32 Depression; hypotension; ETOH absue; Bipolar disorder; Schizophrenia; ll1 - PSHx: 13:32 Cholecystectomy; ; upper femur repair; ll1 - Immunization history:: Flu vaccine is up to date. - Social history:: Smoking status: Patient/guardian denies using tobacco, Stopped _ months ago 4. ROS: 19:06 Constitutional: Negative for fever, chills, and weight loss, Respiratory: Negative for kb shortness of breath, cough, wheezing, and pleuritic chest pain, Abdomen/GI: Negative for abdominal pain, nausea, vomiting, diarrhea, and constipation, Skin: Negative for injury, rash, and discoloration, Neuro: Negative for headache, weakness, numbness, tingling, and seizure. 19:06 Cardiovascular: Positive for edema. 19:06 MS/extremity: Positive for pain, swelling, of the right leg and left leg. Exam: 19:05 Head/Face: Normocephalic, atraumatic. Chest/axilla: Normal chest wall appearance and kb motion. Nontender with no deformity. No lesions are appreciated. Cardiovascular: Regular rate and rhythm with a normal S1 and S2. No gallops, murmurs, or rubs. Normal PMI, no JVD. No pulse deficits. Respiratory: Lungs have equal breath sounds bilaterally, clear to auscultation and percussion. No rales, rhonchi or wheezes noted. No increased work of breathing, no retractions or nasal flaring. Abdomen/GI: Soft, non-tender, with normal bowel sounds. No distension or tympany. No guarding or rebound. No evidence of tenderness throughout. 19:05 Constitutional: The patient appears alert, awake. 19:05 Musculoskeletal/extremity: Extremities: grossly normal except: noted in the right leg and left leg: pain, swelling, ROM: limited active range of motion, Circulation is intact in all extremities. Sensation intact. 19:05 Neuro: Orientation: is normal, to person, place, time \T\ situation. Mentation: is normal, able to follow commands, Motor: moves all fours, Sensation: is normal. Vital Signs: 13:28 BP 111 / 88; Pulse 117; Resp 18; Temp 98.8; Pulse Ox 94% on R/A; Weight 54.43 kg; Pain ll1 10/10; 14:00 BP 121 / 93; Pulse 101; Resp 16; Pulse Ox 98% ; dm14 17:33 BP 135 / 94; Pulse 106; Resp 14; Pulse Ox 99% ; dm14 MDM: 13:45 Patient medically screened. kb 19:03 Data reviewed: vital signs, nurses notes. Data interpreted: Pulse oximetry: on room air kb is 99 %. Interpretation: normal. Counseling: I had a detailed discussion with the patient and/or guardian regarding: the historical points, exam findings, and any diagnostic results supporting the discharge/admit diagnosis, lab results, radiology results, the need for outpatient follow up, a family practitioner, to return to the emergency department if symptoms worsen or persist or if there are any questions or concerns that arise at home. ED course: DVT is chronic on US. Pt awake, alert and oriented. Family with pt and is caregiver. Discussed all findings with ERP, recommended outpatient follow up with cardiology and PCP. . 04/09 14:00 Order name: Basic Metabolic Panel; Complete Time: 16:29 kb 04/09 14:00 Order name: CBC with Diff; Complete Time: 17:04 kb 04/09 14:00 Order name: LFT's; Complete Time: 16:29 kb 04/09 14:00 Order name: Magnesium; Complete Time: 16:29 kb 04/09 14:00 Order name: NT PRO-BNP; Complete Time: 16:29 kb 04/09 14:00 Order name: PT-INR; Complete Time: 16:10 kb 04/09 14:00 Order name: Troponin (emerg Dept Use Only); Complete Time: 16:29 kb 04/09 14:00 Order name: XRAY Chest (1 view); Complete Time: 15:54 kb 04/09 14:00 Order name: EKG; Complete Time: 14:01 kb 04/09 14:00 Order name: Cardiac monitoring; Complete Time: 14:41 kb 04/09 14:00 Order name: EKG - Nurse/Tech; Complete Time: 16:16 kb 04/09 14:00 Order name: AMMONIA; Complete Time: 17:01 kb 04/09 14:00 Order name: US Extremity Venous W Compression Erik; Complete Time: 15:44 kb 04/09 17:03 Order name: CBC Smear Scan; Complete Time: 17:04 EDMS 04/09 14:00 Order name: IV Saline Lock; Complete Time: 14:42 kb 04/09 14:00 Order name: Labs collected and sent; Complete Time: 15:52 kb 04/09 14:00 Order name: O2 Per Protocol; Complete Time: 14:42 kb 04/09 14:00 Order name: O2 Sat Monitoring; Complete Time: 14:42 kb Administered Medications: No medications were administered Disposition: 04/10 08:03 Co-signature as Attending Physician, Ney AVALOS I agree with the assessment and charu plan of care. Disposition: 04/09/20 17:12 Discharged to Home. 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 - Condition is Stable. - Discharge Instructions: Deep Vein Thrombosis. - Medication Reconciliation Form, Thank You Letter, Antibiotic Education, Prescription Opioid Use form. - Follow up: Emergency Department; When: As needed; Reason: Worsening of condition. Follow up: Private Physician; When: 2 - 3 days; Reason: Recheck today's complaints, Continuance of care, Re-evaluation by your physician. Signatures: Dispatcher [employer] EDKaylynn Ruggiero, SHRINK PIT SUPERVISOR-C BEBO-Ney Mckinney MD MD cha Lewis, Lynsay RN RN ll1 Cathy Centeno RN RN dm14 Corrections: (The following items were deleted from the chart) 04/09 18:13 17:12 04/09/2020 17:12 Discharged to Home. Impression: Chronic embolism and thrombosis dm14 of deep veins of lower extremity. Condition is Stable. Forms are Medication Reconciliation Form, Thank You Letter, Antibiotic Education, Prescription Opioid Use. Follow up: Emergency Department; When: As needed; Reason: Worsening of condition. Follow up: Private Physician; When: 2 - 3 days; Reason: Recheck today's complaints, Continuance of care, Re-evaluation by your physician. kb
[2020-04-09 18:36] VITALS: TEMP 98.8
[2020-04-09 18:39] VITALS: BP 135/94; O2SAT 99
--- NOTE | 2020-04-11 05:40 | EKG ---
Test Date: 2020-04-09 Test Time: 15:58:11 Time Lock Expert: YESI MEASUREMENT RESULTS: Intervals: Rate: 80 MN: 98 QRSD: 74 QT: 416 QTc: 479 [place]aver: P: 27 MN: 98 QRS: 68 T: 73 INTERPRETIVE STATEMENTS: Sinus rhythm with short MN Low voltage QRS Nonspecific ST and T wave abnormality Prolonged QT Abnormal ECG Compared to ECG 03/12/2020 22:47:13 Short MN interval now present Low QRS voltage now present ST (T wave) deviation now present Sinus tachycardia no longer present T-wave abnormality no longer present Possible ischemia no longer present Electronically Signed On 04-11-20 05:36:00 DIRECTOR HEART by Gómez Cid
== END 2020-04-09 18:13 | disposition home or self-care (01) ==
LOC: ER 13:20
DX: I82.531 Chronic embolism and thrombosis of right popliteal vein (principal); I82.541 Chronic embolism and thrombosis of right tibial vein; Z87.891 Personal history of nicotine dependence
CPT/HCPCS: 36415; 71045; 80048; 80076; 82140; 83735; 83880; 84484; 85025; 85610; 93005; 93970; 99283

== ENCOUNTER 2020-04-22 09:29 | Emergency (ER) | payer OTHER ==
[2020-04-22] MEDS ORDERED: EPINEPHrine 1 MG/10 ML SYR IV ONE (09:30)
--- OUTSIDE RECORDS SUMMARY | 2020-04-22 09:33 | XMS REPORT | Continuity of Care Document ---
:1960 Author Organization [facility] t Address [address] [place] [address] Dr. Iglesias. [address] [place] [address] Care Team Providers Name Role Phone Sha [...] Type Clinicians Facility Department ID 2018-10-13 2018-10-13 [facility] [id number] 11:00:00 23:59:00 Encounter José Luis Galan [id number] [place] [id number] [place] [id number] 2018-10-13 2018-10-13 Orders Doctor MICHAEL [id number] 00:00:00 00:00:00 Only UnassignedSOCO [id number] [place] [facility] [id number] [id number] Results This patient has no known results.
[2020-04-22] MEDS ORDERED: NA CHLORIDE 0.9% 1,000 ML ONE (10:14)
[2020-04-22 10:22] LABS: Arterial Blood Carboxyhemoglob 0.9 % (0-1.5); Blood Gas Oxyhemoglobin 87.5 % (94-97)
[2020-04-22 10:24] LABS: Absolute Lymphocytes (CBC) 0.2 K/uL (0.7-4.9); Hematocrit 35.6 % (36.0-45.0); Lymphocytes % 33.3 % (15.3-44.8); MPV 9.3 fL (7.6-11.3); RBC Red Blood Cell Count 3.48 M/uL (3.86-4.86)
[2020-04-22 10:37] LABS: Protime INR 4.76
--- NOTE | 2020-04-22 10:44 | RAD REPORT ---
EXAM DESCRIPTION: RAD - Chest Single View - 04/22/2020 10:19 am CLINICAL HISTORY: SOB COMPARISON: April 09 TECHNIQUE: AP portable chest image was obtained 04/22/2020 10:19 am . FINDINGS: Lung volumes are low. The increased breast tissue and implant density substantially limit assessment of the lung sosa particularly on the left. Left base may be slightly better aerated but remains very limited in evaluation. Upper lung sosa are clear of acute finding. Cardiomediastinal s ilhouette appears stable. Trachea is midline. No pneumothorax identified. Delete select IMPRESSION: Exam remains significantly limited due to the density of overlying breast tissue and reika ast implants. Pneumonia, particularly in the lower left lung field cannot be excluded.
[2020-04-22 11:02] LABS: ALT/SGPT 78 U/L (12-78); Albumin 1.1 g/dL (3.4-5.0); Alkaline Phosphatase 302 U/L (45-117); BUN Blood Urea Nitrogen 15 mg/dL (7-18); Bilirubin Direct 2.3 mg/dL (0-0.2); Bilirubin Total 2.5 mg/dL (0.2-1.0); Ferritin 1028.1 ng/mL (8-388); Magnesium 1.8 mg/dL (1.8-2.4); NT PRO-BNP 13897 pg/mL (<125); Potassium 3.3 mmol/L (3.5-5.1); Protein, Total 4.2 g/dL (6.4-8.2); Sodium Level 143 mmol/L (136-145); Troponin (Emerg Dept Use Only) < 0.02 ng/mL (0.0-0.045)
[2020-04-22 11:06] LABS: Blood Morphology Comment NOTED (NOT SEEN); Macrocytosis 1+; Platelet Estimate ADEQ; Platelets, Giant FEW
[2020-04-22 11:08] LABS: Lipase < 10 U/L (73-393)
[2020-04-22 11:09] LABS: AST/SGOT 501 U/L (15-37); Bicarbonate 9 mmol/L (21-32); Glucose Level 11 mg/dL (74-106)
[2020-04-22] MEDS ORDERED: IPRATROPIUM BROM 0.5MG/2.5ML ONE ×2 (11:13→11:29)
[2020-04-22] MEDS ORDERED: ALBUTEROL 2.5 MG/3 ML NEB SOL ONE ×2 (11:13→11:29)
[2020-04-22] MEDS ORDERED: VITAMIN K (ADULT) 10 MG/ML ONE (11:13)
[2020-04-22] MEDS ORDERED: THIAMINE 200 MG/2 ML INJ ONE (11:13)
[2020-04-22] MEDS ORDERED: METHYLPREDNISOLONE 125 MG INJ ONE (11:13)
[2020-04-22] MEDS ORDERED: FOLIC ACID 5 MG/ML VIAL ONE (11:15)
[2020-04-22] MEDS ORDERED: PIPER/TAZO/NS 3.375gm 3.375 GM/100 ML BAG ONE (11:15)
[2020-04-22 11:27] LABS: Urine Blood NEGATIVE (NEG); Urine Glucose NEGATIVE (NEG); Urine Protein TRACE (NEG)
[2020-04-22] MEDS ORDERED: D50W 25 GM/50 ML SYRINGE IV ONE (11:37)
--- NOTE | 2020-04-22 11:49 | EDPHYS ---
Physician Documentation [facility] Name: Isabelle Lowery Age: 59 yrs Sex: Female : 1960 Arrival Date: 04/22/2020 Time: 09:32 Bed 3 Private MD: ED Physician Ney Meier HPI: 04/22 10:19 This 59 yrs old Female presents to ER via Unassigned with complaints of pm1 Shortness Of Breath. 10:19 The patient has shortness of breath at rest. Onset: The symptoms/episode began/occurred pm1 last night. Duration: The symptoms are continuous, and are steadily getting worse. The patient's shortness of breath is aggravated by nothing, is alleviated by nothing. Associated signs and symptoms: The patient has no apparent associated signs or symptoms. Severity of symptoms: in the emergency department the symptoms are worse Pain is currently a 0 / 10. It is unknown whether or not the patient has recently seen a physician, Last ER visit on 04/09 due to lower extremity edema to rule out DVT from PCP office. Patient discharged home with diagnosis of chronic DVT. 10:19 Patient with onset of shortness of breath last night that progressively got worse. pm1 called EMS and on EMS arrival patient was hypotensive 50-60 systolic and hypoxic 70% on RA. . Historical: - Allergies: 10:04 No Known Allergies; tw2 - PMHx: 10:04 Bipolar disorder; hypotension; Depression; ETOH absue; Schizophrenia; tw2 - PSHx: 10:04 Cholecystectomy; ; tw2 ROS: 10:19 Neck: Negative for injury, pain, and swelling, Cardiovascular: Negative for chest pain, pm1 palpitations, and edema. 10:19 Abdomen/GI: Negative for abdominal pain, nausea, vomiting, diarrhea, and constipation, Back: Negative for injury and pain, MS/Extremity: Negative for injury and deformity. 10:19 Constitutional: Positive for weight loss, 40 pounds over the past 4-6 months , Negative for fever. 10:19 Respiratory: Positive for shortness of breath, Negative for cough. 10:19 Skin: Positive for bruising and skin tear to right shoulder and right forearm. Exam: 10:19 Head/Face: Normocephalic, atraumatic. pm1 10:19 Respiratory: Lungs have equal breath sounds bilaterally, clear to auscultation and percussion. No rales, rhonchi or wheezes noted. No increased work of breathing, no retractions or nasal flaring. 10:19 Back: No spinal tenderness. No costovertebral tenderness. Full range of motion. 10:19 Constitutional: The patient appears well developed, well groomed, emaciated, frail, obviously ill. 10:19 Cardiovascular: Rate: normal, Rhythm: regular, Pulses: no pulse deficits are appreciated, Edema: 1+ pedal edema, mild ascites to abdominal area. 10:19 Abdomen/GI: Exam negative for acute changes, Inspection: distension, that is mild, Palpation: abdomen is soft and non-tender, in all quadrants. 10:19 Skin: Appearance: normal except for affected area, injury, abrasion(s), of the moderate anterior aspect of right shoulder and small right forearm, contusion(s), that are superficial, of the chest, right arm and left arm. 10:19 Neuro: Orientation: to person, Mentation: slow to respond, Motor: moves all fours. Vital Signs: 09:44 BP 40 / 30; Pulse 105; Resp 26; Temp 96.7(TE); Pulse Ox 74% on 100% Nebulizer Mask; hb 10:05 Weight 45.36 kg (R); tw2 10:08 BP 79 / 56; Pulse 98; Resp 28; Pulse Ox 96% on BiPAP; tw2 10:13 BP 64 / 49; Pulse 99; Resp 27; Pulse Ox 98% on BiPAP; tw2 10:20 BP 70 / 59; Pulse 99; Resp 28; Pulse Ox 100% on 70% BiPAP; tw2 10:30 BP 68 / 55; Pulse 94; Resp 22; Pulse Ox 95% on BiPAP; tw2 10:40 BP 67 / 50; Pulse 94; Resp 22; Pulse Ox 95% on BiPAP; tw2 11:45 BP 52 / 38; Pulse 95; Resp 19; Pulse Ox 95% on BiPAP; tw2 11:50 BP 56 / 43; Pulse 93; Resp 23; Pulse Ox 95% on BiPAP; tw2 11:55 BP 71 / 44; Pulse 96; Resp 23; Pulse Ox 95% on BiPAP; tw2 12:00 BP 55 / 27; Pulse 99; Resp 22; Pulse Ox 100% on BiPAP; tw2 12:05 BP 51 / 21; Pulse 96; Resp 19; Pulse Ox 96% on BiPAP; tw2 12:10 BP 64 / 48; Pulse 92; Resp 24; Pulse Ox 100% on BiPAP; tw2 12:15 BP 56 / 48; Pulse 78; tw2 12:30 BP 59 / 49; Pulse 92; Resp 23; Pulse Ox 98% on BiPAP; tw2 12:35 BP 60 / 50; Pulse 94; Resp 22; Pulse Ox 100% on BiPAP; tw2 12:40 BP 58 / 47; Pulse 88; Resp 22; Pulse Ox 96% on BiPAP; tw2 12:44 BP 64 / 43; Pulse 94; Resp 18; Temp 91.5(C); Pulse Ox 100% on BiPAP; tw2 12:55 BP 66 / 49; Pulse 90; Resp 21; Temp 91.5(C); Pulse Ox 98% on BiPAP; tw2 13:05 BP 64 / 54; Pulse 95; Resp 21; Temp 91.6(C); Pulse Ox 100% on BiPAP; tw2 13:14 BP 61 / 43; Pulse 94; Resp 22; Temp 91.6(C); Pulse Ox 95% on BiPAP; tw2 13:20 BP 61 / 52; Pulse 96; Resp 22; Temp 91.8(C); Pulse Ox 100% on BiPAP; tw2 13:25 BP 64 / 49; Pulse 98; Resp 21; Temp 91.9(C); Pulse Ox 100% on BiPAP; tw2 13:30 BP 60 / 38; Pulse 97; Resp 22; Temp 92.3(C); Pulse Ox 100% ; tw2 13:40 BP 122 / 95; Pulse 101; Resp 22; Temp 92.3(C); tw2 13:44 BP 66 / 52; Pulse 99; Resp 33; Temp 92.4(C); Pulse Ox 96% on BiPAP; tw2 14:00 BP 73 / 61; Pulse 102; Resp 20; Temp 93.4(C); Pulse Ox 100% on BiPAP; tw2 14:10 BP 69 / 52; Pulse 101; Resp 22; Pulse Ox 96% on BiPAP; tw2 14:20 BP 63 / 45; Pulse 99; tw2 14:25 BP 70 / 51; Pulse 95; Resp 20; Temp 93.7(C); Pulse Ox 98% on BiPAP; tw2 14:30 BP 69 / 52; Pulse 101; Resp 22; Temp 93.5(C); Pulse Ox 100% on BiPAP; tw2 14:35 BP 63 / 53; Pulse 96; Resp 22; Temp 93.9(C); Pulse Ox 99% on BiPAP; tw2 14:40 BP 67 / 51; Pulse 103; Resp 20; Temp 94.3(C); Pulse Ox 100% on BiPAP; tw2 14:45 BP 71 / 54; Pulse 103; Resp 20; Temp 94.4(C); Pulse Ox 99% on BiPAP; tw2 14:50 BP 75 / 56; Pulse 104; Resp 22; Temp 94.6(C); Pulse Ox 96% on BiPAP; tw2 14:55 BP 76 / 55; Pulse 104; Resp 22; Temp 94.7(C); Pulse Ox 96% on BiPAP; tw2 15:00 BP 68 / 22; Pulse 92; Resp 13; Temp 94.8(C); Pulse Ox 96% on BiPAP; tw2 15:05 BP 67 / 54; Pulse 104; Resp 22; Temp 94.9(C); Pulse Ox 96% on BiPAP; tw2 15:15 BP 67 / 36; Pulse 105; Resp 22; Temp 95.1(C); Pulse Ox 96% on BiPAP; tw2 15:30 BP 55 / 45; Pulse 92; Resp 19; tw2 15:40 BP 58 / 35; Pulse 100; Resp 26; Temp 95.6(C); Pulse Ox 99% on BiPAP; tw2 15:45 BP 73 / 61; Pulse 98; Resp 22; Temp 95.7(C); Pulse Ox 99% on BiPAP; mh5 16:00 BP 57 / 39; Pulse 99; Resp 20; Pulse Ox 99% on BiPAP; mh5 16:15 BP 58 / 49; Pulse 99; Resp 22; Pulse Ox 99% on BiPAP; mh5 16:30 BP 32 / 23; Pulse 94; Resp 22; Pulse Ox 99% on BiPAP; mh5 16:45 BP 50 / 39; Pulse 95; Resp 26; Pulse Ox 97% on BiPAP; mh5 16:48 BP 47 / 23 RA; Pulse 94; Resp 26; Temp 96.1(C); Pulse Ox 98% on BiPAP; 5 17:00 BP 39 / 20; Pulse 92; Resp 23; Pulse Ox 97% on BiPAP; 5 17:15 BP 57 / 33; Pulse 90; Resp 19; Pulse Ox 97% on BiPAP; 5 10:08 provider at bedside at this time. tw2 10:20 provider at bedside, 14/10 tw2 10:30 provider notified of need for central line, iv fluids administered. tw2 11:45 provider at bedside for central line at this time tw2 12:15 provider notified tw2 12:30 provider notified. tw2 12:44 provider notified, binta lamas applied tw2 15:05 provider at bedside at this time tw2 15:30 providers Gio Lee PA and To Zarate NP at bedside at this time tw2 Procedures: 11:55 Central Line: the site was prepped with Betadine, in sterile fashion, a triple lumen charu catheter was inserted, in the right femoral vein, in 1 attempts. placement was verified, by blood return, the site was dressed with using sterile technique, the patient tolerated the procedure, well. 17:36 CPR: Initial patient assessment: unresponsive, agonal respirations, The presenting pm1 cardiac rhythm is PEA. respirations assisted with BVM, Compressions: began at 17:13. Meds given: Epinephrine , bicarb. despite ED evaluation and treatment, the patient . present in the room at expiration CPR was stopped at 17:30. MDM: 09:40 Patient medically screened. pm1 12:25 Physician consultation: Juancho Martinez regarding regarding transfer, patient's pm1 condition, and will see patient. 13:30 Physician consultation: Hospitalist Mitali would like medications started, Vancomycin, pm1 Will accept the patient to the ICU once her blood pressure is stable for transfer. Would like the patient to be transferred by helicopter. 14:41 Data reviewed: vital signs. pm1 14:51 ED course: Patient alert and oriented x 4. Patient does not want to be intubated. pm1 Regarding code status she would like everything to be performed except intubation. 17:35 ED course: Patient's brought into room during the code. He did not want the pm1 patient to be intubated based on her wishes and his discussion with her in the past regarding that matter. After discussion with him in the patient's room that all resources have been exhausted during CPR except for intubation, he wished to stop CPR and withdraw care . 04/22 09:44 Order name: Basic Metabolic Panel pm1 04/22 09:44 Order name: CBC with Diff pm1 04/22 09:44 Order name: LFT's pm1 04/22 09:44 Order name: Magnesium pm1 04/22 09:44 Order name: NT PRO-BNP pm1 04/22 09:44 Order name: PT-INR pm1 04/22 09:44 Order name: Troponin (emerg Dept Use Only); Complete Time: 11:17 pm1 04/22 09:44 Order name: Procalcitonin; Complete Time: 10:56 pm1 04/22 09:44 Order name: Lactate; Complete Time: 11:17 pm1 04/22 09:44 Order name: Basic Metabolic Panel; Complete Time: 11:17 EDMS 04/22 09:45 Order name: CBC with Automated Diff; Complete Time: 11:08 EDMS 04/22 09:45 Order name: Liver (Hepatic) Function; Complete Time: 11:17 EDMS 04/22 09:45 Order name: Magnesium; Complete Time: 11:17 EDMS 04/22 09:45 Order name: NT PRO-BNP; Complete Time: 11:17 EDMS 04/22 09:45 Order name: Protime (+INR); Complete Time: 10:39 EDMS 04/22 09:51 Order name: D-Dimer; Complete Time: 10:44 pm1 04/22 09:51 Order name: Ptt, Activated; Complete Time: 10:44 pm04/22 09:51 Order name: Strep; Complete Time: 11:17 pm04/22 09:52 Order name: Blood Culture EDMS 04/22 09:54 Order name: ABG pm04/22 09:54 Order name: ABG Arterial Blood Gas; Complete Time: 10:36 EDMS 04/22 10:15 Order name: C-Reactive Protein; Complete Time: 11:17 EDMS 04/22 10:15 Order name: Lipase; Complete Time: 11:17 EDMS 04/22 10:15 Order name: Ferritin; Complete Time: 11:17 EDMS 04/22 09:44 Order name: XRAY Chest (1 view); Complete Time: 10:44 pm1 04/22 09:44 Order name: BIPAP pm1 04/22 10:29 Order name: AMMONIA; Complete Time: 11:27 pm1 04/22 10:33 Order name: Manual Differential; Complete Time: 11:08 EDMS 04/22 11:08 Order name: Add On-Lab pm1 04/22 11:10 Order name: Urine Dipstick--Ancillary (enter results); Complete Time: 11:30 bd 04/22 11:10 Order name: Alcohol Serum/Plasma; Complete Time: 11:25 EDMS 04/22 11:17 Order name: Throat Culture EDMS 04/22 12:01 Order name: COVID-19/FLU A+B; Complete Time: 12:05 EDMS 04/22 13:53 Order name: Lactate Sepsis 2 HR Follow-up; Complete Time: 14:06 EDMS 04/22 15:31 Order name: Glucose, Ancillary Testing; Complete Time: 15:40 EDMS 04/22 17:21 Order name: Glucose, Ancillary Testing; Complete Time: 17:42 EDMS 04/22 09:44 Order name: EKG; Complete Time: 09:45 pm1 04/22 09:44 Order name: Cardiac monitoring; Complete Time: 10:05 pm1 04/22 09:44 Order name: EKG - Nurse/Tech; Complete Time: 10:17 pm1 04/22 09:44 Order name: IV Saline Lock; Complete Time: 10:05 pm1 04/22 09:44 Order name: Labs collected and sent; Complete Time: 10:06 pm1 04/22 09:44 Order name: O2 Per Protocol; Complete Time: 10:13 pm1 04/22 09:44 Order name: O2 Sat Monitoring; Complete Time: 10:13 pm1 04/22 09:51 Order name: Droplet/Contact Precautions; Complete Time: 10:05 pm1 08 10:32 Order name: Lujan; Complete Time: 11:32 pm1 04/22 10:32 Order name: Urine Dipstick-Ancillary (obtain specimen); Complete Time: 11:32 pm1 04/22 12:45 Order name: Kevin Lamas; Complete Time: 13:05 pm1 Administered Medications: 09:53 CANCELLED (Physician Discretion): NS 0.9% 1000 ml IV at 1000 ml once pm1 09:56 Drug: NS 0.9% (30 ml/kg) 30 ml/kg Route: IV; Rate: bolus; Site: left forearm; tw2 10:30 Follow up: Response: No adverse reaction; No change in condition; No change in tw2 condition, provider notified; IV Status: Completed infusion; IV Intake: 1000ml 09:56 Drug: NS 0.9% (30 ml/kg) 30 ml/kg Route: IV; Rate: bolus; Site: left forearm; tw2 11:10 Drug: Thiamine 100 mg Route: IV; Rate: calculated rate; Site: left forearm; tw2 11:10 Drug: SOLU-Medrol 125 mg Route: IVP; Site: left forearm; tw2 11:58 Follow up: Response: No adverse reaction tw2 11:10 Drug: Albuterol - atroVENT (3:1) (2.5 mg - 0.5 mg) 3 ml Route: Nebulizer; tw2 11:58 Follow up: Response: No adverse reaction tw2 11:14 Drug: foLIC Acid 1 mg Route: IVPB; Site: left forearm; tw2 11:15 Drug: Vitamin K1 10 mg Route: Sub-Q; Site: left upper arm; tw2 11:58 Follow up: Response: No adverse reaction tw2 11:24 Drug: D50W 50 ml Route: IVP; Site: left forearm; tw2 11:58 Follow up: Response: No adverse reaction tw2 11:25 Drug: Zosyn 3.375 grams Route: IVPB; Infused Over: 60 mins; Site: left forearm; tw2 11:45 Drug: Levophed (4 mg/250 mL D5W 4 mcg/min Route: IV; Rate: calculated rate; Site: right tw2 femoral; 12:33 Follow up: Rate change 7 mcg/kg/min tw2 12:44 Follow up: Rate change 9 mcg/kg/min tw2 13:07 Follow up: Rate change 11 mcg/min tw2 13:16 Follow up: Rate change 15 mcg/min tw2 13:21 Follow up: Rate change 17 mcg/min tw2 13:28 Follow up: Rate change 19 mcg/min tw2 13:34 Follow up: Rate change 23 mcg/min tw2 13:40 Follow up: Rate change 25 mcg/min tw2 14:00 Follow up: Rate change 30 mcg/min tw2 14:24 Follow up: Rate change 27 mcg/min tw2 12:07 Drug: Banana Bag - (NS 0.9% 1000 ml, foLIC Acid 1 mg, Thiamine 100 mg, Multivitamin 1 tw2 amp) Route: IV; Rate: calculated rate; Site: right forearm; 13:50 Drug: vancoMYCIN 1 grams Route: IVPB; Infused Over: 2 hrs; Site: right femoral; bp 15:50 Follow up: Response: No adverse reaction; IV Status: Completed infusion; IV Intake: tw2 250ml 14:44 Drug: Real-Synephrine 100 mcg/min Route: IV; Rate: calculated rate; Site: right femoral; tw2 15:03 Follow up: Rate change 3 mcg/min tw2 15:18 Follow up: Rate change 6 mcg/kg/min tw2 15:38 Follow up: Rate change 150 mcg/min tw2 14:44 Drug: Albumin 25 grams Volume: 100 ml; Route: IVPB; Site: left forearm; tw2 15:18 Follow up: Response: No adverse reaction; IV Status: Completed infusion; IV Intake: tw2 100ml 15:29 CANCELLED (Duplicate Order): D10 in Water [4ml/kg] 1000 ml IVP once; 75 mL/hr pm1 15:30 Drug: D10 in Water [4ml/kg] 500 ml Route: IVP; Site: left forearm; tw2 15:55 Drug: Solu-CORTEF 100 mg Route: IVP; Site: left forearm; tw2 16:10 Follow up: Response: No adverse reaction tw2 16:05 Drug: D50W 25 ml Route: IVP; Site: left forearm; tw2 16:29 Drug: Epinephrine Drip - (EPINEPHrine (PF) 4 mg, Sodium Chloride 0.9% 250 ml) Route: tw2 IV; Rate: calculated rate; Site: right femoral; 16:43 Follow up: Rate change 10 mcg/min tw2 Disposition: 19:49 Co-signature as Attending Physician, Ney Meier MD I agree with the assessment and charu plan of care. Disposition: Patient pronounced on 04/22/20 17:30 by Ney Meier. Impression: Severe sepsis with septic shock, Hepatic failure, unspecified, Hypotension, Acute respiratory failure with hypoxia, Abnormal results of liver function studies, Coronavirus infection, unspecified. - Released to Home. Signatures: Dispatcher [employer] EDMS Ney Meier MD MD cha Marinas, Patrick, RECOVERY AGENT RECOVERY AGENT pm1 Seda Metz RN RN tw2 Lexi Montiel RN RN Rakan Hackett RN RN bp Corrections: (The following items were deleted from the chart) 09:53 09:46 NS 0.9% 1000 ml IV at 1000 ml once ordered. pm1 pm1 10:14 09:52 C-REACTIVE PROTEIN+C.LAB.BRZ ordered. EDMS EDMS 10:14 09:52 FERRITIN+C.LAB.BRZ ordered. EDMS EDMS 10:14 09:52 LIPASE+C.LAB.BRZ ordered. EDMS EDMS 11:02 09:52 BLOOD CULTURE*+BA.LAB.BRZ ordered. EDMS EDMS 11:02 09:52 Influenza Screen (A \T\ B)+BA.LAB.BRZ ordered. EDMS EDMS 15:29 15:25 D10 in Water [4ml/kg] 1000 ml IVP once; 75 mL/hr ordered. pm1 pm1 17:46 11:49 04/22/2020 11:49 Transfer ordered to [facility]. pm1 Diagnosis is Chronic obstructive pulmonary disease with (acute) exacerbation; Hypoxia; Hypoglycemia, unspecified; Abnormal results of liver function studies; Hypotension; Hepatic failure, unspecified. Reason for transfer: Higher level of care. Accepting physician is [facility]. Condition is Fair. Problem is new. Symptoms have improved. pm1 17:50 17:49 04/22/2020 17:49 Patient pronounced on 04/22/2020 at 17:30 by Ney Meier. pm1 Impression: Severe sepsis with septic shock; Hepatic failure, unspecified; Hypotension; Acute respiratory failure with hypoxia; Abnormal results of liver function studies. Released to Home. pm1 19:31 10:39 Abdomen Pelvis W Con+CT.RAD.BRZ ordered. EDMS EDMS 19:32 09:46 Chest For PE Angio+CT.RAD.BRZ ordered. EDMS EDMS 19:38 17:50 04/22/2020 17:49 Patient pronounced on 04/22/2020 at 17:30 by Ney Meier. wh Impression: Severe sepsis with septic shock; Hepatic failure, unspecified; Hypotension; Acute respiratory failure with hypoxia; Abnormal results of liver function studies; Coronavirus infection, unspecified. Released to Home. pm1
--- NOTE | 2020-04-22 11:49 | ER ---
Nurse's Notes [facility] Name: Isabelle Lowery Age: 59 yrs Sex: Female : 1960 Arrival Date: 04/22/2020 Time: 09:32 Bed 3 Private MD: Diagnosis: Severe sepsis with septic shock;Hepatic failure, unspecified;Hypotension;Acute respiratory failure with hypoxia;Abnormal results of liver function studies;Coronavirus infection, unspecified Presentation: 04/22 09:44 Chief complaint: EMS states: SOB x 2 days. SpO2 70% on RA, 80 on NRB, SBP60. hb 09:46 Acuity: AUGUSTIN 1 hb 17:13 Compressions began at 17:13. tw2 Historical: - Allergies: 10:04 No Known Allergies; tw2 - PMHx: 10:04 Bipolar disorder; hypotension; Depression; ETOH absue; Schizophrenia; tw2 - PSHx: 10:04 Cholecystectomy; ; tw2 Screenin:21 Abuse screen: Denies threats or abuse. Nutritional screening: No deficits noted. tw2 Tuberculosis screening: No symptoms or risk factors identified. Fall Risk Secondary diagnosis (15 points) impaired mobility. Assessment: 09:55 General: Appears ill, slender, Behavior is drowsy, listless. Pain: Denies pain. Neuro: tw2 Level of Consciousness is obeys commands, lethargic. Cardiovascular: Rhythm is regular. 09:58 Respiratory: Airway is patent Respiratory effort is weak, Patient placed on BiPAP: tw2 Inspiratory Pressure: 14 Expiratory (EPAP) Pressure: 10 FiO2%: 70 Breath sounds are diminished bilaterally. GI: Abdomen is flat. : No signs and/or symptoms were reported regarding the genitourinary system. EENT: No signs and/or symptoms were reported regarding the EENT system. Derm: Skin is fragile, is thin, with poor turgor has skin tears on multiple skin tears noted to b/l arms, multiple bruising noted in various stages of healing to b/l arms Skin is dry. Musculoskeletal: Range of motion: intact in all extremities. 10:27 Reassessment: provider and Dr. Meier at bedside at this time. tw2 11:00 Reassessment: No changes from previously documented assessment. Patient and/or family tw2 updated on plan of care and expected duration. Pain level reassessed. 12:00 Reassessment: No changes from previously documented assessment. tw2 13:00 Reassessment: No changes from previously documented assessment. Patient and/or family tw2 updated on plan of care and expected duration. Pain level reassessed. 14:00 Reassessment: No changes from previously documented assessment. Patient and/or family tw2 updated on plan of care and expected duration. Pain level reassessed. 14:20 Reassessment: rate change to 25 mcg/min of Levophed, provider notified, order faxed to [facility] for Real-Synephrine, call to pharmacist at this time. 14:51 Reassessment: No changes from previously documented assessment. Patient and/or family tw2 updated on plan of care and expected duration. Pain level reassessed. Patient is alert, oriented x 3, equal unlabored respirations, skin warm/dry/pink. pt states "its hot", pt explained of need for bear hugger at this time for core body temperature. pt agreeable, pt states "i want this mask off", provider To Zarate HOTEL FRONT OFFICE MANAGER at bedside at this time, explaining poc, pt agreeable to bipap, pt states "i dont want to be intubated". 15:30 Reassessment: providers GRANT Saldaña and To Zarate NP at bedside at this time, adjusting tw2 medication dosages at this time, pt alert and oriented. 16:29 Reassessment: epi available from pharmacy at this time. tw2 16:34 Reassessment: Patient and/or family updated on plan of care and expected duration. Pain tw2 level reassessed. provider at bedside at this time, pt becoming increasingly agitated at this time, restless, moving extremities. 17:13 Reassessment: Epi given at this time per Gio Lee PA. tw2 17:13 Reassessment: noted pt hr dropping rapidly on monitor, providers notified and at [facility] bedside at this time. CPR started at this time. 17:13 Reassessment: CPR begins. tw2 17:13 CPR assessment: unresponsive. Cardiac rhythm is PEA. tw2 17:15 Reassessment: amp bicarb given at this time per CPR protocol, Gio Lee PA at bedside. tw2 17:18 Reassessment: Epi given at this time per CPR protocol. tw2 17:21 Reassessment: pulse check at this time, PEA noted, CPR continued. tw2 17:23 Reassessment: provider GRANT Harvey at bedside with US machine at this time, PEA on tw2 monitor, pts spouse and provider To Juarez NP at bedside at this time to withdrawal CPR care at this time. 17:30 Reassessment: Time of per provider GRANT Harvey at bedside, pts spouse at tw2 bedside at this time. 19:36 General: body taken by the personnel ( Low). form signed and verified. . mg2 Vital Signs: 09:44 BP 40 / 30; Pulse 105; Resp 26; Temp 96.7(TE); Pulse Ox 74% on 100% Nebulizer Mask; hb 10:05 Weight 45.36 kg (R); tw2 10:08 BP 79 / 56; Pulse 98; Resp 28; Pulse Ox 96% on BiPAP; tw2 10:13 BP 64 / 49; Pulse 99; Resp 27; Pulse Ox 98% on BiPAP; tw2 10:20 BP 70 / 59; Pulse 99; Resp 28; Pulse Ox 100% on 70% BiPAP; tw2 10:30 BP 68 / 55; Pulse 94; Resp 22; Pulse Ox 95% on BiPAP; tw2 10:40 BP 67 / 50; Pulse 94; Resp 22; Pulse Ox 95% on BiPAP; tw2 11:45 BP 52 / 38; Pulse 95; Resp 19; Pulse Ox 95% on BiPAP; tw2 11:50 BP 56 / 43; Pulse 93; Resp 23; Pulse Ox 95% on BiPAP; tw2 11:55 BP 71 / 44; Pulse 96; Resp 23; Pulse Ox 95% on BiPAP; tw2 12:00 BP 55 / 27; Pulse 99; Resp 22; Pulse Ox 100% on BiPAP; tw2 12:05 BP 51 / 21; Pulse 96; Resp 19; Pulse Ox 96% on BiPAP; tw2 12:10 BP 64 / 48; Pulse 92; Resp 24; Pulse Ox 100% on BiPAP; tw2 12:15 BP 56 / 48; Pulse 78; tw2 12:30 BP 59 / 49; Pulse 92; Resp 23; Pulse Ox 98% on BiPAP; tw2 12:35 BP 60 / 50; Pulse 94; Resp 22; Pulse Ox 100% on BiPAP; tw2 12:40 BP 58 / 47; Pulse 88; Resp 22; Pulse Ox 96% on BiPAP; tw2 12:44 BP 64 / 43; Pulse 94; Resp 18; Temp 91.5(C); Pulse Ox 100% on BiPAP; tw2 12:55 BP 66 / 49; Pulse 90; Resp 21; Temp 91.5(C); Pulse Ox 98% on BiPAP; tw2 13:05 BP 64 / 54; Pulse 95; Resp 21; Temp 91.6(C); Pulse Ox 100% on BiPAP; tw2 13:14 BP 61 / 43; Pulse 94; Resp 22; Temp 91.6(C); Pulse Ox 95% on BiPAP; tw2 13:20 BP 61 / 52; Pulse 96; Resp 22; Temp 91.8(C); Pulse Ox 100% on BiPAP; tw2 13:25 BP 64 / 49; Pulse 98; Resp 21; Temp 91.9(C); Pulse Ox 100% on BiPAP; tw2 13:30 BP 60 / 38; Pulse 97; Resp 22; Temp 92.3(C); Pulse Ox 100% ; tw2 13:40 BP 122 / 95; Pulse 101; Resp 22; Temp 92.3(C); tw2 13:44 BP 66 / 52; Pulse 99; Resp 33; Temp 92.4(C); Pulse Ox 96% on BiPAP; tw2 14:00 BP 73 / 61; Pulse 102; Resp 20; Temp 93.4(C); Pulse Ox 100% on BiPAP; tw2 14:10 BP 69 / 52; Pulse 101; Resp 22; Pulse Ox 96% on BiPAP; tw2 14:20 BP 63 / 45; Pulse 99; tw2 14:25 BP 70 / 51; Pulse 95; Resp 20; Temp 93.7(C); Pulse Ox 98% on BiPAP; tw2 14:30 BP 69 / 52; Pulse 101; Resp 22; Temp 93.5(C); Pulse Ox 100% on BiPAP; tw2 14:35 BP 63 / 53; Pulse 96; Resp 22; Temp 93.9(C); Pulse Ox 99% on BiPAP; tw2 14:40 BP 67 / 51; Pulse 103; Resp 20; Temp 94.3(C); Pulse Ox 100% on BiPAP; tw2 14:45 BP 71 / 54; Pulse 103; Resp 20; Temp 94.4(C); Pulse Ox 99% on BiPAP; tw2 14:50 BP 75 / 56; Pulse 104; Resp 22; Temp 94.6(C); Pulse Ox 96% on BiPAP; tw2 14:55 BP 76 / 55; Pulse 104; Resp 22; Temp 94.7(C); Pulse Ox 96% on BiPAP; tw2 15:00 BP 68 / 22; Pulse 92; Resp 13; Temp 94.8(C); Pulse Ox 96% on BiPAP; tw2 15:05 BP 67 / 54; Pulse 104; Resp 22; Temp 94.9(C); Pulse Ox 96% on BiPAP; tw2 15:15 BP 67 / 36; Pulse 105; Resp 22; Temp 95.1(C); Pulse Ox 96% on BiPAP; tw2 15:30 BP 55 / 45; Pulse 92; Resp 19; tw2 15:40 BP 58 / 35; Pulse 100; Resp 26; Temp 95.6(C); Pulse Ox 99% on BiPAP; tw2 15:45 BP 73 / 61; Pulse 98; Resp 22; Temp 95.7(C); Pulse Ox 99% on BiPAP; mh5 16:00 BP 57 / 39; Pulse 99; Resp 20; Pulse Ox 99% on BiPAP; mh5 16:15 BP 58 / 49; Pulse 99; Resp 22; Pulse Ox 99% on BiPAP; mh5 16:30 BP 32 / 23; Pulse 94; Resp 22; Pulse Ox 99% on BiPAP; mh5 16:45 BP 50 / 39; Pulse 95; Resp 26; Pulse Ox 97% on BiPAP; mh5 16:48 BP 47 / 23 RA; Pulse 94; Resp 26; Temp 96.1(C); Pulse Ox 98% on BiPAP; mh5 17:00 BP 39 / 20; Pulse 92; Resp 23; Pulse Ox 97% on BiPAP; mh5 17:15 BP 57 / 33; Pulse 90; Resp 19; Pulse Ox 97% on BiPAP; mh5 10:08 provider at bedside at this time. tw2 10:20 provider at bedside, 28/11 tw2 10:30 provider notified of need for central line, iv fluids administered. tw2 11:45 provider at bedside for central line at this time tw2 12:15 provider notified tw2 12:30 provider notified. tw2 12:44 provider notified, binta lamas applied tw2 15:05 provider at bedside at this time tw2 15:30 providers Gio Lee PA and To Zarate NP at bedside at this time tw2 ED Course: 09:32 Patient arrived in ED. ss 09:32 Cris Page, KELTON is Primary Nurse. hb 09:40 To Juarez NP is PHCP. pm1 09:40 Ney Meier MD is Attending Physician. pm1 09:46 Triage completed. hb 09:55 Inserted saline lock: 20 gauge in left forearm, using aseptic technique. Blood tw2 collected. 09:55 Oxygen administration via non-rebreather mask pending bipap by RT at this time Response tw2 to oxygen therapy: provider at bedside. 09:55 Bed in low position. Call light in reach. Side rails up X2. quality assurance monitor body on. Pulse tw2 ox on. NIBP on. 10:04 Primary Nurse role handed off by Cris Page RN tw2 10:04 Seda Metz, KELTON is Primary Nurse. tw2 10:19 XRAY Chest (1 view) In Process Unspecified. EDMS 10:20 X-ray completed. Portable x-ray completed in exam room. Patient tolerated procedure sw well. 10:52 Lujan cath inserted, using sterile technique, 18 Fr., by sc, balloon inflated, to tw2 gravity drainage, urine specimen collected. other Bianca, [place] served as change attendant returned robert urine. Patient tolerated well. 11:40 Assisted provider with central line placement. Set up central line tray. Triple lumen tw2 line placed in right Line placed by Ney Meier MD Placement verified by blood return, Dressed with Tegaderm, Blood was collected. Patient tolerated well. Before procedure, did Practitioner(s) obtain informed consent? Yes. Patient \\T\\ family education about procedure, CLABSI prevention and S/S of infection? Yes. Time-out/Briefing performed prior to start of procedure? Yes. Was handwashing/sanitizing done immediately prior to procedure? Yes. Was patient positioned to in a way to prevent air embolism? Yes. Was procedure site sterilized? Yes, with chlorhexidine. Was the site allowed to dry? Yes. Was local anesthetic and/or sedation utilized? Yes. During the procedure, did the Practitioner(s) maintain a sterile field? Yes. Were unused ports clamped during insertion? Yes. Was blood aspirated from each lumen? Yes. After the procedure, did the Practitioner(s) clean the site and apply a sterile dressing? Yes. 12:41 initiated transfer to [facility]. bd 12:46 SUHA Lin called from [facility], stated that the hospitalist was with a bd pt and will call back alie. 17:04 initiated transfer to [facility]. bd 17:39 transfer to [facility] cancelled cy dr meier. bd 17:43 transfer to [facility] cancelled by dr meier. bd 17:47 To Juarez NP is Pronouncing Provider. pm1 17:47 Pronouncing Provider role handed off by To Juarez NP pm1 17:47 Ney Meier MD is Pronouncing Provider. pm1 18:[address] [place] to have tribal judge director of donor relations come to er. bd 19:10 Primary Nurse role handed off by Seda Metz RN mw2 Administered Medications: 09:53 CANCELLED (Physician Discretion): NS 0.9% 1000 ml IV at 1000 ml once pm1 09:56 Drug: NS 0.9% (30 ml/kg) 30 ml/kg Route: IV; Rate: bolus; Site: left forearm; tw2 10:30 Follow up: Response: No adverse reaction; No change in condition; No change in tw2 condition, provider notified; IV Status: Completed infusion; IV Intake: 1000ml 09:56 Drug: NS 0.9% (30 ml/kg) 30 ml/kg Route: IV; Rate: bolus; Site: left forearm; tw2 11:10 Drug: Thiamine 100 mg Route: IV; Rate: calculated rate; Site: left forearm; tw2 11:10 Drug: SOLU-Medrol 125 mg Route: IVP; Site: left forearm; tw2 11:58 Follow up: Response: No adverse reaction tw2 11:10 Drug: Albuterol - atroVENT (3:1) (2.5 mg - 0.5 mg) 3 ml Route: Nebulizer; tw2 11:58 Follow up: Response: No adverse reaction tw2 11:14 Drug: foLIC Acid 1 mg Route: IVPB; Site: left forearm; tw2 11:15 Drug: Vitamin K1 10 mg Route: Sub-Q; Site: left upper arm; tw2 11:58 Follow up: Response: No adverse reaction tw2 11:24 Drug: D50W 50 ml Route: IVP; Site: left forearm; tw2 11:58 Follow up: Response: No adverse reaction tw2 11:25 Drug: Zosyn 3.375 grams Route: IVPB; Infused Over: 60 mins; Site: left forearm; tw2 11:45 Drug: Levophed (4 mg/250 mL D5W 4 mcg/min Route: IV; Rate: calculated rate; Site: right tw2 femoral; 12:33 Follow up: Rate change 7 mcg/kg/min tw2 12:44 Follow up: Rate change 9 mcg/kg/min tw2 13:07 Follow up: Rate change 11 mcg/min tw2 13:16 Follow up: Rate change 15 mcg/min tw2 13:21 Follow up: Rate change 17 mcg/min tw2 13:28 Follow up: Rate change 19 mcg/min tw2 13:34 Follow up: Rate change 23 mcg/min tw2 13:40 Follow up: Rate change 25 mcg/min tw2 14:00 Follow up: Rate change 30 mcg/min tw2 14:24 Follow up: Rate change 27 mcg/min tw2 12:07 Drug: Banana Bag - (NS 0.9% 1000 ml, foLIC Acid 1 mg, Thiamine 100 mg, Multivitamin 1 tw2 amp) Route: IV; Rate: calculated rate; Site: right forearm; 13:50 Drug: vancoMYCIN 1 grams Route: IVPB; Infused Over: 2 hrs; Site: right femoral; bp 15:50 Follow up: Response: No adverse reaction; IV Status: Completed infusion; IV Intake: tw2 250ml 14:44 Drug: Real-Synephrine 100 mcg/min Route: IV; Rate: calculated rate; Site: right femoral; tw2 15:03 Follow up: Rate change 3 mcg/min tw2 15:18 Follow up: Rate change 6 mcg/kg/min tw2 15:38 Follow up: Rate change 150 mcg/min tw2 14:44 Drug: Albumin 25 grams Volume: 100 ml; Route: IVPB; Site: left forearm; tw2 15:18 Follow up: Response: No adverse reaction; IV Status: Completed infusion; IV Intake: tw2 100ml 15:29 CANCELLED (Duplicate Order): D10 in Water [4ml/kg] 1000 ml IVP once; 75 mL/hr pm1 15:30 Drug: D10 in Water [4ml/kg] 500 ml Route: IVP; Site: left forearm; tw2 15:55 Drug: Solu-CORTEF 100 mg Route: IVP; Site: left forearm; tw2 16:10 Follow up: Response: No adverse reaction tw2 16:05 Drug: D50W 25 ml Route: IVP; Site: left forearm; tw2 16:29 Drug: Epinephrine Drip - (EPINEPHrine (PF) 4 mg, Sodium Chloride 0.9% 250 ml) Route: tw2 IV; Rate: calculated rate; Site: right femoral; 16:43 Follow up: Rate change 10 mcg/min tw2 Intake: 10:30 IV: 1000ml; Total: 1000ml. tw2 15:18 IV: 100ml; Total: 1100ml. tw2 15:50 IV: 250ml; Total: 1350ml. tw2 Outcome: 11:49 ER care complete, transfer ordered by . pm1 17:30 Patient : Time of 17:30 Pronounced by Jesus BURNS tw2 17:30 Condition: 19:38 Patient left the ED. Signatures: Dispatcher [employer] EDMS Priscilla Amato Shelby, RN RN She Deleon Patrick, DEMARCUS H[employer]EL FRONT OFFICE MANAGER pm1 Cris Page RN RN hb Wise, Tara, RN RN 2 Mary Jimenez [facility] Lexi Montiel RN RN Rakan Hackett RN RN bp Shawna Talley 2 Kareem Aguayo RN RN mg2 Corrections: (The following items were deleted from the chart) 11:57 11:45 BP 52 / 38; Pulse 95bpm; Resp 19bpm; Pulse Ox 95% BiPAP; tw2 tw2 12:09 11:55 BP 113 / 95; Pulse 96bpm; Resp 23bpm; Pulse Ox 95% BiPAP; tw2 tw2 12:09 12:00 BP 129 / 82; Pulse 99bpm; Resp 22bpm; Pulse Ox 100% BiPAP; tw2 tw2 12:57 12:44 BP 64 / 43; Pulse 94bpm; Resp 18bpm; Pulse Ox 100% BiPAP; Temp 91.5F Catheter; tw2 provider notified; tw2 17:34 17:15 Reassessment: noted pt hr dropping rapidly on monitor, providers notified and at tw2 bedside at this time. 17:15 Reassessment: 1 am bicarb given at this time per CPR protocol, Gio Lee PA at tw2 bedside tw2 17:34 17:13 Reassessment: 1 Epi given at this time per Gio Lee PA tw2 2 17:35 17:15 Reassessment: CPR begins tw2 tw2
[2020-04-22] MEDS ORDERED: NOREPINEPHRINE 4mg/D5W 250mL 4 MG/250 ML BAG IV ONE ×2 (11:59→15:42)
[2020-04-22] MEDS ORDERED: NA CHLORIDE 0.9% 1,000 ML with THIAMINE HCL 100 MG, FOLIC ACID 1 MG, MULTIVITAMINS INJ ... IV SCH ×6 (12:00)
[2020-04-22 12:01] LABS: SARS-COV-2 RT PCR POSITIVE (NEGATIVE)
[2020-04-22] MEDS ORDERED: VANCOMYCIN/NS 1 gm 1 GM/250 ML BAG IVPB ONE (14:00)
[2020-04-22] MEDS ORDERED: ALBUMIN HUMAN 25% 100 ML IV ONE (15:00)
[2020-04-22] MEDS ORDERED: NOREPINEPHRINE 8 MG in Dextrose 5%-Water 500 ML IV PRN (15:16)
[2020-04-22] MEDS ORDERED: NOREPINEPHRINE 4 MG/4 ML VIAL ONE (15:38)
[2020-04-22] MEDS ORDERED: DEXTROSE 10%-WATER 500 ML IV ONE (15:38)
[2020-04-22] MEDS ORDERED: HYDROCORTISONE SUC 100 MG INJ ONE (16:08)
[2020-04-22] MEDS ORDERED: WATER FOR INJ,STERILE 10 ML ONE (16:09)
[2020-04-22] MEDS ORDERED: EPINEPHrine 4 MG in NA CHLORIDE 0.9% 250 ML IV PRN (16:10)
[2020-04-22] MEDS ORDERED: D50W 50 ML IV ONE (16:17)
[2020-04-22 20:42] VITALS: TEMP 96.1
[2020-04-22 20:43] VITALS: O2SAT 97
[2020-04-22 20:44] VITALS: BP 57/33
--- NOTE | 2020-04-24 05:07 | EKG ---
Test Date: 2020-04-22 Test Time: 10:20:24 First Assist: MARVEL MEASUREMENT RESULTS: Intervals: Rate: 97 KS: 80 QRSD: 62 QT: 316 QTc: 401 [place]: P: -3 KS: 80 QRS: 68 T: 64 INTERPRETIVE STATEMENTS: Sinus rhythm with short KS Low voltage QRS Nonspecific T wave abnormality Abnormal ECG Compared to ECG 04/09/2020 15:58:11 T-wave abnormality now present ST (T wave) deviation no longer present Prolonged QT interval no longer present Electronically Signed On 04-24-20 05:03:59 WINDOWS SOFTWARE DEVELOPER by Gómez Cid
== END 2020-04-22 19:38 | disposition expired ==
LOC: ER 09:29
PROC: 5A12012 Performance of Cardiac Output, Single, Manual (ICD-10-PCS; principal; 2020-04-22)
PROC: 06HM33Z Insertion of Infusion Device into Right Femoral Vein, Percutaneous Approach (ICD-10-PCS; 2020-04-22)
DX: A41.89 Other specified sepsis (principal); U07.1 COVID-19; R65.21 Severe sepsis with septic shock; K72.00 Acute and subacute hepatic failure without coma; I95.9 Hypotension, unspecified; R94.5 Abnormal results of liver function studies
CPT/HCPCS: 93005; 87040 ×2; 87070; 85025; 80048; 36415; 80320; 82140; 83735; 87205 ×4; 85610; 82947 ×2; 85379; 80076; 87081; 83605 ×2; 85730; 87077 ×2; 87186 ×2; 81003; 84484; 82728; 83690; 84145; 83880; 0240U; 86140; 71045; 82805; 94660; 51702; 96372; 92950; 99291; 99292; 36556; J3411 ×2; J3430; J3475; J2543; J2370; J0171 ×2; P9047; J3370; J7060 ×2; J7799; J7050; J7030 ×2; J2930; J1720